=== PATIENT | male | born 1975 | race Caucasian/White ===

== ENCOUNTER 2023-03-18 19:49 | Emergency (ER) | payer OTHER, SELFPAY ==
[2023-03-18 19:52] VITALS: BP 133/79; PULSE 64; RESP 16; TEMP 36.9; O2SAT 97
--- NOTE | 2023-03-18 20:12 | CRLHL7_ITS ---
For Patients: As a result of the Century Cures Act, medical imaging exams and procedure reports are released immediately into your electronic medical record. You may view this report before your referring provider. If you have questions, please contact your health care provider. Indication: Injury of left ankle. Technique: Left ankle 3 views. Comparison: None. Findings: Bones: Alignment is normal. No fractures or bone lesions. Joint spaces: Unremarkable. Soft tissues: Unremarkable. Impression: No sign of acute injury. Dictated by Juan C Sandhu MD @ 03/18/2023 9:37:02 PM (Electronically Signed)
--- NOTE | 2023-03-18 20:14 | ED_ITS ---
HPI - Extremity Injury (Lower) General Chief Complaint: Extremity Pain/Injury, Lower Stated Complaint: Ankle rolled stepping out of truck Time Seen by Provider: 03/18/23 20:09 History of Present Illness HPI Narrative: This 47-year-old male comes in with an injury to his left ankle. He states that he was stepping out of his truck and he twisted his left ankle. He has some pain and swelling on the lateral aspect of his left ankle. He does not report any other injury. Related Data Home Medications Medication Instructions Recorded Confirmed atorvastatin 40 mg tablet 40 mg PO DAILY 03/18/23 03/18/23 citalopram 20 mg tablet 60 mg PO DAILY 03/18/23 03/18/23 fenofibrate nanocrystallized 48 mg 48 mg PO DAILY 03/18/23 03/18/23 tablet lisinopril 20 mg tablet 20 mg PO DAILY 03/18/23 03/18/23 metformin 500 mg tablet 500 mg PO BID 03/18/23 03/18/23 pioglitazone 30 mg tablet 30 mg PO DAILY 03/18/23 03/18/23 tamsulosin 0.4 mg capsule 0.4 mg PO DAILY 03/18/23 03/18/23 Allergies Allergy/AdvReac Type Severity Reaction Status Date / Time coconut Allergy Mild Anaphylaxis Verified 03/18/23 19:59 Review of Systems Status of ROS: Reports: 10 or more systems reviewed and unremarkable except as noted in History and below Narrative: Constitutional: No fevers, no weight gain or loss. Eyes: No discharge. No vision changes. HENT: No congestion, no sore throat, no ear pain. Cardiovascular: No chest pain, no palpitations. Respiratory: No shortness of breath, no wheezes, no cough. Gastrointestinal: No abdominal pain, no vomiting, no diarrhea. Genitourinary: No dysuria, no hematuria. Musculoskeletal: Left ankle injury with pain and swelling on the lateral aspect. Skin: No rashes, no pruritis. Neurological: No dizziness, weakness, sensory change, speech change. Endo/Heme/Allergies: No bruising or bleeding. No polydipsia. Pysch: no suicidality, no anxiety, no insomnia. All other systems reviewed and are negative. PFSH PFSH Social History Smoking Status: Never smoker Do you use any of these nicotine containing products: None Second hand tobacco smoke exposure: No How often do you have a drink containing alcohol: 2-4 times a month AUDIT-C Alcohol total score: 2 Non-prescribed substance use: denies use Exam Narrative: Exam Narrative: Constitutional: Well-developed, well-nourished, no acute distress. HEENT: Normocephalic, atraumatic. Neck: Normal range of motion. Nontender. Supple. Heart: Regular. No murmurs. Normal rate. Intact distal pulses. Lungs: Clear to auscultation. No chest discomfort. No wheezes, rhonchi, or rales. Abdomen: Normal bowel sounds. Nontender. No rebound tenderness. Genitalia: Deferred. Back: No midline tenderness. Normal range of motion. Extremities: Left ankle injury with no sign of effusion or ligament instability. There is some mild swelling over the lateral malleolus with tenderness overlying the anterior talofibular ligament. Skin: Intact. No rash. Warm. No erythema or pallor. Neurologic: No altered sensation. No weakness. Alert and oriented. Psychiatric: No suicidality. No anxiety or depression. No insomnia. Nursing notes and vitals signs are reviewed. Const: Vital Signs, click to edit/add: Vital Signs - 24 hr 03/18/23 19:52 Temperature 98.4 F Pulse Rate [Pulse Oximeter] 64 Respiratory Rate 16 Blood Pressure [Ri ght Upper Arm] 133/79 Pulse Oximetry 97 Oxygen Delivery Me thod Room Air Course Vital Signs Vital signs: Initial Vital Signs Temperature 98.4 F 03/18/23 19:52 Temperature Source Temporal Artery Scan 03/18/23 19:52 Pulse Rate 64 03/18/23 19:52 Respiratory Rate 16 03/18/23 19:52 Blood Pressure 133/79 03/18/23 19:52 Blood Pressure Mean 97 03/18/23 19:52 Blood Pressure Position Sitting 03/18/23 19:52 Pulse Oximetry 97 03/18/23 19:52 Oxygen Delivery Method Room Air 03/18/23 19:52 Vital Signs Temperature 98.4 F 03/18/23 19:52 Pulse Rate 64 03/18/23 19:52 Respiratory Rate 16 03/18/23 19:52 Blood Pressure 133/79 03/18/23 19:52 Pulse Oximetry 97 03/18/23 19:52 Oxygen Delivery Method Room Air 03/18/23 19:52 Temperature 98.4 F 03/18/23 19:52 Pulse Rate 64 03/18/23 19:52 Respiratory Rate 16 03/18/23 19:52 Blood Pressure 133/79 03/18/23 19:52 Pulse Oximetry 97 03/18/23 19:52 Oxygen Delivery Method Room Air 03/18/23 19:52 MDM - Extremity Injury (Lower) MDM Narrative Medical decision making narrative: This patient comes in with an injury to his left ankle. X-ray images by my review with radiology report pending show no evidence of fracture or dislocation. The patient received an [place] wrap and was offered crutches to increase ambulating as tolerated. He states that he has crutches at home that he can use as needed. He received a prescription for Toradol. Discharge Plan Discharge Clinical Impression: Ankle sprain and strain Patient Disposition: Home, Self-Care Additional Instructions: Use medication as needed and directed. Use crutches as needed for ambulating. Increase activity as tolerated. Follow up with MD return if worsening. Prescriptions: No Action atorvastatin 40 mg tablet 40 mg PO DAILY citalopram 20 mg tablet 60 mg PO DAILY fenofibrate nanocrystallized 48 mg tablet 48 mg PO DAILY metformin 500 mg tablet 500 mg PO BID lisinopril 20 mg tablet 20 mg PO DAILY tamsulosin 0.4 mg capsule 0.4 mg PO DAILY pioglitazone 30 mg tablet 30 mg PO DAILY Stand Alone Forms: [employer] Info Instructions
[2023-03-18] MEDS: KETOROLAC 10 MG TABLET PO (21:36)
--- NOTE | 2023-03-18 21:40 | ED.NURSE ---
[facility] machine not working. [facility] phoned. Pt received night dose of Tordal here in ER and MD writing rx script for pt to slat pickler at pharmacy tomorrow morning.
== END 2023-03-18 21:25 | disposition home or self-care (01) ==
LOC: ED 21:07
PROVIDERS: Emergency Provider Emergency Medicine Emergency Medical Services
DX: S93.402A Sprain of unspecified ligament of left ankle, initial encounter (principal); X50.1XXA Overexertion from prolonged static or awkward postures, initial encounter
CPT/HCPCS: 73610; 99283; 99284; A9270

== ENCOUNTER 2024-05-03 22:10 | Emergency (ER) | payer BC, SELFPAY ==
[2024-05-03 22:20] VITALS: BP 123/79; PULSE 82; RESP 16; TEMP 36.1; O2SAT 95; BMI 30.6
--- NOTE | 2024-05-03 22:40 | ED_ITS ---
HPI - General Adult General Chief complaint: Nausea/Vomiting Stated complaint: vomiting/diarrhea Time Seen by Provider: 05/03/24 22:35 History of Present Illness HPI narrative: 48-year-old gentleman accompanied to the ER this evening by his son. He has a past medical history of bipolar disorder, dyslipidemia, hypertension, BPH. He has been healthy and well lately. The patient and his family were out for dinner tonight at [employer]. He became sick shortly after dinner. He de veloped abdominal cramps, profound nausea with repetitive episodes of nonbilious, nonbloody emesis. He also developed multiple episodes of watery diarrhea. He is feeling weak and has leg cramps because he is feeling dehydrated. He is not having a fever. No known sick contacts. No other suspicious food intake. No recent antibiotics. No recent travel. His family are not sick. The patient did eat some food at [employer] that his family did not eat, namely, meat loaf and chicken and dumplings. Related Data Home Medications ?Medication ?Instructions ?Recorded ?Confirmed atorvastatin 40 mg tablet 40 mg PO DAILY 03/18/23 03/18/23 citalopram 20 mg tablet 60 mg PO DAILY 03/18/23 03/18/23 fenofibrate nanocrystallized 48 mg 48 mg PO DAILY 03/18/23 03/18/23 tablet lisinopril 20 mg tablet 20 mg PO DAILY 03/18/23 03/18/23 metformin 500 mg tablet 500 mg PO BID 03/18/23 03/18/23 pioglitazone 30 mg tablet 30 mg PO DAILY 03/18/23 03/18/23 tamsulosin 0.4 mg capsule 0.4 mg PO DAILY 03/18/23 03/18/23 Previous Rx's ?Medication ?Instructions ?Recorded ketorolac 10 mg tablet 10 mg PO Q8H 5 days #15 tabs 03/18/23 Allergies Allergy/AdvReac Type Severity Reaction Status Date / Time coconut Allergy Mild Anaphylaxis Verified 03/18/23 19:59 PFSH PFSH Social History Smoking Status: Never smoker Do you use any of these nicotine containing products: None Second hand tobacco smoke exposure: No How often do you have a drink containing alcohol: 2-4 times a month AUDIT-C Alcohol total score: 2 Non-prescribed substance use: denies use Exam Narrative: Exam Narrative: Constitutional: Appears well-developed and well-nourished. Alert. Conversant but uncomfortable. Non toxic. HENT: Head: Atraumatic. Nose: Nose normal. Mouth/Throat: Oral mucosa is clear and moist. Not desiccated or cracked. no trismus. Pharynx normal. Eyes: Conjunctivae normal. EOM normal. Pupils equal, round, and reactive to light. No scleral icterus. Neck: Normal range of motion. Neck supple. No tracheal deviation present. Cardiovascular: Normal rate, regular rhythm. No gallop. No friction rub. No murmur heard. Symmetric radial artery pulses Pulmonary/Chest: Effort normal. No stridor. No respiratory distress. No wheezes. No rales. No rhonchi . No tenderness. Abdominal: Soft. Bowel sounds normal. No distension. No mass. Epigastric tenderness. No rebound. No guarding. Musculoskeletal: RUE: Normal range of motion. No tenderness. No deformity LUE: Normal range of motion. No tenderness. No deformity RLE: Normal range of motion. No edema. No tenderness. No deformity LLE: Normal range of motion. No edema. No tenderness. No deformity Neurological: Alert and oriented to person, place, and time. Normal strength. CN II-VII intact. No sensory deficit. GCS eye subscore is 4. GCS verbal subscore is 5. GCS motor subscore is 6. Normal coordination Skin: Skin is warm and dry. No rash noted. No pallor. Normal capillary refill. Psychiatric: Normal mood. Normal affect. Const: Vital Signs, click to edit/add: Vital Signs - 24 hr 05/03/24 22:20 Temperature 97 F L Pulse Rate [Pulse Oximeter] 82 Respiratory Rate 16 Blood Pressure [Ri ght Upper Arm] 123/79 Pulse Oximetry 95 Oxygen Delivery Me thod Room Air Course Course ED Course: Recheck-has nausea is resolved after Zofran. Having a lot of abdominal cramps and leg cramps. Dilaudid ordered. Reevaluation(s) Reevaluation #1: Recheck-nausea still resolved. Still having some leg cramps but abdomen feeling better. Labs reassuring. Vital Signs Vital signs: Initial Vital Signs Temperature 97 F L 05/03/24 22:20 Temperature Source Temporal Artery Scan 05/03/24 22:20 Pulse Rate 82 05/03/24 22:20 Respiratory Rate 16 05/03/24 22:20 Blood Pressure 123/79 05/03/24 22:20 Blood Pressure Mean 93 05/03/24 22:20 Blood Pressure Position Supine 05/03/24 22:20 Pulse Oximetry 95 05/03/24 22:20 Oxygen Delivery Method Room Air 05/03/24 22:20 Vital Signs Temperature 97 F L 05/03/24 22:20 Pulse Rate 82 05/03/24 22:20 Respiratory Rate 16 05/03/24 22:20 Blood Pressure 123/79 05/03/24 22:20 Pulse Oximetry 95 05/03/24 22:20 Oxygen Delivery Method Room Air 05/03/24 22:20 Temperature 97 F L 05/03/24 22:20 Pulse Rate 82 05/03/24 22:20 Respiratory Rate 16 05/03/24 22:20 Blood Pressure 123/79 05/03/24 22:20 Pulse Oximetry 95 05/03/24 22:20 Oxygen Delivery Method Room Air 05/03/24 22:20 Medications Administered Medications: Generic Name Dose Route Start Last Admin Trade Name Freq PRN Reason Stop Dose Admin Hydromorphone HCl 0.5 mg 05/03/24 23:19 05/03/24 23:21 Hydromorphone 0.5 Mg/0.5 Ml Inj IVP 0.5 mg Q1H PRN Administration Pain Hydromorphone HCl 0.5 mg 05/04/24 00:29 05/04/24 00:33 Hydromorphone 0.5 Mg/0.5 Ml Inj IVP 0.5 mg Q1H PRN Administration Pain Loperamide HCl 4 mg 05/03/24 22:41 05/03/24 22:50 Loperamide Hcl 2 Mg Capsule PO 4 mg ONCE PRN Administration Oral Electrolytes 500 ml 05/03/24 23:44 05/03/24 23:46 Electrolytes/Dextrose Oral Lexis 1,000 Ml PO 500 ml Q8H PRN Administration Discontinued Medications Generic Name Dose Route Start Last Admin Trade Name Freq PRN Reason Stop Dose Admin Ondansetron HCl 4 mg 05/03/24 22:41 05/03/24 22:50 Ondansetron 2 Mg/Ml Inj IVP 05/03/24 22:42 4 mg ONCE ONE Administration Medical Decision Making [facility] Narrative Medical decision making narrative: This patient presents with vomiting and diarrhea that began about 3 hours prior to presentation. The patient's symptoms and exam could be consistent with a viral GI infection. There is no high fever, severe pain, bilious or bloody emesis, blood or mucous in the stool, severe abdominal pain, or other concerning signs for a bacterial infection. No recent travel or high risk exposure for baceraial pathogen. No recent antibiotics or risk factors for C. diff. I don't see any evidence for appendicitis, bowel obstruction, abscess, bowel perforation, or other surgical emergency. Labs show no concerning electrolyte disturbance or renal failure. After meds given the patient is feeling better. At this point, the patient is non-septic appearing and well hydrated. I think the patient can be managed as an outpatient. We have discussed oral rehydration strategies. They understand and can perform the needed interventions at home. I have provided a prescription for antiemetics to facilitate oral hydration (Zofran ODT). Instmeds for norco for leg and abdominal cramps. We have discussed the signs and symptoms of worsening dehydration. They understand the need for immediate reevaluation if any of these symptoms occur. They are also directed to obtain close outpatient follow up within 2-3 days. Lab Data Labs: Lab Results 05/03/24 Range/Units 22:56 WBC 12.15 H (4.50-11.00) K/uL RBC 5.57 (4.30-5.90) m/uL Hgb 15.0 (13.5-17.5) gm/dL Hct 46.5 (37.0-53.0) % MCV 84 (80-100) fL MCH 27 (26-34) pg MCHC 32 (32-36) gm/dL RDW Coeff of Joel 13.1 (11.5-15.5) % Plt Count 234 (140-440) K/uL Neut % (Auto) 78.0 H (42.0-72.0) % Lymph % (Auto) 11.0 L (20-44) % [place] % (Auto) 9.1 (0.0-11.0) % Eos % (Auto) 1.0 (0.0-7.0) % Baso % (Auto) 0.2 (0.0-3.0) % Neut # (Auto) 9.50 H (1.7-7.0) K/uL Lymph # (Auto) 1.30 (0.90-2.90) K/uL [place] # (Auto) 1.10 H (0.00-0.90) K/UL Eos # (Auto) 0.10 (0.00-0.50) K/uL Baso # (Auto) 0.00 (0.00-0.30) K/uL Abs Immat Gran (auto) 0.10 (0.00-0.30) K/uL Imm/Tot Granulo (auto) 0.7 % Sodium 138 (135-149) mmol/L Potassium 4.3 (3.6-5.1) mmol/L Chloride 103 (96-114) mmol/L Carbon Dioxide 21 (20-32) mmol/L Anion Gap 14 (7-15) mEq/L BUN 39 H (5-24) mg/dL Creatinine 1.4 (0.5-1.5) mg/dL Estimated Creat Clear 76.28 Estimated GFR 62 ml/min Glucose 186 H (60-115) mg/dL Lactate 1.3 (0.5-1.9) mmol/L Calcium 10.1 (8.4-10.6) mg/dL Total Bilirubin 0.6 (0.1-1.5) mg/dL AST 24 (12-35) U/L ALT 44 (4-50) U/L Alkaline Phosphatase 44 (40-150) U/L Total Protein 7.6 (6.0-8.3) g/dL Albumin 5.3 H (3.3-5.0) g/dL Lipase 137 (23-300) U/L Discharge Plan Discharge Clinical Impression: Abdominal pain, vomiting, and diarrhea, Acute dehydration Patient Disposition: Home, Self-Care Condition: Stable Instructions: Acute Nausea and Vomiting (ED), Acute Diarrhea (ED), Acute Abdominal Pain (DC) Additional Instructions: As we discussed, so far your workup looks reassuring. We suspect that your symptoms are probably due to a food-borne illness. Typically these illnesses will get better on their own after over a period of time (typically 12-48 hours). Try to drink plenty of fluids and stay hydrated. Use Zofran if needed for nausea. You can use Tylenol or ibuprofen or the prescription the [place] if needed for abdominal cramps and pain. Use caution with [place] because it is an opiate. He can cause dizziness, drowsiness, constipation, and can be addictive. However, please monitor your symptoms carefully and come back to the ER right away if you get worse, especially if you have high fever, bloody or mucousy stool, or severe abdominal pain. If you are not completely improved within 48 hours, please recheck with your doctor or come back to the ER. Prescriptions: No Action atorvastatin 40 mg tablet 40 mg PO DAILY citalopram 20 mg tablet 60 mg PO DAILY fenofibrate nanocrystallized 48 mg tablet 48 mg PO DAILY metformin 500 mg tablet 500 mg PO BID lisinopril 20 mg tablet 20 mg PO DAILY tamsulosin 0.4 mg capsule 0.4 mg PO DAILY pioglitazone 30 mg tablet 30 mg PO DAILY ketorolac 10 mg tablet 10 mg PO Q8H 5 Days Qty: 15 0RF Follow Up/Referrals: Provider,Not a Local [Primary Care Provider] - Stand Alone Forms: [employer] Info Instructions
[2024-05-03] MEDS: ONDANSETRON 2 MG/ML inj 4 MG IVP (22:50)
[2024-05-03] MEDS: LOPERAMIDE HCL 2 MG CAPSULE 4 MG PO (22:50)
[2024-05-03 23:01] LABS: Lactate* 1.3 mmol/L (0.5-1.9)
[2024-05-03 23:04] LABS: Basophils Percent Auto 0.2 % (0.0-3.0); Hematocrit 46.5 % (37.0-53.0); Immature Granulocytes Pct Auto 0.7 %; Mean Corpuscular HGB Conc 32 gm/dL (32-36); Mean Corpuscular Hemoglobin 27 pg (26-34); Mean Corpuscular Volume 84 fL (80-100); Monocytes Percent Auto 9.1 % (0.0-11.0); Platelet Count* 234 K/uL (140-440); RDW Coefficient of Variation % 13.1 % (11.5-15.5); Red Blood Count 5.57 m/uL (4.30-5.90); White Blood Count* 12.15 K/uL (4.50-11.00)
[2024-05-03 23:06] LABS: Slide Review Reflex No
--- OUTSIDE RECORDS SUMMARY | 2024-05-03 23:17 | XMS_ITS | Encounter Summary ---
Author Organization [facility] Address [address] [place] [id number] Care Team Providers Care Manager Group Home Name Role Phone No Ref-Primary, Physician Primary Care Provider Aniya Gregorio MD Unavailable Reason for Visit * Reason Onset Date Comments Refill Request 05/03/2024 Encounter Details Date Type Department Care Team (Late st Contact Info) Description 05/03/2024 MyC Refill [address] [place] [address] Aniya Gregorio MD [address] [place] [address] Refill Request Social History Tobacco Use Types Packs/Day Years Used Date Smoking Tobacco: Former Cigarettes Q uit: 08/11/2003 Smokeless Tobacco: Never Comments:1 pack every 3-4 da ys Alcohol Use Standard Drinks/Week Comments Yes 0 (1 standard drink = 0.6 oz pur e alcohol) weekends PHQ-2 Answer Date Recorded PHQ-2 Score 1 04/03/2023 Adolescent Education Answer Date Record ed Getting School Help Needed Not on file 04/02 Food Insecurity Answer Date Recorded Within the past 12 months, d id you worry that your food would run out before you got money to buy more? No 04/03/2023 Within the past 12 months, d id the food you bought just not last and you didn? t have money to get more? No 04/03/2023 Housing Stability Answer Date Recorded Do you have housing? (Housin g is defined as stable permanent housing and does not include staying ouside in a car, in a tent, in an abandoned building, in an overnight half-way, or couch-surfing.) Yes 04/03/2023 Are you worried about losing your housing? No 04/03/2023 Financial Resource Strain Answer Date R ecorded Within the past 12 months, h ave you or your family members you live with been unable to get utilities (heat, electricity) when it was really needed? No 04/03/2023 Transportation Needs Answer Date Record ed Within the past 12 months, h as lack of transportation kept you from medical appointments, getting your medicines, non-medical meetings or appointments, work, or from getting things that you need? No 04/03/2023 Interpersonal Safety Answer Date Record ed Do you feel physically and e motionally safe where you currently live? Yes 04/03/2023 Within the past 12 months, h ave you been hit, slapped, kicked or otherwise physically hurt by someone? No 04/03/2023 Within the past 12 months, h ave you been humiliated or emotionally abused in other ways by your partner or ex-partner? 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 Gender Identity Not on file Sexual Orientation Not on file Occupation Industry Job Start Date Job End Date 2 Not on file Not on file Not on file documented as of this encounter Plan of Treatment Upcoming Encounters Date Type Department Care Team (Late st Contact Info) Description 05/20/2024 4:00 PM LEAD RETAIL SALES ASSOCIATE Office Visit [facility] [address] [place] [id number] Jarad Dickinson MD [address] [place] [address] documented as of this encounter Visit Diagnoses Diagnosis Moderate episode of recurrent major depressive disorder (H) Generalized anxiety disorder documented in this encounter Additional Health Concerns Assessment Noted Time PHQ-9 Depression Total Score: 3 04/03/20 23 4:00 PM CDT documented as of this encounter Care Teams Manager Group Home Relationship Specialty Start Date End Date No Ref-Primary, Physician PCP - General 04/01/23 Aniya Gergorio MD [address] [place] [address] Assigned PCP 04/06/23 documented as of this encounter
--- OUTSIDE RECORDS SUMMARY | 2024-05-03 23:17 | XMS_ITS | Encounter Summary ---
Author Organization [facility] Address [address] [place] [id number] Care Team Providers Care Calender Wind Up Helper Name Role Phone Thalia Helton APRN, CNP Primary Care Provi lizett Unavailable Thalia Helton APRN, CNP Unavailable Un available Luis Ordoñez DPM Unavailable [phone] Jack Jordan MD Unavailable [phone] No Ref-Primary, Physician Primary Care Provider Aniya Gregorio MD Unavailable Reason for Visit * Reason Comments Medication Refill Encounter Details Date Type Department Care Team (Late st Contact Info) Description 09/29/[address] [place] [id number] Thalia Helton APRN CNP Medication Refill Social History Tobacco Use Types Packs/Day Years Used Date Smoking Tobacco: Former Cigarettes Q uit: 08/11/2003 Smokeless Tobacco: Never Comments:1 pack every 3-4 da ys Alcohol Use Standard Drinks/Week Comments Yes 0 (1 standard drink = 0.6 oz pur e alcohol) weekends PHQ-2 Answer Date Recorded PHQ-2 Score 0 09/18/2021 Sex and Gender Information Value Date Recorded Sex Assigned at Not on file 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 No / Unsure 10/02/2021 9:10 PM CDT documented as of this encounter Miscellaneous Notes * Telephone Encounter - Nano Mora RN - 10/02/2021 1:32 PM CDT Routing refill request to provider for review/approval because: Pt was just seen 2 weeks ago for DM please review dosing Nano Mora RN documented in this encounter Plan of Treatment Upcoming Encounters Date Type Department Care Team (Late st Contact Info) Description 05/20/2024 4:00 PM JEWELRY MOLD MAKER Office Visit [facility] [address] [facility] [address] [place] [address] Jarad Dickinson MD [address] [place] [address] documented as of this encounter Visit Diagnoses Diagnosis Diabetes mellitus without complication (H) Type II or unspecified type diabetes mellitus without mention of complication, not stated as uncontrolled documented in this encounter Additional Health Concerns Assessment Noted Time PHQ-9 Depression Total Score: 0 03/28/20 9:31 AM CDT documented as of this encounter Care Teams Calender Wind Up Helper Relationship Specialty Start Date End Date Thalia Helton APRN EQUIPMENT SCHEDULER PCP - General Internal Medicine 08/12/12 03/01/23 No Ref-Primary, Physician PCP - General 04/01/23 Thalia Helton APRN EQUIPMENT SCHEDULER Assigned PCP 04/10/12 09/07/22 Luis Ordoñez DPM [id number] [facility] [address] [place] [address] Assigned Musculoskeletal Provider 04/29/20 10/26/22 Jack Jordan MD [address] [place], [place] [id number] Assigned Neuroscience Provider 05/21/21 11/09/22 Aniya Gregorio MD [address] [place] [address] Assigned PCP 04/06/23 documented as of this encounter
--- OUTSIDE RECORDS SUMMARY | 2024-05-03 23:17 | XMS_ITS | Encounter Summary ---
Author Organization [facility] Address [address] [place] [address] Care Team Providers Care Can Closing Machine Tender Name Role Phone Thalia Helton APRN, CNP Primary Care Provi lizett Unavailable Thalia Helton APRN, CNP Unavailable Un available Luis Ordoñez DPM Unavailable [phone] Arthur Veliz MD Unavailable Jack Jordan MD Unavailable [phone] No Ref-Primary, Physician Primary Care Provider Aniya Gregorio MD Unavailable Reason for Visit * Reason Comments Medication Refill Encounter Details Date Type Department Care Team (Late st Contact Info) Description 10/29/[address] [place] [phone] Thalia Helton APRN CNP Medication Refill Social History Tobacco Use Types Packs/Day Years Used Date Smoking Tobacco: Former Cigarettes Q uit: 08/11/2003 Smokeless Tobacco: Never Comments:1 pack every 3-4 da ys Alcohol Use Standard Drinks/Week Comments Yes 0 (1 standard drink = 0.6 oz pur e alcohol) weekends PHQ-2 Answer Date Recorded PHQ-2 Score 0 07/15/2018 Sex and Gender Information Value Date Recorded Sex Assigned at Not on file Legal Sex Male 3:45 AM AUTOMATION AND CONTROLS INSTRUCTOR Gender Identity Not on file Sexual Orientation Not on file Occupation Industry Job Start Date Job End Date 2 Not on file Not on file Not on file documented as of this encounter Miscellaneous Notes * Telephone Encounter - Denice Forman [facility] - 10/29/2019 2:42 PM CDT Prescription approved [place] [facility] [place] Protocol. Denice Forman , Pharm D [phone] (phone) [phone] (pager) Medication Therapy Management Pharmacist documented in this encounter Plan of Treatment Upcoming Encounters Date Type Department Care Team (Late st Contact Info) Description 05/20/2024 4:00 PM AUTOMATION AND CONTROLS INSTRUCTOR Office Visit [facility] [address] [place] [address] Jarad Dickinson MD [address] [place], [place] [id number] documented as of this encounter Visit Diagnoses Diagnosis Diabetes mellitus without complication (H) Type II or unspecified type diabetes mellitus without mention of complication, not stated as uncontrolled documented in this encounter Additional Health Concerns Assessment Noted Time PHQ-9 Depression Total Score: 10 019 4:30 PM AUTOMATION AND CONTROLS INSTRUCTOR documented as of this encounter Care Teams Can Closing Machine Tender Relationship Specialty Start Date End Date Thalia Helton APRN PRECISION STRUCTURAL METAL FITTER PCP - General Internal Medicine 08/12/12 03/01/23 No Ref-Primary, Physician PCP - General 04/01/23 Thalia Helton APRN PRECISION STRUCTURAL METAL FITTER Assigned PCP 04/10/12 09/07/22 Luis Ordoñez DPM [id number] [facility] [address] [place], [place] [phone] Assigned Musculoskeletal Provider 04/29/20 10/26/22 Arthur Veliz MD [address] [place] [address] Assigned Neuroscience Provider 04/16/21 05/20/21 Jack Jordan MD [address] [place] [address] Assigned Neuroscience Provider 05/21/21 11/09/22 Aniya Gregorio MD [address] [place] [address] Assigned PCP 04/06/23 documented as of this encounter
--- OUTSIDE RECORDS SUMMARY | 2024-05-03 23:17 | XMS_ITS | Encounter Summary ---
Author Organization [facility] Address [address] [place] [address] Care Team Providers Care Chemical Process Operator Name Role Phone Thalia Helton APRN SENIOR CYTOGENETICS LABORATORY DIRECTOR Primary Care Provi lizett Unavailable Thalia Helton APRN SENIOR CYTOGENETICS LABORATORY DIRECTOR Unavailable Un available Luis Ordoñez DPM Unavailable [phone] Arthur Veliz MD Unavailable Jack Jordan MD Unavailable [phone] No Ref-Primary, Physician Primary Care Provider Aniya Gregorio MD Unavailable Encounter Details Date Type Department Care Team (Late st Contact Info) Description 05/05/2021 [facility] Medical Advice [facility] [address] [id number] Arthur Veliz MD [address] [facility] [place] [place] [address] Social History Tobacco Use Types Packs/Day Years Used Date Smoking Tobacco: Former Cigarettes Q uit: 08/11/2003 Smokeless Tobacco: Never Comments:1 pack every 3-4 da ys Alcohol Use Standard Drinks/Week Comments Yes 0 (1 standard drink = 0.6 oz pur e alcohol) weekends PHQ-2 Answer Date Recorded PHQ-2 Score 0 02/16/2021 Sex and Gender Information Value Date Recorded Sex Assigned at Not on file Legal Sex Male 3:45 AM BULB BRANDER Gender Identity Not on file Sexual Orientation Not on file Occupation Industry Job Start Date Job End Date 2 Not on file Not on file Not on file COVID-19 Exposure Response Date Recorded In the last month, have you been in contact with someone who was confirmed or suspected to have Coronavirus / COVID-19? No / Unsure 04/24/2021 8:09 AM CDT documented as of this encounter Plan of Treatment Upcoming Encounters Date Type Department Care Team (Late st Contact Info) Description 05/20/2024 4:00 PM BULB BRANDER Office Visit [facility] [address] [facility] [address] [place] [phone] Jarad Dickinson MD [address] [place], [place] [phone] documented as of this encounter Visit Diagnoses Not on filedocumented in this encounter Additional Health Concerns Assessment Noted Time PHQ-9 Depression Total Score: 0 03/28/20 9:31 AM CDT documented as of this encounter Care Teams Chemical Process Operator Relationship Specialty Start Date End Date Thalia Helton APRN SENIOR CYTOGENETICS LABORATORY DIRECTOR PCP - General Internal Medicine 08/12/12 03/01/23 No Ref-Primary, Physician PCP - General 04/01/23 Thalia Helton APRN SENIOR CYTOGENETICS LABORATORY DIRECTOR Assigned PCP 04/10/12 09/07/22 Luis Ordoñez DPM [phone] [facility] [address] [place], [place] [address] Assigned Musculoskeletal Provider 04/29/20 10/26/22 Arthur Veliz MD [address] [address] Assigned Neuroscience Provider 04/16/21 05/20/21 Jack Jordan MD [address] [place] [address] Assigned Neuroscience Provider 05/21/21 11/09/22 Aniya Gregorio MD [address] [place] [address] Assigned PCP 04/06/23 documented as of this encounter
--- OUTSIDE RECORDS SUMMARY | 2024-05-03 23:17 | XMS_ITS | Encounter Summary ---
Author Organization [facility] Address [address] [place] [address] Care Team Providers Care Attorney General Name Role Phone Thalia Helton APRN FORENSIC SPECIALIST Primary Care Provi lizett Unavailable Thalia Helton APRN FORENSIC SPECIALIST Unavailable Un available Luis Ordoñez DPM Unavailable [phone] Arthur Veliz MD Unavailable Jack Jordan MD Unavailable [phone] No Ref-Primary, Physician Primary Care Provider Aniya Gregorio MD Unavailable Reason for Visit * Reason Onset Date Comments Patient Request for Note/Letter 05/15/2019 Encounter Details Date Type Department Care Team (Late st Contact Info) Description 05/15/2019 Telephone [facility] [id number] [place] [phone] Luis Ordoñez DPM [address] [facility] [address] [place] [address] Patient Request for Note/Letter Social History Tobacco Use Types Packs/Day Years [...] on file Legal Sex Male 3:45 AM MATERNITY NURSE Gender Identity Not on file Sexual Orientation Not on file Occupation Industry Job Start Date Job End Date 2 Not on file Not on file Not on file documented as of this encounter Miscellaneous Notes * Telephone Encounter - Luis Ordoñez DPM - 05/18/2019 10:41 AM MATERNITY NURSE I called and spoke with Sony about letter details. The letter was printed off and we'll leave at [facility] front end alignment specialist. Luis Ordoñez DPM FACFAS FACFAOM Podiatric Foot & Ankle Surgeon [facility] [phone] RNITY NURSE * Telephone Encounter - Tevin Alberto - 05/18/2019 8:14 AM CST Routing to Dr Ordoñez to advise. Tevin Alberto on 05/18/2019 at 8:14 AM RNITY NURSE * Telephone Encounter - Mesfin Griggs - 05/15/2019 4:19 PM CST Patient is requesting a leave of absence 05/27 - 09/20 For achellies surgery he is having. Would like to pick this letter up in [place] onTday when Tiago is there. Call when letter available for pickup. RNITY NURSE documented in this encounter Plan of Treatment Upcoming Encounters Date Type Department Care Team (Late st Contact Info) Description 05/20/2024 4:00 PM MATERNITY NURSE Office Visit [facility] [address] [place] [address] Jarad Dickinson MD [address] [place] [address] documented as of this encounter Visit Diagnoses Not on filedocumented in this encounter Additional Health Concerns Assessment Noted Time PHQ-9 Depression Total Score: 10 019 4:30 PM MATERNITY NURSE documented as of this encounter Care Teams Attorney General Relationship Specialty Start Date End Date Thalia Helton APRN FORENSIC SPECIALIST PCP - General Internal Medicine 08/12/12 03/01/23 No Ref-Primary, Physician PCP - General 04/01/23 Thalia Helton APRN FORENSIC SPECIALIST Assigned PCP 04/10/12 09/07/22 Luis Ordoñez DPM [address] [facility] [address] [place] [address] Assigned Musculoskeletal Provider 04/29/20 10/26/22 Arthur Veliz MD [address] [place] [address] Assigned Neuroscience Provider 04/16/21 05/20/21 Jack Jordan MD [address] [place], [place] [address] Assigned Neuroscience Provider 05/21/21 11/09/22 Aniya Gregorio MD [address] [place] [address] Assigned PCP 04/06/23 documented as of this encounter
--- OUTSIDE RECORDS SUMMARY | 2024-05-03 23:17 | XMS_ITS | Encounter Summary ---
Author Organization [facility] Address [address] [place] [address] Care Team Providers Care Sugar Mill Worker Name Role Phone Thalia Helton APRN, CNP Primary Care Provi lizett Unavailable Thalia Helton APRN FIRE EQUIPMENT INSPECTOR HELPER Unavailable Un available Thalia Helton APRN, CNP Unavailable Un available Luis Ordoñez DPM Unavailable [phone] Arthur Veliz MD Unavailable Jack Jordan MD Unavailable [phone] No Ref-Primary, Physician Primary Care Provider Aniya Gergorio MD Unavailable Reason for Visit * Reason Comments Medication Refill citalopram (CELEXA), atorvastatin (LIPITOR) Encounter Details Date Type Department Care Team (Late st Contact Info) Description 09/06/[address] [place] [phone] Thalia Helton APRN CNP Medication Refill (citalopram (CELEXA), atorvastatin (LIPITOR) ) Social History Tobacco Use Types Packs/Day Years [...] on file Legal Sex Male 3:45 AM GRAPHICS INTERN Gender Identity Not on file Sexual Orientation Not on file Occupation Industry Job Start Date Job End Date 2 Not on file Not on file Not on file documented as of this encounter Miscellaneous Notes * Telephone Encounter - Elmira Perez RN - 09/09/2018 9:32 PM CST Medication is being filled for 1 time refill only due to: Patient needs labs FASTING. Please call to schedule lab appt. HICS INTERN * Telephone Encounter - Yari Syed - 09/08/2018 11:19 AM CST Requested Prescriptions Pending Prescriptions Disp Refills ??? citalopram (CELEXA) 20 MG tablet [Pharmacy Med Name: CITALOPRAM HBR 20 MG TABLET] 270 tablet 0 Last Written Prescription Date: 06/05/2018 Last Fill Quantity: 270, # refills: 0 Last office visit: 08/19/2018 with prescribing provider: Future Office Visit: Sig: TAKE 3 TABLETS BY MOUTH EVERY DAY SSRIs Protocol Failed - 09/06/2018 10:03 AM Failed - PHQ-9 score less than 5 in past 6 months Please review last PHQ-9 score. Passed - Medication is active on med list Passed - Patient is age 18 or older Passed - Recent (6 mo) or future (30 days) visit within the authorizing provider's specialty Patient had office visit in the last 6 months or has a visit in the next 30 days with authorizing provider or within the authorizing provider's specialty. See Patient Info tab in inbasket, or Choose Columns in Meds & Orders section of the refill encounter. ??? atorvastatin (LIPITOR) 20 MG tablet [Pharmacy Med Name: ATORVASTATIN 20 MG TABLET] 180 tablet 0 Last Written Prescription Date: 06/12/2018 Last Fill Quantity: 180, # refills: 0 Last office visit: 08/19/2018 with prescribing provider: Future Office Visit: Sig: TAKE 2 TABLETS BY MOUTH ONCE DAILY Statins Protocol Failed - 09/06/2018 10:03 AM Failed - LDL on file in past 12 months Recent Labs Lab Test 08/07/17 1312 LDL 88 Passed - No abnormal creatine kinase in past 12 months No lab results found. Passed - Recent (12 mo) or future (30 days) visit within the authorizing provider's specialty Patient had office visit in the last 12 months or has a visit in the next 30 days with authorizing provider or within the authorizing provider's specialty. See Patient Info tab in inbasket, or Choose Columns in Meds & Orders section of the refill encounter. Passed - Medication is active on med list Passed - Patient is age 18 or older HICS INTERN documented in this encounter Plan of Treatment Upcoming Encounters Date Type Department Care Team (Late st Contact Info) Description 05/20/2024 4:00 PM GRAPHICS INTERN Office Visit [facility] [address] [facility] [address] [place] [phone] Jarad Dickinson MD [address] [place] [address] documented as of this encounter Visit Diagnoses Diagnosis Adjustment disorder with depressed mood Hyperlipidemia with target LDL less than 100 Other and unspecified hyperlipidemia documented in this encounter Additional Health Concerns Assessment Noted Time PHQ-9 Depression Total Score: 10 019 4:30 PM GRAPHICS INTERN documented as of this encounter Care Teams Sugar Mill Worker Relationship Specialty Start Date End Date Thalia Helton APRN CNP PCP - General Internal Medicine 08/12/12 03/01/23 Thalia Helton APRN FIRE EQUIPMENT INSPECTOR HELPER PCP - Assigned PCP 01/06/12 09/09/18 No Ref-Primary, Physician PCP - General 04/01/23 Thalia Helton APRN CNP Assigned PCP 04/10/12 09/07/22 Luis Ordoñez DPM [address] [facility] [address] [place] [address] Assigned Musculoskeletal Provider 04/29/20 10/26/22 Arthur Veliz MD [address] [place] [address] Assigned Neuroscience Provider 04/16/21 05/20/21 Jack Jordan MD [address] [place], [place] [address] Assigned Neuroscience Provider 05/21/21 11/09/22 Aniya Gregorio MD [address] [place], [place] [address] Assigned PCP 04/06/23 documented as of this encounter
--- OUTSIDE RECORDS SUMMARY | 2024-05-03 23:17 | XMS_ITS | Clinical Summary ---
Author Organization [facility] Address [address] [place] [address] Care Team Providers Care Center Maker Hand Name Role Phone No Ref-Primary, Physician Primary Care Provider Aniya Gregorio MD Unavailable Allergies Active Allergy Reactions Criticality Noted Date Comments Coconut (Cocos Nucifera) 10/23/2005 Anything with coconut, throat swells and can't breath Oxycodone Itching 10/30/2012 Medications Omeprazole Magnesium (PRILOSEC OTC PO) Take 20 mg by mouth daily Active Blood Glucose Monitoring Suppl (ONE TOUCH ULTRA 2) W/DEVICE KITIndications:T ype 2 diabetes, HbA1C goal < 8% (H) Use to test blood sugars 1 times daily or as directed. 1 kit 0 4 Active blood glucose monitoring (LuxoftTOUCH ULTRA) test stripIndications :Diabetes mellitus without complication (H) Use to test blood sugars 3 times daily or as directed. 300 strip 1 8 Active blood glucose monitoring (LuxoftTOUCH VERIO IQ) test stripIndications :Diabetes mellitus without complication (H) Use to test blood sugar 3 times daily or as directed. Ok to substitute alternative if insurance prefers. 100 strip 3 8 Active cyclobenzaprine (FLEXERIL) 10 MG tablet Take 0.5-1 tablets (5-10 mg) by mouth 3 times daily as needed for muscle spasms 20 tablet 2 Active metFORMIN (GLUCOPHAGE) 500 MG tabletIndication s:Diabetes mellitus without complication (H) TAKE 1 TABLET BY MOUTH TWICE A DAY WITH MEALS 180 tablet 3 2 Active pioglitazone (ACTOS) 30 MG tabletIndication s:Type 2 diabetes mellitus with peripheral neuropathy (H) TAKE 1 TABLET BY MOUTH EVERY DAY 90 tablet 4 Active lisinopril (ZESTRIL) 20 MG tabletIndication s:Essential hypertension with goal blood pressure less than 140/90 TAKE 1 TABLET BY MOUTH EVERY DAY 90 tablet 1 4 Active fenofibrate (TRICOR) 48 MG tabletIndication s:Hyperlipidemia with target LDL less than 100 TAKE 1 TABLET BY MOUTH EVERY DAY 90 tablet 1 4 Active tamsulosin (FLOMAX) 0.4 MG capsuleIndicatio ns:Urinary hesitancy TAKE 1 CAPSULE BY MOUTH EVERY DAY 90 capsule 4 Active atorvastatin (LIPITOR) 40 MG tabletIndication s:Hyperlipidemia with target LDL less than 100 TAKE 1 TABLET BY MOUTH EVERY DAY 90 tablet 4 Active citalopram (CELEXA) 20 MG tabletIndication s:Moderate episode of recurrent major depressive disorder (H),Generalized anxiety disorder TAKE 3 TABLETS BY MOUTH EVERY DAY 270 tablet 4 Active Hospital, Clinic, or Other Facility Administered Medication Ordered Dose Route Frequency Start Date End Date Status triamcinolone (KENALOG-40) injection 40 mgIndications:Plantar fasciitis 40 mg IM ONCE 05/31/2020 Active triamcinolone (KENALOG-40) injection 40 mgIndications:Plantar fasciitis 40 mg IM ONCE 10/20/2020 Active triamcinolone (KENALOG-40) injection 40 mgIndications:Neuritis of left heel,Plantar fasciitis 40 mg 04/24/2021 Active lidocaine 1 % injection 0.5 mLIndications:Neuritis of left heel,Plantar fasciitis .5 mL 04/24/2021 Active Active Problems Problem Noted Date Diagnosed Date Type 2 diabetes mellitus with peripheral neuropa thy 04/03/2023 Tendonitis, Achilles, left 04/21/2019 Overview (04/21/2019): Added automatically from request for surgery [id number] Right knee pain, unspecified chronicity 08/13/19 17 Moderate episode of recurrent major depressive d isorder 08/08/2015 Diabetes mellitus without complication 5 Morbid obesity 03/23/2015 Hyperlipidemia with target LDL less than 100 Gastroenteritis 10/07/2012 Generalized anxiety disorder 01/14/2012 Overview (05/09/2015): Diagnosis updated by automated process. Provider to review and confirm. GERD (gastroesophageal reflux disease) 8 Essential hypertension 07/20/2003 Overview (04/07/2015): Problem list name updated by automated process. Provider to review Bipolar I disorder Back pain of lumbar region with sciatica Resolved Problems Problem Noted Date Diagnosed Date Resolved Date Rupture of left Achilles tendon 06/16/2019 08/13/2019 Aftercare following surgery of the musculoskeletal system 06/16/2019 08/13/2019 Achilles tendinitis of left lower extremity 03/05/2019 06/05/2019 Acute bilateral low back jeffy n without sciatica 07/23/2018 07/25/2018 Bilateral knee pain 08/20/2016 01/25/20 17 Chronic pain of right knee 08/13/2016 0 08/13/2016 Left foot pain 01/13/2014 02/22/2014 Tibialis tendinitis 10/03/2011 12/05/19 12 CARDIOVASCULAR SCREENING; LD L GOAL LESS THAN 100 05/07/2010 03/23/2015 Encounters Date Type Department Care Team Description 05/03/2024 MyC Refill [facility] [address] [facility] [address] [place] [phone] Aniya Gregorio MD Refill Request 03/04/2024 Telephone [facility] [address] [facility] [address] [place] [phone] Aniya Gregorio MD Medication Refill from Last 3 Months Immunizations Name Administration Dates Next Due COVID-19 MONOVALENT 12+ (Pfizer) 07/07/2021,11/06,11/04/2020 Mantoux Tuberculin Skin Test 08/12/2009 TDAP Vaccine (Adacel) 02/27/2019,04/13/2008 Family History Medical History Relation Comments Colon Cancer Maternal Grandfather C.A.D. Mother Diabetes Mother Heart Disease Mother Relation Status Comments Father Maternal Grandfather Mother Alive Social History Tobacco Use Types Packs/Day Years Used Date Smoking Tobacco: Former Cigarettes Q uit: 08/11/2003 Smokeless Tobacco: Never Tobacco Cessation:Counseling Given: Not Answered Comments:1 pack every 3-4 days Alcohol Use Standard Drinks/Week Comments Yes 0 [...] Answer Date Recorded Do you have housing? (Fabian de dios is defined as stable permanent housing and does not include staying ouside in a car, in a tent, in an abandoned building, in an overnight usp, or couch-surfing.) Yes 04/03/2023 Are you worried [...] on file Legal Sex Male 3:45 AM EDGE BURNISHER Gender Identity Not on file Sexual Orientation Not on file Occupation Industry Job Start Date Job End Date 2 Not on file Not on file Not on file Last Filed Vital Signs Vital Sign Reading Time Taken Comments Blood Pressure 120/65 04/03/2023 4:19 PM CDT Pulse 87 04/03/2023 4:19 PM CDT Temperature 36.8 ??C (98.3 ??F) 04/03/2023 4:19 PM CD T Respiratory Rate 14 04/03/2023 4:19 PM CDT Oxygen Saturation 95% 04/03/2023 4:19 PM CDT Inhaled Oxygen Concentration - - Weight 109.4 kg (241 lb 3.2 oz) 04/03/2023 4:19 PM CDT Height 190.5 cm (6' 3) 04/03/2023 4:19 PM CDT Body Mass Index 30.15 04/03/2023 4:19 PM CDT Plan of Treatment Upcoming Encounters Date Type Department Care Team (Late st Contact Info) Description 05/20/2024 4:00 PM EDGE BURNISHER Office Visit [facility] [address] [facility] [facility] [address] [place] [address] Jarad Dickinson MD [address] [place], [place] [phone] Health Maintenance Due Date Last Done Comments ADVANCE CARE PLANNING 1975 [address] COLONOGRAPHY 1975 FIT 1975 FLEX SIG 1975 sDNA (Cologuard) 1975 Pneumococcal Vaccine: Pediatrics (0 to 5 Years) and At-Risk Patients (6 to 64 Years) (1 of 2 - PCV) 1980 HEPATITIS B IMMUNIZATION (1 of 3 - 19+ 3-dose series) 1993 YEARLY PREVENTIVE VISIT 09/09/2011 09/08/2010, 04/13 MICROALBUMIN 05/17/2023 05/17/2022, 02/06, 09/13/2017, Additional history exists ANNUAL REVIEW OF HM ORDERS 08/22/2023 08/22/2022, BMP 08/22/2023 08/22/2022, 05/08, 03/01/2022, Additional history exists DIABETIC FOOT EXAM 08/22/2023 08/22/2022, 1 07/17/2021, 03/01/2022, Additional history exists LIPID 08/22/2023 08/22/2022, 05/08, 03/01/2022, Additional history exists EYE EXAM 09/01/2023 09/01/2022, 04/08, 09/18/2018, Additional history exists A1C 10/02/2023 04/03/2023, 08/08, 05/17/2022, Additional history exists COVID-19 Vaccine ( season) 2024 07/07/2021, 11/25/2020, 11/04/2020 INFLUENZA VACCINE (#1) 2024 07/15/2019 (Declin ed) ZOSTER IMMUNIZATION (2 of 2) 2024 07/15/2018 (Declined) DTAP/TDAP/TD IMMUNIZATION (3 - Td or Tdap) 02/27/2029 02/27/2019, 04/13/2008 COLONOSCOPY 11/09/2030 11/09/2020, 0511/2020, 03/05/2012 COLORECTAL CANCER SCREENING 11/09/2030 RSV VACCINE (1 - 1-dose 75+ series) 2049 HEPATITIS C SCREENING Completed 05/09/2015 HIV SCREENING Completed 05/09/2015 HPV IMMUNIZATION Aged Out No longer e ligible based on patient's age to complete this topic MENINGITIS IMMUNIZATION Aged Out No l onger eligible based on patient's age to complete this topic RSV MONOCLONAL ANTIBODY Aged Out No l onger eligible based on patient's age to complete this topic Medical Devices Implanted Type Area Supervisor Logging Device Identifier Shelf Expiration Date Model / Serial / Lot [id number] Biocomposite Speed Bridge Implanted:Qty: 1 on 05/27/2019 by Luis Ordoñez DPM at [facility] Left: Achilles Tendon ARTHREX 06/06/2020 [id number] / [id number] Procedures Procedure Name Priority Date/Time Associated Diagnosis Comments HEMOGLOBIN A1C Routine 04/03/2023 4:56 PM CDT Type 2 diabetes mellitus with peripheral neuropathy (H) EYE EXAM - HIM SCAN 09/01/2022 1 2:00 AM EDGE BURNISHER LIPID REFLEX TO DIRECT LDL PANEL Routine 08/22/2022 10:13 AM EDGE BURNISHER Hyperlipidemia with target LDL less than 100 BASIC METABOLIC PANEL Routine 08/22/2022 10:13 AM EDGE BURNISHER Diabetes mellitus without complication (H) ALBUMIN RANDOM URINE QUANTITATIVE Routine 05/17/2022 2:37 PM EDGE BURNISHER Diabetes mellitus without complication (H) COLONOSCOPY Routine 11/09/2020 9:12 AM CDT HIV ANTIGEN ANTIBODY COMBO Routine 05/09/2015 11:06 AM EDGE BURNISHER Screen for STD (sexually transmitted disease) HEPATITIS C ANTIBODY Routine 05/09/2015 11:06 AM EDGE BURNISHER Screen for STD (sexually transmitted disease) from Last 3 Months or Most Recently Relevant to Health Maintenance Results * Hemoglobin A1c (04/03/2023 4:56 PM CDT) Hemoglobin A1C 5.5 0.0 - 5.6 % 04/03/2023 5:05 PM CDT [facility] Comment: Normal <5.7% Prediabetes 5.7-6.4% ?? Diabetes 6.5% or higher Note: Adopted from ADA consensus guidelines. Blood STRUCTURE OF RIGHT UPPER LIMB / Unknown Venipuncture / Unknown 04/03/2023 4:56 PM CDT 04/03/2023 4:56 PM CDT us Aniya Gregorio MD LAB - BLOOD ORDERABLES Final Res ult [facility] [address], [address] [place] [address], [facility] [phone] * EYE EXAM - HIM SCAN (09/01/2022 12:00 AM EDGE BURNISHER) RETINOPATHY NEGATIVE 09/01/2022 Narrative Flor Aguayo - 09/01/2022 12:00 AM EDGE BURNISHER DIABETIC EYE EXAM [facility] Provider Outside OTHER Edited Result - Final * (ABNORMAL) Lipid panel reflex to direct LDL Fasting (08/22/2022 10:13 AM EDGE BURNISHER) Cholesterol 224(H) <200 mg/dL 08/22/2022 8:22 PM EDGE BURNISHER [facility] Triglycerides 139 <150 mg/dL 08/22/2022 8:22 PM EDGE BURNISHER [facility] Direct Measure HDL 38(L) >=40 mg/dL 08/22/2022 8:22 PM EDGE BURNISHER [facility] LDL Cholesterol Calculated 158(H) <=100 mg/dL 08/22/2022 8:22 PM EDGE BURNISHER [facility] Non HDL Cholesterol 186(H) <130 mg/dL 08/22/2022 8:22 PM EDGE BURNISHER [facility] Blood STRUCTURE OF RIGHT UPPER LIMB / Unknown Venipuncture / Unknown 08/22/2022 10:13 AM EDGE BURNISHER 08/22/2022 10:14 AM EDGE BURNISHER Narrative [facility] - 08/22/2022 8:22 PM EDGE BURNISHER Cholesterol Desirable: ??<200 mg/dL Triglycerides Normal: ??Less than 150 mg/dL Borderline High: ??150-199 mg/dL High: ??200-499 mg/dL Very High: ??Greater than or equal to 500 mg/dL Direct Measure HDL Female: ??Greater than or equal to 50 mg/dL Male: ??Greater than or equal to 40 mg/dL LDL Cholesterol Desirable: ??<100mg/dL Above Desirable: ??100-129 mg/dL Borderline High: ??130-159 mg/dL High: ??160-189 mg/dL Very High: ??>= 190 mg/dL Non HDL Cholesterol Desirable: ??130 mg/dL Above Desirable: ??130-159 mg/dL Borderline High: ??160-189 mg/dL High: ??190-219 mg/dL Very High: ??Greater than or equal to 220 mg/dL Thalia Helton APRN BREAD DUMPER LAB - BLOOD ORDERAB LES Final Result [facility] [place] [facility] [address] [place] [address], [place] [phone] * (ABNORMAL) Basic metabolic panel (Ca, Cl, CO2, Creat, Gluc, K, Na, BUN) (08/22/2022 10:13 AM EDGE BURNISHER) [facility] Sodium 140 136 - 145 mmol/L 08/22/2022 8:22 PM EDGE BURNISHER [facility] Potassium 4.3 3.4 - 5.3 mmol/L 08/22/2022 8:22 PM EDGE BURNISHER [facility] Chloride 103 98 - 107 mmol/L 08/22/2022 8:22 PM EDGE BURNISHER [facility] Carbon Dioxide (CO2) 25 22 - 29 mmol/L 08/22/2022 8:22 PM EDGE BURNISHER [facility] Anion Gap 12 7 - 15 mmol/L 08/22/2022 8:22 PM EDGE BURNISHER [facility] Urea Nitrogen 29.3(H) 6.0 - 20.0 mg/dL 08/22/2022 8:22 PM EDGE BURNISHER [facility] Creatinine 1.15 0.67 - 1.17 mg/dL 08/22/2022 8:22 PM EDGE BURNISHER [facility] Calcium 10.0 8.6 - 10.0 mg/dL 08/22/2022 8:22 PM EDGE BURNISHER [facility] Glucose 101(H) 70 - 99 mg/dL 08/22/2022 8:22 PM EDGE BURNISHER [facility] GFR Estimate 79 >60 mL/min/1.7 3m2 08/22/2022 8:22 PM EDGE BURNISHER [facility] Comment:eGFR calculated us2020 CKD-EPI equation. Blood STRUCTURE OF RIGHT UPPER LIMB / Unknown Venipuncture / Unknown 08/22/2022 10:13 AM EDGE BURNISHER 08/22/2022 10:14 AM EDGE BURNISHER us Thalia Helton APRN BREAD DUMPER LAB - BLOOD ORDERAB LES Final Result [facility] [place] [facility] [address] [facility], [address] [place] [phone], [facility] [phone] * Albumin Random Urine Quantitative with Creat Ratio (05/17/2022 2:37 PM EDGE BURNISHER) Pathologist [facility] Creatinine Urine mg/dL 168 mg/dL 05/18/2022 7:36 AM EDGE BURNISHER [facility] Albumin Urine mg/L 14 mg/L 05/18/2022 7:36 AM EDGE BURNISHER [facility] Albumin Urine mg/g Cr 8.33 0.00 - 17.00 mg/g Cr 05/18/2022 7:36 AM EDGE BURNISHER [facility] Urine URINE SPECIMEN / Unknown Non-blood Collection / Unknown 05/17/2022 2:37 PM EDGE BURNISHER 05/17/2022 2:37 PM EDGE BURNISHER us Thalia Helton DIRECT ENTRY MIDWIFE BREAD DUMPER LAB - URINE ORDERAB LES Final Result [facility] [address] Lab (no room number, 1st floor of clinic) [place] [address], [facility] [phone] * COLONOSCOPY (11/09/2020 9:12 AM CDT) [facility] COLONOSCOPY [facility] Patient Name: Adiel Holt ?Procedure Date: 11/09/2020 9:12 AM ? Date of : 1975 ? Admit Type: Outpatient Age: 45 ? Gender: Male Attending MD: Raul Gonzales MD ?? Total Sedation Time: 21_minutes continuous bedside 1:1 Instrument Name: 221 - Adult Colonoscope Procedure: ?Colonoscopy Indications: ?Hematochezia Providers: ?Raul Gonzales MD (Doctor) Referring MD: ? Thalia Helton NP (Referring MD) Medicines: ?Midazolam 4 mg IV, Fentanyl 200 micrograms IV Complications: ?No immediate complications. Procedure: ?Pre-Anesthesia Assessment: ?- Prior to the procedure, a History and Physical ?was performed, and patient medications and ?allergies were reviewed. The patient is competent. ?The risks and benefits of the procedure and the ?sedation options and risks were discussed with the ?patient. All questions were answered and informed ?consent was obtained. Patient identification and ?proposed procedure were verified by the physician ?in the procedure room. Mental Status Examination: ?alert and oriented. Airway Examination: normal ?oropharyngeal airway and neck mobility. Respiratory ?Examination: clear to auscultation. CV Examination: ?normal. Prophylactic Antibiotics: The patient does ?not require prophylactic antibiotics. Prior ?Anticoagulants: The patient has taken no previous ?anticoagulant or antiplatelet agents. ASA Grade ?Assessment: II - A patient with mild systemic ?disease. After reviewing the risks and benefits, ?the patient was deemed in satisfactory condition to ?undergo the procedure. The anesthesia plan was to ?use moderate sedation / analgesia (conscious ?sedation). Immediately prior to administration of ?medications, the patient was re-assessed for ?adequacy to receive sedatives. The heart rate, ?respiratory rate, oxygen saturations, blood ?pressure, adequacy of pulmonary ventilation, and ?response to care were monitored throughout the ?procedure. The physical status of the patient was ?re-assessed after the procedure. ?After obtaining informed consent, the colonoscope ?was passed under direct vision. Throughout the ?procedure, the patient's blood pressure, pulse, and ?oxygen saturations were monitored continuously. The ?Olympus Adult Colonoscope, Model # CF-H190L, [place] ?# 221, SN # [id number] was introduced through the anus ?and advanced to the cecum, identified by ?appendiceal orifice and ileocecal valve. The ?colonoscopy was performed without difficulty. The ?patient tolerated the procedure well. The quality ?of the bowel preparation was good. ? Findings: ? Hemorrhoids were found on perianal exam. ? The exam was otherwise without abnormality on direct and retroflexion ? views. ? Impression: ? - Hemorrhoids found on perianal exam. ?- The examination was otherwise normal on direct ?and retroflexion views. ?- No specimens collected. Recommendation: ? - Use sugar-free Metamucil one teaspoon PO BID PRN. ?- Repeat colonoscopy in 10 years for screening ?purposes. ? Procedure Code(s): ? --- Professional --- ? 53357, Colonoscopy, flexible; diagnostic, including collection of ? specimen(s) by brushing or washing, when performed (separate procedure) Diagnosis Code(s): ? --- Professional --- ? K92.1, Melena (includes Hematochezia) ? K64.9, Unspecified hemorrhoids CPT copyright 2019 [employer]. All rights reserved. The codes documented in this report are preliminary and upon manager database review may be revised to meet current compliance requirements. Electronically signed by Raul Gonzales MD __ Raul Gonzales MD 11/09/2020 10:00:58 AM I was physically present for the entire viewing portion of the exam. Raul Gonzales MD Number of Addenda: 0 Note Initiated On: 11/09/2020 9:12 AM MRN: ?[id number] Procedure Date: ? 11/09/2020 9:12:33 AM Scope Withdrawal Time: 0 hours 6 minutes 9 seconds Total Procedure Duration: 0 hours 20 minutes 15 seconds Estimated Blood Loss: ? Scope In: 9:29:08 AM Scope Out: 9:49:23 AM RADIOLOGY RESULTS 11/09/2020 9:12 AM CDT Thalia Helton DIRECT ENTRY MIDWIFE BREAD DUMPER PROCEDURES Fin al Result RADIOLOGY RESULTS * HIV Antigen Antibody Combo (05/09/2015 11:06 AM EDGE BURNISHER) HIV Antigen Antibody Combo Nonreactive HIV-1 p24 Ag & HIV-1/HIV-2 Ab Not Detected NR [facility] Blood specimen (specimen) 05/09/2015 11:06 AM EDGE BURNISHER 05/09/2015 11:11 AM EDGE BURNISHER Thalia Helton APRN BREAD DUMPER LAB - BLOOD ORDERAB LES Final Result Performing Organization Address [facility] Co de Phone Number [address] [phone] * Hepatitis C antibody (05/09/2015 11:06 AM EDGE BURNISHER) Hepatitis C Antibody Nonreactive Assay performance characteristics have not been established for newborns, infants, and children NR [facility] Blood specimen (specimen) 05/09/2015 11:06 AM EDGE BURNISHER 05/09/2015 11:11 AM EDGE BURNISHER Thalia Helton APRN BREAD DUMPER LAB - BLOOD ORDERAB LES Final Result Performing Organization Address City/[facility] Co de Phone Number [facility] [address] [place] [address] from Last 3 Months or Most Recently Relevant to Health Maintenance Insurance [facility] [employer] [facility] [employer] [address] [employer] [place] [address] [employer] on file Advance Directives For more information, please contact: [phone] * Full Code (Latest Code Status on File) Date Activated Date Inactivated Comments 10/07/2012 5:32 PM 10/10/2012 2:42 PM Care Teams Center Maker Hand Relationship Specialty Start Date End Date No Ref-Primary, Physician PCP - General 04/01/23 Aniya Gregorio MD [address] [place] [address] Assigned PCP 04/06/23
--- OUTSIDE RECORDS SUMMARY | 2024-05-03 23:17 | XMS_ITS | Encounter Summary ---
Author Organization [place] Address [address] [place] [address] Care Team Providers Care Assembly Machine Tool Setter Name Role Phone Thalia Helton APRN, CNP Primary Care Provi lizett Unavailable Thalia Helton APRN, CNP Unavailable Un available Luis Ordoñez DPM Unavailable [phone] Arthur Veliz MD Unavailable Jack Jordan MD Unavailable [phone] No Ref-Primary, Physician Primary Care Provider Aniya Gregorio MD Unavailable Reason for Visit * Reason Comments Medication Refill Encounter Details Date Type Department Care Team (Late st Contact Info) Description 05/08/[address] [place] [phone] Thalia Helton APRN DIABETES TERRITORY MANAGER Medication Refill Social History Tobacco Use Types [...] on file Legal Sex Male 3:45 AM 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 No / Unsure 05/10/2021 2:56 PM CDT documented as of this encounter Miscellaneous Notes * Telephone Encounter - Amber Skelton RN - 05/09/2021 3:09 PM CDT Medication refilled per [facility] [place] Amber Skelton RN documented in this encounter Plan of Treatment Upcoming Encounters Date Type Department Care Team (Late st Contact Info) Description 05/20/2024 4:00 PM PULLEY MORTISER OPERATOR Office Visit [address] [place] [phone] Jarad Dickinson MD [address] [place], [place] [phone] documented as of this encounter Visit Diagnoses Diagnosis Diabetes mellitus without complication (H) Type II or unspecified type diabetes mellitus without mention of complication, not stated as uncontrolled documented in this encounter Additional Health Concerns Assessment Noted Time PHQ-9 Depression Total Score: 0 03/28/20 9:31 AM CDT documented as of this encounter Care Teams Assembly Machine Tool Setter Relationship Specialty Start Date End Date Thalia Helton APRN DIABETES TERRITORY MANAGER PCP - General Internal Medicine 08/12/12 03/01/23 No Ref-Primary, Physician PCP - General 04/01/23 Thalia Helton APRN CNP Assigned PCP 04/10/12 09/07/22 Luis Ordoñez DPM [id number] [facility] [address] [place] [address] Assigned Musculoskeletal Provider 04/29/20 10/26/22 Arthur Veliz MD [address] [place] [address] Assigned Neuroscience Provider 04/16/21 05/20/21 Jack Jordan MD [address] [place] [address] Assigned Neuroscience Provider 05/21/21 11/09/22 Aniya Gregorio MD [address] [place] [address] Assigned PCP 04/06/23 documented as of this encounter
--- OUTSIDE RECORDS SUMMARY | 2024-05-03 23:17 | XMS_ITS | Encounter Summary ---
Author Organization [facility] Address [address] [place] [address] Care Team Providers Care Press Operator Heavy Duty Name Role Phone Thalia Helton APRN ACCOUNTS RECEIVABLE ANALYST Primary Care Provi lizett Unavailable Thalia Helton APRN ACCOUNTS RECEIVABLE ANALYST Unavailable Un available Luis Ordoñez DPDuyen Unavailable [phone] Jack Jordan MD Unavailable [phone] No Ref-Primary, Physician Primary Care Provider Aniya Gregorio MD Unavailable Encounter Details Date Type Department Care Team (Late st Contact Info) Description 10/03/2021 Documentation Only INTERFACED REPORT Unknown, Provider Social History Tobacco Use Types Packs/Day Years [...] on file Legal Sex Male 3:45 AM CONTROL CABINET ASSEMBLER Gender Identity Not on file Sexual Orientation [...] PM CDT documented as of this encounter Plan of Treatment Upcoming Encounters Date Type Department Care Team (Late st Contact Info) Description 05/20/2024 4:00 PM CONTROL CABINET ASSEMBLER Office Visit [facility] [address] [facility] [address] [place] [phone] Jarad Dickinson MD [address] [place] [address] documented as of this encounter Visit Diagnoses Not on filedocumented in this encounter Additional Health Concerns Assessment Noted Time PHQ-9 Depression Total Score: 0 03/28/20 9:31 AM CDT documented as of this encounter Care Teams Press Operator Heavy Duty Relationship Specialty Start Date End Date Thalia Helton APRN ACCOUNTS RECEIVABLE ANALYST PCP - General Internal Medicine 08/12/12 03/01/23 No Ref-Primary, Physician PCP - General 04/01/23 Thalia Helton APRN ACCOUNTS RECEIVABLE ANALYST Assigned PCP 04/10/12 09/07/22 Luis Ordoñez DPM [id number] [facility] [address] [place] [address] Assigned Musculoskeletal Provider 04/29/20 10/26/22 Jack Jordan MD [address] [place] [address] Assigned Neuroscience Provider 05/21/21 11/09/22 Aniya Gregorio MD [address] [place], [place] [address] Assigned PCP 04/06/23 documented as of this encounter
--- OUTSIDE RECORDS SUMMARY | 2024-05-03 23:17 | XMS_ITS | Encounter Summary ---
Author Organization [facility] Address [address] [place] [address] Care Team Providers Care Bone Grinder Name Role Phone Thalia Helton APRN PROGRAMMING DIRECTOR Primary Care Provi lizett Unavailable Jack Jordan MD Unavailable [phone] No Ref-Primary, Physician Primary Care Provider Aniya Gregorio MD Unavailable Reason for Visit * Reason Comments Medication Refill Encounter Details Date Type Department Care Team (Late st Contact Info) Description 11/01/[address] [place] [address] Thalia Helton APRN CNP Medication Refill Social History Tobacco Use Types Packs/Day Years Used Date Smoking Tobacco: Former Cigarettes Q uit: 08/11/2003 Smokeless Tobacco: Never Comments:1 pack every 3-4 da ys Alcohol Use Standard Drinks/Week Comments Yes 0 (1 standard drink = 0.6 oz pur e alcohol) weekends PHQ-2 Answer Date Recorded PHQ-2 Score 0 03/01/2022 Sex and Gender Information Value Date Recorded Sex Assigned at Not on file Legal Sex Male 3:45 AM BRUSH CUTTER Gender Identity Not on file Sexual Orientation Not on file Occupation Industry Job Start Date Job End Date 2 Not on file Not on file Not on file documented as of this encounter Miscellaneous Notes * Telephone Encounter - Kelly Zapata RN - 11/02/2022 12:22 PM CDT Routing to covering provider per new chart. Pt was seen in August by Thalia Helton and instructedto return in February. Please advise on refill Kelly Chester RN, BSN documented in this encounter Plan of Treatment Upcoming Encounters Date Type Department Care Team (Late st Contact Info) Description 05/20/2024 4:00 PM BRUSH CUTTER Office Visit [facility] [address] [place] [address] Jarad Dickinson MD [address] [place], [place] [id number] documented as of this encounter Visit Diagnoses Diagnosis Hyperlipidemia with target LDL less than 100 Other and unspecified hyperlipidemia Essential hypertension with goal blood pressure less than 140/90 documented in this encounter Additional Health Concerns Assessment Noted Time PHQ-9 Depression Total Score: 0 03/01/20 22 2:32 PM CDT documented as of this encounter Care Teams Bone Grinder Relationship Specialty Start Date End Date Thalia Helton APRN PROGRAMMING DIRECTOR PCP - General Internal Medicine 08/12/12 03/01/23 No Ref-Primary, Physician PCP - General 04/01/23 Jack Jordan MD [address] [place] [address] Assigned Neuroscience Provider 05/21/21 11/09/22 Aniya Gregorio MD [address], [place] [address] Assigned PCP 04/06/23 documented as of this encounter
--- OUTSIDE RECORDS SUMMARY | 2024-05-03 23:17 | XMS_ITS | Encounter Summary ---
Author Organization [facility] Address [address] [place] [address] Care Team Providers Care Item Repair Manager Name Role Phone Thalia Helton APRN RADIOLOGY ADMINISTRATOR Primary Care Provi lizett Unavailable Thalia Helton APRN RADIOLOGY ADMINISTRATOR Unavailable Un available Luis Ordoñez DPM Unavailable [phone] Arthur Veliz MD Unavailable Jack Jordan MD Unavailable [phone] No Ref-Primary, Physician Primary Care Provider Aniya Gregorio MD Unavailable Encounter Details Date Type Department Care Team (Late st Contact Info) Description 05/15/2021 [facility] Medical Advice [facility] [address] [place], [place] [address] Leeann Dobson Social History Tobacco Use Types Packs/Day Years [...] on file Legal Sex Male 3:45 AM COAL CARRIER Gender Identity Not on file Sexual Orientation [...] st Contact Info) Description 05/20/2024 4:00 PM COAL CARRIER Office Visit [facility] [address] [place] [address] Jarad Dickinson MD [address] [place], [place] [address] documented as of this encounter Visit Diagnoses Not on filedocumented in this encounter Additional Health Concerns Assessment Noted Time PHQ-9 Depression Total Score: 0 03/28/20 9:31 AM CDT documented as of this encounter Care Teams Item Repair Manager Relationship Specialty Start Date End Date Thalia Helton APRN RADIOLOGY ADMINISTRATOR PCP - General Internal Medicine 08/12/12 03/01/23 No Ref-Primary, Physician PCP - General 04/01/23 Thalia Helton APRN RADIOLOGY ADMINISTRATOR Assigned PCP 04/10/12 09/07/22 Luis Ordoñez DPM [id number] [facility] [address] [place] [address] Assigned Musculoskeletal Provider 04/29/20 10/26/22 Arthur Veliz MD [address] [place] [address] Assigned Neuroscience Provider 04/16/21 05/20/21 Jack Jordan MD [address] [place], [place] [address] Assigned Neuroscience Provider 05/21/21 11/09/22 Aniya Gregorio MD [address] [place] [address] Assigned PCP 04/06/23 documented as of this encounter
--- OUTSIDE RECORDS SUMMARY | 2024-05-03 23:17 | XMS_ITS | Encounter Summary ---
Author Organization [facility] Address [address] [place] [address] Care Team Providers Care Barn Worker Name Role Phone Thalia Helton APRN, CNP Primary Care Provi lizett Unavailable Thalia Helton APRN, CNP Unavailable Un available Luis Ordoñez DPM Unavailable [phone] Arthur Veliz MD Unavailable Jack Jordan MD Unavailable [phone] No Ref-Primary, Physician Primary Care Provider Aniya Gregorio MD Unavailable Reason for Visit * Reason Comments Medication Refill atorvastatin (LIPITO R), citalopram (CELEXA) Encounter Details Date Type Department Care Team (Late st Contact Info) Description 12/13/[address] [place] [address] Thalia Helton APRN CNP Medication Refill (atorvastatin (LIPITOR), citalopram (CELEXA)) Social History Tobacco Use Types Packs/Day Years [...] on file Legal Sex Male 3:45 AM SUPERVISOR PLEATING Gender Identity Not on file Sexual Orientation Not on file Occupation Industry Job Start Date Job End Date 2 Not on file Not on file Not on file documented as of this encounter Miscellaneous Notes * Telephone Encounter - Amber Armando RN - 12/15/2018 1:14 PM CDT PHQ-9 score: PHQ-9 SCORE 07/15/2018 PHQ-9 Total Score - PHQ-9 Total Score 10 Routing refill request to provider for review/approval because: Leidy refill was given X1 and patient did not follow up. LDL and PHQ-9 overdue. Amber Armando RN * Telephone Encounter - Yari Syed - 12/15/2018 8:50 AM CDT Requested Prescriptions Pending Prescriptions Disp Refills ??? atorvastatin (LIPITOR) 20 MG tablet [Pharmacy Med Name: ATORVASTATIN 20 MG TABLET] 180 tablet 0 Sig: TAKE 2 TABLETS BY MOUTH EVERY DAY Last Written Prescription Date: 09/09/2018 Last Fill Quantity: 180, # refills: 0 Last office visit: 08/19/2018 with prescribing provider: Future Office Visit: [facility] Protocol Failed - 12/13/2018 12:33 PM Failed - LDL on file in past [...] - Patient is age 18 or older ??? citalopram (CELEXA) 20 MG tablet [Pharmacy Med Name: CITALOPRAM HBR 20 MG TABLET] 270 tablet 0 Sig: TAKE 3 TABLETS BY MOUTH EVERY DAY Last Written Prescription Date: 09/09/2018 Last Fill Quantity: 270, # refills: 0 Last office visit: 08/19/2018 with prescribing provider: Future Office Visit: SSRIs Protocol Failed - 12/13/2018 12:33 PM Failed - PHQ-9 score less than 5 [...] & Orders section of the refill encounter. documented in this encounter Plan of Treatment Upcoming Encounters Date Type Department Care Team (Late st Contact Info) Description 05/20/2024 4:00 PM SUPERVISOR PLEATING Office Visit [facility] [address] [facility] [address] [place] [phone] Jarad Dickinson MD [address] [place], [place] [phone] documented as of this encounter Visit Diagnoses Diagnosis Hyperlipidemia with target LDL less than 100 Other and unspecified hyperlipidemia Adjustment disorder with depressed mood documented in this encounter Additional Health Concerns Assessment Noted Time PHQ-9 Depression Total Score: 10 019 4:30 PM SUPERVISOR PLEATING documented as of this encounter Care Teams Barn Worker Relationship Specialty Start Date End Date Thalia Helton APRN BUNG REMOVER PCP - General Internal Medicine 08/12/12 03/01/23 No Ref-Primary, Physician PCP - General 04/01/23 Thalia Helton APRN BUNG REMOVER Assigned PCP 04/10/12 09/07/22 Luis Ordoñez DPM [id number] [facility] [address] [place] [address] Assigned Musculoskeletal Provider 04/29/20 10/26/22 Arthur Veliz MD [address] [place] [address] Assigned Neuroscience Provider 04/16/21 05/20/21 Jack Jordan MD [address] [place] [address] Assigned Neuroscience Provider 05/21/21 11/09/22 Aniya Gregorio MD [address] [place], [place] [address] Assigned PCP 04/06/23 documented as of this encounter
--- OUTSIDE RECORDS SUMMARY | 2024-05-03 23:17 | XMS_ITS | Encounter Summary ---
Author Organization [facility] Address [address] [place] [address] Care Team Providers Care Rotor Pilot Name Role Phone Thalia Helton APRN REGISTERED MASSAGE THERAPIST Primary Care Provi lizett Unavailable Thalia Helton APRN REGISTERED MASSAGE THERAPIST Unavailable Un available Luis Ordoñez DPM Unavailable [phone] Arthur Veliz MD Unavailable Jack Jordan MD Unavailable [phone] No Ref-Primary, Physician Primary Care Provider Aniya Gregorio MD Unavailable Encounter Details Date Type Department Care Team (Late st Contact Info) Description 04/10/2021 [facility] Medical Advice [facility] [address] [place], [place] [address] Leeann Dobson Social History Tobacco Use Types [...] on file Legal Sex Male 3:45 AM TEMPER MILL ROLLER Gender Identity Not on file Sexual Orientation Not on file Occupation Industry Job Start Date Job End Date 2 Not on file Not on file Not on file COVID-19 Exposure Response Date Recorded In the last month, have you been in contact with someone who was confirmed or suspected to have Coronavirus / COVID-19? No / Unsure 04/13/2021 9:18 AM CDT documented as of this encounter Plan of Treatment Upcoming Encounters Date Type Department Care Team (Late st Contact Info) Description 05/20/2024 4:00 PM TEMPER MILL ROLLER Office Visit [facility] [address] [place] [address] [place] [phone] Jarad Dickinson MD [address] [place], [place] [address] documented as of this encounter Visit Diagnoses Not on filedocumented in this encounter Additional Health Concerns Assessment Noted Time PHQ-9 Depression Total Score: 0 03/28/20 9:31 AM CDT documented as of this encounter Care Teams Rotor Pilot Relationship Specialty Start Date End Date Thalia Helton APRN REGISTERED MASSAGE THERAPIST PCP - General Internal Medicine 08/12/12 03/01/23 No Ref-Primary, Physician PCP - General 04/01/23 Thalia Helton APRN REGISTERED MASSAGE THERAPIST Assigned PCP 04/10/12 09/07/22 Lius Ordoñez DPM [id number] [facility] [address] [place] [address] Assigned Musculoskeletal Provider 04/29/20 10/26/22 Arthur Veliz MD [address] [place] [address] Assigned Neuroscience Provider 04/16/21 05/20/21 Jack Jordan MD [address] [place], [place] [address] Assigned Neuroscience Provider 05/21/21 11/09/22 Aniya Gregorio MD [address] [place] [address] Assigned PCP 04/06/23 documented as of this encounter
--- OUTSIDE RECORDS SUMMARY | 2024-05-03 23:17 | XMS_ITS | Encounter Summary ---
Author Organization [facility] Address [address] [place] [address] Care Team Providers Care Fisher Scallop Name Role Phone No Ref-Primary, Physician Primary Care Provider Aniya Gregorio MD Unavailable Reason for Visit * Reason Comments Medication Refill Encounter Details Date Type Department Care Team (Late st Contact Info) Description 01/31/2024 Refill [facility] [address] [facility] [address] [place] [address] Aniya Gregorio MD [address] [facility] [place] [address] Medication Refill Social History Tobacco Use Types [...] in an abandoned building, in an overnight jail, or couch-surfing.) Yes 04/03/2023 Are you worried [...] on file Legal Sex Male 3:45 AM SPECIAL FORCES MEDICAL SERGEANT Gender Identity Not on file Sexual Orientation Not on file Occupation Industry Job Start Date Job End Date 2 Not on file Not on file Not on file documented as of this encounter Plan of Treatment Upcoming Encounters Date Type Department Care Team (Late st Contact Info) Description 05/20/2024 4:00 PM SPECIAL FORCES MEDICAL SERGEANT Office Visit [facility] [address] [place] [phone] Jarad Dickinson MD [address] [place] [address] documented as of this encounter Visit Diagnoses Diagnosis Urinary hesitancy documented in this encounter Additional Health Concerns Assessment Noted Time PHQ-9 Depression Total Score: 3 04/03/20 23 4:00 PM CDT documented as of this encounter Care Teams Fisher Scallop Relationship Specialty Start Date End Date No Ref-Primary, Physician PCP - General 04/01/23 Aniya Gregorio MD [address] [place] [address] Assigned PCP 04/06/23 documented as of this encounter
--- OUTSIDE RECORDS SUMMARY | 2024-05-03 23:17 | XMS_ITS | Referral Summary ---
Author Organization [place] Address [address] [place] [address] Care Team Providers Care Manager [place] Name Role Phone No Ref-Primary, Physician Primary Care Provider Aniya Gregorio MD Unavailable Encounters Date Type Department Care Team Description 05/03/2024 MyC Refill [facility] [address] [place] [address] Aniya Gregorio MD Refill Request 03/04/2024 Telephone [facility] [address] [place] [address] Aniya Gregorio MD Medication Refill from Last 3 Months Allergies Active Allergy Reactions Criticality Noted Date [...] kit 0 4 Active blood glucose monitoring (ONETOUCH ULTRA) test stripIndications :Diabetes mellitus without complication (H) Use to test blood sugars 3 times daily or as directed. 300 strip 1 8 Active blood glucose monitoring (ONETOUCH VERIO IQ) test stripIndications :Diabetes mellitus without [...] (04/21/2019): Added automatically from request for surgery [id number] Right knee pain, unspecified chronicity 08/13/19 17 [...] L GOAL LESS THAN 100 05/07/2010 03/23/2015 Immunizations Name Administration Dates Next Due COVID-19 MONOVALENT 12+ (Pfizer) 07/07/2021,11/06,11/04/2020 Mantoux Tuberculin Skin Test 08/12/2009 TDAP Vaccine (Adacel) 02/27/2019,04/13/2008 Social History Tobacco Use Types Packs/Day Years [...] in an abandoned building, in an overnight prison, or couch-surfing.) Yes 04/03/2023 Are you worried [...] on file Legal Sex Male 3:45 AM HISTORICAL INTERPRETER Gender Identity Not on file Sexual Orientation [...] st Contact Info) Description 05/20/2024 4:00 PM HISTORICAL INTERPRETER Office Visit [facility] [address] [facility] [address] [place] [address] Jarad Dickinson MD [address] [place], [place] [id number] Medical Devices Implanted Type Area Plastics Engineering Teacher Device Identifier Shelf Expiration Date Model / Serial / Lot [id number] Biocomposite Speed Bridge Implanted:Qty: 1 on 05/27/2019 by Luis Ordoñez DPM at [facility] Left: Achilles Tendon ARTHREX 06/06/2020 [id number] / / [id number] Procedures Procedure Name Priority Date/Time Associated Diagnosis Comments HEMOGLOBIN A1C Routine 04/03/2023 4:56 PM CDT Type 2 diabetes mellitus with peripheral neuropathy (H) EYE EXAM - HIM SCAN 09/01/2022 1 2:00 AM HISTORICAL INTERPRETER LIPID REFLEX TO DIRECT LDL PANEL Routine 08/22/2022 10:13 AM HISTORICAL INTERPRETER Hyperlipidemia with target LDL less than 100 BASIC METABOLIC PANEL Routine 08/22/2022 10:13 AM HISTORICAL INTERPRETER Diabetes mellitus without complication (H) ALBUMIN RANDOM URINE QUANTITATIVE Routine 05/17/2022 2:37 PM HISTORICAL INTERPRETER Diabetes mellitus without complication (H) COLONOSCOPY Routine 11/09/2020 9:12 AM CDT HIV ANTIGEN ANTIBODY COMBO Routine 05/09/2015 11:06 AM HISTORICAL INTERPRETER Screen for STD (sexually transmitted disease) HEPATITIS C ANTIBODY Routine 05/09/2015 11:06 AM HISTORICAL INTERPRETER Screen for STD (sexually transmitted disease) from [...] 4:56 PM CDT 04/03/2023 4:56 PM CDT Aniya Gregorio MD LAB - BLOOD ORDERABLES Final Res ult [facility] [address], [address] [place] [address], [facility] [phone] * EYE EXAM - HIM SCAN (09/01/2022 12:00 AM HISTORICAL INTERPRETER) RETINOPATHY NEGATIVE 09/01/2022 Narrative Flor Aguayo - 09/01/2022 12:00 AM HISTORICAL INTERPRETER DIABETIC EYE EXAM [facility] Provider Outside OTHER Edited Result - Final * (ABNORMAL) Lipid panel reflex to direct LDL Fasting (08/22/2022 10:13 AM HISTORICAL INTERPRETER) Cholesterol 224(H) <200 mg/dL 08/22/2022 8:22 PM HISTORICAL INTERPRETER [facility] Triglycerides 139 <150 mg/dL 08/22/2022 8:22 PM HISTORICAL INTERPRETER [facility] Direct Measure HDL 38(L) >=40 mg/dL 08/22/2022 8:22 PM HISTORICAL INTERPRETER [facility] LDL Cholesterol Calculated 158(H) <=100 mg/dL 08/22/2022 8:22 PM HISTORICAL INTERPRETER [facility] Non HDL Cholesterol 186(H) <130 mg/dL 08/22/2022 8:22 PM HISTORICAL INTERPRETER [facility] Blood STRUCTURE OF RIGHT UPPER LIMB / Unknown Venipuncture / Unknown 08/22/2022 10:13 AM HISTORICAL INTERPRETER 08/22/2022 10:14 AM HISTORICAL INTERPRETER Narrative [facility] - 08/22/2022 8:22 PM HISTORICAL INTERPRETER Cholesterol Desirable: ??<200 mg/dL Triglycerides Normal: ??Less [...] ??Greater than or equal to 220 mg/dL us Thalia Helton TRUCK DESPATCHER DENTAL MANAGER LAB - BLOOD ORDERAB LES Final Result [facility] [address] [facility], [address] [place] [address], [facility] [phone] * (ABNORMAL) Basic metabolic panel (Ca, Cl, CO2, Creat, Gluc, K, Na, BUN) (08/22/2022 10:13 AM HISTORICAL INTERPRETER) [facility] Sodium 140 136 - 145 mmol/L 08/22/2022 8:22 PM HISTORICAL INTERPRETER [facility] Potassium 4.3 3.4 - 5.3 mmol/L 08/22/2022 8:22 PM HISTORICAL INTERPRETER [facility] Chloride 103 98 - 107 mmol/L 08/22/2022 8:22 PM HISTORICAL INTERPRETER [facility] Carbon Dioxide (CO2) 25 22 - 29 mmol/L 08/22/2022 8:22 PM HISTORICAL INTERPRETER [facility] Anion Gap 12 7 - 15 mmol/L 08/22/2022 8:22 PM HISTORICAL INTERPRETER [facility] Urea Nitrogen 29.3(H) 6.0 - 20.0 mg/dL 08/22/2022 8:22 PM HISTORICAL INTERPRETER [facility] Creatinine 1.15 0.67 - 1.17 mg/dL 08/22/2022 8:22 PM HISTORICAL INTERPRETER [facility] Calcium 10.0 8.6 - 10.0 mg/dL 08/22/2022 8:22 PM HISTORICAL INTERPRETER [facility] Glucose 101(H) 70 - 99 mg/dL 08/22/2022 8:22 PM HISTORICAL INTERPRETER [facility] GFR Estimate 79 >60 mL/min/1.7 3m2 08/22/2022 8:22 PM HISTORICAL INTERPRETER [facility] Comment:eGFR calculated 2020 CKD-EPI equation. Blood STRUCTURE OF RIGHT UPPER LIMB / Unknown Venipuncture / Unknown 08/22/2022 10:13 AM HISTORICAL INTERPRETER 08/22/2022 10:14 AM HISTORICAL INTERPRETER us Thalia Helton TRUCK DESPATCHER DENTAL MANAGER LAB - BLOOD ORDERAB LES Final Result [facility] [address] [facility], [address] [place] [address], [facility] [phone] * Albumin Random Urine Quantitative with Creat Ratio (05/17/2022 2:37 PM HISTORICAL INTERPRETER) Creatinine Urine mg/dL 168 mg/dL 05/18/2022 7:36 AM HISTORICAL INTERPRETER [facility] Albumin Urine mg/L 14 mg/L 05/18/2022 7:36 AM HISTORICAL INTERPRETER [facility] Albumin Urine mg/g Cr 8.33 0.00 - 17.00 mg/g Cr 05/18/2022 7:36 AM HISTORICAL INTERPRETER [facility] Urine URINE SPECIMEN / Unknown Non-blood Collection / Unknown 05/17/2022 2:37 PM HISTORICAL INTERPRETER 05/17/2022 2:37 PM HISTORICAL INTERPRETER us Thalia Helton TRUCK DESPATCHER DENTAL MANAGER LAB - URINE ORDERAB LES Final Result [facility] [address] Lab (no room number, 1st floor of clinic) [place] [address], [facility] [phone] * COLONOSCOPY (11/09/2020 9:12 AM CDT) COLONOSCOPY [facility] Patient Name: Adiel Holt ?Procedure Date: 11/09/2020 [...] # [id number], [place] ?# 221, SN # [id number] was introduced through the anus ?and advanced [...] Procedure Code(s): ? --- Professional --- ? 04952, Colonoscopy, flexible; diagnostic, including collection of ? specimen(s) by brushing or washing, when performed (separate procedure) Diagnosis Code(s): ? --- Professional --- ? K92.1, Melena (includes Hematochezia) ? K64.9, Unspecified hemorrhoids CPT copyright 2019 [employer]. All rights reserved. The codes documented in this report are preliminary and upon cdl team truck driver review may be revised to meet current compliance requirements. Electronically signed by Raul Gonzales MD __ Raul Gonzales MD 11/09/2020 10:00:58 AM I was physically present for the entire viewing portion of the exam. Raul Gonzales MD Number of Addenda: 0 Note Initiated On: 11/09/2020 9:12 AM MRN: ?[id number] Procedure Date: ? 11/09/2020 9:12:33 AM Scope Withdrawal Time: 0 hours 6 minutes 9 seconds Total Procedure Duration: 0 hours 20 minutes 15 seconds Estimated Blood Loss: ? Scope In: 9:29:08 AM Scope Out: 9:49:23 AM RADIOLOGY RESULTS 11/09/2020 9:12 AM CDT Thalia Helton TRUCK DESPATCHER DENTAL MANAGER PROCEDURES Fin al Result RADIOLOGY RESULTS * HIV Antigen Antibody Combo (05/09/2015 11:06 AM HISTORICAL INTERPRETER) HIV Antigen Antibody Combo Nonreactive HIV-1 p24 Ag & HIV-1/HIV-2 Ab Not Detected NR [facility] Blood specimen (specimen) 05/09/2015 11:06 AM HISTORICAL INTERPRETER 05/09/2015 11:11 AM HISTORICAL INTERPRETER Thalia Helton TRUCK DESPATCHER DENTAL MANAGER LAB - BLOOD ORDERAB LES Final Result Performing Organization Address City/[facility]/ZIP Co de Phone Number [facility] [address] [place] [address] * Hepatitis C antibody (05/09/2015 11:06 AM HISTORICAL INTERPRETER) Hepatitis C Antibody Nonreactive Assay performance characteristics have not been established for newborns, infants, and children NR [facility] Blood specimen (specimen) 05/09/2015 11:06 AM HISTORICAL INTERPRETER 05/09/2015 11:11 AM HISTORICAL INTERPRETER Thalia Helton APRN DENTAL MANAGER LAB - BLOOD ORDERAB LES Final Result [facility] [address] [place] [address] from Last 3 Months or Most Recently Relevant to Health Maintenance [place] [address] [place] [address] [employer] [place] [address] [facility] [employer] [place] [address] [employer] on file Advance Directives For more information, please contact: [phone] * Full Code (Latest Code Status on File) Date Activated Date Inactivated Comments 10/07/2012 5:32 PM 10/10/2012 2:42 PM Care Teams Manager [place] Relationship Specialty Start Date End Date No Ref-Primary, Physician PCP - General 04/01/23 Aniya Greg[place] [address] Assigned PCP 04/06/23
--- OUTSIDE RECORDS SUMMARY | 2024-05-03 23:17 | XMS_ITS | Encounter Summary ---
Author Organization [place] Address [address] [place] [address] Care Team Providers Care Chute Worker Name Role Phone Thalia Helton APRN ANDROID ARCHITECT Primary Care Provi lizett Unavailable Thalia Helton APRN ANDROID ARCHITECT Unavailable Un available Luis Ordoñez DPDuyen Unavailable [phone] Jack Jordan MD Unavailable [phone] No Ref-Primary, Physician Primary Care Provider Aniya Gregorio MD Unavailable Encounter Details Date Type Department Care Team (Late st Contact Info) Description 07/31/2021 MyC Medical Advice [facility] [address], [address] [place] [address] Leeann Dobson Social History Tobacco Use Types [...] on file Legal Sex Male 3:45 AM DEPLOYMENT MANAGER Gender Identity Not on file Sexual Orientation Not on file Occupation Industry Job Start Date Job End Date 2 Not on file Not on file Not on file COVID-19 Exposure Response Date Recorded In the last month, have you been in contact with someone who was confirmed or suspected to have Coronavirus / COVID-19? No / Unsure 07/24/2021 10:21 AM DEPLOYMENT MANAGER documented as of this encounter Plan of Treatment Upcoming Encounters Date Type Department Care Team (Late st Contact Info) Description 05/20/2024 4:00 PM DEPLOYMENT MANAGER Office Visit [facility] [address] [place] [address] Jarad Dickinson MD [address] [place], [place] [phone] documented as of this encounter Visit Diagnoses Not on filedocumented in this encounter Additional Health Concerns Assessment Noted Time PHQ-9 Depression Total Score: 0 03/28/20 9:31 AM CDT documented as of this encounter Care Teams Chute Worker Relationship Specialty Start Date End Date Thalia Helton APRN ANDROID ARCHITECT PCP - General Internal Medicine 08/12/12 03/01/23 No Ref-Primary, Physician PCP - General 04/01/23 Thalia Helton APRN ANDROID ARCHITECT Assigned PCP 04/10/12 09/07/22 Luis Ordoñez DPM [id number] [facility] [address] [place], [place] [phone] Assigned Musculoskeletal Provider 04/29/20 10/26/22 Jack Jordan MD [address] [place] [id number] Assigned Neuroscience Provider 05/21/21 11/09/22 Aniya Gregorio MD [address] [place], [place] [id number] Assigned PCP 04/06/23 documented as of this encounter
--- OUTSIDE RECORDS SUMMARY | 2024-05-03 23:17 | XMS_ITS | Encounter Summary ---
Author Organization [place] Address [address] [place] [address] Care Team Providers Care Processing Lead Name Role Phone No Ref-Primary, Physician Primary Care Provider Aniya Gregorio MD Unavailable Reason for Visit * Reason Comments Medication Refill Encounter Details Date Type Department Care Team (Late st Contact Info) Description 03/04/2024 Telephone [facility] [address] [place] [address] Aniya Gregorio MD [address] [facility] [place] [address] Medication Refill Social History Tobacco [...] in an abandoned building, in an overnight custodial, or couch-surfing.) Yes 04/03/2023 Are you worried [...] on file Legal Sex Male 3:45 AM HOME LIGHTING ADVISER Gender Identity Not on file Sexual Orientation Not on file Occupation Industry Job Start Date Job End Date 2 Not on file Not on file Not on file documented as of this encounter Miscellaneous Notes * Telephone Encounter - Dyan Nicolas - 03/05/2024 11:24 AM CDT Called and spoke with patient who made an appointment for physical and fasting labs with new PCP Chasidy on 04-17-2024 * Telephone Encounter - Aniya Gregorio MD - 03/05/2024 10:58 AM CDT Rx completed for 90 days. Patient needs to have a follow-up visit for future refills. Last office visit on 04/03/2023. Needs updated lab work as well, do recommend patient schedule a fasting annual physical and lab orders can be placed during that visit as appropriate. documented in this encounter Plan of Treatment Upcoming Encounters Date Type Department Care Team (Late st Contact Info) Description 05/20/2024 4:00 PM HOME LIGHTING ADVISER Office Visit [facility] [address] [place] [address] Jarad Dickinson MD [address] [place], [place] [phone] documented as of this encounter Visit Diagnoses Diagnosis Hyperlipidemia with target LDL less than 100 Other and unspecified hyperlipidemia Moderate episode of recurrent major depressive disorder (H) Generalized anxiety disorder documented in this encounter Additional Health Concerns Assessment Noted Time PHQ-9 Depression Total Score: 3 04/03/20 4:00 PM CDT documented as of this encounter Care Teams Processing Lead Relationship Specialty Start Date End Date No Ref-Primary, Physician PCP - General 04/01/23 Aniya Gregorio MD [address] [place], [place] [address] Assigned PCP 04/06/23 documented as of this encounter
[2024-05-03 23:18] LABS: Albumin* 5.3 g/dL (3.3-5.0); Chloride* 103 mmol/L (96-114); Potassium* 4.3 mmol/L (3.6-5.1); Sodium* 138 mmol/L (135-149)
--- OUTSIDE RECORDS SUMMARY | 2024-05-03 23:18 | XMS_ITS | Encounter Summary ---
Author Organization [place] Address [address] [place] [address] Care Team Providers Care Marketing Performance Analyst Name Role Phone Moy Payton MD Primary Care Provider [phone] [facility] Primary Care Provider Thalia Helton APRN HELICOPTER REPAIRER Primary Care Provi lizett Unavailable Thalia Helton APRN HELICOPTER REPAIRER Unavailable Un available Thalia Helton APRN HELICOPTER REPAIRER Unavailable Un available Luis Ordoñez DPM Unavailable [phone] Arthur Veliz MD Unavailable Jack Jordan MD Unavailable [phone] No Ref-Primary, Physician Primary Care Provider Aniya Gregorio MD Unavailable Encounter Details Date Type Department Care Team (Late st Contact Info) Description 05/26/2008 [facility] [address] [place] [address] Moy Payton MD XXX RESIGNED XXX [address] [place] [address] [facility] EMERGENCY DEPT. (Primary Dx) Social History Tobacco Use Types Packs/Day Years Used Date Smoking Tobacco: Former Cigarettes Q uit: 08/11/2003 Smokeless Tobacco: Never Comments:1 pack every 3-4 da ys Alcohol Use Standard Drinks/Week Comments Yes 0 (1 standard drink = 0.6 oz pur e alcohol) weekends Sex and Gender Information Value Date Recorded Sex Assigned at Not on file Legal Sex Male 3:45 AM WINDER TENDER Gender Identity Not on file Sexual Orientation Not on file Occupation Industry Job Start Date Job End Date 2 Not on file Not on file Not on file documented as of this encounter Plan of Treatment Upcoming Encounters Date Type Department Care Team (Late st Contact Info) Description 05/20/2024 4:00 PM WINDER TENDER Office Visit [address] [place] [phone] Jarad Dickinson MD [address] [place] [phone] documented as of this encounter Visit Diagnoses Diagnosis [facility] EMERGENCY DEPT.- Primary documented in this encounter Care Teams Marketing Performance Analyst Relationship Specialty Start Date End Date Moy Payton MD XXX RESIGNED XXX [address] [place] [phone] PCP - General 08/09/04 06/05/[address] [id number] PCP - General 06/06/12 08/11/12 Thalia Helton APRN HELICOPTER REPAIRER [address] [place] [address] PCP - General Internal Medicine 08/12/12 03/01/23 Thalia Helton APRN HELICOPTER REPAIRER PCP - Assigned PCP 01/06/12 09/09/18 No Ref-Primary, Physician PCP - General 04/01/23 Thalia Helton APRN HELICOPTER REPAIRER Assigned PCP 04/10/12 09/07/22 Luis Ordoñez DPM [id number] [facility] [address] [place] [address] Assigned Musculoskeletal Provider 04/29/20 10/26/22 Arthur Veliz MD [address] [place] [address] Assigned Neuroscience Provider 04/16/21 05/20/21 Jack Jordan MD [address] [place] [address] Assigned Neuroscience Provider 05/21/21 11/09/22 Aniya Gregorio MD [address] [place] [address] Assigned PCP 04/06/23 documented as of this encounter
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
--- OUTSIDE RECORDS SUMMARY | 2024-05-03 23:18 | XMS_ITS | Encounter Summary ---
Author Organization [facility] Address [address], [place] [address] Care Team Providers Care Bed Laster Name Role Phone No Primary/Referring, Phy Primary Care Provider Unavailable Encounter Details Date Type Department Care Team (Late st Contact Info) Description 02/16/2013 Correspondence [facility] Radiology [address] [place] [address] Radiology, Provider MRI SAFETY SHEET AND COMPATIBILITY FORM Social History Tobacco Use Types Packs/Day Years Used Date Smoking Tobacco: Never Smokeless Tobacco: Never Alcohol Use Standard Drinks/Week Comments Yes 0 (1 standard drink = 0.6 oz pur e alcohol) occasional Sex and Gender Information Value Date Recorded Sex Assigned at Not on file Gender Identity Not on file Sexual Orientation Not on file documented as of this encounter Progress Notes * [facility], PROVIDER - 02/16/2013 12:00 AM CDT documented in this encounter Plan of Treatment Not on file documented as of this encounter Visit Diagnoses Not on filedocumented in this encounter Care Teams Bed Laster Relationship Specialty Start Date End Date No Primary/Referring, Nathan PCP - General 02/13/13 documented as of this encounter
--- OUTSIDE RECORDS SUMMARY | 2024-05-03 23:18 | XMS_ITS | Encounter Summary ---
Author Organization [facility] Address [address] [place] [address] Care Team Providers Care Advertising Statistical Clerk Name Role Phone Moy Payton MD Primary Care Provider [phone] [facility] Primary Care Provider Thalia Helton APRN BREASTFEEDING EDUCATOR Primary Care Provi lizett Unavailable Thalia Helton APRN BREASTFEEDING EDUCATOR Unavailable Un available Thalia Helton APRN BREASTFEEDING EDUCATOR Unavailable Un available Luis Ordoñez DPM Unavailable [phone] Arthur Veliz MD Unavailable Jack Jordan MD Unavailable [phone] No Ref-Primary, Physician Primary Care Provider Aniya Gregorio MD Unavailable Encounter Details Date Type Department Care Team (Late st Contact Info) Description 06/25/2008 [facility] [address] [place] [address] Moy Payton MD XXX RESIGNED XXX [address] [place] [address] UNITED D/C SUMMARY (Primary Dx) Social History Tobacco Use Types Packs/Day Years Used Date Smoking Tobacco: Former Cigarettes Q uit: 08/11/2003 Smokeless Tobacco: Never Comments:1 pack every 3-4 da ys Alcohol Use Standard Drinks/Week Comments Yes 0 (1 standard drink = 0.6 oz pur e alcohol) weekends Sex and Gender Information Value Date Recorded Sex Assigned at Not on file Legal Sex Male 3:45 AM IP PARALEGAL Gender Identity Not on file Sexual Orientation Not on file Occupation Industry Job Start Date Job End Date 2 Not on file Not on file Not on file documented as of this encounter Plan of Treatment Upcoming Encounters Date Type Department Care Team (Late st Contact Info) Description 05/20/2024 4:00 PM IP PARALEGAL Office Visit [address] [place] [phone] Jarad Dickinson MD [address] [place] [phone] documented as of this encounter Visit Diagnoses Diagnosis UNITED D/C SUMMARY- Primary documented in this encounter Care Teams Advertising Statistical Clerk Relationship Specialty Start Date End Date Moy Payton MD XXX RESIGNED XXX [address] [place] [phone] PCP - General 08/09/04 06/05/[address] [id number] PCP - General 06/06/12 08/11/12 Thalia Helton APRN BREASTFEEDING EDUCATOR [address] [place] [address] PCP - General Internal Medicine 08/12/12 03/01/23 Thalia Helton APRN BREASTFEEDING EDUCATOR PCP - Assigned PCP 01/06/12 09/09/18 No Ref-Primary, Physician PCP - General 04/01/23 Thalia Helton APRN BREASTFEEDING EDUCATOR Assigned PCP 04/10/12 09/07/22 Luis Ordoñez DPM [id number] [facility] [address] [place] [address] Assigned Musculoskeletal Provider 04/29/20 10/26/22 Arthur Veliz MD [address] [place] [address] Assigned Neuroscience Provider 04/16/21 05/20/21 Jack Jordan MD [address] [place] [address] Assigned Neuroscience Provider 05/21/21 11/09/22 Aniya Gregorio MD [address] [place] [address] Assigned PCP 04/06/23 documented as of this encounter
--- OUTSIDE RECORDS SUMMARY | 2024-05-03 23:18 | XMS_ITS | Encounter Summary ---
Author Organization [facility] Address [address], [place] [address] Care Team Providers Care Candle Pourer Name Role Phone No Primary/Referring, Phy Primary Care Provider Unavailable Encounter Details Date Type Department Care Team (Late st Contact Info) Description 02/25/2013 [facility] [address] [facility] [address] [facility] [place] [address] Moose Mancini MD FMLA Social History Tobacco Use Types Packs/Day Years Used Date Smoking Tobacco: Never Smokeless Tobacco: Never Alcohol Use Standard Drinks/Week Comments Yes 0 (1 standard drink = 0.6 oz pur e alcohol) occasional Sex and Gender Information Value Date Recorded Sex Assigned at Not on file Gender Identity Not on file Sexual Orientation Not on file documented as of this encounter Progress Notes * Moose Mancini MD - 02/25/2013 12:00 AM CDT documented in this encounter Plan of Treatment Not on file documented as of this encounter Visit Diagnoses Not on filedocumented in this encounter Care Teams Candle Pourer Relationship Specialty Start Date End Date No Primary/Referring, Phy PCP - General 02/13/13 documented as of this encounter
--- OUTSIDE RECORDS SUMMARY | 2024-05-03 23:18 | XMS_ITS | Encounter Summary ---
Author Organization [facility] Address [address] [place] [address] Care Team Providers Care Care Transition Manager Name Role Phone Moy Payton MD Primary Care Provider [phone] [facility] Primary Care Provider Thalia Helton APRN HEALTHCARE MANAGEMENT CONSULTANT Primary Care Provi lizett Unavailable Thalia Helton APRN HEALTHCARE MANAGEMENT CONSULTANT Unavailable Un available Thalia Helton APRN HEALTHCARE MANAGEMENT CONSULTANT Unavailable Un available Luis Ordoñez DPM Unavailable [phone] Arthur Vleiz MD Unavailable Jack Jordan MD Unavailable [phone] No Ref-Primary, Physician Primary Care Provider Aniya Gregorio MD Unavailable Encounter Details Date Type Department Care Team (Late st Contact Info) Description 02/22/[address] [place] [address] [place] [address] Moy Payton MD XXX RESIGNED XXX [address] [place] [address] ER ENCOUNTER (Primary Dx) Social History Tobacco Use Types Packs/Day Years Used Date Smoking Tobacco: Former Cigarettes Q uit: 08/11/2003 Smokeless Tobacco: Never Comments:1 pack every 3-4 da ys Alcohol Use Standard Drinks/Week Comments Yes 0 (1 standard drink = 0.6 oz pur e alcohol) weekends Sex and Gender Information Value Date Recorded Sex Assigned at Not on file 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 HISTORY OF PRESENT ILLNESS: The patient i s a 27-year-old male who awoke at 2:00 this morning with pain in his left central chest. He describe s it as a tight sharp discomfort at 10/10 on the pain scale which has gradually improved since then a nd is now less than 1/10. He noted some aching in his right arm and shoulder area that goes to his m id forearm around midnight when he retired. The patient had returned home from work at 23:30. He becerra s not been nauseated. He thinks he might be sweaty. He has been feeling short of breath since about 3:45. He has not had palpitations or lightheadedness. He denies any fever or chills or bowel or jose alejandro dder symptoms. The patient says he has a stressful life because of his work schedule which has been bouncing from days to evenings. 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 The patient also smokes and his maternal gran dmother of a heart attack in her 60s. The patient denies any trauma. MEDICATIONS: None. RANDAL RGIES: NONE. 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 No surgery. FAMILY HISTORY: He does not know his father who is 46. His mo ther is 48 and has hypertension and as above. SOCIAL HISTORY: The patient does not use alcohol. He smokes a pack of cigarettes a day. 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 They are expecting one child. REVIEW OF SYSTEMS: As above. All other systems are neg ative. The PHYSICAL EXAM shows an alert male. His temperature is 97.4, pulse 69 and regular, respir ations 20, blood pressure 151/81. Saturation 98% on room air. The HEAD, EYES, EARS, NOSE, THROAT EX AM shows his conjunctivae are clear. Mouth and pharynx are normal. NECK is supple and symmetric. LY MPHATICS are negative. CHEST shows clear equal breath sounds and is not especially tender. CARDIOVAS CULAR EXAM regular S1-S2 without murmur. Normal pulses. ABDOMEN: Bowel sounds are active. It is s oft, obese, and nontender. No mass or guarding. BACK is negative. EXTREMITIES are normal. SKIN is clear. NEURO: He is alert and oriented. Cranial nerves are symmetric, motor exam is intact, and r eflexes symmetric. LABORATORY: EKG showed a sinus rhythm at 64. The QRS is 0.10 milliseconds with a normal axis. ST and T waves are within normal limits. Chest x-ray shows heart and lungs are withi n normal limits. Cardiac enzymes are negative. White count 7100, hemoglobin 13.0, platelets and diff erential normal. Coags are normal. D-dimer negative. Basic metabolic panel shows glucose of 127 and is normal otherwise. EMERGENCY DEPARTMENT COURSE: The patient had an IV of normal saline establish ed at [facility]. Cardiac monitoring was done showing a normal sinus rhythm at 65 to 70. Oxygen was applie d 2 liters by nasal cannula and 324 mg of aspirin was given by mouth. The patient's symptoms had lar chen resolved, so no nitrites were given. The patient later developed aching in his joints from lyin g on the litter, so 30 mg or Toradol was given IV with some relief. The patient stated at the time t hat the aches were positional and involved his neck, chest, and spine, and this did not seem to be re lated to the pain that he had had earlier. The patient is young, but he does have risk factors for h eart disease including his family history and smoking habits. It is concerning that he develops ches t pain when he exerts himself and it is relieved with rest. He is unconditioned and that might have s omething to do with this as well as his body habitus which is quite large. Because of that, I recomm ended the patient be admitted to a monitored bed. There is on such bed available at this facility, s o I contacted [facility] where we secured a bed for the patient in their [facility]. I spo ke with Dr. Culp who will be seeing the patient in the Emergency Department to do her assessment. T he patient is agreement with the transfer. We will be transferring him via [facility]. Transfer form has been filled out. He will be sent with copies of his records, labs, and x-ray. DIAGNOSES: 1. Chest pain. 2. Cardiac factors. [id number]_ AMALIA GARCÍA MD T: 003 18:12 MT: Document: [id number] [place], [place] Name: ADIEL HOLT EMERGENCY ROOM ENCOUNTER Page 3 of 2 LCN: ERA DSC: 02/22/2003 [place], [place] Name: MR#: : Admit Date: ADIEL HOLT [id number] 1975 02[birth year]05 Doctor: AMALIA GARCÍA MD EMERGENCY ROOM ENCOUNTER Page 1 of 2 00:00 Emergen cy Department Encounter-[facility] () [Entered: 00:00 Hand Etcher Helper ([facility]) ] : 73 ADDENDUM: Patient is going to be referred to stress echo today. He is supposedly a [facility] patient which he is not and Dr. García had seen him earlier in the evening with s ome chest pain and he was to be transferred to [facility] and Dr. Culp had come down to see him and it turns out he is not a [facility] patient and therefore, Dr. Culp decided not to see him and then we ended up referring to Dr. Curran at [facility]. By that time, we becerra d gotten out second set of enzymes which are now also normal. Therefore, we decided to do a stress e chocardiogram on this gentleman this afternoon at 1:00 p.m. He is feeling fine at this time and he i s going to be going home with his and get some rest and come back for the stress echo at 1:[address] García, I believe, will be dictating the rest of the record. DISCHARGE PLAN at this time is for return for stress echo at 1:00 p.m. today. Ibuprofen prn pain q4h. The chest pain is probably chest wall musculoskeletal pain. Condition stable. [id number]_ REX [place] MD 09:1 8 MT: Document: [id number] [place], [place] Name: ADIEL HOLT EMERGENCY ROOM ENCOUNTER Page 2 of 1 LCN: AILEEN DSC: 02/22/2003 [place], [place] Name: MR#: : Admit Date: ADIEL HOLT [id number] 02/22/2003 Doctor: REX [place] MD EMERGENCY ROOM ENCOUNTER Page 1 of 1 Electronicall y filed by Chiquis Subramanian 03/04/2003 12:15 PM documented in this encounter Plan of Treatment Upcoming Encounters Date Type Department Care Team (Late st Contact Info) Description 05/20/2024 4:00 PM GLOBAL CREATIVE CHAIRMAN Office Visit [address] [place] [phone] Jarad Dickinson MD [address] [place] [address] documented as of this encounter Visit Diagnoses Diagnosis ER ENCOUNTER- Primary documented in this encounter Care Teams Care Transition Manager Relationship Specialty Start Date End Date Moy Payton MD XXX RESIGNED XXX [address] [facility] [address] [place] [phone] PCP - General 08/09/04 06/05/[address] [address] PCP - General 06/06/12 08/11/12 Thalia Helton, [employer] HEALTHCARE MANAGEMENT CONSULTANT [address] [place] [id number] PCP - General Internal Medicine 08/12/12 03/01/23 Thalia Helton, [employer] HEALTHCARE MANAGEMENT CONSULTANT PCP - Assigned PCP 01/06/12 09/09/18 No Ref-Primary, Physician PCP - General 04/01/23 Thalia Helton, [employer] HEALTHCARE MANAGEMENT CONSULTANT Assigned PCP 04/10/12 09/07/22 Luis Ordoñez DPM [address] [facility] [address] [place] [address] Assigned Musculoskeletal Provider 04/29/20 10/26/22 Arthur Veliz MD [address] [place] [address] Assigned Neuroscience Provider 04/16/21 05/20/21 Jack Jordan MD [address] [place] [address] Assigned Neuroscience Provider 05/21/21 11/09/22 Aniya Gregorio MD [address] [place] [address] Assigned PCP 04/06/23 documented as of this encounter
--- OUTSIDE RECORDS SUMMARY | 2024-05-03 23:18 | XMS_ITS | Clinical Summary ---
Author Organization [facility] [facility] Address [address] [address] Care Team Providers Care Culinary Artist Name Role Phone No Primary/Referring, Phy Primary Care Provider Unavailable Source Comments You are receiving this document as you are listed as the primary care provider,follow-up provider, or the patient has been referred to you for consultation.This is in compliance with the Medicare and[facility] EHR Incentive Program,which states Providers who transition their patient to another setting of careor provider of care or refers their patient to another provider of care shouldprovide summary care record for each transition of care or referral. [facility] Allergies Active Allergy Reactions Criticality Noted Date Comments Coconut Fatty Acid 12/23/2010 Medications Medication Sig Dispensed Refills Start Date End Date Status insulin glargine (AKA LANTUS) 100 UNIT/ML injection Inject 20 Units subcutaneously two times a day. Active insulin lispro protamine & lispro (INSULIN LISPRO PROTAMINE/ LISPRO) suspension Inject 0.1 Units/kg subcutaneously three times a day with meals as needed. Active citalopram (AKA CELEXA) 10 MG tablet Take 10 mg by mouth daily. Active pantoprazole (AKA PROTONIX) 20 MG tablet Take 20 mg by mouth daily. Active omeprazole (AKA PRILOSEC) 10 MG capsule Take 10 mg by mouth daily. Take 1 hour before a meal. Active Melatonin (MELATONIN) 5 MG 5 mg at bedtime as needed. Active HYDROcodone-acetam inophen (NORCO) 5-325 MG tablet Take 1-2 Tabs by mouth every 4 hours as needed for Pain. 20 Tab 0 02/13/2013 Active Additional Information Patient not taking.Reported on 01/25/2021 gabapentin (NEURONTIN) 300 MG capsule Take 1 Cap by mouth three times a day. 90 Cap 2 02/16/2013 Active Additional Information Patient not taking.Reported on 01/25/2021 atorvastatin (LIPITOR) 40 MG tablet 01/10/2021 Active fenofibrate (TRICOR) 48 MG tablet Take 48 mg by mouth. 09/29/2020 Acti ve LEVEMIR FLEXTOUCH 100 UNIT/ML pen 12/08/2020 Active lisinopril (ZESTRIL) 20 MG tablet Take 1 Tablet by mouth daily. 10/05/2020 Active pioglitazone (ACTOS) 30 MG tablet Take 1 Tablet by mouth daily. 11/17/2020 Active Active Problems No known active problems Social History Tobacco Use Types Packs/Day Years Used Date Smoking Tobacco: Never Smokeless Tobacco: Never Alcohol Use Standard Drinks/Week Comments Yes 0 (1 standard drink = 0.6 oz pur e alcohol) occasional Sex and Gender Information Value Date Recorded Sex Assigned at Not on file Gender Identity Not on file Sexual Orientation Not on file Last Filed Vital Signs Vital Sign Reading Time Taken Comments Blood Pressure 136/77 01/25/2021 6:52 PM CDT Pulse 91 01/25/2021 6:52 PM CDT Temperature 37.2 ??C (98.9 ??F) 01/25/2021 6:52 PM CD T Respiratory Rate 16 01/25/2021 6:52 PM CDT Oxygen Saturation 98% 01/25/2021 6:52 PM CDT Inhaled Oxygen Concentration - - Weight 126.6 kg (279 lb) 07/17/2011 12:57 PM REORDERING CLERK Height 190.5 cm (6' 3) 07/17/2011 12:57 PM REORDERING CLERK Body Mass Index 34.87 07/17/2011 12:57 PM REORDERING CLERK Plan of Treatment Health Maintenance Due Date Last Done Comments Colon Cancer Screening Plan Due 1975 Hep C Screening (Preventive Services) 1974 HIV Screening (Preventive Services) 1990 Adult Preventive Visit 1992 HepB (1) 1993 Cholesterol 2009 COVID-19 Vaccine (3 - 2023-2 5 season) 2024 11/25/2020, 11/04/2020 Influenza (#1) 2024 Zoster/Shingles (1 of 2) 2024 DTaP/Tdap/Td (3 - Tdap) 02/27/2029 02/28/20 19, 04/13/2008 HepA Aged Out No longer eligi ble based on patient's age to complete this topic Hib Aged Out No longer eligi ble based on patient's age to complete this topic IPV (Polio) Aged Out No longer eligi ble based on patient's age to complete this topic Infant RSV Aged Out No longer eligi ble based on patient's age to complete this topic MCV4 Aged Out No longer eligi ble based on patient's age to complete this topic Pneumococcal Aged Out No longer eligi ble based on patient's age to complete this topic Medical Devices Implanted Type Area Policyholder Information Clerk Device Identifier Shelf Expiration Date Model / Serial / Lot Plt Clav Rt 6h - [id number] Implanted:Qty: 1 on 01/05/2011 at [facility] DEVICE Right: [employer] [facility] [id number] / / Scr Adam Sftp T8 2.4x16 - [id number] Implanted:Qty: 1 on 01/05/2011 at [facility] DEVICE Right: [employer] 201.766 / / Scr Adam Sftp 3.5x16 F-Thrd - [id number] Implanted:Qty: 2 on 01/05/2011 at [facility] DEVICE Right: [employer] 204.816 / / Scr Adam Sftp 3.5x20 F-Thrd - [id number] Implanted:Qty: 1 on 01/05/2011 at [facility] DEVICE Right: [employer] 204.820 / / Scr Lk Sftp T8 2.7x16 - [id number] Implanted:Qty: 1 on 01/05/2011 at [facility] DEVICE Right: [employer] 202.216 / / Scr Lk Sftp T8 2.7x18 - [id number] Implanted:Qty: 2 on 01/05/2011 at [facility] DEVICE Right: [employer] 202.218 / / Scr Lk Sftp T8 2.7x22 - [id number] Implanted:Qty: 1 on 01/05/2011 at [facility] DEVICE Right: [employer] 202.222 / / Scr Star Lk Sftp 3.5x20 - [id number] Implanted:Qty: 1 on 01/05/2011 at [facility] DEVICE Right: [employer] [facility] 212.106 / / Advance Directives * Full Code (Latest Code Status on File) Date Activated Date Inactivated Comments 01/05/2011 6:54 PM 01/07/2011 3:04 PM * Full Code Date Activated Date Inactivated Comments 01/05/2011 4:27 PM 01/05/2011 6:54 PM * Full Code Date Activated Date Inactivated Comments 01/05/2011 9:46 AM 01/05/2011 4:27 PM * Full Code Date Activated Date Inactivated Comments 12/22/2010 12:37 AM 12/24/2010 5:51 PM Care Teams Culinary Artist Relationship Specialty Start Date End Date No Primary/Referring, Phy PCP - General 02/13/13
[2024-05-03 23:20] LABS: Anion Gap 14 mEq/L (7-15); Aspartate Amino Transferase* 24 U/L (12-35); Bilirubin Total* 0.6 mg/dL (0.1-1.5); Carbon Dioxide* 21 mmol/L (20-32); Creatinine* 1.4 mg/dL (0.5-1.5); Est. Creatinine Clearance* 76.28; Estimated Glomerular Filt Rate 62 ml/min
[2024-05-03 23:21] LABS: Alanine Aminotransferase* 44 U/L (4-50); Alkaline Phosphatase* 44 U/L (40-150); Blood Urea Nitrogen* 39 mg/dL (5-24); Calcium* 10.1 mg/dL (8.4-10.6); Glucose* 186 mg/dL (60-115); Lipase* 137 U/L (23-300); Total Protein* 7.6 g/dL (6.0-8.3)
[2024-05-03] MEDS: HYDROmorphone 0.5 mg/0.5 ml inj IVP (23:21)
[2024-05-03] MEDS: ELECTROLYTES/DEXTROSE ORAL SOL 1,000 ML 500 ML PO (23:46)
[2024-05-04] MEDS: HYDROmorphone 0.5 mg/0.5 ml inj IVP (00:33)
== END 2024-05-04 00:45 | disposition home or self-care (01) ==
PROVIDERS: Emergency Provider Emergency Medicine
DX: R10.9 Unspecified abdominal pain (principal); R11.2 Nausea with vomiting, unspecified; E86.0 Dehydration
CPT/HCPCS: 36415; 80053; 83605; 83690; 85025; 96374; 96375; 99283; 99284; A9270; J1171; J2405

== ENCOUNTER 2025-05-12 02:13 | Emergency (ER) | payer BC, SELFPAY ==
--- OUTSIDE RECORDS SUMMARY | 2025-02-15 12:20 | XMS_ITS | Encounter Summary ---
Author Organization [facility] Address [address] [place] [address] Care Team Providers Care Individual Pension Consultant Name Role Phone Jarad Dickinson MD Primary Care Provider Unavailab Lana Sequeira MD Unavailable [phone] Jarad Dickinson MD Unavailable Unavailable Corinna Florentino MD Unavailable [phone] Nola Morris PA-C Unavailable [phone] Pancho Feng MD Unavailable [phone] Joslyn Gregorio MD Unavailable [phone] Encounter Details Date Type Department Care Team (Latest Contact Info) Description 02/15/2025 1:20 PM CDT Therapy Visit [facility] [address] [address] [place] [address] [address] S/P lumbar fusion (Primary Dx) Social History Tobacco Use Types Packs/Day Years Used Date Smoking Tobacco: Former Cigarettes Q uit: 08/11/2003 Passive Smoke Exposure: Never Smokeless Tobacco: Never Comments:1 pack every 3-4 da ys Alcohol Use Standard Drinks/Week Comments Not Currently 0 (1 standard drink = 0.6 oz pur e alcohol) weekends Social Connection and Isolation Panel Answer Date Recorded Frequency of Communication with Friends and Fami ly Not on file 05/20/2024 How often do you get together with friends or re latives? Once a week 05/20/2024 Attends Taoism Services Not on file 05/20 Active Member of Clubs or Organizations Not on f ile 05/20/2024 Attends Club or Organization Meetings Not on devorah e 05/20/2024 Marital Status Not on file 05/20/2024 PHQ-2 Answer Date Recorded PHQ-2 Score 2 04/02/2025 [facility] - Occupational Stress Questionnaire Answer Date Recorded Do you feel stress - tense, restless, nervous, or anxious, or unable to sleep at night because your mind is troubled all the time - these days? Rather much 05/20/2024 Exercise Vital Sign Answer Date Recorde d On average, how many days pe r week do you engage in moderate to strenuous exercise (like a brisk walk)? 5 days Minutes of Exercise per Session Not on file 05/20/2024 Adolescent Education Answer Date Record ed Getting School Help Needed Not on file 04/02 Food Insecurity Answer Date Recorded Within the past 12 months, d id you worry that your food would run out before you got money to buy more? No 10/08/2024 Within the past 12 months, d id the food you bought just not last and you didn t have money to get more? No 10/08/2024 Housing Stability Answer Date Recorded Do you have housing? (Fabian de dios is defined as stable permanent housing and does not include staying outside in a car, in a tent, in an abandoned building, in an overnight senior living, or couch-surfing.) Yes 10/08/2024 Are you worried about losing your housing? No 10/08/2024 Financial Resource Strain Answer Date R ecorded Within the past 12 months, h ave you or your family members you live with been unable to get utilities (heat, electricity) when it was really needed? No 10/08/2024 Transportation Needs Answer Date Record ed Within the past 12 months, h as lack of transportation kept you from medical appointments, getting your medicines, non-medical meetings or appointments, work, or from getting things that you need? No 10/08/2024 Interpersonal Safety Answer Date Record ed Do you feel physically and e motionally safe where you currently live? Yes 12/10/2024 Within the past 12 months, h ave you been hit, slapped, kicked or otherwise physically hurt by someone? No 12/10/2024 Within the past 12 months, h ave you been humiliated or emotionally abused in other ways by your partner or ex-partner? 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 Gender Identity Not on file Sexual Orientation Not on file Occupation Industry Job Start Date Job End Date 2 Not on file Not on file Not on file documented as of this encounter Progress Notes * Guilherme Haines, PT - 04/13/2025 11:35 AM CDT 02/15/25 0500 Appointment Info Signing clinician's name / credentials guilherme haines pt Total/Authorized Visits 12 Visits Used 4 Medical Diagnosis post op L4-L5 , L5-S1 fusion PT Tx Diagnosis lumbar pain, decreased ROM/strength Precautions/Limitations 40 pound weight limit, limit bending and twisting Other pertinent information Recent urethroplasty Progress Note/Certification Therapy Frequency 1x/week Predicted Duration 6 weeks PT Goal 1 Goal Identifier standing Goal Description pt able to stand for 30 minutes pain level 2 Rationale to maximize safety and independence with performance of ADLs and functional tasks;to maximize safety and independence within the home;to maximize safety and independence within the community;to maximize safety and independence with transportation;to maximize safety and independence with self cares Target Date 02/22/25 Subjective Report Subjective Report right groin pain remains. Back is improving Objective Measures Objective Measures Objective Measure 1 Objective Measure 1 Objective Measure tightness noted hip adductors and hip flexors PT Modalities PT Modalities Cryotherapy Cryotherapy Treatment Detail HEP Treatment Interventions (PT) Interventions Therapeutic Procedure/Exercise;Neuromuscular Re-education Therapeutic Procedure/Exercise Therapeutic Procedures: strength, endurance, ROM, flexibility minutes (93067) 35 Therapeutic Procedures Ther Proc 2;Ther Proc 3;Ther Proc 4;Ther Proc 5;Ther Proc 6;Ther Proc 7;TherProc 8 Ther Proc 1 UBE Ther Proc 1 - Details x4 min fwd/bckwd Ther Proc 2 Leg press Ther Proc 2 - Details 1x15 70#, 1x15 85# - cues for good eccentric control Ther Proc 4 standing abduction bilateral - 45 degree angle Ther Proc 4 - Details 15 x ag, trialed with YTB but increase in groin pain - did not continue, pt to just perform AG - OK to gently lean forward onto counter to decrease discomfort into back and engage gluts Ther Proc 5 pulldown Ther Proc 5 - Details 20 x blue Ther Proc 6 shoulder adduction Ther Proc 6 - Details 15 x blue Ther Proc 7 side step with yellow band around ankle Ther Proc 7 - Details 4 x 40 feet Ther Proc 8 butterfly stretch 3 x 10 seconds Ther Proc 8 - Details hip flexor stretch bilateral 3x 10 seconds Skilled Intervention supine abdominal #8 15 x Neuromuscular Re-education Neuromuscular Re-education Neuro Re-ed 2;Neuro Re-ed 3 Neuro Re-ed 1 Leg extensions - core Neuro Re-ed 1 - Details 1x10/side Education Learner/Method No Barriers to Learning Plan Home program see PTRX Plan for next session progress as tolerated Total Session Time Timed Code Treatment Minutes 35 Total Treatment Time (sum of timed and untimed services) 35 DISCHARGE Reason for Discharge: pt is progressing towards goals Equipment Issued: Discharge Plan: Patient to continue home program. Referring Provider: Pancho Feng documented in this encounter Plan of Treatment Upcoming Encounters Date Type Department Care Team (Latest Contact Info) Description 06/10/2025 11:00 AM WRINGER OPERATOR Lab [facility] [address] [place] [address] 06/14/2025 1:30 PM WRINGER OPERATOR Office Visit [facility] [place] [address] [facility] [address] [place] [phone] Joslyn Gregorio MD [address] [place] [address] 08/16/2025 11:30 AM WRINGER OPERATOR Office Visit [facility] [address] [place] [address] Curtis Holland APRN [facility] [address] [place] [address] 09/28/2025 8:00 AM CDT Hospital Encounter [address] [place] [phone] Good Fortune MD [address] [place] [address] [address] [place] [address] 09/28/2025 8:00 AM CDT - 09/28/2025 11:15 AM CDT Surgery [facility] [address] [place] [address] [address] [place] [phone] Good Fortune MD [address] [place] [address] [address] [place] [address] RIGHT MICROSURGICAL SPERMATIC CORD DENERVATION, right orchidopexy 10/28/2025 1:20 PM CDT Office Visit [facility] [address] [place] [phone] Good Fortune MD [address] [place] [address] [address] [place] [address] Scheduled Procedures Name Priority Associated Diagnoses Date/Ti me DENERVATION, SPERMATIC CORD, MICROSURGICAL Pain in right testicle 09/28/2025 8:00 AM CDT documented as of this encounter Visit Diagnoses Diagnosis S/P lumbar fusion- Primary Arthrodesis status Pain in right testicle Unspecified disorder of male genital organs documented in this encounter Additional Health Concerns Assessment Noted Time PHQ-9 Depression Total Score: 2 05/20/20 3:48 PM WRINGER OPERATOR documented as of this encounter Care Teams Individual Pension Consultant Relationship Specialty Start Date End Date Jarad Dickinson MD PCP - General Internal Medicine 05/20/24 04/13/25 Lana Pond MD [address] [place] [address] Physician Neurology 05/21/24 Jarad Dickinson MD Assigned PCP 05/30/24 05/05/25 [place] [address] [address] [place] [address] Pain Medicine 10/06/24 Nola Morris PA-C [address] [facility] 4TH [place] [address] Physician Partnership Manager Anesthesiology 12/02/24 Pancho Feng MD [address] [facility] [address] [place] [address] Assigned Neuroscience Provider 01/27/25 Joslyn Gregorio MD [address] [address] Assigned Surgical Provider 01/27/25 documented as of this encounter
--- OUTSIDE RECORDS SUMMARY | 2025-03-03 02:21 | XMS_ITS | Continuity of Care Document ---
Author Organization [facility] Address [address] [address] [place] [address] Phone Care Team Providers Care Patient Portal Representative Name Role Phone Preston Whaley MD, Ricardo Unavailable Unavailabl e Medications Medication Instructions Dosage Effective Dates (start - stop) Status Comments CELEXA (unknown strength) take 1 tablet by oral route every day Not Available - Active Humalog 100 unit/mL Sub-Q inject by subcutaneous route with meals - Active Lantus 100 unit/mL Sub-Q inject by subcutaneous route once a day - Active Procedures Procedure Date Ugi Endo; W/bx 1/mx Level Iv-surg Path Gross/micro 13 Immunocytochemistry, Each Antibody Offic/outpt E&m Estab Low-mod 3 Colonoscopy Flex; W/remov Les- 12 Colonoscopy Flex; W/bx 1/mx Level Iv-surg Path Gross/micro 12 Advance Directives Directive Yes / No Effective Date File Name No Information Encounters Encounter Description Practice Location Reason(s) For Visit Diagnoses Date Provider Providers Copied on Encounter [facility], [address] [address], [place], [place], [id number], [place] tel:[phone] [facility] No Information 5 Preston Silva. [address] [facility], [facility] [address], [place], [place], [id number] , [place]. tel:[phone] [facility], [address] [address], [place], [place], [id number], [place] tel:[phone] [facility] Behav Servando Gi NecGastric Polyp-benignC hest Pain NosGastric Polyp-benign 3 Jaime Baker. [address] [facility], [facility] [address], [place], [id number] , [place]. [phone] Referring Provider: Thalia Helton NP R, [address], [place], [address]. tel:[phone] Offic/outpt E&m Estab Low-mod [facility], [address] [address], [place], [place], [id number], [place] [phone] [facility] Chest pain (chief complaint) Chest Pain Nos 3 Silvana Reynoso . [address] [facility], [facility] [address], [place], [place], [id number] , [place]. [phone] Referring Provider: Thalia Helton NP R, [address], [place], [address]. tel:[phone] [facility], [address] [address], [place], [id number], [place] [phone] [facility] Hemorrhoids NosRectal Polyp/BenignD iarrheaRectal Bleed/BRBPRRe ctal Polyp/BenignR ectal Bleed/BRBPRDi arrheaHemorrh oids Nos 2 Thomas Dasilva. [address] [facility], [facility] [address], [place], [id number] , [place]. [phone] Referring Provider: Thalia Helton NP R, [address], [place], [address]. tel:[phone] Family History Family Member Type Diagnosis Age At Onset First degree family history Problem (finding) No history of Crohn's First degree family history Problem (finding) Colon Polyps First degree family history Problem (finding) No history of Cancer, colon First degree family history Problem (finding) Thyroid Disorder First degree family history Problem (finding) No history of Ulcerative Colitis First degree family history Problem (finding) diverticulitis of colon First degree family history Problem (finding) Cancer - Payers Payer name Insurance type Covered libertarian ID Authortatiana sargentward(s) [facility] [id number] Social History Type Description Quantity Date Captured Comments Sex Male Smoking Status No Information Chief Complaint And Reason For Visit No Information Reason For Referral Reason For Referral No Information History Of Present Illness Encounter Date Complaint History Of Prese nt Illness No Information Functional Status Date Functional Assessmen t No Information Instructions Date Instruction Additional Infor mation No Information Assessments Type Assessment Date No Information Patient Care Teams Name Effective Dates (start - stop) Status Members No Information
--- OUTSIDE RECORDS SUMMARY | 2025-03-03 02:21 | XMS_ITS | Continuity of Care Document ---
Author Organization [facility] Address [address] [address] [place] [address] Phone Care Team Providers Care Assembler [place]ches And [place] Name Role Phone Preston Whaley MD, Ricardo [...] Diagnoses Date Provider Providers Copied on Encounter [facility], [address] [address], [place], [place], [id number], [place] tel:[phone] [facility] No Information 5 Pretson Silva. [address] [facility], [facility] [address], [place], [place], [id number] , [place]. tel:[phone] [facility], [address] [address], [place], [place], [address], [place] tel:[phone] [facility] Behav Servando Gi NecGastric Polyp-benignC hest Pain NosGastric Polyp-benign 3 Jaime Baker. [address] [facility], [facility] [address], [place], [id number] , [place]. [phone] Referring Provider: Thalia Helton NP R, [address], [place], [address]. tel:[phone] Offic/outpt E&m Estab Low-mod [facility], [address] [address], [place], [place], [address], [place] [phone] [facility] Chest pain (chief complaint) Chest Pain Nos 3 Silvana Reynoso . [address] [facility], [facility] [address], [place], [place], [id number] , [place]. [phone] Referring Provider: Thalia Helton NP R, [address], [place], [address]. tel:[phone] [facility], [address] [address], [place], [id number], [place] [phone] [facility] Hemorrhoids NosRectal Polyp/BenignD iarrheaRectal Bleed/BRBPRRe ctal Polyp/BenignR ectal Bleed/BRBPRDi arrheaHemorrh oids Nos 2 Thomas Dasilva. [address] [facility], [facility] [address], [place], [address] , [place]. [phone] Referring Provider: Thalia Helton NP R, [address], [place], [address]. tel:[phone] Family History Family Member Type Diagnosis Age [...] - Payers Payer name Insurance type Covered alliance party ID Authortatiana sargentward(s) [facility] [id number] Social History Type Description Quantity Date Captured [...]
--- OUTSIDE RECORDS SUMMARY | 2025-04-02 09:40 | XMS_ITS | Encounter Summary ---
Author Organization [facility] Address [address] [place] [address] Care Team Providers Care Steam Bone Press Tender Name Role Phone Jarad Dickinson MD Primary Care Provider Unavailab Lana Sequeira MD Unavailable [phone] Jarad Dickinson MD Unavailable Unavailable Corinna Florentino MD Unavailable [phone] Nola Morris PA-C Unavailable [phone] Pancho Feng MD Unavailable [phone] Joslyn Gregorio MD Unavailable [phone] Reason for Visit * Reason Comments Consult Encounter Details Date Type Department Care Team (Late st Contact Info) Description 04/02/2025 10:40 AM CDT Office Visit [facility] [address] 4th [place] [address] Good Fortune MD [address] [place] [address] [address] [place] [address] Erectile dysfunction, unspecified erectile dysfunction type (Primary Dx); Pain in right testicle; Congenital stricture of urethra; S/P vasectomy; Post-void dribbling Social History Tobacco Use Types Packs/Day Years [...] re latives? 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 Gender Identity Not on file Sexual Orientation Not on file Occupation Industry Job Start Date Job End Date 2 Not on file Not on file Not on file documented as of this encounter Last Filed Vital Signs Vital Sign Reading Time Taken Comments Blood Pressure 117/84 04/02/2025 10:40 AM CDT Pulse 82 04/02/2025 10:40 AM CDT Temperature - - Respiratory Rate - - Oxygen Saturation 96% 04/02/2025 10:40 AM CDT Inhaled Oxygen Concentration - - Weight - - Height - - Body Mass Index - - documented in this encounter Progress Notes * Good Fortune MD - 04/02/2025 10:40 AM CDT Images from the original note were not included. I am seeing Alessandro Holt in consultation from Dr. RA Gregorio for evaluation of right testis pain. HPI: Alessandro Holt is a 49 year old male with history of right chronic testis pain. Pain symtpoms: Onset of the pain: 12/10/24, after 15 cm double buccal urethroplasty. Location/Radiation of the pain: immediate near the right testis Duration: all day every day. Quality of the pain: dull heavy ache Does have history of vasectomy- years ago, about 10+ years ago. Severity of the pain: 6-7/10 at rest right now. Timing of the pain: all day. Exacerbating/relieving factors: Laying flat reduces discomfort some. History of back surgery recently, but this lumbar fusion did not cause his testicle pain. Had back fusion October 2024, anterior approach for the lumbar fusion. Physical activity makes it worse. What do you think the pain is from: Has tried 2 course of antibiotics- no benefit. Scrotal ultrasound 02/10/25 was normal FINDINGS: RIGHT: Right testicle measures 5.1 x 3.4 x 2.7 cm. Normal testicle with no masses. Normal arterial duplex and normal color flow. Normal epididymis. No hydrocele. No varicocele. LEFT: Left testicle measures 5.4 x 3.4 x 2.5 cm. Normal testicle with no masses. Normal arterial duplex and normal color flow. Normal epididymis. No hydrocele. No varicocele. IMPRESSION: 1. Normal ultrasound of the scrotum. Erections are about 1/2 as firm since urethral surgery. He has noted some penile shortening and erectile dysfunction. ED has not been responsive very well to daily tadalafil. Libido is down because of the symptoms. He continues taking tadalafil 5mg QD. PAST MEDICAL HX: Past Medical History: Diagnosis Date Bipolar I disorder (H) Complication of anesthesia Some difficulty waking up DM (diabetes mellitus) (H) GERD (gastroesophageal reflux disease) Hypertension 07/20/2003 LBP (low back pain) Palpitations PAST SURG HX: Past Surgical History: Procedure Laterality Date BACK SURGERY 06/2012 CLAVICLE SURGERY Right COLONOSCOPY Left 11/09/2020 Procedure: COLONOSCOPY; Surgeon: Raul Gonzales MD; Location: GI CYSTOSCOPY FLEXIBLE N/A 12/10/2024 Procedure: Flexible Cystoscopy; Surgeon: Joslyn Gregorio MD; Location: OR CYSTOSCOPY, DILATE URETHRA, COMBINED N/A 10/16/2024 Procedure: Cystoscopy, dilate urethra, combined; Surgeon: Joslyn Gregorio MD; Location: [facility] OR FUSION LUMBAR ANTERIOR TWO LEVELS N/A 10/16/2024 Procedure: lumbar 4 to sacral 1 anterior decompression and fusion; Surgeon: Pancho Feng MD; Location: OR REPAIR TENDON ACHILLES Left 05/27/2019 Procedure: Multilevel Achilles tendon debridement and repair including debridement of the mid substance tendon with repair with #2 FiberWire and insertional debridement and repair with Arthrex SpeedBridge.; Surgeon: Luis Ordoñez DPM; Location: OR TESTICLE SURGERY URETHROPLASTY WITH BUCCAL GRAFT N/A 12/10/2024 Procedure: URETHROPLASTY, USING BUCCAL MUCOSA GRAFT; Surgeon: Joslyn Gregorio MD; Location: OR VASECTOMY FAMILY HX: Family History Problem Relation Age of Onset C.A.D. Mother Heart Disease Mother Diabetes Mother Easy Bruising Mother easy bleeding Colon Cancer Maternal Grandfather Easy Bruising Maternal Uncle easy bleeding Anesthesia Reaction No family hx of Deep Vein Thrombosis (DVT) No family hx of SOCIAL HX: Social History Tobacco Use Smoking status: Former Current packs/day: 0.00 Types: Cigarettes Quit date: 08/11/2003 Years since quittin.6 Passive exposure: Never Smokeless tobacco: Never Tobacco comments: 1 pack every 3-4 days Vaping Use Vaping status: Never Used Substance Use Topics Alcohol use: Not Currently Comment: weekends Drug use: Yes Types: Marijuana Comment: THC gummies for pain 10 mg daily HS- las took was MEDICATIONS: Current Outpatient Medications Medication Sig Dispense Refill acetaminophen (TYLENOL) 500 MG tablet Take 1,000 mg by mouth every 6 hours as needed for mild pain ([id number]). atorvastatin (LIPITOR) 40 MG tablet TAKE 1 TABLET BY MOUTH EVERY DAY 90 tablet 0 bacitracin 500 UNIT/GM external ointment Apply topically 2 times daily. 28.4 g 0 blood glucose monitoring (ProfitekTOUCH ULTRA) test strip Use to test blood sugars 3 times daily or as directed. 300 strip 1 blood glucose monitoring (ShopAdvisorUCH VERIO IQ) test strip Use to test blood sugar 3 times daily or asdirected. Ok to substitute alternative if insurance prefers. 100 strip 3 Blood Glucose Monitoring Suppl (ONE TOUCH ULTRA 2) W/DEVICE KIT Use to test blood sugars 1 times daily or as directed. 1 kit 0 chlorhexidine (PERIDEX) 0.12 % solution Swish and spit 15 mLs in mouth 2 times daily. 473 mL 0 citalopram (CELEXA) 20 MG tablet TAKE 3 TABLETS BY MOUTH EVERY DAY 270 tablet 0 clotrimazole-betamethasone (LOTRISONE) 1-0.05 % external cream Apply topically 2 times daily. 15 g 2 cyclobenzaprine (FLEXERIL) 10 MG tablet Take 1 tablet (10 mg) by mouth 3 times daily as needed for muscle spasms. 90 tablet 2 fenofibrate (TRICOR) 48 MG tablet Take 1 tablet (48 mg) by mouth daily. (Patient taking differently: Take 48 mg by mouth every morning.) 90 tablet 2 gabapentin (NEURONTIN) 400 MG capsule Take 1 capsule (400 mg) by mouth 2 times daily for 7 days, THEN 1 capsule (400 mg) daily for 7 days. (Patient not taking: No sig reported) 21 capsule 0 gabapentin (NEURONTIN) 400 MG capsule Take 1 capsule (400 mg) by mouth 3 times daily for 7 days. (Patient not taking: Reported on 02/03/2025) 21 capsule 0 hydrOXYzine HCl (ATARAX) 50 MG tablet Take 1 tablet (50 mg) by mouth every 6 hours as needed for other (adjuvant pain). 30 tablet 0 lisinopril (ZESTRIL) 20 MG tablet TAKE 1 TABLET BY MOUTH EVERY DAY 90 tablet 1 magic mouthwash suspension (diphenhydrAMINE, lidocaine, aluminum-magnesium & simethicone) Swishand swallow 10 mLs in mouth every 6 hours as needed for mouth sores. 240 mL 0 methylPREDNISolone (MEDROL DOSEPAK) 4 MG tablet therapy pack Follow Package Directions 21 tablet 0 Omeprazole Magnesium (PRILOSEC OTC PO) Take 20 mg by mouth every morning. oxyCODONE (ROXICODONE) 5 MG tablet Take 1 tablet (5 mg) by mouth every 6 hours as needed for severepain. 6 tablet 0 senna-docusate (SENOKOT-S/PERICOLACE) 8.6-50 MG tablet Take 1 tablet by mouth daily. 15 tablet 0 tadalafil (CIALIS) 5 MG tablet Take 1 tablet (5 mg) by mouth every 24 hours. 90 tablet 3 tamsulosin (FLOMAX) 0.4 MG capsule TAKE 1 CAPSULE BY MOUTH EVERY DAY 90 capsule 1 tolterodine ER (DETROL LA) 4 MG 24 hr capsule Take 1 capsule (4 mg) by mouth daily. 30 capsule 0 No current facility-administered medications for this visit. ALLERGIES: Coconut (cocos nucifera) GENERAL PHYSICAL EXAM: BP 117/84 (BP Location: Right arm, Patient Position: Sitting, Cuff Size: Adult Regular) Pulse 82 SpO2 96% Constitutional: No acute distress. Well nourished. PSYCH: normal mood and affect. NEURO: normal gait, no focal deficits. EYES: anicteric, EOMI, PERR. CARDIOPULMONARY: breathing non-labored, pulse regular rate/rhythm, no peripheral edema. GI: Abdomen soft, non-tender, nondistended MUSCULOSKELETAL: normal limb proportions, no muscle wasting, no contractures. SKIN: Normal virilized hair distribution, no lesions, warts or rashes over genitalia, abdomen extremities or face. HEME/LYMPH: no ecchymosis, no lymphadenopathy in groin, no lymphedema. EXAM: Phallus appears circumcised, there appears to be some chronic hypopigmented balanitis. LEFT TESTIS descended , size is 18cc, consistency is normal. No intra-testicular masses. Left epididymis present, this is slightly indurated consistent with history of remote vasectomy minimally-tender, Left cord: Vas present. No varicocele noted. RIGHT TESTIS descended , size is 18cc, consistency is normal. No intra- testicular masses. The right testicle is higher riding, and is mild-moderately sensitive to touch. Right epididymis is full, similar to the left side, this induration is consistent with someone who had a vasectomy about 10 years ago. The right epididymis is sensitive to touch, more so than the right side. Discomfort does NOT exclusively localize to the right epididymis. The right cord structures are sensitive to touch, perhaps somewhat indurated. The vas is palpable. No obvious sperm granuloma that I can tell. No evidence of right inguinal hernia Right cord: Vas present. No varicocele noted. Prostate exam: Deferred Imaging/labs: Lab Results Component Value Date CR 1.00 12/03/2024 CR 1.15 10/18/2024 CR 1.19 10/08/2024 CR 1.62 12/12/2020 CR 0.99 09/28/2020 CR 1.03 03/28/2020 Reviewed postoperative VCUG 12/30/2024-this study 3 weeks post urethroplasty shows patent urethra with no stricture, no leak. ASSESSMENT: Chronic R testis pain post extensive 15 cm double buccal urethroplasty. Right testicle pain was notresponsive to a right spermatic cord block by Dr. Gregorio. ED since surgery also, causing decreased libido. Post-void dribbling. 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 PLAN: Mr. Holt has an appointment with [facility] next week. I believe this is for comprehensive evaluation and likely a regional block. I encouraged him to attend this appointment. This should be diagnostic and potentially therapeutic. I discussed with him that his chronic right testicle pain is somewhat unexpected and out of proportion to the urethroplasty surgery that he had, but perhaps could be related. If extensive dissection was done to free up the urethra, it is possible there is some regional inflammation that has caused the right testicle to heal into the upper scrotum (urethra adjacent). This possibility does not fully explain the pain that he is having, which is pain of the entire right scrotal contents- the spermatic cord, epididymis, and testicle. Each of these structures is fairly equally sensitive, but the spermatic cord seems to pretty much be the most sensitive by my exam. There is NOT evidence of epididymitis, and the right testicle pain has not improved with 2 courses oforal antibiotics. My general impression, having looked at his recent scrotal ultrasound and also the physical exam isthat there is some idiopathic inflammation and/or neuropathic discomfort causing the chronic right testicle pain. 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 I suspect there is some sort of local idiopathic inflammatory reaction as his pain is out of proportion in severity and location of a typical urethroplasty. I discussed that the testicle could be freed up from its attachments and we can get this to hang lower in the scrotum, but his pain is not just of a pinched testicle, the right whole cord structures are very tender. Neither his urethroplasty nor his recent anterior spinal fusion earlier this year would necessarilyexplain the right testicle pain. His fusion was done with a left paramedian incision on the anterior abdomen, but dissection was taken along the left side of his abdomen, not the right. (So right ilioinguinal or genitofemoral nerve should not have been encountered during his spinal fusion.) Discussed that is possible that he has some radiculopathy into the right testicle from spinal DJD, but the pattern and physical appearance of his discomfort does not seem to fit with radiculopathy. Also testicle would be more T10-11 level innervation, other than the genitofemoral nerve which would be more L1-2 (his fusion October 2024 was low lumbar L4-5 and L5-S1). Also, he had no testicle pain in the immediate months after his spinal fusion, his right testicle pain symptoms started after the urethroplasty. Discussed that the postvoid dribbling is likely related to some decreased elasticity and increased diameter of the bulbar/anterior urethra, though the diameter of this does not appear overly large onthe postoperative VCUG. Recommended he milk the bulbar urethra post void to remove any extra leakage. Discussed that he can likely stop the alpha-radha, as his slow urine flow was almost certainly due to the urethral stricture rather than BPH. At this point, the tamsulosin may be affecting erections or possibly worsening the postvoid dribbling. I recommended him to stop this and then see if the symptoms improve at all. For the ED and loss of penile length postop, there may be some degree of penile fibrosis with the extensive urethral dissection x 15 cm. It is not likely that he has arterial supply issues postop, the mechanism of his surgery would not likely support this, but if he does have some residual fibrosisperhaps this is causing some venoocclusive dysfunction type of ED. I discussed that a penile duplexultrasound would be possible to help evaluate for inflow disease versus venous leak, but this ultrasound would not change treatment options which include oral medications, ICI, or IPP as a last resort. Also, the testicle pain will tend to be a deterrent for sexual activity as well. Recommended we focus on the right testicle pain and perhaps with some observation the sexual function will come around, especially if we can improve his pain in the right scrotum. He does have a normal testosterone level from about 1.5 years ago, 446 ng/dL, so he does not have hypogonadism. Recommended he continuesdaily 5 mg tadalafil. He may take an extra 5 or 10 mg on demand to help with erections as needed. Bottom line, I encouraged him to see how the regional block goes with [facility]. If he responds to this,surgical options I can offer him would be microscopic denervation of the right testicle, (also trying to free the testicle scrotal attachments to help the right testicle hanging lower), versus simpleright orchiectomy. The latter would be more likely to give complete pain relief, but this is done at the expense of testosterone production. He will see how the pain clinic visit goes, and contact meif interested in scheduling a denervation. Copied to Consulting provider Dr. Gregorio Thank-you for the kind consultation. Good Fortune MD Urological Surgeon MDM: Problems: 4 -- one or more chronic illnesses with exacerbation or side effects Data Reviewed 3 or more studies reviewed, as listed above Tests ordered/pending: N/A Notes from other providers reviewed: Reviewed spinal fusion note 10/16/2024 Dr. Feng Level of risk: 4 -- prescription drug management Time spent: 75 minutes spent on the date of the encounter doing chart review, history and exam, documentation and further activities per the note documented in this encounter Nursing Notes * Jacinto BryannaMARY - 04/02/2025 10:40 AM CDT Chief Complaint Patient presents with Consult Blood pressure 117/84, pulse 82, SpO2 96%. There is no height or weight on file to calculate BMI. Patient Active Problem List Diagnosis Essential hypertension Bipolar I disorder (H) GERD (gastroesophageal reflux disease) Generalized anxiety disorder Gastroenteritis Hyperlipidemia with target LDL less than 100 Morbid obesity (HCC) Diabetes mellitus without complication (H) Moderate episode of recurrent major depressive disorder (H) Right knee pain, unspecified chronicity Back pain of lumbar region with sciatica Tendonitis, Achilles, left Type 2 diabetes mellitus with peripheral neuropathy (H) Right leg weakness Lumbar back pain with radiculopathy affecting right lower extremity Acute right-sided low back pain with right-sided sciatica S/P lumbar fusion Congenital stricture of urethra Allergies Allergen Reactions Coconut (Cocos Nucifera) Anything with coconut, throat swells and can't breath Current Outpatient Medications Medication Sig Dispense Refill acetaminophen (TYLENOL) 500 MG tablet Take 1,000 mg by mouth every 6 hours as needed for mild pain ([id number]). atorvastatin (LIPITOR) 40 MG tablet TAKE 1 TABLET BY MOUTH EVERY DAY 90 tablet 0 bacitracin 500 UNIT/GM external ointment Apply topically 2 times daily. 28.4 g 0 blood glucose monitoring (ONETOUCH ULTRA) test strip Use to test blood sugars 3 times daily or as directed. 300 strip 1 blood glucose monitoring (ONETOUCH VERIO IQ) test strip Use to test blood sugar 3 times daily or asdirected. Ok to substitute alternative if insurance prefers. 100 strip 3 Blood Glucose Monitoring Suppl (ONE TOUCH ULTRA 2) W/DEVICE KIT Use to test blood sugars 1 times daily or as directed. 1 kit 0 chlorhexidine (PERIDEX) 0.12 % solution Swish and spit 15 mLs in mouth 2 times daily. 473 mL 0 citalopram (CELEXA) 20 MG tablet TAKE 3 TABLETS BY MOUTH EVERY DAY 270 tablet 0 clotrimazole-betamethasone (LOTRISONE) 1-0.05 % external cream Apply topically 2 times daily. 15 g 2 cyclobenzaprine (FLEXERIL) 10 MG tablet Take 1 tablet (10 mg) by mouth 3 times daily as needed for muscle spasms. 90 tablet 2 fenofibrate (TRICOR) 48 MG tablet Take 1 tablet (48 mg) by mouth daily. (Patient taking differently: Take 48 mg by mouth every morning.) 90 tablet 2 gabapentin (NEURONTIN) 400 MG capsule Take 1 capsule (400 mg) by mouth 2 times daily for 7 days, THEN 1 capsule (400 mg) daily for 7 days. (Patient not taking: No sig reported) 21 capsule 0 gabapentin (NEURONTIN) 400 MG capsule Take 1 capsule (400 mg) by mouth 3 times daily for 7 days. (Patient not taking: Reported on 02/03/2025) 21 capsule 0 hydrOXYzine HCl (ATARAX) 50 MG tablet Take 1 tablet (50 mg) by mouth every 6 hours as needed for other (adjuvant pain). 30 tablet 0 lisinopril (ZESTRIL) 20 MG tablet TAKE 1 TABLET BY MOUTH EVERY DAY 90 tablet 1 magic mouthwash suspension (diphenhydrAMINE, lidocaine, aluminum-magnesium & simethicone) Swishand swallow 10 mLs in mouth every 6 hours as needed for mouth sores. 240 mL 0 methylPREDNISolone (MEDROL DOSEPAK) 4 MG tablet therapy pack Follow Package Directions 21 tablet 0 Omeprazole Magnesium (PRILOSEC OTC PO) Take 20 mg by mouth every morning. oxyCODONE (ROXICODONE) 5 MG tablet Take 1 tablet (5 mg) by mouth every 6 hours as needed for severepain. 6 tablet 0 senna-docusate (SENOKOT-S/PERICOLACE) 8.6-50 MG tablet Take 1 tablet by mouth daily. 15 tablet 0 tadalafil (CIALIS) 5 MG tablet Take 1 tablet (5 mg) by mouth every 24 hours. 90 tablet 3 tamsulosin (FLOMAX) 0.4 MG capsule TAKE 1 CAPSULE BY MOUTH EVERY DAY 90 capsule 1 tolterodine ER (DETROL LA) 4 MG 24 hr capsule Take 1 capsule (4 mg) by mouth daily. 30 capsule 0 Social History Tobacco Use Smoking status: Former Current packs/day: 0.00 Types: Cigarettes Quit date: 08/11/2003 Years since quittin.6 Passive exposure: Never Smokeless tobacco: Never Tobacco comments: 1 pack every 3-4 days Vaping Use Vaping status: Never Used Substance Use Topics Alcohol use: Not Currently Comment: weekends Drug use: Yes Types: Marijuana Comment: THC gummies for pain 10 mg daily HS- las took was Bryanna Casey MA 04/02/2025 10:41 AM documented in this encounter Miscellaneous Notes * Addendum Note - Good Fortune MD - 04/02/2025 10:40 AM CDTAddended by: GOOD FORTUNE on: 04/02/2025 10:17 PM Modules accepted: Level of Service documented in this encounter Plan of Treatment Upcoming Encounters Date Type Department Care Team (Latest Contact Info) Description 06/10/2025 11:00 AM CHIEF ENVIRONMENTAL COMMITMENT OFFICER Lab [facility] [address] [place] [address] 06/14/2025 1:30 PM CHIEF ENVIRONMENTAL COMMITMENT OFFICER Office Visit [facility] [place] [address] [place] [phone] Joslyn Gregorio MD [address] [address] 08/16/2025 11:30 AM CHIEF ENVIRONMENTAL COMMITMENT OFFICER Office Visit [facility] [address] [place] [address] Curtis Holland APRN DIRECTOR TELEMETRY [address] [place] [address] 09/28/2025 8:00 AM CDT Hospital Encounter [facility] [address] [facility] 5th [place] [phone] Good Fortune MD [address] [facility] [place] [address] [place], [place] [address] 09/28/2025 8:00 AM CDT - 09/28/2025 11:15 AM CDT Surgery [facility] [address] [place] [address] 5th [place] [phone] Good Fortune MD [address] [place] [address] [address] [place], [place] [id number] RIGHT MICROSURGICAL SPERMATIC CORD DENERVATION, right orchidopexy 10/28/2025 1:20 PM CDT Office Visit [facility] [address] 4th [place] [phone] Good Fortune MD [address] [place] [address] Scheduled Procedures Name Priority Associated Diagnoses Date/Ti me DENERVATION, SPERMATIC CORD, MICROSURGICAL Pain in right testicle 09/28/2025 8:00 AM CDT documented as of this encounter Visit Diagnoses Diagnosis Erectile dysfunction, unspecified erectile dysfunction type- Primary Pain in right testicle Unspecified disorder of male genital organs 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 S/P vasectomy Vasectomy status Post-void dribbling Pain in right testicle Unspecified disorder of male genital organs documented in this encounter Additional Health Concerns Assessment Noted Time PHQ-9 Depression Total Score: 2 05/20/20 3:48 PM CHIEF ENVIRONMENTAL COMMITMENT OFFICER documented as of this encounter Care Teams Steam Bone Press Tender Relationship Specialty Start Date End Date Jarad Dickinson MD PCP - General Internal Medicine 05/20/24 04/13/25 Lana Pond MD [address] [place] [address] Physician Neurology 05/21/24 Jarad Dickinson MD Assigned PCP 05/30/24 05/05/25 [place] [address] [place] [address] Pain Medicine 10/06/24 Nola Mroris PA-C [address] [place] [address] [address] [place] [address] [employer] Publisher Anesthesiology 12/02/24 Pancho Feng MD [address] [place] [address] [address] [place] [address] Assigned Neuroscience Provider 01/27/25 Joslyn Gregorio MD [address] [place] [address] Assigned Surgical Provider 01/27/25 documented as of this encounter
--- OUTSIDE RECORDS SUMMARY | 2025-04-13 11:40 | XMS_ITS | Encounter Summary ---
Author Organization [facility] Address [address] [place] [address] Care Team Providers Care Cleaner And Trimmer Name Role Phone Jarad Dickinson MD Primary Care Provider Unavailab Lana Sequeira MD Unavailable [phone] Jarad Dickinson MD Unavailable Unavailable Corinna Florentino MD Unavailable [phone] Nola Morris PA-C Unavailable + [phone] Pancho Feng MD Unavailable [phone] Joslyn Gregorio MD Unavailable [phone] Reason for Visit * Diagnostic Imaging XR (Routine) - Pending Review Specialty Diagnoses / Procedures Referred By Yuki t Referred To Contact Radiology. Diagnoses S/P lumbar fusion Procedures XR Lumbar Spine 2/3 Views Pancho Feng MD [address] [address] Phone: tel: fax: Referral ID Status Reason Start Date Expiration Date V isits Requested Visits Authorized [id number] Pending Review 01/06/2025 01/06/2026 1 1 Encounter Details Date Type Department Care Team (Late st Contact Info) Description 04/13/2025 12:40 PM CDT Ancillary Procedure [facility] [address] [place] [address] Pancho Feng MD [address] [address] S/P lumbar fusion Social History Tobacco Use Types Packs/Day Years [...] re latives? Once a week 05/20/2024 Attends Restorationist Services Not on file 05/20 Active Member of Clubs or Organizations Not on f ile 05/20/2024 Attends Club or Organization Meetings Not on devorah e 05/20/2024 Marital Status Not on file 05/20/2024 PHQ-2 Answer Date Recorded PHQ-2 Score 2 04/02/2025 [facility] - [...] Date Recorded Do you have housing? (Fabian g is defined as stable permanent housing and does not include staying outside in a car, in a tent, in an abandoned building, in an overnight half-way, or couch-surfing.) Yes 10/08/2024 Are you worried [...] on file Legal Sex Male 3:45 AM [employer] Gender Identity Not on file Sexual Orientation Not on file Occupation Industry Job Start Date Job End Date 2 Not on file Not on file Not on file documented as of this encounter Plan of Treatment Upcoming Encounters Date Type Department Care Team (Latest Contact Info) Description 06/10/2025 11:00 AM [employer] Lab [facility] [address] [place] [phone] 06/14/2025 1:30 PM [employer] Office Visit [facility] [place] [address] [place] [phone] Joslyn Gregorio MD [address] [place] [address] 08/16/2025 11:30 AM [employer] Office Visit [facility] [address] [place] [phone] Curtis Holland APRN [facility] [address] [place] [address] 09/28/2025 8:00 AM CDT Hospital Encounter [address] [place] [address] Good Fortune MD [address] [place] [address] [address] [place] [address] 09/28/2025 8:00 AM CDT - 09/28/2025 11:15 AM CDT Surgery [facility] OR [place] [address] [facility] 5th [place] [address] Good Fortune MD [address] [place] [address] [address] [place] [address] RIGHT MICROSURGICAL SPERMATIC CORD DENERVATION, right orchidopexy 10/28/2025 1:20 PM CDT Office Visit [facility] [address] 4th [place] [phone] Good Fortune MD [address] [place] [address] Scheduled Procedures Name Priority Associated Diagnoses Date/Ti me DENERVATION, SPERMATIC CORD, MICROSURGICAL Pain in right testicle 09/28/2025 8:00 AM CDT documented as of this encounter Procedures Procedure Name Priority Date/Time Associated Diagnosis Comments XR LUMBAR SPINE 2/3 VIEWS Routine 04/13/2025 12:49 PM CDT S/P lumbar fusion documented in this encounter Results * XR Lumbar Spine 2/3 Views (04/13/2025 12:49 PM CDT) Anatomical Region Laterality Modality Spine, T-spine, L-spine, Abdomen/Pelvis Computed Radiography 04/13/2025 12:4 9 PM CDT Impressions 04/14/2025 7:50 AM CDT IMPRESSION: Postsurgical changes: L4-S1 anterior fusion. No findings to suggest hardware loosening or failure. Alignment: Within normal limits. Vertebral body heights: Maintained. Fracture: No discernible acute fracture. Degenerative changes: Mild degenerative changes with vertebral body osteophyte formation, endplate irregularity, and facet arthropathy. Other: Diffuse osseous demineralization. Bilateral hip degenerative changes. Narrative 04/14/2025 7:50 AM CDT EXAM: XR LUMBAR SPINE 2/3 VIEWS LOCATION: [facility] DATE: 04/13/2025 INDICATION: S/P lumbar fusion COMPARISON: 01/06/2025 Procedure Note Jorge L Bourne MD - 04/14/2025 EXAM: XR LUMBAR SPINE 2/3 VIEWS LOCATION: [facility] DATE: 04/13/2025 INDICATION: S/P lumbar fusion COMPARISON: 01/06/2025 IMPRESSION: Postsurgical changes: L4-S1 anterior fusion. No findings to suggesthardware loosening or failure. Alignment: Within normal limits. Vertebral body heights: Maintained. Fracture: No discernible acute fracture. Degenerative changes: Mild degenerative changes with vertebral bodyosteophyte formation, endplate irregularity, and facet arthropathy. Other: Diffuse osseous demineralization. Bilateral hip degenerativechanges. Pancho Feng MD [facility] ORDERA BLES Final Result documented in this encounter Visit Diagnoses Diagnosis S/P lumbar fusion Arthrodesis status Pain in right testicle Unspecified disorder of male genital organs documented in this encounter Additional Health Concerns Assessment Noted Time PHQ-9 Depression Total Score: 2 05/20/20 24 3:48 PM [employer] documented as of this encounter Care Teams Cleaner And Trimmer Relationship Specialty Start Date End Date Jarad Dickinson MD PCP - General Internal Medicine 05/20/24 04/13/25 Lana Pond MD [address] [place] [address] Physician Neurology 05/21/24 Jarad Dickinson MD Assigned PCP 05/30/24 05/05/25 [place] [address] [place] [address] Pain Medicine 10/06/24 Nola Morris PA-C [address] [facility] 4TH [place] [address] Physician Vice President Digital Strategist Anesthesiology 12/02/24 Pancho Feng MD 420 [facility] [address] [place], [place] [phone] Assigned Neuroscience Provider 01/27/25 Joslyn Gregorio MD [address] [place] [place] [address] Assigned Surgical Provider 01/27/25 documented as of this encounter
--- OUTSIDE RECORDS SUMMARY | 2025-04-13 12:00 | XMS_ITS | Encounter Summary ---
Author Organization [facility] Address [address] [place] [address] Care Team Providers Care Community Outreach Director Name Role Phone Jarad Dickinson MD Primary Care Provider Unavailab Lana Sequeira MD Unavailable [phone] Jarad Dickinson MD Unavailable Unavailable Corinna Florentino MD Unavailable [phone] Nola Morris PA-C Unavailable [phone] Pancho Feng MD Unavailable [phone] Joslyn Gregorio MD Unavailable [phone] Reason for Referral * Diagnostic Imaging XR (Routine) - Pending Review Specialty Diagnoses / Procedures Referred By Yuki t Referred To Contact Radiology. Diagnoses S/P lumbar fusion Right testicular pain Procedures XR Pelvis 1/2 Views Demi Link PA-C [facility] [address] [place] [address] Phone: tel: fax: Referral ID Status Reason Start Date Expiration Date V isits Requested Visits Authorized [id number] Pending Review 04/13/2025 04/13/2026 1 1 Reason for Visit * Reason Comments RECHECK 6 month post op foll ow up Encounter Details Date Type Department Care Team (Latest Contact Info) Description 04/13/2025 1:00 PM CDT Office Visit [facility] [address] [place] [address] None Demi Link PA-C [facility] [address] [place] [address] S/P lumbar fusion (Primary Dx); Right testicular pain Social History Tobacco Use Types Packs/Day Years [...] re latives? Once a week 05/20/2024 Attends Caodaism Services Not on file 05/20 Active Member of Clubs or Organizations Not on f ile 05/20/2024 Attends Club or Organization Meetings Not on devorah e 05/20/2024 Marital Status Not on file 05/20/2024 PHQ-2 Answer Date Recorded PHQ-2 Score 2 04/02/2025 [facility] Occupat ional Health - Occupational Stress [...] on file Legal Sex Male 3:45 AM [employer] Gender Identity Not on file Sexual Orientation Not on file Occupation Industry Job Start Date Job End Date 2 Not on file Not on file Not on file documented as of this encounter Last Filed Vital Signs Vital Sign Reading Time Taken Comments Blood Pressure 130/85 04/13/2025 12:51 PM CDT Pulse 79 04/13/2025 12:51 PM CDT Temperature - - Respiratory Rate - - Oxygen Saturation 95% 04/13/2025 12:51 PM CDT Inhaled Oxygen Concentration - - Weight 112.5 kg (248 lb) 04/13/2025 12:51 PM CDT Height 190.5 cm (6' 3) 04/13/2025 12:51 PM CDT Body Mass Index 31 04/13/2025 12:51 PM CDT documented in this encounter Patient Instructions * Patient Instructions* Deim Link PA-C - 04/13/2025 1:00 PM CDT -Bilateral hip XR today. Will call you tomorrow with definitive plans and next steps after discussion with Dr. Feng -continue pain control as you have been doing at home -letter written for work for another month until we are able to sort through these issues -activity as you have been doing Demi Link PA-C [facility] [address] [place] [address] documented in this encounter Progress Notes * Demi Link PA-C - 04/13/2025 1:00 PM CDT NEUROSURGERY CLINIC PROGRESS NOTE DATE OF VISIT: 04/13/2025 HPI: Alessandro Holt is a pleasant 49 year old male who presents to the clinic today for a 6 month follow up s/p lumbar 4 to sacral 1 anterior decompression and fusion DOS 10/16/[address] Feng. Patient notes from a back standpoint he has been doing well. Back pain, leg symptoms have essentially resolved. He had to get urethroplasty 12/10/2024 and since that time has been suffering from isolated right sided testicular pain. Pain is constant aching and sharp with movement, better when laying down/flat. He has had extensive work up with urology Dr. Gregorio and second opinion with Dr. Fortune. Hadultrasound that was negative for acute changes. Recently underwent a right genitofemoral block withNura on 04/06 that provided numbness for 4-5 days when the pain returned. Dr. Gregorio and Dr. Fortune have not been able to explain patient pain. Current Outpatient Medications Medication Sig Dispense Refill acetaminophen (TYLENOL) 500 MG tablet Take 1,000 mg by mouth every 6 hours as needed for mild pain ([id number]). atorvastatin (LIPITOR) 40 MG tablet TAKE 1 TABLET BY MOUTH EVERY DAY 90 tablet 0 bacitracin 500 UNIT/GM external ointment Apply topically 2 times daily. 28.4 g 0 blood glucose monitoring (GridApp SystemsTOUCH ULTRA) test strip Use to test blood sugars 3 times daily or as directed. 300 strip 1 blood glucose monitoring (GridApp SystemsTOUCH VERIO IQ) test strip Use to test [...] tablet 2 fenofibrate (TRICOR) 48 MG tablet TAKE 1 TABLET BY MOUTH EVERY DAY 90 tablet 0 hydrOXYzine HCl (ATARAX) 50 MG tablet [...] needed for mouth sores. 240 mL 0 Omeprazole Magnesium (PRILOSEC OTC PO) Take 20 mg by mouth every morning. senna-docusate (SENOKOT-S/PERICOLACE) 8.6-50 MG tablet Take 1 [...] mg) by mouth daily. 30 capsule 0 gabapentin (NEURONTIN) 400 MG capsule Take 1 capsule (400 mg) by mouth 2 times daily for 7 days, THEN 1 capsule (400 mg) daily for 7 days. (Patient not taking: No sig reported) 21 capsule 0 gabapentin (NEURONTIN) 400 MG capsule Take 1 capsule (400 mg) by mouth 3 times daily for 7 days. (Patient not taking: Reported on 04/13/2025) 21 capsule 0 methylPREDNISolone (MEDROL DOSEPAK) 4 MG tablet therapy pack Follow Package Directions (Patient nottaking: Reported on 04/13/2025) 21 tablet 0 oxyCODONE (ROXICODONE) 5 MG tablet Take 1 tablet (5 mg) by mouth every 6 hours as needed for severepain. (Patient not taking: Reported on 04/13/2025) 6 tablet 0 No current facility-administered medications for this visit. Allergies Allergen Reactions Coconut (Cocos Nucifera) Anything with coconut, throat swells and can't breath Past Medical History: Diagnosis Date Bipolar I disorder (H) Complication of anesthesia Some difficulty waking up DM (diabetes mellitus) (H) GERD (gastroesophageal reflux disease) Hypertension 07/20/2003 LBP (low back pain) Palpitations Review Of Systems ROS: 10 point ROS neg other than the symptoms noted above in the HPI. OBJECTIVE: BP 130/85 Pulse 79 Ht 1.905 m (6' 3) Wt 112.5 kg (248 lb) SpO2 95% BMI 31.00 kg/m?? Imaging: Narrative & Impression EXAM: XR PELVIS 1/2 VIEWS LOCATION: [facility] [place] DATE: 04/13/2025 INDICATION: bilateral hip pain, groin pain, right testicular pain. bilateral hip x rays COMPARISON: None. IMPRESSION: Single view of the pelvis is negative for fracture. Postoperative changes lumbar spine.Both hips negative for fracture with mild degenerative change both hip joints. Radiographic Findings: Full radiological report in chart. I personally reviewed the images with thepatient today. Exam: Patient appears comfortable and in no apparent distress. Moving all extremities. Gait is non-antalgic. CN II-XII grossly intact, alert and appropriate with conversation and following Commands No TTP lumbar or BL SI JOINTS +KEY on right +thigh thrust on right>left +distraction testing right>left +TTP along right greater trochanteric bursa Bilateral lower extremities 5/5 strength including plantar and dorsiflexion. Normal sensation throughout bilaterally. ASSESSMENT: 1. S/P lumbar fusion 2. Right testicular pain PLAN: -Bilateral hip XR today. Will call you tomorrow with definitive plans and next steps after discussion with Dr. Feng -continue pain control as you have been doing at home -letter written for work for another month until we are able to sort through these issues -activity as you have been doing Demi Link PA-C [facility] [address] [facility] [address] [place] [address] documented in this encounter Nursing Notes * Clover Jacques - 04/13/2025 1:00 PM CDT Alessandro Holt is a 49 year old male who presents for: Chief Complaint Patient presents with RECHECK 6 month post op follow up Initial Vitals: BP 130/85 Pulse 79 Ht 6' 3 (1.905 m) Wt 248 lb (112.5 kg) SpO2 95% BMI 31.00 kg/m?? Estimated body mass index is 31 kg/m?? as calculated from the following: Height as of this encounter: 6' 3 (1.905 m). Weight as of this encounter: 248 lb (112.5 kg).. Body surface area is 2.44 meters squared. BP completed using cuff size: large Mild Pain (1) Clover Jacques documented in this encounter Plan of Treatment Upcoming Encounters Date Type Department Care Team (Latest Contact Info) Description 06/10/2025 11:00 AM VP TRAIN[facility] Lab [facility] [address] [place] [phone] 06/14/2025 1:30 PM VP TRA[facility] Office Visit [facility] [place] [address] [facility] [address] [place] [phone] Joslyn Gregorio MD [address] [place] [address] 08/16/2025 11:30 AM VP TRAINING Office Visit [facility] [address] [place] [phone] Curtis Holland APRN [employer] [address] [place] [address] 09/28/2025 8:00 AM CDT Hospital Encounter [facility] [place] [address] [facility] 5th [place] [phone] Good Fortune MD [address] [place] [address] [address] [place] [address] 09/28/2025 8:00 AM CDT - 09/28/2025 11:15 AM CDT Surgery [facility] [place] [address] [facility] 5th [place] [phone] Good Fortune MD [address] [place] [address] RIGHT MICROSURGICAL SPERMATIC CORD DENERVATION, right orchidopexy 10/28/2025 1:20 PM CDT Office Visit [facility] [address] 4th [place] [phone] Good Fortune MD [address] [place] [address] Scheduled Procedures Name Priority Associated Diagnoses Date/Ti me DENERVATION, SPERMATIC CORD, MICROSURGICAL Pain in right testicle 09/28/2025 8:00 AM CDT documented as of this encounter Results * XR Pelvis 1/2 Views (04/13/2025 1:50 PM CDT) Anatomical Region Laterality Modality Abdomen/Pelvis Computed Radiogr aphy 04/13/2025 1:50 PM CDT Impressions 04/15/2025 1:12 PM CDT IMPRESSION: Single view of the pelvis is negative for fracture. Postoperative changes lumbar spine. Both hips negative for fracture with mild degenerative change both hip joints. Narrative 04/15/2025 1:12 PM CDT EXAM: XR PELVIS 1/2 VIEWS LOCATION: [facility] DATE: 04/13/2025 INDICATION: bilateral hip pain, groin pain, right testicular pain. bilateral hip x rays COMPARISON: None. Procedure Note Rubin Jorge MD - 04/15/2025 EXAM: XR PELVIS 1/2 VIEWS LOCATION: [facility] DATE: 04/13/2025 INDICATION: bilateral hip pain, groin pain, right testicular pain.bilateral hip x rays COMPARISON: None. IMPRESSION: Single view of the pelvis is negative for fracture.Postoperative changes lumbar spine. Both hips negative for fracture withmild degenerative change both hip joints. Demi Link PA-C [facility] ORDER RADHA Final Result documented in this encounter Visit Diagnoses Diagnosis S/P lumbar fusion- Primary Arthrodesis status Right testicular pain Unspecified disorder of male genital organs S/P lumbar fusion Arthrodesis status Right testicular pain Unspecified disorder of male genital organs Pain in right testicle Unspecified disorder of male genital organs documented in this encounter Additional Health Concerns Assessment Noted Time PHQ-9 Depression Total Score: 2 05/20/20 24 3:48 PM [employer] documented as of this encounter Care Teams Community Outreach Director Relationship Specialty Start Date End Date Jarad Dickinson MD PCP - General Internal Medicine 05/20/24 04/13/25 Lana Pond MD [address] [place] [address] Physician Neurology 05/21/24 Jarad Dickinson MD Assigned PCP 05/30/24 05/05/25 [place] [address] [place] [address] Pain Medicine 10/06/24 Nola Morris PA-C [address] [place] [address] [address] [place] [address] Physician Grinder Operator Anesthesiology 12/02/24 Pancho Feng MD 420 [facility] [address] [place] [address] Assigned Neuroscience Provider 01/27/25 Joslyn Gregorio MD [address] [place] [id number] Assigned Surgical Provider 01/27/25 documented as of this encounter
--- OUTSIDE RECORDS SUMMARY | 2025-04-13 12:45 | XMS_ITS | Encounter Summary ---
Author Organization [facility] Address [address] [place] [id number] Care Team Providers Care Health And Wellness Director Name Role Phone Jarad Dickinson MD Primary Care Provider Unavailab Lana Sequeira MD Unavailable [phone] Jarad Dickinson MD Unavailable Unavailable Corinna Florentino MD Unavailable [phone] Nola Morris PA-C Unavailable + [phone] Pancho Feng MD Unavailable [phone] Joslyn Gregorio MD Unavailable [phone] Reason for Visit * Diagnostic Imaging XR (Routine) - Pending Review Specialty Diagnoses / Procedures Referred By Yuki daigle Referred To Contact Radiology. Diagnoses S/P lumbar fusion Right testicular pain Procedures XR Pelvis 1/2 Views Demi Link PA-C [facility] [address] [address] Phone: tel: fax: Referral ID Status Reason Start Date Expiration Date V isits Requested Visits Authorized [id number] Pending Review 04/13/2025 04/13/2026 1 1 Encounter Details Date Type Department Care Team (Latest Contact Info) Description 04/13/2025 1:45 PM CDT Ancillary Procedure [facility] [address] [place] [address] Demi Link PA-C [facility] [address] [id number] S/P lumbar fusion; Right testicular pain Social History Tobacco Use [...] re latives? Once a week 05/20/2024 Attends [employer] Not on file 05/20 Active Member of Clubs or Organizations Not on f ile 05/20/2024 Attends Club or Organization Meetings Not on devorah e 05/20/2024 Marital Status Not on file 05/20/2024 PHQ-2 Answer Date Recorded PHQ-2 Score 2 04/02/2025 [facility] [place] [facility] Occup[facility] - Occupational Stress [...] in an abandoned building, in an overnight group home, or couch-surfing.) Yes 10/08/2024 Are you worried [...] on file Legal Sex Male 3:45 AM RECONSTRUCTIVE SURGEON Gender Identity Not on file Sexual Orientation Not on file Occupation Industry Job Start Date Job End Date 2 Not on file Not on file Not on file documented as of this encounter Plan of Treatment Upcoming Encounters Date Type Department Care Team (Latest Contact Info) Description 06/10/2025 11:00 AM RECONSTRUCTIVE SURGEON Lab [facility] [address] [place] [address] 06/14/2025 1:30 PM RECONSTRUCTIVE SURGEON Office Visit [facility] [place] [address] [place] [address] Joslyn Gregorio MD [address] [place] [address] 08/16/2025 11:30 AM RECONSTRUCTIVE SURGEON Office Visit [facility] [address] [place] [phone] Curtis Holland APRN [facility] [address] [place] [address] 09/28/2025 8:00 AM CDT Hospital Encounter M [facility] [address] [facility] 5th [place] [address] Good Fortune MD [address] [place] [address] [address] [place] [address] 09/28/2025 8:00 AM CDT - 09/28/2025 11:15 AM CDT Surgery [facility] [address] [place] [address] 5th [place] [address] Good Fortune MD [address] [place] [address] [address] [place] [address] RIGHT MICROSURGICAL SPERMATIC CORD DENERVATION, right orchidopexy 10/28/2025 1:20 PM CDT Office Visit [facility] [address] 4th [place] [phone] Good Fortune MD [address] [place] [address] [address] [place] [address] Scheduled Procedures Name Priority Associated Diagnoses Date/Ti me DENERVATION, SPERMATIC CORD, MICROSURGICAL Pain in right testicle 09/28/2025 8:00 AM CDT documented as of this encounter Procedures Procedure Name Priority Date/Time Associated Diagnosis Comments XR PELVIS 1/2 VIEWS Routine 04/13/2025 1 :50 PM CDT S/P lumbar fusion Right testicular pain documented in this encounter Results * XR Pelvis 1/2 [...] CDT EXAM: XR PELVIS 1/2 VIEWS LOCATION: [facility] DATE: 04/13/2025 INDICATION: bilateral hip pain, groin pain, right testicular pain. bilateral hip x rays COMPARISON: None. Procedure Note Rubin Jorge MD - 04/15/2025 EXAM: XR PELVIS 1/2 VIEWS LOCATION: [facility] DATE: 04/13/2025 INDICATION: bilateral hip pain, groin pain, right testicular pain.bilateral hip x rays COMPARISON: None. IMPRESSION: Single view of the pelvis is negative for fracture.Postoperative changes lumbar spine. Both hips negative for fracture withmild degenerative change both hip joints. Demi Link PA-C [facility] Final Result documented in this encounter Visit Diagnoses Diagnosis S/P lumbar fusion Arthrodesis status Right testicular pain Unspecified disorder of male genital organs Pain in right testicle Unspecified disorder of male genital organs documented in this encounter Additional Health Concerns Assessment Noted Time PHQ-9 Depression Total Score: 2 05/20/20 24 3:48 PM RECONSTRUCTIVE SURGEON documented as of this encounter Care Teams Health And Wellness Director Relationship Specialty Start Date End Date Jarad Dickinson MD PCP - General Internal Medicine 05/20/24 04/13/25 Lana Pond MD [address] [place] [address] Physician Neurology 05/21/24 Jarad Dickinson MD Assigned PCP 05/30/24 05/05/25 [place] [id number] [place] [address] [address] Pain Medicine 10/06/24 Nola Morris PA-C [address] [facility] [address] [place] [address] Physician Outside Sales Representative Anesthesiology 12/02/24 Pancho Feng MD [address] [facility] [address] [place], [place] [phone] Assigned Neuroscience Provider 01/27/25 Joslyn Gregorio MD [address] [place] [address] Assigned Surgical Provider 01/27/25 documented as of this encounter
--- OUTSIDE RECORDS SUMMARY | 2025-04-25 19:28 | XMS_ITS | Encounter Summary ---
Author Organization [facility] Address [address] [place] [id number] Care Team Providers Care Director Trade Name Role Phone Lana Pond MD Unavailable [phone] Jarad Dickinson MD Unavailable Unavailable Corinna Florentino MD Unavailable [phone] Nola Morris PA-C Unavailable [phone] Pancho Feng MD Unavailable [phone] Joslyn Gregorio MD Unavailable [phone] No Ref-Primary, Physician Primary Care Provider Reason for Referral * Consultation (Urgent: 3-5 Days) - Pending Review Specialty Diagnoses / Procedures Referred By Yuki t Referred To Contact Urology Diagnoses Epididymitis Microscopic hematuria Anne Salazar MD [facility] [address] [place] [address] Phone: tel: fax: Referral ID Status Reason Start Date Expiration Date V isits Requested Visits Authorized Pending Review 04/26/2025 04/26/2026 1 1 Question Answer Referral Type: Urology Reason for Referral: Hematuria Hematuria Type: Microscopic Patient Scheduling Instructions: [facility] will call you to coordinate care as prescribed your provider. If you don t hear from a senior outside sales representative within 2 business days, please call . Additional Information: looking for second opinion Comments Please be aware that coverage of these services is subject to the terms and limitations of your health insurance plan. Call member services at your health plan with any benefit or coverage questions. [facility] will call you to coordinate care as prescribed your provider. If you don t hear from a senior outside sales representative within 2 business days, please call . * Consultation (Urgent: 3-5 Days) - Pending Review Specialty Diagnoses / Procedures Referred By Contac t Referred To Contact Diagnoses Elevated serum creatinine Anne Salazar MD [facility] [address] [place] [address] Phone: tel: fax: Referral ID Status Reason Start Date Expiration Date V isits Requested Visits Authorized Pending Review 04/26/2025 04/26/2026 1 1 Question Answer Reason for Referral: Establish Primary Care Comments Please be aware that coverage of these services is subject to the terms and limitations of your health insurance plan. Call member services at your health plan with any benefit or coverage questions. Reason for Visit * Reason Comments Groin Pain Encounter Details Date Type Department Care Team (Late st Contact Info) Description 04/25/2025 8:28 PM CDT - 04/26/2025 12:22 AM CDT Emergency [facility] Emergency Dept [address] [place] [address] Anne Salazar MD [facility] [address] [place], [place] [phone] Epididymitis (Primary Dx); Microscopic hematuria; Elevated serum creatinine; Tinea cruris; Type 2 diabetes mellitus with peripheral neuropathy (H) Discharge Disposition: Home or Self Care Social History Tobacco Use Types Packs/Day Years [...] re latives? Once a week 05/20/2024 Attends Baptism Services Not on file 05/20 Active Member of Clubs or Organizations Not on f ile 05/20/2024 Attends Club or Organization Meetings Not on devorah e 05/20/2024 Marital Status Not on file 05/20/2024 PHQ-2 Answer Date Recorded PHQ-2 Score 3 04/27/2025 [facility] Questionnaire Answer Date [...] Answer Date Recorded Do you have housing? 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 Gender Identity Not on file Sexual Orientation Not on file Occupation Industry Job Start Date Job End Date 2 Not on file Not on file Not on file documented as of this encounter Last Filed Vital Signs Vital Sign Reading Time Taken Comments Blood Pressure 130/90 04/26/2025 12:22 AM CDT Pulse 68 04/26/2025 12:22 AM CDT Temperature 36.9 C (98.4 F) 04/25/2025 8:25 PM CDT Respiratory Rate 16 04/26/2025 12:22 AM CDT Oxygen Saturation 99% 04/26/2025 12:22 AM CDT Inhaled Oxygen Concentration - - Weight 118.7 kg (261 lb 11 oz) 04/25/2025 8:25 P M CDT Height - - Body Mass Index 32.71 04/13/2025 12:51 PM CDT documented in this encounter Discharge Instructions * Attachments The following attachments cannot be sent through Care Everywhere. * Epididymitis and Orchitis (Comoran) * Tinea Cruris (Comoran) documented in this encounter Medications at Time of Discharge acetaminophen (TYLENOL) 500 MG tablet Take 1,000 mg by mouth every 6 hours as needed for mild pain ([id number]) . citalopram (CELEXA) 20 MG tabletIndications: Moderate episode of recurrent major depressive disorder (H) TAKE 3 TABLETS BY MOUTH EVERY DAY 270 tablet 03/22/2025 clotrimazole (LOTRIMIN) 1 % external cream Apply topically 2 times daily. To flaky rash 30 g 04/26/2025 cyclobenzaprine (FLEXERIL) 10 MG tabletIndications: Myofascial pain syndrome Take 1 tablet (10 mg) by mouth 3 times daily as needed for muscle spasms. 90 tablet 2 01/06/2025 fenofibrate (TRICOR) 48 MG tabletIndications: Hyperlipidemia with target LDL less than 100 TAKE 1 TABLET BY MOUTH EVERY DAY 90 tablet 04/07/2025 Omeprazole Magnesium (PRILOSEC OTC PO) Take 20 mg by mouth every morning. atorvastatin (LIPITOR) 40 MG tabletIndications: Hyperlipidemia with target LDL less than 100 TAKE 1 TABLET BY MOUTH EVERY DAY 90 tablet 01/18/2025 5 bacitracin 500 UNIT/GM external ointmentIndication s:Congenital stricture of urethra Apply topically 2 times daily. 28.4 g 12/10/2024 5 blood glucose monitoring (We Cluster ULTRA) test stripIndications:D iabetes mellitus without complication (H) Use to test blood sugars 3 times daily or as directed. 300 strip 1 08/07/2017 5 blood glucose monitoring (We Cluster VERIO IQ) test stripIndications:D iabetes mellitus without complication (H) Use to test blood sugar 3 times daily or as directed. Ok to substitute alternative if insurance prefers. 100 strip 3 08/07/2017 5 Blood Glucose Monitoring Suppl (ONE TOUCH ULTRA 2) W/DEVICE KITIndications:Typ e 2 diabetes, HbA1C goal < 8% (H) Use to test blood sugars 1 times daily or as directed. 1 kit 0 10/22/2013 5 chlorhexidine (PERIDEX) 0.12 % solutionIndication s:Congenital stricture of urethra Swish and spit 15 mLs in mouth 2 times daily. 473 mL 12/10/2024 5 clotrimazole-betam ethasone (LOTRISONE) 1-0.05 % external creamIndications:B alanitis Apply topically 2 times daily. 15 g 2 12/30/2024 5 gabapentin (NEURONTIN) 400 MG capsuleIndications :S/P lumbar fusion Take 1 capsule (400 mg) by mouth 2 times daily for 7 days, THEN 1 capsule (400 mg) daily for 7 days. 21 capsule 01/06/2025 5 gabapentin (NEURONTIN) 400 MG capsuleIndications :Chronic midline low back pain without sciatica Take 1 capsule (400 mg) by mouth 3 times daily for 7 days. 21 capsule 12/30/2024 5 hydrOXYzine HCl (ATARAX) 50 MG tabletIndications: Lumbar back pain with radiculopathy affecting right lower extremity Take 1 tablet (50 mg) by mouth every 6 hours as needed for other (adjuvant pain). 30 tablet 10/10/2024 5 levofloxacin (LEVAQUIN) 500 MG tablet Take 1 tablet (500 mg) by mouth daily. 9 tablet 04/26/2025 5 lisinopril (ZESTRIL) 20 MG tabletIndications: Essential (primary) hypertension TAKE 1 TABLET BY MOUTH EVERY DAY 90 tablet 1 12/10/2024 5 magic mouthwash suspension (diphenhydrAMINE, lidocaine, aluminum-magnesium & simethicone)Indica tions:Congenital stricture of urethra Swish and swallow 10 mLs in mouth every 6 hours as needed for mouth sores. 240 mL 12/10/2024 5 methylPREDNISolone (MEDROL DOSEPAK) 4 MG tablet therapy packIndications:Te sticular pain, right Follow Package Directions 21 tablet 02/04/2025 5 oxyCODONE (ROXICODONE) 5 MG tabletIndications: Congenital stricture of urethra Take 1 tablet (5 mg) by mouth every 6 hours as needed for severe pain. 6 tablet 12/10/2024 5 senna-docusate (SENOKOT-S/PERICOL SHALINI) 8.6-50 MG tabletIndications: Congenital stricture of urethra Take 1 tablet by mouth daily. 15 tablet 12/10/2024 5 tadalafil (CIALIS) 5 MG tabletIndications: Erectile dysfunction due to arterial insufficiency Take 1 tablet (5 mg) by mouth every 24 hours. 90 tablet 3 10/17/2024 5 tamsulosin (FLOMAX) 0.4 MG capsuleIndications :Hesitancy of micturition TAKE 1 CAPSULE BY MOUTH EVERY DAY 90 capsule 1 12/04/2024 5 tolterodine ER (DETROL LA) 4 MG 24 hr capsuleIndications :Congenital stricture of urethra Take 1 capsule (4 mg) by mouth daily. 30 capsule 12/10/2024 documented as of this encounter ED Notes * Anne Salazar MD - 04/25/2025 8:34 PM CDT Emergency Department Note History of Present Illness Chief Complaint Groin Pain HPI Alessandro Holt is a 49 year old male with a history of urethroplasty for urethral stricture following a back surgery presenting for treatment and evaluation of right groin pain. The patient endorsesgroin pain and swelling following his urethroplasty with his pain having exacerbated over the past c ouple of days to a stabbing sensation which he ranks at a 12/10. This pain is exacerbated by any form of movement or carrying anything. He also endorses a rash over his pubic area and rust-colored urine towards the end of urination. He notes that his swelling has improved. He has attempted Tylenol and muscle relaxants to manage his symptoms with little improvement. He also has leftover oxycodone from his back surgery which he considered taking but did not want to mask anything when coming in sodid not take it. He denies any other fluid discharge from his penis, vomiting, or radiation of his pain into his abdomen. Since his urethroplasty has had low sexual desire, erectile dysfunction, and w eight gain. Is having an MRI in one week to assess for S1 radiculopathy. Possible treatment plans of persistent symptoms also involve removal of testicle. Independent Historian None Review of External Notes Last Urology note was 04/02/25 at that time pain was 6-7/10 at rest. At that time findings were not thought to be secondary to epididymitis as tenderness was not localized to the epididymis and he hadtried antibiotics. Past Medical History Medical History and Problem List Bipolar I disorder Complication of anesthesia DM (diabetes mellitus) GERD (gastroesophageal reflux disease) Hypertension LBP (low back pain) Palpitations Gross hematuria Hypertension Hyperlipidemia Acute lumbar back pain Neck pain Left arm pain Medications Atorvastatin Citalopram Cyclobenzaprine Fenofibrate Gabapentin Hydroxyzine Lisinopril Methylprednisone Omeprazole magnesium Oxycodone Senna-docusate Tadalafil Tamsulosin Tolterodine Pioglitazone Pantoprazole Surgical History Back surgery Clavicle surgery, right Colonoscopy Cystoscopy flexible Cystoscopy, dilate urethra, combined Lumbar 4 to sacral 1 anterior decompression and fusion Repair tendon Achilles Testicle surgery Urethroplasty with buccal graft Vasectomy Physical Exam Patient Vitals for the past 24 hrs: BP Temp Temp src Pulse Resp SpO2 Weight 04/26/25 0022 (!) 130/90 -- -- 68 16 99 % -- 04/25/252024 (!) 137/96 98.4 ??F (36.9 ??C) Temporal 72 18 98 % 118.7 kg (261 lb 11 oz) Physical Exam Eyes: Sclera white; Pupils are equal and round ENT: External ears and nares normal Resp: Non-labored, no retractions or accessory muscle use GI: Abdomen is soft, non-tender, non-distended No rebound tenderness or peritoneal features : Flaking rash on mons with irregular edge, tenderness R hemiscrotum most pronounced over epididymis, no hernia appreciated MS: Moves all extremities Skin: Warm and dry Neuro: Speech is normal and fluent. No apparent deficit. Diagnostics Lab Results Labs Ordered and Resulted from Time of ED Arrival to Time of ED Departure BASIC METABOLIC PANEL (LIMITED OCCURRENCES) - Abnormal Result Value Sodium 141 Potassium 4.7 Chloride 104 Carbon Dioxide (CO2) 23 Anion Gap 14 Urea Nitrogen 25.5 (*) Creatinine 1.79 (*) GFR Estimate 46 (*) Calcium 9.9 Glucose 154 (*) ROUTINE UA WITH MICROSCOPIC REFLEX TO CULTURE - Abnormal Color Urine Light Yellow Appearance Urine Clear Glucose Urine Negative Bilirubin Urine Negative Ketones Urine Negative Specific Matheny Urine 1.015 Blood Urine Negative pH Urine 5.5 Protein Albumin Urine Negative Urobilinogen Urine Normal Nitrite Urine Negative Leukocyte Esterase Urine Large (*) RBC Urine 16 (*) WBC Urine 23 (*) Squamous Epithelials Urine 7 (*) Hyaline Casts Urine 1 CBC WITH PLATELETS AND DIFFERENTIAL - Abnormal WBC Count 5.97 RBC Count 4.97 Hemoglobin 12.7 (*) Hematocrit 39.3 (*) MCV 79.1 MCH 25.6 (*) MCHC 32.3 RDW 14.6 Platelet Count 250 % Neutrophils 53.8 % Lymphocytes 34.0 % Monocytes 8.7 % Eosinophils 2.7 % Basophils 0.5 % Immature Granulocytes 0.3 NRBCs per 100 WBC 0.0 Absolute Neutrophils 3.21 Absolute Lymphocytes 2.03 Absolute Monocytes 0.52 Absolute Eosinophils 0.16 Absolute Basophils 0.03 Absolute Immature Granulocytes <0.03 Absolute NRBCs <0.[address] Abdomen Pelvis w Contrast Final Result IMPRESSION: 1. Mild diffuse urinary bladder wall thickening may represent cystitis. No other abnormality is identified to account for the reported history of hematuria. 2. Jejunal and sigmoid colon diverticulosis without evidence of diverticulitis. US Testicular & Scrotum w Doppler Ltd Final Result IMPRESSION: 1. Normal ultrasound of the scrotum. Independent Interpretation None ED Course Medications Administered Medications ketorolac (TORADOL) injection 15 mg (15 mg Intravenous $Given 04/25/252108) oxyCODONE (ROXICODONE) tablet 5 mg (5 mg Oral $Given 04/25/252107) iohexol (OMNIPAQUE) 350 MG/ML injectable solution 100 mL (100 mLs Intravenous $Given 04/25/252203) sodium chloride 0.9 % bag for CT scan flush (65 mLs Intravenous $Given 04/25/252206) HYDROmorphone (DILAUDID) injection 1 mg (1 mg Intravenous $Given 04/25/252247) levofloxacin (LEVAQUIN) tablet 500 mg (500 mg Oral $Given 04/26/25 0019) Procedures Procedures Discussion of Management None ED Course ED Course as of 04/26/25 0106 Vernon Apr 25, [id number] I initially assessed the patient and obtained the above history and physical exam. 2357 I rechecked and updated the patient. Mon Apr 26, 2025 0008 I rechecked and updated the patient. 0009 I discussed discharge instructions. Patient is comfortable with discharge. Additional Documentation None Medical Decision Making / Diagnosis [facility] Diagnoses: None MIPS None [facility] Alessandro Holt is a 49 year old male presenting with acutely worse of his right groin pain. There is no evidence for hernia or Ti's on exam. He has been describing changes in the color of his urine and I am worried represent hematuria. Microscopic hematuria was noted on his urinalysis along with white blood cells concerning for infection. CT scan showed no structural changes to account forthe hematuria but did show signs suggestive of cystitis. Antibiotic treatment is warranted. With his tenderness primarily over the epididymis, treatment duration should be appropriate for epididymitis even with a normal ultrasound. He is interested in a second opinion from urology since he does not want to lose the testicle and referral was placed. He has an elevated serum creatinine today that is not obstructive in etiology. He will need follow-up with primary care. He reports that his primarycare physician is no longer with the clinic and primary care referral was placed. Disposition The patient was discharged. Diagnosis ICD-10-CM 1. Epididymitis N45.1 Adult Urology Radio Adjuster Referral 2. Microscopic hematuria R31.29 Adult Urology Radio Adjuster Referral 3. Elevated serum creatinine R79.89 Primary Care Referral 4. Tinea cruris B35.6 Discharge Medications Discharge Medication List as of 04/26/2025 12:13 AM START taking these medications Details clotrimazole (LOTRIMIN) 1 % external cream Apply topically 2 times daily. To flaky rashDisp-30 g, [id number] levofloxacin (LEVAQUIN) 500 MG tablet Take 1 tablet (500 mg) by mouth daily., Disp-9 tablet, R-0, [id number] dose in ED Scribe Disclosure: Cesar Singh, am serving as a scribe at 8:45 PM on 04/25/2025 to document services personally performed by Anne Salazar MD based on my observations and the provider's statements to me. Anne Salazar MD 04/26/25 0108 * Balbina Ashley RN - 04/25/2025 8:23 PM CDT Patient c/o right sided groin pain, feels like a tear. States does not feel like testicular pain rochelle has had that before. Concerned that he could have a hernia. Does endorse some swelling to groin.ABCs intact. VSS documented in this encounter Plan of Treatment Upcoming Encounters Date Type Department Care Team (Latest Contact Info) Description 06/10/2025 11:00 AM STUDENT FINANCE ADVISOR Lab [facility] [address] [place] [address] 06/14/2025 1:30 PM STUDENT FINANCE ADVISOR Office Visit [facility] Urology [facility] [address] [place] [address] Joslyn Gregorio MD [address] [place] [address] 08/16/2025 11:30 AM STUDENT FINANCE ADVISOR Office Visit [facility] [address] [place] [phone] Curtis Holland APRN [facility] [address] [place] [address] 09/28/2025 8:00 AM CDT Hospital Encounter [facility] [address] [place] [address] 5th [place] [phone] Good Fortune MD [address] [place] [address] 09/28/2025 8:00 AM CDT - 09/28/2025 11:15 AM CDT Surgery [facility] [address] [facility] [address] [place] [phone] Good Fortune MD [address] [place] [address] RIGHT MICROSURGICAL SPERMATIC CORD DENERVATION, right orchidopexy 10/28/2025 1:20 PM CDT Office Visit [facility] [address] [place] [address] 4th [place] [phone] Good Fortune MD [address] [place] [phone] Scheduled Procedures Name Priority Associated Diagnoses Date/Ti me DENERVATION, SPERMATIC CORD, MICROSURGICAL Pain in right testicle 09/28/2025 8:00 AM CDT Scheduled Referrals Name Type Priority Associated Diagnoses Orde r Schedule Primary Care Referral Referral Urgent: 3-5 Days Elevated serum creatinine Expected: 04/26/2025 (Approximate), Expires: 04/26/2026 Adult Urology Radio Adjuster Referral Referral Urgent: 3-5 Days Epididymitis Microscopic hematuria Expected: 04/26/2025 (Approximate), Expires: 04/26/2026 documented as of this encounter Procedures Procedure Name Priority Date/Time Associated Diagnosis Comments ROUTINE UA WITH MICROSCOPIC REFLEX TO CULTURE STAT 04/25/2025 10:56 PM CDT URINE CULTURE STAT 04/25/2025 10:[address] ABDOMEN PELVIS W CONTRAST STAT 04/25/2025 10:17 PM CDT US TESTICULAR AND SCROTUM WITH DOPPLER LIMITED STAT 04/25/2025 10:10 PM CDT EXTRA TUBE STAT 04/25/2025 9:07 PM CDT EXTRA RED TOP TUBE STAT 04/25/2025 9: 07 PM CDT EXTRA BLUE TOP TUBE STAT 04/25/2025 9 :07 PM CDT CBC WITH PLATELETS AND DIFFERENTIAL STAT 04/25/2025 9:07 PM CDT CBC WITH PLATELETS AND DIFFERENTIAL (LIMITED OCCURRENCES) STAT 04/25/2025 9:07 PM CDT BASIC METABOLIC PANEL (LIMITED OCCURRENCES) STAT 04/25/2025 9:07 PM CDT LIPID REFLEX TO DIRECT LDL PANEL Add-On 04/25/2025 9:07 PM CDT Type 2 diabetes mellitus with peripheral neuropathy (H) HEMOGLOBIN A1C Add-On 04/25/2025 9:07 PM CDT Type 2 diabetes mellitus with peripheral neuropathy (H) documented in this encounter Results * Urine Culture (04/25/2025 10:56 PM CDT) Culture <10,000 CFU/mL Mixture of urogenital krysta 04/28/2025 8:25 AM CDT [facility] Urine MID-STREAM URINE SPECIMEN / Unknown Non-blood Collection / Unknown 04/25/2025 10:56 PM CDT 04/25/2025 11:28 PM CDT us Anne Salazar MD LAB - MICRO GENERAL ORD ERABLES Final Result [facility] Inf. Diseases Diag. Lab [address] [facility], [address] [place] [address], [facility] * (ABNORMAL) UA with Microscopic reflex to Culture (04/25/2025 10:56 PM CDT) Color Urine Light Yellow Colorless, Straw, Light Yellow, Yellow 04/25/2025 11:28 PM CDT [facility] Appearance Urine Clear Clear 04/25/20 11:28 PM CDT [facility] Glucose Urine Negative Negative mg/dL 04/25/2025 11:28 PM CDT [facility] Bilirubin Urine Negative Negative 11:28 PM CDT [facility] Ketones Urine Negative Negative mg/dL 04/25/2025 11:28 PM CDT [facility] Specific Matheny Urine 1.015 1.003 - 1.035 TODD 04/25/2025 11:28 PM CDT [facility] Blood Urine Negative Negative 04/25/2025 11:28 PM CDT [facility] pH Urine 5.5 5.0 - 7.0 04/25/2025 11:28 PM CDT [facility] Protein Albumin Urine Negative Negative mg/dL 04/25/2025 11:28 PM CDT [facility] Urobilinogen Urine Normal Normal mg/dL 04/25/2025 11:28 PM CDT [facility] Nitrite Urine Negative Negative 04/25/2025 11:28 PM CDT [facility] Leukocyte Esterase Urine Large(A) Negative 04/25/2025 11:28 PM CDT [facility] RBC Urine 16(H) <=2 /HPF 04/25/2025 11:28 PM CDT [facility] WBC Urine 23(H) <=5 /HPF 04/25/2025 11:28 PM CDT LABORATORY Squamous Epithelials Urine 7(H) <=1 /HPF 04/25/2025 11:28 PM CDT [facility] Hyaline Casts Urine 1 <=2 /LPF 04/25/2025 11:28 PM CDT [facility] Urine MID-STREAM URINE SPECIMEN / Unknown Non-blood Collection / Unknown 04/25/2025 10:56 PM CDT 04/25/2025 11:07 PM CDT Narrative LABORATORY - 04/25/2025 11:28 PM CDT Urine Culture ordered based on laboratory criteria us Anne Salazar MD LAB - URINE ORDERABLES Final Result [facility] [address] Lab (1st floor, no room number) [place] [address] * CT Abdomen Pelvis w Contrast (04/25/2025 10:17 PM CDT) Anatomical Region Laterality Modality Abdomen/Pelvis, SUBRAD CT LOUISE DY, UMP CT ABDOMEN PELVIS, RAD CT Computed Tomography 04/25/2025 10:1 7 PM CDT Impressions 04/25/2025 10:59 PM CDT IMPRESSION: 1. Mild diffuse urinary bladder wall thickening may represent cystitis. No other abnormality is identified to account for the reported history of hematuria. 2. Jejunal and sigmoid colon diverticulosis without evidence of diverticulitis. Narrative 04/25/2025 10:59 PM CDT EXAM: CT ABDOMEN PELVIS W CONTRAST LOCATION: [facility] DATE: 04/25/2025 INDICATION: hematuria R groin pain into Right lower abdomen COMPARISON: CT November 28, 2016. TECHNIQUE: CT scan of the abdomen and pelvis was performed following injection of IV contrast. Multiplanar reformats were obtained. Dose reduction techniques were used. CONTRAST: 100 mL Omni 350 FINDINGS: LOWER CHEST: Normal. HEPATOBILIARY: Normal liver, gallbladder, biliary tree. PANCREAS: Normal. SPLEEN: Normal. ADRENAL GLANDS: Normal. KIDNEYS/BLADDER: Normal appearance of the renal parenchyma. No calculus, hydronephrosis, or perinephric stranding. Ureters appear normal. Mild diffuse urinary bladder wall thickening without pneumatosis. BOWEL: Normal distal esophagus, stomach, small bowel, large bowel, and appendix. Diverticulosis along the jejunum and sigmoid colon. No inflammatory change. LYMPH NODES: Normal. VASCULATURE: Normal. PELVIC ORGANS: Normal. MUSCULOSKELETAL: L5-S1 laminectomy with L4-S1 anterior approach interbody fusion. Mild degenerative change at the hips. Procedure Note James Millan MD - 04/25/2025 EXAM: CT ABDOMEN PELVIS W CONTRAST LOCATION: [facility] DATE: 04/25/2025 INDICATION: hematuria R groin pain into Right lower abdomen COMPARISON: CT November 28, 2016. TECHNIQUE: CT scan of the abdomen and pelvis was performed followinginjection of IV contrast. Multiplanar reformats were obtained. Dosereduction techniques were used. CONTRAST: 100 mL Omni 350 FINDINGS: LOWER CHEST: Normal. HEPATOBILIARY: Normal liver, gallbladder, biliary tree. PANCREAS: Normal. SPLEEN: Normal. ADRENAL GLANDS: Normal. KIDNEYS/BLADDER: Normal appearance of the renal parenchyma. No calculus,hydronephrosis, or perinephric stranding. Ureters appear normal. Milddiffuse urinary bladder wall thickening without pneumatosis. BOWEL: Normal distal esophagus, stomach, small bowel, large bowel, andappendix. Diverticulosis along the jejunum and sigmoid colon. Noinflammatory change. LYMPH NODES: Normal. VASCULATURE: Normal. PELVIC ORGANS: Normal. MUSCULOSKELETAL: L5-S1 laminectomy with L4-S1 anterior approach interbodyfusion. Mild degenerative change at the hips. IMPRESSION: 1. Mild diffuse urinary bladder wall thickening may represent cystitis.No other abnormality is identified to account for the reported history ofhematuria. 2. Jejunal and sigmoid colon diverticulosis without evidence ofdiverticulitis. Anne Salazar MD IMG CT ORDERABLES Final Result * US Testicular & Scrotum w Doppler Ltd (04/25/2025 10:10 PM CDT) Anatomical Region Laterality Modality Abdomen/Pelvis Ultrasound 04/25/2025 10:1 0 PM CDT Impressions 04/25/2025 10:42 PM CDT IMPRESSION: 1. Normal ultrasound of the scrotum. Narrative 04/25/2025 10:42 PM CDT EXAM: US TESTICULAR AND SCROTUM WITH DOPPLER LIMITED LOCATION: [facility] DATE: 04/25/2025 INDICATION: right sided pain and tenderness COMPARISON: None. TECHNIQUE: Ultrasound of scrotum with color flow and spectral Doppler with waveform analysis performed. FINDINGS: RIGHT: Right testicle measures 4.4 x 3.6 x 2.7 cm. Normal testicle with no masses. Normal arterial duplex and normal color flow. Normal epididymis. No hydrocele. No varicocele. LEFT: Left testicle measures 4.8 x 3.3 x 2.6 cm. Normal testicle with no masses. Normal arterial duplex and normal color flow. Normal epididymis. No hydrocele. No varicocele. Procedure Note Paul Morris MD - 04/25/2025 EXAM: US TESTICULAR AND SCROTUM WITH DOPPLER LIMITED LOCATION: [facility] DATE: 04/25/2025 INDICATION: right sided pain and tenderness COMPARISON: None. TECHNIQUE: Ultrasound of scrotum with color flow and spectral Doppler withwaveform analysis performed. FINDINGS: RIGHT: Right testicle measures 4.4 x 3.6 x 2.7 cm. Normal testicle with nomasses. Normal arterial duplex and normal color flow. Normal epididymis.No hydrocele. No varicocele. LEFT: Left testicle measures 4.8 x 3.3 x 2.6 cm. Normal testicle with nomasses. Normal arterial duplex and normal color flow. Normal epididymis.No hydrocele. No varicocele. IMPRESSION: 1. Normal ultrasound of the scrotum. us Anne Salazar MD [facility] [place] ORDERABLES Final Result * (ABNORMAL) Lipid panel reflex to direct LDL Non-fasting (04/25/2025 9:07 PM CDT) Cholesterol 185 <200 mg/dL 04/28/2025 1:45 PM CDT [facility] Triglycerides 159(H) <150 mg/dL 04/28/2025 1:45 PM CDT [facility] Direct Measure HDL 31(L) >=40 mg/dL 04/28/2025 1:45 PM CDT [facility] LDL Cholesterol Calculated 122(H) <100 mg/dL 04/28/2025 1:45 PM CDT [facility] Comment:LDL calculated using the Friedewald equation. Non HDL Cholesterol 154(H) <130 mg/dL 04/28/2025 1:45 PM CDT [facility] Blood BLOOD SPECIMEN / Unknown Venipuncture / Unknown 04/25/2025 9:07 PM CDT 04/25/2025 9:16 PM CDT Narrative [facility] - 04/28/2025 1:45 PM CDT Cholesterol Desirable: < 200 mg/dL Borderline High: 200 - 239 mg/dL High: >= 240 mg/dL Triglycerides Normal: < 150 mg/dL Borderline High: 150 - 199 mg/dL High: 200-499 mg/dL Very High: >= 500 mg/dL Direct Measure HDL Female: >= 50 mg/dL Male: >= 40 mg/dL LDL Cholesterol Desirable: < 100 mg/dL Above Desirable: 100 - 129 mg/dL Borderline High: 130 - 159 mg/dL High: 160 - 189 mg/dL Very High: >= 190 mg/dL Non HDL Cholesterol Desirable: < 130 mg/dL Above Desirable: 130 - 159 mg/dL Borderline High: 160 - 189 mg/dL High: 190 - 219 mg/dL Very High: >= 220 mg/dL Curtis Bejaranoman GROUP MANAGER CRYPTOLOGIC SUPPORT SPECIALIST LAB - BLOOD ORDERABLES Fin al Result [facility] [place] [facility] [address], [address] [place] [address] * (ABNORMAL) HEMOGLOBIN A1C (04/25/2025 9:07 PM CDT) Estimated Average Glucose 183(H) <117 mg/dL 04/28/2025 11:23 AM CDT [facility] Hemoglobin A1C 8.0(H) <5.7 % 04/28/2025 11:23 AM CDT [facility] Comment: Normal <5.7% Prediabetes 5.7-6.4% Diabetes 6.5% or higher Note: Adopted from ADA consensus guidelines. Blood BLOOD SPECIMEN / Unknown Venipuncture / Unknown 04/25/2025 9:07 PM CDT 04/25/2025 9:16 PM CDT Curtis Holland APRN, CNP LAB - BLOOD ORDERABLES Fin al Result [facility] [address] Lab (1st floor, no room number) [place] [id number] [place] [address] * Extra Red Top Tube (04/25/2025 9:07 PM CDT) Hold Specimen [facility] 04/25/2025 10:31 PM CDT LABORATORY Blood BLOOD SPECIMEN / Unknown Venipuncture / Unknown 04/25/2025 9:07 PM CDT 04/25/2025 9:16 PM CDT us Anne Salazar MD LAB - BLOOD ORDERABLES Final Result [facility] [address] Lab (1st floor, no room number) [place] [id number] [place] [address] * Extra Blue Top Tube (04/25/2025 9:07 PM CDT) Hold Specimen [facility] 04/25/2025 10:31 PM CDT LABORATORY Blood BLOOD SPECIMEN / Unknown Venipuncture / Unknown 04/25/2025 9:07 PM CDT 04/25/2025 9:16 PM CDT us Anne Salazar MD LAB - BLOOD ORDERABLES Final Result [facility] [address] Lab (1st floor, no room number) [place] [id number] [place] [address] * (ABNORMAL) CBC with platelets and differential (04/25/2025 9:07 PM CDT) [facility] WBC Count 5.97 4.00 - 11.00 10e3/uL 04/25/2025 9:18 PM CDT [facility] RBC Count 4.97 4.40 - 5.90 10e6/uL 04/25/2025 9:18 PM CDT [facility] Hemoglobin 12.7(L) 13.3 - 17.7 g/dL 04/25/2025 9:18 PM CDT [facility] Hematocrit 39.3(L) 40.0 - 53.0 % 04/25/2025 9:18 PM CDT [facility] MCV 79.1 78.0 - 100.0 fL 04/25/2025 9:18 PM CDT [facility] MCH 25.6(L) 26.5 - 33.0 pg 04/25/2025 9:18 PM CDT [facility] MCHC 32.3 31.5 - 36.5 g/dL 04/25/2025 9:18 PM CDT [facility] RDW 14.6 10.0 - 15.0 % 04/25/2025 9:18 PM CDT [facility] Platelet Count 250 150 - 450 10e3/uL 04/25/2025 9:18 PM CDT [facility] % Neutrophils 53.8 % 04/25/2025 9:18 PM CDT [facility] % Lymphocytes 34.0 % 04/25/2025 9:18 PM CDT [facility] % Monocytes 8.7 % 04/25/2025 9:18 PM CDT [facility] % Eosinophils 2.7 % 04/25/2025 9:18 PM CDT [facility] % Basophils 0.5 % 04/25/2025 9:18 PM CDT [facility] % Immature Granulocytes 0.3 % 04/25/2025 9:18 PM CDT [facility] NRBCs per 100 WBC 0.0 <1.0 /100 025 9:18 PM CDT [facility] Absolute Neutrophils 3.21 1.60 - 8.30 10e3/uL 04/25/2025 9:18 PM CDT [facility] Absolute Lymphocytes 2.03 0.80 - 5.30 10e3/uL 04/25/2025 9:18 PM CDT [facility] Absolute Monocytes 0.52 0.00 - 1.30 10e3/uL 04/25/2025 9:18 PM CDT [facility] Absolute Eosinophils 0.16 0.00 - 0.70 10e3/uL 04/25/2025 9:18 PM CDT [facility] Absolute Basophils 0.03 0.00 - 0.20 10e3/uL 04/25/2025 9:18 PM CDT [facility] Absolute Immature Granulocytes <0.03 <=0.40 10e3/uL 04/25/2025 9:18 PM CDT [facility] Absolute NRBCs <0.03 10e3/uL 04/25/2025 9:18 PM CDT [facility] Blood BLOOD SPECIMEN / Unknown Venipuncture / Unknown 04/25/2025 9:07 PM CDT 04/25/2025 9:16 PM CDT us Anne Salazar MD LAB - BLOOD ORDERABLES Final Result LABORATORY [facility] [address] Lab (1st floor, no room number) [place] [address], [facility] * (ABNORMAL) Basic Metabolic Panel (Limited Occurrences) (04/25/2025 9:07 PM CDT) Sodium 141 135 - 145 mmol/L 04/25/2025 9:44 PM CDT [facility]ORATORY Potassium 4.7 3.4 - 5.3 mmol/L 04/25/2025 9:44 PM CDT LABORATORY Chloride 104 98 - 107 mmol/L 04/25/2025 9:44 PM CDT LABORATORY Carbon Dioxide (CO2) 23 22 - 29 mmol/L 04/25/2025 9:44 PM CDT LABORATORY Anion Gap 14 7 - 15 mmol/L 04/25/2025 9:44 PM CDT LABORATORY Urea Nitrogen 25.5(H) 6.0 - 20.0 mg/dL 04/25/2025 9:44 PM CDT LABORATORY Creatinine 1.79(H) 0.67 - 1.17 mg/dL 04/25/2025 9:44 PM CDT LABORATORY GFR Estimate 46(L) >60 mL/min/1.7 3m2 04/25/2025 9:44 PM CDT [facility] Comment:eGFR calculated usin 2020 CKD-EPI equation. Calcium 9.9 8.8 - 10.4 mg/dL 04/25/2025 9:44 PM CDT LABORATORY Glucose 154(H) 70 - 99 mg/dL 04/25/2025 9:44 PM CDT [facility] Blood BLOOD SPECIMEN / Unknown Venipuncture / Unknown 04/25/2025 9:07 PM CDT 04/25/2025 9:16 PM CDT Anne Salazar MD LAB - BLOOD ORDERABLES Final Result [facility]ORATORY [facility] [address] Lab (1st floor, no room number) [place] [address], [facility] documented in this encounter Visit Diagnoses Diagnosis Epididymitis- Primary Orchitis and epididymitis, unspecified Microscopic hematuria Elevated serum creatinine Other nonspecific findings on examination of blood Tinea cruris Dermatophytosis of groin and perianal area Type 2 diabetes mellitus with peripheral neuropathy (H) Pain in right testicle Unspecified disorder of male genital organs documented in this encounter Administered Medications Inactive Administered Medications - up to 3 most recent administrations Medication Order MAR Action Action Date Dose Rate Site HYDROmorphone (DILAUDID) injection 1 mg 1 mg, Intravenous, ONCE, On 04/25/25 at 2245, For 1 dose $Given 04/25/2025 10:48 PM CDT 1 mg iohexol (OMNIPAQUE) 350 MG/ML injectable solution 100 mL 100 mL, Intravenous, ONCE, On 04/25/25 at 2205, For 1 dose $Given 04/25/2025 10:04 PM CDT 100 mLs ketorolac (TORADOL) injection 15 mg 15 mg, Intravenous, ONCE, On 04/25/25 at 2050, For 1 dose, Can cause pain on injection. If ordered intravenously (IV) : administer through a running maintenance fluid over 1 minute followed by a flush. If patient complains of pain on injection, may dilute 15-30 mg in 5 mL and push over 1 to 2 minutes. $Given 04/25/2025 9:09 PM CDT 15 mg levofloxacin (LEVAQUIN) tablet 500 mg STAT, 500 mg, Oral, ONCE, On 04/26/25 at 0010, For 1 dose, Administer at least 2 hours before or 4 hours after aluminum, calcium, iron, zinc or magnesium containing medications. May be taken with food or on an empty stomach. Do not administer alone with a dairy product like milk or yogurt or calcium-fortified juice, but may be administered with a meal containing dairy. Hold tube feeding 1 hour before and 1 hour after administration, Indications: epididymitisIndications:epididym itis $Given 04/26/2025 12:19 AM CDT 500 mg oxyCODONE (ROXICODONE) tablet 5 mg 5 mg, Oral, ONCE, On 04/25/25 at 2050, For 1 dose $Given 04/25/2025 9:08 PM CDT 5 mg sodium chloride 0.9 % bag for CT scan flush Intravenous, 65 mL, ONCE, On 04/25/25 at 2205, For 1 dose, This entry is for use by Radiology to intermittently used as a flush in patients receiving a CT scan. $Given 04/25/2025 10:07 PM CDT 65 mLs documented in this encounter Active and Recently Administered Medications Times are shown in CDT. Scheduled Medication Order 04/24/2025 04/25/2025 04/26/2025 HYDROmorphone (DILAUDID) injection 1 mg (COMPLETED) 1 mg, Intravenous, ONCE, On 04/25/25 at 2245, For 1 dose 224 ($Given - Provider: Ramona Garcia RN) iohexol (OMNIPAQUE) 350 MG/ML injectable solution 100 mL (COMPLETED) 100 mL, Intravenous, ONCE, On 04/25/25 at 2205, For 1 dose 2203 ($Given - Provider: Nancy Saavedra [facility] ketorolac (TORADOL) injection 15 mg (COMPLETED) 15 mg, Intravenous, ONCE, On 04/25/25 at 2050, For 1 dose, Can cause pain on injection. If ordered intravenously (IV) : administer through a running maintenance fluid over 1 minute followed by a flush. If patient complains of pain on injection, may dilute 15-30 mg in 5 mL and push over 1 to 2 minutes. 2108 ($Given - Provider: Ramona Garcia RN) levofloxacin (LEVAQUIN) tablet 500 mg (COMPLETED) STAT, 500 mg, Oral, ONCE, On 04/26/25 at 0010, For 1 dose, Administer at least 2 hours before or 4 hours after aluminum, calcium, iron, zinc or magnesium containing medications. May be taken with food or on an empty stomach. Do not administer alone with a dairy product like milk or yogurt or calcium-fortified juice, but may be administered with a meal containing dairy. Hold tube feeding 1 hour before and 1 hour after administration, Indications: epididymitis 0019 ($Given - Provider: Lizbeth Carey RN) oxyCODONE (ROXICODONE) tablet 5 mg (COMPLETED) 5 mg, Oral, ONCE, On 04/25/25 at 2050, For 1 dose 2107 ($Given - Provider: Ramona Garcia RN) sodium chloride 0.9 % bag for CT scan flush (COMPLETED) Intravenous, 65 mL, ONCE, On 04/25/25 at 2205, For 1 dose, This entry is for use by Radiology to intermittently used as a flush in patients receiving a CT scan. 2206 ($Given - Provider: AURY Madrigal) documented in this encounter Additional Health Concerns Assessment Noted Time PHQ-9 Depression Total Score: 2 05/20/20 24 3:48 PM STUDENT FINANCE ADVISOR documented as of this encounter Care Teams Director Trade Relationship Specialty Start Date End Date No Ref-Primary, Physician PCP - General 04/25/25 04/26/25 Lana Pond MD [address] [place] [id number] Physician Neurology 05/21/24 Jarad Dickinson MD Assigned PCP 05/30/24 05/05/25 [place] [address] [place] [id number] Pain Medicine 10/06/24 Nola Morris PA-C [address] [place] [address] [address] [place], [place] [address] Physician [employer] P[employer] Developer Anesthesiology 12/02/24 Pancho Feng MD [address] [facility] [address] [place] [address] Assigned Neuroscience Provider 01/27/25 Joslyn Gregorio MD [address] [place] [address] Assigned Surgical Provider 01/27/25 documented as of this encounter
--- OUTSIDE RECORDS SUMMARY | 2025-04-27 10:00 | XMS_ITS | Encounter Summary ---
Author Organization [facility] Address [address] [place] [address] Care Team Providers Care Corsage Maker Name Role Phone Lana Pond MD Unavailable [phone] Jarad Dickinson MD Unavailable Unavailable Corinna Florentino MD Unavailable [phone] Nola Morris PA-C Unavailable + [phone] Pancho Feng MD Unavailable [phone] Joslyn Gregorio MD Unavailable [phone] Curtis Paredes APRN REGISTERED DENTAL ASSISTANT RDA Primary Care Provider [phone] Reason for Visit * Reason Comments Emergency Department * Consultation (Urgent: 3-5 Days) - Pending Review Specialty Diagnoses / Procedures Referred By Conthayley t Referred To Contact Diagnoses Elevated serum creatinine Anne Salazar MD [facility] [address] [place] [address] Phone: tel: fax: Referral ID Status Reason Start Date Expiration Date V isits Requested Visits Authorized [id number] Pending Review 04/26/2025 04/26/2026 1 1 Encounter Details Date Type Department Care Team (Latest Contact Info) Description 04/27/2025 11:00 AM CDT Office Visit [facility] [address] [place] [address] Curtis Paredes APRN REGISTERED DENTAL ASSISTANT RDA [address] [place] [address] Type 2 diabetes mellitus with peripheral neuropathy (H) (Primary Dx); Elevated serum creatinine; Screening for cardiovascular condition; Essential hypertension Social History Tobacco Use Types Packs/Day Years [...] re latives? 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 Gender Identity Not on file Sexual Orientation Not on file Occupation Industry Job Start Date Job End Date 2 Not on file Not on file Not on file documented as of this encounter Last Filed Vital Signs Vital Sign Reading Time Taken Comments Blood Pressure 121/81 04/27/2025 10:59 AM CDT Pulse 68 04/27/2025 10:59 AM CDT Temperature 36.7 C (98.1 F) 04/27/2025 10:59 AM CDT Respiratory Rate 18 04/27/2025 10:5 9 AM CDT Oxygen Saturation 96% 04/27/2025 10: 59 AM CDT Inhaled Oxygen Concentration - - Weight 118.3 kg (260 lb 14.4 oz) 2024 10:59 AM CDT Height 190.5 cm (6' 3) 04/27/2025 10:5 9 AM CDT Body Mass Index 32.61 04/27/2025 10:59 AM CDT documented in this encounter Patient Instructions * Patient Instructions* Curtis Paredes APRN REGISTERED DENTAL ASSISTANT RDA - 04/27/2025 11:00 AM CDT Stop Lisinopril and start Amlodipine. A1c, Urine protein, and lipids are processing. In two weeks, lab only appointment and BP check. documented in this encounter Progress Notes * Curtis Paredes APRN CNP - 04/27/2025 11:00 AM CDT Follow up: Assessment & Plan (E11.42) Type 2 diabetes mellitus with peripheral neuropathy (H) (primary encounter diagnosis) Comment: Significant weight loss and A1c dropped to prediabetic range per pt. In the setting of elevated creatinine, will obtain new A1c, Urine microalbumin. Consider GLP-1 vs SGLT2 if elevated. Evaluate lipids today. Plan: HEMOGLOBIN A1C, Lipid panel reflex to direct LDL Non-fasting, Albumin and Creatinine with Ratio Random Urine Quantitative (R79.89) Elevated serum creatinine Comment: Possibly SUKHJINDER vs CKD. No obstructive cause on CT. Stop Lisinopril and start Amlodipine 2.5 mg for BP control. Re-evaluate BMP in 2 weeks with BP check. Plan: Basic metabolic panel (Ca, Cl, CO2, Creat, Gluc, K, Na, BUN) (Z13.6) Screening for cardiovascular condition Comment: lipids (I10) Essential hypertension Comment: Stop Lisinopril and start Amolodipine 2.5 mg for BP control. Re-evaluate BMP in 2 weeks with BP check. Plan: amLODIPine (NORVASC) 2.5 MG tablet The longitudinal plan of care for the diagnosis(es)/condition(s) as documented were addressed during this visit. Due to the added complexity in care, I will continue to support Sony in the subsequent management and with ongoing continuity of care. MED REC REQUIRED Post Medication Reconciliation Status: discharge medications reconciled, continue medications without change BMI Estimated body mass index is 32.61 kg/m?? as calculated from the following: Height as of this encounter: 1.905 m (6' 3). Weight as of this encounter: 118.3 kg (260 lb 14.4 oz). Weight management plan: Discussed healthy diet and exercise guidelines Patient should follow up 2 weeks with BP check and BMP or PRN for new or worsening symptoms. All questions answered to patient's satisfaction. Warning signs of when to seek emergency care were discussed. Subjective Sony is a 49 year old, presenting for the following health issues: Emergency Department 04/27/2025 10:52 AM Additional Questions Roomed by Nellie Via the Health Maintenance questionnaire, the patient has reported the following services have beencompleted -Eye Exam: [facility] 2024-06-08, this information has been sent to the abstraction team. HPI History of Present Illness- Sony Holt, 49-year-old male - Groin pain improved after starting antibiotics following emergency department visit on April 25, 2025 - Persistent testicular pain ongoing for 5 months - Referral to urology and procedure being scheduled for testicular pain - History of type 2 diabetes, previously discontinued diabetes medications after significant weightloss (from 315 lbs to 240 lbs) - Two surgeries since beginning of 2024, followed by complications and weight gain of 25 lbs - Difficulty maintaining previous weight loss and adherence to keto diet after surgeries - Loss of libido and drive since surgeries, associated with frustration and emotional distress - Urethroplasty performed earlier in 2024, followed by prolonged catheterization and painful erections during recovery - Currently taking lisinopril, with concern for possible kidney-related side effects - Creatinine level noted as normal 4 months ago, recently found to be elevated ED/UC Followup: Facility: [facility] Date of visit: 04/25/2025 Reason for visit: epididymitis Current Status: better Review of Systems Constitutional, HEENT, cardiovascular, pulmonary, gi and gu systems are negative, except as otherwise noted. Objective BP 121/81 Pulse 68 Temp 98.1 ??F (36.7 ??C) (Tympanic) Resp 18 Ht 1.905 m (6' 3) Wt 105.6 kg (232 lb 11.2 oz) SpO2 96% BMI 29.09 kg/m?? Body mass index is 29.09 kg/m??. Physical Exam GENERAL: alert and no distress NECK: no adenopathy, no asymmetry, masses, or scars RESP: lungs clear to auscultation - no rales, rhonchi or wheezes CV: regular rate and rhythm, normal S1 S2, no S3 or S4, no murmur, click or rub, no peripheral edema ABDOMEN: soft, nontender, no hepatosplenomegaly, no masses and bowel sounds normal MS: no gross musculoskeletal defects noted, no edema Patient Instructions Stop Lisinopril and start Amlodipine. A1c, Urine protein, and lipids are processing. In two weeks, lab only appointment and BP check. Signed Electronically by: Curtis Paredes APRN CNP Answers submitted by the patient for this visit: Patient Health Questionnaire (Submitted on 04/27/2025) If you checked off any problems, how difficult have these problems made it for you to do your work,take care of things at home, or get along with other people?: Somewhat difficult PHQ9 TOTAL SCORE: 11 documented in this encounter Miscellaneous Notes * Addendum Note - Curtis Paredes APRN CNP - 04/27/2025 11:00 AM CDTAddended by: CURTIS PAREDES on: 04/28/2025 10:22 AM Modules accepted: Orders documented in this encounter Plan of Treatment Upcoming Encounters Date Type Department Care Team (Latest Contact Info) Description 06/10/2025 11:00 AM LOOM FIXER SUPERVISOR Lab [facility] [address] [place] [address] 06/14/2025 1:30 PM LOOM FIXER SUPERVISOR Office Visit [facility] [place] [address] [facility] [address] [place] [address] Joslyn Gregorio MD [address] [place] [address] 08/16/2025 11:30 AM LOOM FIXER SUPERVISOR Office Visit [address] [address] Curtis Paredes APRN REGISTERED DENTAL ASSISTANT RDA [address] [place] [address] 09/28/2025 8:00 AM CDT Hospital Encounter [address] 5th [place] [phone] Good Fortune MD [address] [place] [address] [address] [place] [address] 09/28/2025 8:00 AM CDT - 09/28/2025 11:15 AM CDT Surgery [facility] [place] [address] [place] [address] 5th [place] [phone] Good Fortune MD [address] [place] [address] [address] [place], [place] [id number] RIGHT MICROSURGICAL SPERMATIC CORD DENERVATION, right orchidopexy 10/28/2025 1:20 PM CDT Office Visit [facility] [address] 4th [place] [phone] Good Fortune MD [address] [place] [address] [id number] Scheduled Procedures Name Priority Associated Diagnoses Date/Ti me DENERVATION, SPERMATIC CORD, MICROSURGICAL Pain in right testicle 09/28/2025 8:00 AM CDT documented as of this encounter Results * (ABNORMAL) Lipid panel reflex to direct [...] 219 mg/dL Very High: >= 220 mg/dL [facility] Amalia RUIZN REGISTERED DENTAL ASSISTANT RDA LAB - BLOOD ORDERABLES Fin al Result U LABORATORY [facility] [address] [facility], Room [address] [place] [address], [facility] * (ABNORMAL) HEMOGLOBIN A1C (04/25/2025 9:07 PM CDT) [facility] Estimated Average Glucose 183(H) <117 mg/dL 04/28/2025 11:23 AM CDT LABORATORY Hemoglobin A1C 8.0(H) <5.7 % 04/28/2025 11:23 AM CDT LABORATORY Comment: Normal <5.7% Prediabetes 5.7-6.4% Diabetes 6.5% or higher Note: Adopted from ADA consensus guidelines. Blood BLOOD SPECIMEN / Unknown Venipuncture / Unknown 04/25/2025 9:07 PM CDT 04/25/2025 9:16 PM CDT [facility] [place] POINT ATTACHER REGISTERED DENTAL ASSISTANT RDA LAB - BLOOD ORDERABLES Fin al Result LABORATORY [facility] [address] Lab (1st floor, no room number) [place] [address], [facility] documented in this encounter Visit Diagnoses Diagnosis Type 2 diabetes mellitus with peripheral neuropathy (H)- Primary Elevated serum creatinine Other nonspecific findings on examination of blood Screening for cardiovascular condition Screening for other and unspecified cardiovascular conditions Essential hypertension Unspecified essential hypertension Pain in right testicle Unspecified disorder of male genital organs documented in this encounter Additional Health Concerns Assessment Noted Time PHQ-9 Depression Total Score: 11 025 10:41 AM CDT documented as of this encounter Care Teams Corsage Maker Relationship Specialty Start Date End Date Curtis Paredes APRN REGISTERED DENTAL ASSISTANT RDA [address] [place] [address] PCP - General Family Medicine 04/27/25 Lana Pond MD [address] [place] [address] Physician Neurology 05/21/24 Jarad Dickinson MD Assigned PCP 05/30/24 05/05/25 [place] [address] [place] [id number] Pain Medicine 10/06/24 Nola Morris PA-C [address] [facility] 4TH Floor [place], [place] [address] Physician Knee Bolter Anesthesiology 12/02/24 Pancho Feng MD [address] [facility] [address] [place], [place] [phone] Assigned Neuroscience Provider 01/27/25 Joslyn Gregorio MD [address] [address] Assigned Surgical Provider 01/27/25 documented as of this encounter
--- OUTSIDE RECORDS SUMMARY | 2025-05-02 10:40 | XMS_ITS | Encounter Summary ---
Author Organization [facility] Address [address] [place] [address] Care Team Providers Care Geotechnicial Properties Technician Name Role Phone Lana Pond MD Unavailable [phone] Jarad Dickinson MD Unavailable Unavailable Corinna Florentino MD Unavailable [phone] Nola Morris PA-C Unavailable [phone] Pancho Feng MD Unavailable [phone] Joslyn Gregorio MD Unavailable [phone] Curtis Holland APRN [facility] Primary Care Provider [phone] Reason for Referral * Diagnostic Imaging MRI (Routine) - Closed Specialty Diagnoses / Procedures Referred By Yuki t Referred To Contact Radiology. Diagnoses S/P lumbar fusion Right testicular pain Procedures MR Lumbar Spine w/o & w Contrast Demi Link PA-C [facility] [address] [place] [address] Phone: tel: fax: [facility] [address] [place] [address] Phone: tel: fax: Referral ID Status Reason Start Date Expiration Date Visits Re quested Visits Authorized [id number] Closed 04/15/2025 04/15/2026 1 1 Reason for Visit * Diagnostic Imaging MRI (Routine) - Closed Specialty Diagnoses / Procedures Referred By Yuki t Referred To Contact Radiology. Diagnoses S/P lumbar fusion Right testicular pain Procedures MR Lumbar Spine w/o & w Contrast Demi Link PA-C [facility] [address] [address] Phone: tel: fax: [facility] [address] [place] [address] Phone: tel: fax: Referral ID Status Reason Start Date Expiration Date Visits Re quested Visits Authorized [id number] Closed 04/15/2025 04/15/2026 1 1 Encounter Details Date Type Department Care Team (Latest Contact Info) Description 05/02/2025 11:40 AM CDT - 05/02/2025 11:59 PM CDT Hospital Encounter [facility] [address] [place] [phone] Demi Link PA-C [facility] [address] [id number] S/P lumbar fusion; Right testicular pain Discharge Disposition: Home or Self Care Social [...] re latives? Once a week 05/20/2024 Attends Religion Services Not on file 05/20 Active Member of Clubs or Organizations Not on f ile 05/20/2024 Attends Club or Organization Meetings Not on devorah e 05/20/2024 Marital Status Not on file 05/20/2024 PHQ-2 Answer Date Recorded PHQ-2 Score 3 04/27/2025 [facility] - Occupational Stress Questionnaire Answer Date Recorded [...] on file Legal Sex Male 3:45 AM RN PARALEGAL Gender Identity Not on file Sexual Orientation Not on file Occupation Industry Job Start Date Job End Date 2 Not on file Not on file Not on file documented as of this encounter Medications at Time of Discharge acetaminophen (TYLENOL) 500 MG tablet Take 1,000 mg by mouth every 6 hours as needed for mild pain ([id number]) . citalopram (CELEXA) 20 MG tabletIndications: Moderate [...] Take 20 mg by mouth every morning. amLODIPine (NORVASC) 2.5 MG tabletIndications: Essential hypertension Take 1 tablet (2.5 mg) by mouth daily. 30 tablet 1 04/27/2025 atorvastatin (LIPITOR) 40 MG tabletIndications: Hyperlipidemia with target LDL less than 100 TAKE 1 TABLET BY MOUTH EVERY DAY 90 tablet 01/18/2025 levofloxacin (LEVAQUIN) 500 MG tablet Take 1 tablet (500 mg) by mouth daily. 9 tablet 04/26/2025 5 methylPREDNISolone (MEDROL DOSEPAK) 4 MG tablet therapy packIndications:Te sticular pain, right Follow Package Directions 21 tablet 02/04/2025 5 documented as of this encounter Plan of Treatment Upcoming Encounters Date Type Department Care Team (Latest Contact Info) Description 06/10/2025 11:00 AM [facility] [address] [place] [address] 06/14/2025 1:30 PM RN PARALEGAL Office Visit [facility] [address] [place] [phone] Joslyn Gregorio MD [address] [place] [address] 08/16/2025 11:30 AM RN PARALEGAL Office [facility] [address] [place] [phone] Curtis Holland APRN [facility] [address] [place] [address] 09/28/2025 8:00 AM CDT Hospital Encounter [facility] [address] [place] [address] 5[address] [place] [phone] Good Fortune MD [address] [place] [address] 09/28/2025 8:00 AM CDT - 09/28/2025 11:15 AM CDT Surgery [facility] [address] [facility] 5th [place] [phone] Good Fortune MD [address] [place] [address] RIGHT MICROSURGICAL SPERMATIC CORD DENERVATION, right orchidopexy 10/28/2025 1:20 PM CDT Office Visit [facility] [address] [place] [address] 4th [place] [phone] Good Fortune MD [address] [place] [address] Scheduled Procedures Name Priority Associated Diagnoses Date/Ti me DENERVATION, SPERMATIC CORD, MICROSURGICAL Pain in right testicle 09/28/2025 8:00 AM CDT documented as of this encounter Procedures Procedure Name Priority Date/Time Associated Diagnosis Comments MR LUMBAR SPINE W/O & W CONTRAST Routine 05/02/2025 12:55 PM CDT S/P lumbar fusion Right testicular pain documented in this encounter Results * MR Lumbar Spine w/o & w Contrast (05/02/2025 12:55 PM CDT) Anatomical Region Laterality Modality Spine, SUBRAD MR NEURO, UMP MR SPINE, RAD MR Magnetic Resonance 05/02/2025 12:5 5 PM CDT Impressions 05/03/2025 1:46 PM CDT IMPRESSION: 1. Postsurgical changes in the inferior lumbar spine. No high-grade canal stenosis. Narrative 05/03/2025 1:46 PM CDT EXAM: MR LUMBAR SPINE W/O and W CONTRAST LOCATION: [facility] DATE: 05/02/2025 INDICATION: ongoing right testicular pain asses nerve roots upper lumbar and sacral to rule out spine structural causes COMPARISON: 04/13/2025 09/29/2024. CONTRAST: mL Gadavist TECHNIQUE: Routine Lumbar Spine MRI without and with IV contrast. FINDINGS: Vertebral body heights are maintained. Anterior fusion hardware and spacer devices at L4-5 and L5-S1. Laminectomy changes at these levels. Conus terminates normally. No significant STIR edema within the vertebral column. No abnormal peridural or intrathecal enhancement. L1-2: No canal stenosis or foraminal narrowing. Facet disease. L2-3: No canal stenosis. Facet disease. No foraminal narrowing. L3-4: No canal stenosis. Facet disease. No significant foraminal narrowing. L4-5: No canal stenosis. Postsurgical changes. No canal stenosis. Mild bilateral foraminal narrowing. L5-S1: Postsurgical changes. No canal stenosis. Facet disease. Mild bilateral foraminal narrowing. Procedure Note Vadim Philippe MD - 05/03/2025 EXAM: MR LUMBAR SPINE W/O and W CONTRAST LOCATION: [facility] DATE: 05/02/2025 INDICATION: ongoing right testicular pain asses nerve roots upper lumbarand sacral to rule out spine structural causes COMPARISON: 04/13/2025 09/29/2024. CONTRAST: mL Gadavist TECHNIQUE: Routine Lumbar Spine MRI without and with IV contrast. FINDINGS: Vertebral body heights are maintained. Anterior fusion hardware and spacerdevices at L4-5 and L5-S1. Laminectomy changes at these levels. Conusterminates normally. No significant STIR edema within the vertebralcolumn. No abnormal peridural or intrathecal enhancement. L1-2: No canal stenosis or foraminal narrowing. Facet disease. L2-3: No canal stenosis. Facet disease. No foraminal narrowing. L3-4: No canal stenosis. Facet disease. No significant foraminalnarrowing. L4-5: No canal stenosis. Postsurgical changes. No canal stenosis. Mildbilateral foraminal narrowing. L5-S1: Postsurgical changes. No canal stenosis. Facet disease. Mildbilateral foraminal narrowing. IMPRESSION: 1. Postsurgical changes in the inferior lumbar spine. No high-grade canalstenosis. Demi Link PA-C IM MRI ORDERABLES Final Res ult documented in this encounter Visit Diagnoses Diagnosis Pain in right testicle- Primary Unspecified disorder of male genital organs S/P lumbar fusion Arthrodesis status Right testicular pain Unspecified disorder of male genital organs Pain in right testicle Unspecified disorder of male genital organs documented in this encounter Administered Medications Inactive Administered Medications - up to 3 most recent administrations Medication Order MAR Action Action Date Dose Rate Site gadobutrol (GADAVIST) injection 11.5 mL 11.5 mL, Intravenous, ONCE, On 05/02/25 at 1200, For 1 dose, Supplied by, and administered by MRI. $Given 05/02/2025 11:57 AM CDT 11.5 mLs documented in this encounter Additional Health Concerns Assessment Noted Time PHQ-9 Depression Total Score: 11 025 10:41 AM CDT documented as of this encounter Care Teams Geotechnicial Properties Technician Relationship Specialty Start Date End Date Curtis Holland APRN REFRIGERATOR ROOM CLERK [address] [place] [address] PCP - General Family Medicine 04/27/25 Lana Pond MD [address] [place] [address] Physician Neurology 05/21/24 Jarad Dickinson MD Assigned PCP 05/30/24 05/05/25 [place] [address] [place] [address] Pain Medicine 10/06/24 Nola Morris PA-C [address] [place] [address] 4TH [address] [place], [place] [phone] Physician Substation Designer Anesthesiology 12/02/24 Pancho Feng MD [address] [place] [address] [facility] [address] [place] [address] Assigned Neuroscience Provider 01/27/25 Joslyn Gregorio MD [address] [place] [address] Assigned Surgical Provider 01/27/25 documented as of this encounter
--- OUTSIDE RECORDS SUMMARY | 2025-05-07 08:09 | XMS_ITS | Continuity of Care Document ---
Author Organization [facility] Address [address] [place] [address] Phone Care Team Providers Care Stage Rigger Name Role Phone RN, RN Unavailable Unavailable Allergies, Adverse Reactions, Alerts Substance Reaction Status Criticality No Known Allergies Active No Inform ation Medications Medication Instructions Dosage Effective Dates (start - stop) Status Comments cyclobenzaprine 10 mg tablet take 1 tablet by oral route every day 10 MG - Active tamsulosin 0.4 mg capsule take 2 capsule by oral route every day 1/2 hour following the same meal each day 0.8 MG - Active atorvastatin 40 mg tablet take 1 tablet by oral route every day 40 MG - Active lisinopril 20 mg tablet take 1 tablet by oral route 2 times every day 20 MG - Active TADALAFIL (unknown strength) take 1 tablet by oral route 2 times every day Not Available - Active CITALOPRAM HBR (unknown strength) take 1 capsule by oral route every day Not Available - Active Procedures Procedure Date No Show Visit Fee Inj Anes Agent Other Peripher 5 Ultrason Guidan Needle Bx-rad 5 Change Control for Procedure(s): 2024 Change Control for Modifier(s) 25 Other Periph Nerve Block Ultrason Guidan Needle Bx-rad 5 Verified No Separate Anesthesia 025 New Pt Eval Moderate Advance Directives Directive Yes / No Effective Date File Name No Information Encounters Encounter Description Practice Location Reason(s) For Visit Diagnoses Date Provider Providers Copied on Encounter [facility], [address], [place], [place], [id number], [place] tel:[phone] [facility] No Information 5 BRENDAN RN. [address], [place], [place], [address], [place]. tel:[phone] Keo, [facility], [address], [place], [place], [address], [place] tel:[phone] [facility] No Information 5 Reno Schultz. [id number], [place], [place], [address], [place]. tel:[phone] Referring Provider: Joslyn Gregorio MD, [address] [facility], [place], [address]. tel:[phone] [facility], [address], [place], [address], [place] tel:[phone] [facility] groin pain (chief complaint) Pelvic and perineal painNeuralgia and neuritis, unspecifiedPelvic and perineal painNeuralgia and neuritis, unspecified Sep-3 0 5 [facility]. [address] [facility] [address], [place], [place], [id number], [place]. tel:[phone] Referring Provider: Lyssa Corey , [address], [place], [address]. tel:[phone] [facility], [address], [place], [place], [address], [place] tel:[phone] [facility] No Information 5 Leora Omalley. [address], [place], [address], [place]. tel:[phone] Referring Provider: Lyssa Corey , [address], [place], [address]. tel:[phone] Keo, [facility], [address] [facility], [place], [place], [address], [place] tel:[phone] [facility] No Information 5 Leora Omalley. [address], [place], [address], [place]. tel:[phone] Referring Provider: Joslyn Gregorio MD, [address] [place], [address]. tel:[phone] New Pt Eval Moderate Keo, [facility], [address], [place], [place], [id number], [place] tel:[phone] [facility] testicular pain (chief complaint) Right testicular painBody mass index (BMI) 31.0-31.9, adult 5 Lacey Taveras. [address] [facility] [address], [place], [address], [place]. tel:[phone] Referring Provider: Joslyn Gregorio MD, [address] [place], [address]. tel:[phone] Family History Family Member Type Diagnosis Age At Onset No Information Payers Payer name Insurance type Covered constitution party ID Authoriza tiward(s) No Information Social History Type Description Quantity Date Captured Comments Alcohol Use Details Unknown Caffeine Use Details Unknown Tobacco Use Status No Information Smoking Status No Information Sex Male Chief Complaint And Reason For Visit No Information Reason For Referral Reason For Referral No Information Plan Of Treatment Date Type Action Status Appointment Alessandro Holt BOOKED History Of Present Illness Encounter Date Complaint History Of Prese nt Illness groin pain The pain is loca leroy in the right groin. testicular pain The pain is loca leroy in the right. The patient states that the pain began several weeks ago. Pain intensity is currently 7/10.The pain is constant. The pain is described as aching, dull and sharp. The following activities make the pain worse: sexual activity, sitting, lifting and prolonged position.The patient denies any relieving factors. Functional Status Date Functional Assessmen t No Information Instructions Date Instruction Additional Infor crarie - Follow up in the [facility] in 2-3 weeks to discuss the results of today's procedure Related to Pelvic and perineal pain - Ordered urgent rig ht genitofemoral nerve block* If you would like sedation with your procedure, please bring a jinriksha driver and do NOT eat or drink 8 hours prior to the injection* KEO will schedule you as soon as possible- Follow up with nurse practitioner or PA 3 weeks after injection for reevaluation- Prescribed oxycodone 5mg up to 2x/day #60 for 30 day supply Related to Right testicular pain Giving encouragement to exercise Related to Body mass index [BMI] 31.0-31.9, adult Assessments Type Assessment Date No Information Patient Care Teams Name Effective Dates (start - stop) Status Members No Information
--- OUTSIDE RECORDS SUMMARY | 2025-05-07 08:09 | XMS_ITS | Continuity of Care Document ---
Author Organization [facility] Address [address] [facility] [address] [place] [address] Phone Care Team Providers Care Kindergarten Teacher Name Role Phone RN, RN Unavailable Unavailable Allergies, Adverse Reactions, Alerts Substance Reaction Status Criticality No Known Allergies Active No Inform ation Medications Medication Instructions Dosage Effective Dates (start - stop) Status Comments CITALOPRAM HBR (unknown strength) take 1 capsule by oral route every day Not Available - Active TADALAFIL (unknown strength) take 1 tablet by oral route 2 times every day Not Available - Active lisinopril 20 mg tablet take 1 tablet by oral route 2 times every day 20 MG - Active atorvastatin 40 mg tablet take 1 tablet by oral route every day 40 MG - Active tamsulosin 0.4 mg capsule take 2 capsule by oral route every day 1/2 hour following the same meal each day 0.8 MG - Active cyclobenzaprine 10 mg tablet take 1 tablet by oral route every day 10 MG - Active Procedures Procedure Date No Show [...] Providers Copied on Encounter [facility], [address], [place], [place], [id number], [place] tel:[phone] [facility] No Information 5 BRENDAN RN. [address], [place], [place], [address], [place]. tel:[phone] Keo, [facility], [address], [place], [place], [address], [place] tel:[phone] [facility] No Information 5 Reno Schultz. [address], [place], [place], [address], [place]. tel:[phone] Referring Provider: Joslyn Gregorio MD, [address], [place], [address]. tel:[phone] [facility], [address], [place], [address], [place] tel:[phone] [facility] groin pain (chief complaint) Pelvic and perineal painNeuralgia and neuritis, unspecifiedPelvic and perineal painNeuralgia and neuritis, unspecified Sep-3 0 5 [facility]. [address] [facility] [address], [place], [place], [address], [place]. tel:[phone] Referring Provider: Lyssa Corey , [address], [place], [address]. tel:[phone] [facility], [address], [place], [place], [address], [place] tel:[phone] [facility] No Information 5 Leora Omalley. [address], [place], [address], [place]. tel:[phone] Referring Provider: Lyssa Corey , [address] [facility] [address], [place], [address]. tel:[phone] Keo, [facility], [address] [facility] [address], [place], [place], [id number], [place] tel:[phone] [facility] No Information 5 Leora Omalley. [address] [facility] [address], [place], [address], [place]. tel:[phone] Referring Provider: Joslyn Gregorio MD, [address] [place], [address]. tel:[phone] New Pt Eval Moderate Keo, [facility], [address] [facility] [address], [place], [place], [address], [place] tel:[phone] [facility] testicular pain (chief complaint) Right testicular painBody mass index (BMI) 31.0-31.9, adult 5 Lacey Taveras. [address] [facility] [address], [place], [address], [place]. tel:[phone] Referring Provider: Joslyn Gregorio MD, [address] [place], [address]. tel:[phone] Family History Family Member Type Diagnosis Age At Onset No Information Payers Payer name Insurance type Covered alliance party ID Authoriza tiward(s) No Information Social [...] No Information Instructions Date Instruction Additional Infor carrie - Follow up in the [facility] in 2-3 weeks to discuss the results of today's procedure Related to Pelvic and perineal pain - Ordered urgent rig ht genitofemoral nerve block* If you would like sedation with your procedure, please bring a production truck driver and do NOT eat or drink [...]
--- OUTSIDE RECORDS SUMMARY | 2025-05-11 09:30 | XMS_ITS | Encounter Summary ---
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 (SHALINI) inhibitor (if the patient can tolerate it). Urine MID-STREAM URINE SPECIMEN / Unknown Non-blood Collection / Unknown 05/11/2025 10:05 AM ADMINISTRATIVE EXECUTIVE 05/11/2025 10:05 AM ADMINISTRATIVE EXECUTIVE Curtis Holland APRN IRRIGATION ENGINEER LAB - URINE ORDERABLES Fin al Result [facility] [place] [facility] Lab [address] [facility] [address] Building, Room 3-[address] [place] [address], [facility] * (ABNORMAL) Basic metabolic panel (Ca, Cl, CO2, Creat, Gluc, K, Na, BUN) (05/11/2025 9:07 AM ADMINISTRATIVE EXECUTIVE) Sodium (POCT) 135 135 - 145 mmol/L 05/11/2025 9:27 AM ADMINISTRATIVE EXECUTIVE LABORATORY Potassium (POCT) 4.7 3.4 - 5.3 mmol/L 05/11/2025 9:27 AM ADMINISTRATIVE EXECUTIVE LV LABORATORY Chloride (POCT) 104 94 - 109 mmol/L 05/11/2025 9:27 AM ADMINISTRATIVE EXECUTIVE LV LABORATORY Carbon Dioxide (CO2) (POCT) 28 22 - 29 mmol/L 05/11/2025 9:27 AM ADMINISTRATIVE EXECUTIVE LV LABORATORY Anion Gap (POCT) 3 3 - 14 mmol/L 05/11/2025 9:27 AM [facility] Urea Nitrogen (POCT) 26(H) 6 - 20 mg/dL 05/11/2025 9:27 AM ADMINISTRATIVE EXECUTIVE LABORATORY Creatinine (POCT) 1.20(H) 0.67 - 1.17 mg/dL 05/11/2025 9:27 AM ADMINISTRATIVE EXECUTIVE LABORATORY GFR Estimate (POCT) 74 >60 mL/min/1.7 3m2 05/11/2025 9:27 AM [facility] Comment:eGFR calculated 2020 CKD-EPI equation. Calcium (POCT) 9.6 8.8 - 10.4 mg/dL 05/11/2025 9:27 AM [facility] Glucose (POCT) 193(H) 70 - 99 mg/dL 05/11/2025 9:27 AM [facility] Blood BLOOD SPECIMEN / Unknown Venipuncture / Unknown 05/11/2025 9:07 AM ADMINISTRATIVE EXECUTIVE 05/11/2025 9:07 AM ADMINISTRATIVE EXECUTIVE Curtis Holland APRN IRRIGATION ENGINEER LAB - BLOOD ORDERABLES Fin al Result LABORATORY [facility] [place] [facility] [address] [facility] Lab (no room number, 1st floor of clinic) [place] [address], [facility] documented in this encounter Visit Diagnoses Diagnosis Pain in right testicle- Primary Unspecified disorder of male genital organs Type 2 diabetes mellitus with peripheral neuropathy (H)- Primary Elevated serum creatinine Other nonspecific findings on examination of blood Essential hypertension Unspecified essential hypertension Hyperlipidemia with target LDL less than 100 Other and unspecified hyperlipidemia Pain in right testicle Unspecified disorder of male genital organs documented in this encounter Additional Health Concerns Assessment Noted Time PHQ-9 Depression Total Score: 11 025 10:41 AM CDT documented as of this encounter Care Teams Dockmaster Relationship Specialty Start Date End Date Curtis Holland APRN IRRIGATION ENGINEER [address] [place] [address] PCP - General Family Medicine 04/27/25 Lana Pond MD [address] [place] [address] 356995 Physician Neurology 05/21/24 [place] [address] [place] [address] Pain Medicine 10/06/24 Nola Morris PA-C [address] [facility] 4TH Floor [place], [place] [address] Physician Reception Interviewer Anesthesiology 12/02/24 Pancho Feng MD [address] [place] [address] 96 [place], [place] 749215 Assigned Neuroscience Provider 01/27/25 Joslyn Gregorio MD [address] [place] [address] Assigned Surgical Provider 01/27/25 Curtis Holland APRN IRRIGATION ENGINEER [address] [place] [address] Assigned PCP 05/06/25 documented as of this encounter
--- NOTE | 2025-05-12 02:16 | ED.NAVMDI ---
HPI - Nausea/Vomiting/Diarrhea General Time Seen by Provider: 02:16 Date Seen: 05/12/25 Chief complaint: Nausea/Vomiting Stated complaint: vomiting, diarrhea Time Seen by Provider: 05/12/25 02:16 Source: patient Mode of arrival: ambulatory History of Present Illness HPI Narrative: Alessandro is a 49 yo male presents to the emergency department for evaluation of nausea, vomiting, diarrhea. Patient has a past medical history of hypertension, dyslipidemia, bipolar, BPH. Patient reports that this evening around 2230 he developed sudden onset of feeling unwell with nausea, vomiting, and multiple episodes of diarrhea which he describes as loose watery stools. Patient reports he believe he ate undercooked chicken. No sick contacts, no other complaints. Related Data Home Medications ?Medication ?Instructions ?Recorded ?Confirmed atorvastatin 40 mg tablet 40 mg PO DAILY 03/18/23 05/12/25 citalopram 20 mg tablet 60 mg PO DAILY 03/18/23 03/18/23 fenofibrate nanocrystallized 48 mg 48 mg PO DAILY 03/18/23 05/12/25 tablet lisinopril 20 mg tablet 20 mg PO DAILY 03/18/23 05/12/25 metformin 500 mg tablet 500 mg PO BID 03/18/23 03/18/23 pioglitazone 30 mg tablet 30 mg PO DAILY 03/18/23 03/18/23 tamsulosin 0.4 mg capsule 0.4 mg PO DAILY 03/18/23 03/18/23 amlodipine 2.5 mg tablet 2.5 mg PO DAILY 05/12/25 05/12/25 amlodipine 5 mg tablet 5 mg PO DAILY 05/12/25 05/12/25 semaglutide 0.25 mg or 0.5 mg (2 mg subcut 05/12/25 mg/3 mL) subcutaneous pen injector (Ozempic) Previous Rx's ?Medication ?Instructions ?Recorded ketorolac 10 mg tablet 10 mg PO Q8H 5 days #15 tabs 03/18/23 Allergies Allergy/AdvReac Type Severity Reaction Status Date / Time coconut Allergy Mild Anaphylaxis Verified 05/12/25 02:26 Review of Systems Narrative: Past medical history, past surgical history, medications, allergies, family history, and social history were reviewed with the patient. No additional pertinent items. A medically appropriate review of systems was performed with pertinent positives and negatives noted in HPI, all other systems negative. PFSH PFSH Social History Smoking Status: Never smoker Do you use any of these nicotine containing products: None Second hand tobacco smoke exposure: No How often do you have a drink containing alcohol: 2-4 times a month AUDIT-C Alcohol total score: 2 Non-prescribed substance use: denies use Exam Narrative: Exam Narrative: General: Afebrile, in distress HEENT: Normocephalic, atraumatic, conjunctiva normal. MMM Neck: non-tender, supple Cardio: regular rate. regular rhythm Resp: Normal work of breathing, no respiratory distress, lungs clear bilaterally, no wheezing, rhonchi, rales Chest/Back: no visual signs of trauma, no midline tenderness, no CVA tenderness Abdomen: soft, non distension, diffuse tenderness to palpation with no rebound, no guarding, no peritoneal signs Neuro: alert and fully oriented. CN II-XII grossly intact. Grossly normal strength and sensation in all extremities. MSK: no deformities. Normal range of motion Integumentary/Skin: no rash visualized, normal color Psych: normal affect, normal behavior Const: Vital Signs, click to edit/add: Vital Signs - 24 hr 05/12/25 02:21 05/12/25 03:18 05/12/25 04:13 Temperature 98.5 F 98.5 F Pulse Rate [Pulse Oximeter] 86 80 Respiratory Rate 16 16 Blood Pressure [Ri ght Upper Arm] 141/87 H 138/74 Pulse Oximetry 98 98 98 Oxygen Delivery Me thod Room Air Room Air Course Vital Signs Vital signs: Initial Vital Signs Temperature 98.5 F 05/12/25 02:21 Temperature Source Temporal Artery Scan 05/12/25 02:21 Pulse Rate 86 05/12/25 02:21 Respiratory Rate 16 05/12/25 02:21 Blood Pressure 141/87 H 05/12/25 02:21 Blood Pressure Mean 105 05/12/25 02:21 Blood Pressure Position Sitting 05/12/25 02:21 Pulse Oximetry 98 05/12/25 02:21 Oxygen Delivery Method Room Air 05/12/25 02:21 Vital Signs Temperature 98.5 F 05/12/25 02:21 Pulse Rate 86 05/12/25 02:21 Respiratory Rate 16 05/12/25 02:21 Blood Pressure 141/87 H 05/12/25 02:21 Pulse Oximetry 98 05/12/25 02:21 Oxygen Delivery Method Room Air 05/12/25 02:21 Temperature 98.5 F 05/12/25 04:13 Pulse Rate 80 05/12/25 04:13 Respiratory Rate 16 05/12/25 04:13 Blood Pressure 138/74 05/12/25 04:13 Pulse Oximetry 98 05/12/25 04:13 Oxygen Delivery Method Room Air 05/12/25 04:13 Medications Administered Medications: Discontinued Medications Generic Name Dose Route Start Last Admin Trade Name Jamal PRN Reason Stop Dose Admin Dicyclomine HCl 10 mg 05/12/25 03:55 05/12/25 04:09 Dicyclomine Hcl 10 Mg Capsule PO 05/12/25 03:56 10 mg ONCE ONE Administration Hydromorphone HCl 0.5 mg 05/12/25 03:14 05/12/25 03:17 Hydromorphone 0.5 Mg/0.5 Ml Inj IVP 05/12/25 03:15 0.5 mg ONCE ONE Administration Sodium Chloride 1,000 mls @ 1,000 mls/hr 05/12/25 02:30 05/12/25 03:18 0.9 % Sodium Chloride 1000 Ml IV 05/12/25 03:29 Infused .Q1H DIAZ Infusion Lidocaine/Aluminum/Magnesium/Simeth 30 ml 05/12/25 03:55 05/12/25 03:50 Gi Cocktail (Visc Lido/Antacid) 30 Ml PO 05/12/25 03:56 30 ml ONCE ONE Administration Ondansetron HCl 4 mg 05/12/25 02:25 05/12/25 02:40 Ondansetron 2 Mg/Ml Inj IVP 05/12/25 02:26 4 mg ONCE ONE Administration MDM - Nausea/Vomiting/Diarrhea MDM Narrative Medical decision making narrative: Alessandro is a 49 yo male presents to the emergency department for evaluation of nausea, vomiting, diarrhea. Upon arrival patient is nontoxic appearing, afebrile, in distress secondary to pain and nausea. Patient hemodynamically stable, blood pressure slightly elevated 141/87, otherwise vital signs within normal limits. Differential diagnosis includes but is not limited to gastritis versus gastroenteritis versus colitis versus obstruction versus viral illness versus pancreatitis versus cholecystitis versus biliary colic versus intra-abdominal infection among others. Upon arrival patient was treated with IV Zofran, 1 L IV fluid bolus. Comprehensive labs performed. Comprehensive labs remarkable with no leukocytosis white blood cell count 10.3, hemoglobin 13.9, no acute metabolic or electrolyte abnormality, glucose elevated at 242, normal creatinine, no transaminitis. Lipase slightly elevated at 634. I suspect patient's lipase is elevated due to multiple episodes of vomiting. (not 3 times upper limit of normal). I reviewed EKG which demonstrates normal sinus rhythm with a ventricular rate of 80 beats per minute, normal axis, no acute ischemic change, QTC 445. No prior EKG to compare to. On re-evaluation patient does report improvement of symptoms and is able to tolerate water in the emergency department. Also treated with GI cocktail and bentyl. No further episodes of vomiting or diarrhea in the emergency department. I discussed results with patient, most likely suspect likely viral illness/gastroenteritis. Less likely acute intra-abdominal infection (appendicitis/cholecystitis/pancreatitis). Patient is nontoxic appearing, nonsurgical abdomen, and has significant improvement of symptoms. Patient feels comfortable with discharge home, encouraged close outpatient follow-up, supportive care, strict return precautions discussed if worsening symptoms - high fever, severe pain, persistent vomiting. Patient is also understand agrees the plan. Medical Records Attestation: I reviewed the patient's medical records. Lab Data Attestation: I reviewed the patient's lab results. Labs: Lab Results 05/12/25 Range/Units 02:35 WBC 10.30 (4.50-11.00) K/uL RBC 5.39 (4.30-5.90) m/uL Hgb 13.9 (13.5-17.5) gm/dL Hct 43.2 (37.0-53.0) % MCV 80 (80-100) fL MCH 26 (26-34) pg MCHC 32 (32-36) gm/dL RDW Coeff of Joel 14.5 (11.5-15.5) % Plt Count 245 (140-440) K/uL Neut % (Auto) 74.7 H (42.0-72.0) % Lymph % (Auto) 13.5 L (20-44) % [place] % (Auto) 9.8 (0.0-11.0) % Eos % (Auto) 1.7 (0.0-7.0) % Baso % (Auto) 0.1 (0.0-3.0) % Neut # (Auto) 7.70 H (1.7-7.0) K/uL Lymph # (Auto) 1.40 (0.90-2.90) K/uL [place] # (Auto) 1.00 H (0.00-0.90) K/UL Eos # (Auto) 0.17 (0.00-0.50) K/uL Baso # (Auto) 0.01 (0.00-0.30) K/uL Abs Immat Gran (auto) 0.02 (0.00-0.30) K/uL Imm/Tot Granulo (auto) 0.2 % Sodium 142 (135-149) mmol/L Potassium 5.1 (3.6-5.1) mmol/L Chloride 107 (96-114) mmol/L Carbon Dioxide 26 (20-32) mmol/L Anion Gap 9 (7-15) mEq/L BUN 29 (7-30) mg/dL Creatinine 1.4 (0.5-1.5) mg/dL Estimated Creat Clear 75.45 Estimated GFR 61 ml/min Glucose 242 H (60-115) mg/dL Calcium 10.1 (8.4-10.6) mg/dL Total Bilirubin 0.6 (0.1-1.5) mg/dL AST 19 (12-35) U/L ALT 24 (4-50) U/L Alkaline Phosphatase 62 (40-150) U/L Total Protein 7.3 (6.0-8.3) g/dL Albumin 4.9 (3.3-5.0) g/dL Lipase 634 H (23-300) U/L Discharge Plan Discharge Clinical Impression: Nausea & vomiting, Diarrhea Patient Disposition: Home, Self-Care Condition: Improved Instructions: Acute Nausea and Vomiting (ED) Additional Instructions: Please follow-up with your primary care provider in the next 3-5 days for further evaluation and follow-up. Please call to schedule appointment. Please rest, drink plenty of fluids. Please start with a soft/bland diet in slowly advance as tolerated over the next 24-48 hours. Please take Zofran as needed for nausea. Please return to the emergency department if you develop persistent high fever, severe abdominal pain, persistent vomiting, worsening symptoms. It was a pleasure taking care of you today. We hope you feel better soon. Prescriptions: No Action atorvastatin 40 mg tablet 40 mg PO DAILY citalopram 20 mg tablet 60 mg PO DAILY fenofibrate nanocrystallized 48 mg tablet 48 mg PO DAILY metformin 500 mg tablet 500 mg PO BID lisinopril 20 mg tablet 20 mg PO DAILY tamsulosin 0.4 mg capsule 0.4 mg PO DAILY pioglitazone 30 mg tablet 30 mg PO DAILY ketorolac 10 mg tablet 10 mg PO Q8H 5 Days Qty: 15 0RF amlodipine 2.5 mg tablet 2.5 mg PO DAILY amlodipine 5 mg tablet 5 mg PO DAILY Ozempic 0.25 mg or 0.5 mg (2 mg/3 mL) pen injector SUBCUT Patient Comments: [NO ORIGINAL SIG] Follow Up/Referrals: Provider,Not a Local [Primary Care Provider, Family Practice] Stand Alone Forms: [employer] Info Instructions
--- OUTSIDE RECORDS SUMMARY | 2025-05-12 02:16 | XMS_ITS | Encounter Summary ---
Author Organization [place] Address [address] [place] [address] Care Team Providers Care Private Secretary Name Role Phone Thalia Helton APRN PAIL TESTER Primary Care Provi lizett Unavailable Thalia Helton APRN PAIL TESTER Unavailable Un available Luis Ordoñez DPM Unavailable [phone] Arthur Veliz MD Unavailable Jack Jordan MD Unavailable [phone] No Ref-Primary, Physician Primary Care Provider Aniya Gregorio MD Unavailable Jarad Dickinson MD Primary Care Provider Unavailab Lana Sequeira MD Unavailable [phone] Jarad Dickinson MD Unavailable Unavailable Lana Pond MD Unavailable [phone] Corinna Florentino MD Unavailable [phone] Pancho Feng MD Unavailable [phone] Joslyn Gregorio MD Unavailable [phone] Nola Morris PA-C Unavailable + [phone] George Ace PA-C Unavailable [phone] Nola Morris PA-C Unavailable + [phone] Pancho Feng MD Unavailable [phone] Joslyn Gregorio MD Unavailable [phone] No Ref-Primary, Physician Primary Care Provider Curtis Holland APRN, CNP Primary Care Provider [phone] Curtis Holland APRN, CNP Unavailable [phone] Reason for Visit * Reason Comments Medication Refill atorvastatin (LIPITO R), citalopram (CELEXA) Encounter Details Date Type Department Care Team (Late st Contact Info) Description 12/13/[address] [place] [phone] Thalia Helton APRN CNP Medication Refill (atorvastatin [...] on file Legal Sex Male 3:45 AM FOOD PRESERVATION SCIENTIST Gender Identity Not on file Sexual Orientation [...] Contact Info) Description 06/10/2025 11:00 AM [facility] [address] [place] [address] 06/14/2025 1:30 PM FOOD PRESERVATION SCIENTIST Office Visit [facility] [place] [address] [place] [phone] Joslyn Gregorio MD [address] [place] [address] 08/16/2025 11:30 AM FOOD PRESERVATION SCIENTIST Office [facility] [address] [place] [phone] Curtis Holland APRN PAIL TESTER [address] [place] [address] 09/28/2025 8:00 AM CDT Hospital Encounter [facility] [address] [place] [address] 5th [place] [phone] Good Fortune MD [address] [place] [address] 09/28/2025 8:00 AM CDT - 09/28/2025 11:15 AM CDT Surgery [facility] [address] [place] [address] 5th [place] [phone] Good Fortune MD [address] [place] [address] RIGHT MICROSURGICAL SPERMATIC CORD DENERVATION, right orchidopexy 10/28/2025 1:20 PM CDT Office Visit [facility] [address] 4th [place] [phone] Good Fortune MD [address] [place] [address] Scheduled Procedures Name Priority Associated Diagnoses Date/Ti me DENERVATION, SPERMATIC CORD, MICROSURGICAL Pain in right testicle 09/28/2025 8:00 AM CDT documented as of this encounter Visit Diagnoses Diagnosis Hyperlipidemia with target LDL less than 100 Other and unspecified hyperlipidemia Adjustment disorder with depressed mood Pain in right testicle Unspecified disorder of male genital organs documented in this encounter Additional Health Concerns Infection Onset Date Last Indicated Resolved Time Rule Out COVID-19 10/15/2024 10/15/2024 10/16/2024 9:56 AM CDT Assessment Noted Time PHQ-9 Depression Total Score: 10 019 4:30 PM FOOD PRESERVATION SCIENTIST documented as of this encounter Care Teams Private Secretary Relationship Specialty Start Date End Date Thalia Helton APRN PAIL TESTER PCP - General Internal Medicine 08/12/12 03/01/23 No Ref-Primary, Physician PCP - General 04/01/23 05/19/24 Jarad Dickinson MD [address] [place] [address] PCP - General Internal Medicine 05/20/24 04/13/25 No Ref-Primary, Physician PCP - General 04/25/25 04/26/25 Curtis Holland APRN PAIL TESTER [address] [place] [address] PCP - General Family Medicine 04/27/25 Thalia Helton APRN PAIL TESTER Assigned PCP 04/10/12 09/07/22 Luis Ordoñez DPM [address] [facility] [address] [place] [address] Assigned Musculoskeletal Provider 04/29/20 10/26/22 Arthur Veliz MD [address] [place] [address] Assigned Neuroscience Provider 04/16/21 05/20/21 Jack Jordan MD [address] [place] [address] Assigned Neuroscience Provider 05/21/21 11/09/22 Aniya Gregorio MD [address] [place] [address] Assigned PCP 04/06/23 05/29/24 Lana Pond MD [address] [place] [address] Physician Neurology 05/21/24 Jarad Dickinson MD Assigned PCP 05/30/24 05/05/25 Lana Pond MD 500 [place] [address] Assigned Neuroscience Provider 08/30/24 10/27/24 [place] [address] [place] [address] Pain Medicine 10/06/24 Pancho Feng MD [address] [place] [address] Assigned Neuroscience Provider 10/28/24 12/27/24 Joslyn Gregorio MD [address] [place] [address] Assigned Surgical Provider 11/27/24 Nola Morris PA-C [address] [place] [address] 4TH [place] [address] Physician Collection Support Specialist Anesthesiology 12/02/24 George Ace PA-C [address] [address] Assigned Neuroscience Provider 12/28/24 01/26/25 Nola Morris PA-C 909 [facility] 4TH Floor [place], [place] [address] Assigned Surgical Provider 12/28/24 Pancho Feng MD [address] [facility] 96 [place], [place] [address] Assigned Neuroscience Provider 01/27/25 Joslyn Gregorio MD [address] [address] Assigned Surgical Provider 01/27/25 Curtis Holland APRN PAIL TESTER [address] [place] [address] Assigned PCP 05/06/25 documented as of this encounter
--- OUTSIDE RECORDS SUMMARY | 2025-05-12 02:16 | XMS_ITS | Encounter Summary ---
Author Organization [place] Address [address] [place] [address] Care Team Providers Care Estimation Manager Name Role Phone Jarad Dickinson MD Primary Care Provider Unavailab Lana Sequeira MD Unavailable Jarad Dickinson MD Unavailable Unavailable Corinna Florentino MD Unavailable [phone] Pancho Feng MD Unavailable [phone] Joslyn Gregorio MD Unavailable Nola Morris PA-C Unavailable [phone] George Ace PA-C Unavailable [phone] Nola Morris PA-C Unavailable [phone] Pancho Feng MD Unavailable [phone] Joslyn Gregorio MD Unavailable No Ref-Primary, Physician Primary Care Provider Curtis Holland APRN LEAD ENGINEER Primary Care Provider [phone] Curtis Holland APRN LEAD ENGINEER Unavailable [phone] Encounter Details Date Type Department Care Team (Late st Contact Info) Description 12/01/2024 [facility] [place] [address] [place] [address] Joslyn Gregorio MD [address] [place] [address] Social History Tobacco Use Types Packs/Day Years [...] re latives? Once a week 05/20/2024 Attends Christianity Services Not on file 05/20 Active Member of Clubs or Organizations Not on f ile 05/20/2024 Attends Club or Organization Meetings Not on devorah e 05/20/2024 Marital Status Not on file 05/20/2024 PHQ-2 Answer Date Recorded PHQ-2 Score 0 12/03/2024 [facility] Occup[facility] ional Health - Occupational Stress [...] in an abandoned building, in an overnight residential, or couch-surfing.) Yes 10/08/2024 Are you worried [...] motionally safe where you currently live? Yes 10/16/2024 Within the past 12 months, h ave you been hit, slapped, kicked or otherwise physically hurt by someone? No 10/16/2024 Within the past 12 months, h ave you been humiliated or emotionally abused in other ways by your partner or ex-partner? No 10/16/2024 Sex and Gender Information Value Date Recorded Sex Assigned at Not on file Legal Sex Male 3:45 AM IMAGE PROCESSING ENGINEER Gender Identity Not on file Sexual Orientation Not on file Occupation Industry Job Start Date Job End Date 2 Not on file Not on file Not on file documented as of this encounter Miscellaneous Notes * Telephone Encounter - Joslyn Gregorio MD - 12/02/2024 2:38 PM CDT I can update the heart and lung exam but he does need updated labs including a CBC, BMP, UA/UC, [id number] documented in this encounter Plan of Treatment Upcoming Encounters Date Type Department Care Team (Latest Contact Info) Description 06/10/2025 11:00 AM IMAGE PROCESSING ENGINEER Lab [facility] [address] [place] [address] 06/14/2025 1:30 PM IMAGE PROCESSING ENGINEER Office Visit [facility] [place] [address] [place] [phone] Joslyn Gregorio MD [address] [address] 08/16/2025 11:30 AM IMAGE PROCESSING ENGINEER Office Visit [facility] [address] [place] [phone] Curtis Holland APRN [facility] [address] [place] [address] 09/28/2025 8:00 AM CDT Hospital Encounter [facility] [address] [place] [address] 5th [place] [phone] Good Fortune MD [address] [place] [address]45 09/28/2025 8:00 AM CDT - 09/28/2025 11:15 AM CDT Surgery [facility] [address] [place] [address] 5th [place] [phone] Good Fortune MD [address] [place] [address] RIGHT MICROSURGICAL SPERMATIC CORD DENERVATION, right orchidopexy 10/28/2025 1:20 PM CDT Office Visit [facility] [address] 4th [place] [phone] Good Fortune MD [address] [place] [address] Scheduled Procedures Name Priority Associated Diagnoses Date/Ti me DENERVATION, SPERMATIC CORD, MICROSURGICAL Pain in right testicle 09/28/2025 8:00 AM CDT documented as of this encounter Visit Diagnoses Not on filedocumented in this encounter Additional Health Concerns Assessment Noted Time PHQ-9 Depression Total Score: 2 05/20/20 3:48 PM IMAGE PROCESSING ENGINEER documented as of this encounter Care Teams Estimation Manager Relationship Specialty Start Date End Date Jarad Dickinson MD PCP - General Internal Medicine 05/20/24 04/13/25 No Ref-Primary, Physician PCP - General 04/25/25 04/26/25 Curtis Holland APRN LEAD ENGINEER [address] [place] [address] PCP - General Family Medicine 04/27/25 Lana Pond MD [address] [place] [address] 329775 Physician Neurology 05/21/24 Jarad Dickinson MD Assigned PCP 05/30/24 05/05/25 [place] [address] [place] [address] Pain Medicine 10/06/24 Pancho Feng MD [address] [place] [address]17955 Assigned Neuroscience Provider 10/28/24 12/27/24 Joslyn Gregorio MD [address] [place] [address] Assigned Surgical Provider 11/27/24 12/27/24 Nola Morris PA-C 909 [facility] 4TH [place] [address] Physician Charge Loader Anesthesiology 12/02/24 George Ace PA-C [address] [place] [address] [place] [address] Assigned Neuroscience Provider 12/28/24 01/26/25 Nola Morris PA-C [address] 4TH [place] [address] Assigned Surgical Provider 12/28/24 01/26/25 Pancho Feng MD [address] [facility] [address] [facility] [address] [place] [address] Assigned Neuroscience Provider 01/27/25 Joslyn Gregorio MD [address] [place] [address] Assigned Surgical Provider 01/27/25 Curtis Holland APRN LEAD ENGINEER [address] [place] [address] Assigned PCP 05/06/25 documented as of this encounter
--- OUTSIDE RECORDS SUMMARY | 2025-05-12 02:16 | XMS_ITS | Encounter Summary ---
Author Organization [place] Address [address] [place] [address] Care Team Providers Care Criminal Justice Instructor Name Role Phone Thalia Helton APRN RN LPN CNA Primary Care Provi lizett Unavailable Thalia Helton APRN RN LPN CNA Unavailable Un available Luis Ordoñez DPM Unavailable [phone] Arthur Veliz MD Unavailable Jack Jordan MD Unavailable [phone] No Ref-Primary, Physician Primary Care Provider Aniya Gregorio MD Unavailable Jarad Dickinson MD Primary Care Provider Unavailab Lana Sequeira MD Unavailable [phone] Jarad Dickinson MD Unavailable Unavailable Lana Pond MD Unavailable [phone] Corinna Florentino MD Unavailable [phone] Pancho Feng MD Unavailable [phone] Joslyn Gregorio MD Unavailable [phone] Nola Morris PA-C Unavailable + [phone] George Ace PA-C Unavailable [phone] Nola Morris PA-C Unavailable + [phone] Pancho Feng MD Unavailable [phone] Joslyn Gregorio MD Unavailable [phone] No Ref-Primary, Physician Primary Care Provider HollandCurtis scott FUEL SYSTEM MAINTENANCE WORKER RN LPN CNA Primary Care Provider Curtis Holland HAFSA RN LPN CNA Unavailable [phone] Encounter Details Date Type Department Care Team (Late st Contact Info) Description 04/10/[address] [facility] Neurology [facility] [address] [place] [id number] Leeann Dobson Social History Tobacco Use Types [...] on file Legal Sex Male 3:45 AM TANK MAKER WOOD Gender Identity Not on file Sexual Orientation [...] (Latest Contact Info) Description 06/10/2025 11:00 AM TANK MAKER WOOD Lab [facility] [address] [place] [phone] 06/14/2025 1:30 PM TANK MAKER WOOD Office Visit [facility] Urology [facility] [address] [place] [phone] Joslyn Gregorio MD [address] [place] [address] 08/16/2025 11:30 AM TANK MAKER WOOD Office Visit [facility] [address] [place] [phone] Curtis Holland APRN RN LPN CNA [address] [place] [address] 09/28/2025 8:00 AM CDT Hospital Encounter [facility] 909 [facility] 5th [place] [phone] Good Fortune MD 420 [facility] [address] [place] [address] 09/28/2025 8:00 AM CDT - 09/28/2025 11:15 AM CDT Surgery [facility] [place] [address] [place] [address] 5th [place] [phone] Good Fortune MD [address] [address] RIGHT MICROSURGICAL SPERMATIC CORD DENERVATION, right orchidopexy 10/28/2025 1:20 PM CDT Office Visit [facility] [place] [address] [place] [address] 4th [place] [phone] Good Fortune MD [address] [address] Scheduled Procedures Name Priority Associated Diagnoses Date/Ti me DENERVATION, SPERMATIC CORD, MICROSURGICAL Pain in right testicle 09/28/2025 8:00 AM CDT documented as of this encounter Visit Diagnoses Not on filedocumented in this encounter Additional Health Concerns Infection Onset Date Last Indicated Resolved Time Rule Out COVID-19 10/15/2024 10/15/2024 10/16/2024 9:56 AM CDT Assessment Noted Time PHQ-9 Depression Total Score: 0 03/28/20 20 9:31 AM CDT documented as of this encounter Care Teams Criminal Justice Instructor Relationship Specialty Start Date End Date Thalia Helton APRN RN LPN CNA PCP - General Internal Medicine 08/12/12 03/01/23 No Ref-Primary, Physician PCP - General 04/01/23 05/19/24 Jarad Dickinson MD [address] [place] [address] PCP - General Internal Medicine 05/20/24 04/13/25 No Ref-Primary, Physician PCP - General 04/25/25 04/26/25 Curtis Holland APRN RN LPN CNA [address] [place] [address] PCP - General Family Medicine 04/27/25 Thalia Helton APRN RN LPN CNA Assigned PCP 04/10/12 09/07/22 Luis Ordoñez DPM [address] [facility] [address] [place] [address] Assigned Musculoskeletal Provider 04/29/20 10/26/22 Arthur Veliz MD [address]45 [place] [address] Assigned Neuroscience Provider 04/16/21 05/20/21 [place] [address] [place] [address] Assigned Neuroscience Provider 05/21/21 11/09/22 Aniya Gregorio MD [address] [place] [address] Assigned PCP 04/06/23 05/29/24 Lana Pond MD [address] [place] [address]86756 Physician Neurology 05/21/24 Jarad Dickinson MD Assigned PCP 05/30/24 05/05/25 Lana Pond MD [address] [place] [address] Assigned Neuroscience Provider 08/30/24 10/27/24 [place] [address] [place] [address] Pain Medicine 10/06/24 Pancho Feng MD [address] [place] [address] 96 [place] [address] Assigned Neuroscience Provider 10/28/24 12/27/24 Joslyn Gregorio MD [address] [place] [address] Assigned Surgical Provider 11/27/24 Nola Morris PA-C 9[address] [facility] 4TH [place] [address] Physician Senior Technical Trainer Anesthesiology 12/02/24 George Ace PA-C [address] [facility] [address] [place] [address] Assigned Neuroscience Provider 12/28/24 01/26/25 Nola Morris PA-C [address] [facility] 4TH [place] [address] Assigned Surgical Provider 12/28/24 Pancho Feng MD 420 [facility] 96 [place] [address] Assigned Neuroscience Provider 01/27/25 Joslyn Gregorio MD [address] [place] [address] Assigned Surgical Provider 01/27/25 Curtis Holland APRN RN LPN CNA [address] [place] [address] Assigned PCP 05/06/25 documented as of this encounter
--- OUTSIDE RECORDS SUMMARY | 2025-05-12 02:16 | XMS_ITS | Encounter Summary ---
Author Organization [place] Address [address] [place] [address] Care Team Providers Care Python Django Developer Name Role Phone Moy Payton MD Primary Care Provider [phone] [facility] Primary Care Provider Thalia Helton APRN SEPTIC TANK INSTALLER Primary Care Provi lizett Unavailable Thalia Helton APRN SEPTIC TANK INSTALLER Unavailable Un available Thalia Helton APRN SEPTIC TANK INSTALLER Unavailable Un available Luis Ordoñez DPM Unavailable [phone] Arthur Veliz MD Unavailable Jack Jordan MD Unavailable [phone] No Ref-Primary, Physician Primary Care Provider Aniya Gregorio MD Unavailable Jarad Dickinson MD Primary Care Provider Unavailab Lana Sequeira MD Unavailable [phone] Jarad Dickinson MD Unavailable Unavailable Lana Pond MD Unavailable [phone] Corinna Florentino MD Unavailable [phone] Pancho Feng MD Unavailable [phone] Joslyn Gregorio MD Unavailable +[phone] Nola Morris PA-C Unavailable + [phone] George Ace PA-C Unavailable +[phone] Nola Morris PA-C Unavailable [phone] Pancho Feng MD Unavailable [phone] Joslyn Gregorio MD Unavailable No Ref-Primary, Physician Primary Care Provider Tish Hollandh MOBILE SALES TECHNICIAN SEPTIC TANK INSTALLER Primary Care Provider [phone] Curtis Holland APRN SEPTIC TANK INSTALLER Unavailable Encounter Details Date Type Department Care Team (Late st Contact Info) Description 06/25/2008 [facility] [address] [place] [address] Moy Payton MD XXX RESIGNED XXX [address] [place] [address] UNITED D/C SUMMARY (Primary Dx) [...] on file Legal Sex Male 3:45 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 HEAT TECHNICIAN Gender Identity Not on file Sexual Orientation Not on file Occupation Industry Job Start Date Job End Date 2 Not on file Not on file Not on file documented as of this encounter Plan of Treatment Upcoming Encounters Date Type Department Care Team (Latest Contact Info) Description 06/10/2025 11:00 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 HEAT TECHNICIAN Lab [facility] [address] [place] [address] 06/14/2025 1:30 PM 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 HEAT TECHNICIAN Office Visit [facility] [place] [address] [place] [phone] Joslyn Gregorio MD [address] [place] [address] 08/16/2025 11:30 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 HEAT TECHNICIAN Office Visit [facility] [address] [place] [phone] Curtis Holland APRN [facility] [address] [place] [address] 09/28/2025 8:00 AM CDT Hospital Encounter [facility] [address] [place] [address] 5th [place] [phone] Good Fortune MD [address] [address] 09/28/2025 8:00 AM CDT - 09/28/2025 11:15 AM CDT Surgery [facility] [address] [place] [address] 5th [place] [phone] Good Fortune MD [address] [place] [address] 394 [place] [address] RIGHT MICROSURGICAL SPERMATIC CORD DENERVATION, right orchidopexy 10/28/2025 1:20 PM CDT Office Visit [facility] [address] 4th [place] [phone] Good Fortune MD [address] [place] [address] Scheduled Procedures Name Priority Associated Diagnoses Date/Ti me DENERVATION, SPERMATIC CORD, MICROSURGICAL Pain in right testicle 09/28/2025 8:00 AM CDT documented as of this encounter Visit Diagnoses Diagnosis UNITED D/C SUMMARY- Primary Pain in right testicle Unspecified disorder of male genital organs documented in this encounter Additional Health Concerns Infection Onset Date Last Indicated Resolved Time Rule Out COVID-19 10/15/2024 10/15/2024 10/16/2024 9:56 AM CDT documented as of this encounter Care Teams Python Django Developer Relationship Specialty Start Date End Date Moy Payton MD XXX RESIGNED XXX [address] [facility] 200 [place] [address] PCP - General 08/09/04 06/05/12 [facility] 303 [place] [address] PCP - General 06/06/12 08/11/12 Thalia Helton APRN SEPTIC TANK INSTALLER 303 [place] [address] PCP - General Internal Medicine 08/12/12 03/01/23 Thalia Helton APRN SEPTIC TANK INSTALLER PCP - Assigned PCP 01/06/12 09/09/18 No Ref-Primary, Physician PCP - General 04/01/23 05/19/24 Jarad Dickinson MD 303 [place] [address] PCP - General Internal Medicine 05/20/24 04/13/25 No Ref-Primary, Physician PCP - General 04/25/25 04/26/25 Curtis Holland APRN SEPTIC TANK INSTALLER [address] [place] [address] PCP - General Family Medicine 04/27/25 Thalia Helton APRN SEPTIC TANK INSTALLER Assigned PCP 04/10/12 09/07/22 Luis Ordoñez DPM [address] [facility] [address] [place] [address] Assigned Musculoskeletal Provider 04/29/20 10/26/22 Arthur Veliz MD [address] [place] [address] Assigned Neuroscience Provider 04/16/21 05/20/21 Jack Jordan MD [address] [place] [address] Assigned Neuroscience Provider 05/21/21 11/09/22 Aniya Gregorio MD [address] [place] [address] Assigned PCP 04/06/23 05/29/24 Lana Pond MD 500 [place] [address] Physician Neurology 05/21/24 Jarad Dickinson MD Assigned PCP 05/30/24 05/05/25 Lana Pond MD 500 [place], [place] [address] Assigned Neuroscience Provider 08/30/24 10/27/24 [place] [address] [place] [address] Pain Medicine 10/06/24 Pancho Feng MD [address] [place] [address] 502725 Assigned Neuroscience Provider 10/28/24 12/27/24 Joslyn Gregorio MD [address] [place] [address] Assigned Surgical Provider 11/27/24 Nola Morris PA-C [address] [address] Physician Stripper Machine Operator Anesthesiology 12/02/24 George Ace PA-C [address] [place] [address] [place] [address] Assigned Neuroscience Provider 12/28/24 01/26/25 Nola Morris PA-C [address] [place] [address] Assigned Surgical Provider 12/28/24 Pancho Feng MD [address] [place] [address] 96 [place] [address] Assigned Neuroscience Provider 01/27/25 Joslyn Gregorio MD [address] [place] [address] Assigned Surgical Provider 01/27/25 Curtis Holland APRN SEPTIC TANK INSTALLER [address] [place] [address] Assigned PCP 05/06/25 documented as of this encounter
--- OUTSIDE RECORDS SUMMARY | 2025-05-12 02:16 | XMS_ITS | Encounter Summary ---
Author Organization [place] Address [address] [place] [address] Care Team Providers Care Teletype Adjuster Name Role Phone Thalia Helton APRN COPPER ROLLER HANDLER PRINTING Primary Care Provi lizett Unavailable Thalia Helton APRN COPPER ROLLER HANDLER PRINTING Unavailable Un available Luis Ordoñez DPM Unavailable [phone] Arthur Veliz MD Unavailable Jack Jordan MD Unavailable [phone] No Ref-Primary, Physician Primary Care Provider Aniya Grgeorio MD Unavailable Jarad Dickinson MD Primary Care Provider Unavailab Lana Sequeira MD Unavailable [phone] Jarad Dickinson MD Unavailable Unavailable Lana Pond MD Unavailable [phone] Corinna Florentino MD Unavailable [phone] Pancho Feng MD Unavailable [phone] Joslyn Gregorio MD Unavailable [phone] Nola Morris PA-C Unavailable + [phone] George Ace PA-C Unavailable [phone] Nola Morris PA-C Unavailable + [phone] Pancho Feng MD Unavailable [phone] Joslyn Gregorio MD Unavailable [phone] No Ref-Primary, Physician Primary Care Provider Curtis Holland APRN, CNP Primary Care Provider [phone] Curtis Holland APRN, CNP Unavailable [phone] Reason for Visit * Reason Comments Medication Refill Encounter Details Date Type Department Care Team (Late st Contact Info) Description 05/08/2021 Refill [place] [address] [place] [address] Thalia Helton APRN CNP Medication Refill Social [...] on file Legal Sex Male 3:45 AM STATION TENDER Gender Identity Not on file Sexual [...] 05/09/2021 3:09 PM CDT Medication refilled per [facility] protocol Amber Skelton RN documented in this encounter Plan of Treatment Upcoming Encounters Date Type Department Care Team (Latest Contact Info) Description 06/10/2025 11:00 AM STATION TENDER Lab [facility] [address] [place] [address] 06/14/2025 1:30 PM STATION TENDER Office Visit [facility] [address] [place] [address] Joslyn Gregorio MD [address] [place] [address] 08/16/2025 11:30 AM STATION TENDER Office Visit [facility] [address] [place] [phone] Curtis Holland APRN [facility] [address] [place] [address] 09/28/2025 8:00 AM CDT Hospital Encounter [facility] [address] [place] [address] 5th [place] [phone] Good Fortune MD [address] [place] [address] 09/28/2025 8:00 AM CDT - 09/28/2025 11:15 AM CDT Surgery [facility] [address] [place] [address] 5th [place] [phone] Good Fortune MD [address] [place] [address] RIGHT MICROSURGICAL SPERMATIC CORD DENERVATION, right orchidopexy 10/28/2025 1:20 PM CDT Office Visit [facility] [place] [address] [place] [address] 4th [place] [phone] Good Fortune MD [address] [place] [address] Scheduled Procedures Name Priority Associated Diagnoses Date/Ti me DENERVATION, SPERMATIC CORD, MICROSURGICAL Pain in right testicle 09/28/2025 8:00 AM CDT documented as of this encounter Visit Diagnoses Diagnosis Diabetes mellitus without complication (H) Type II or unspecified type diabetes mellitus without mention of complication, not stated as uncontrolled Pain in right testicle Unspecified disorder of male genital organs documented in this encounter Additional Health Concerns Infection Onset Date Last Indicated Resolved Time Rule Out COVID-19 10/15/2024 10/15/2024 10/16/2024 9:56 AM CDT Assessment Noted Time PHQ-9 Depression Total Score: 0 03/28/20 9:31 AM CDT documented as of this encounter Care Teams Teletype Adjuster Relationship Specialty Start Date End Date Thalia Helton APRN COPPER ROLLER HANDLER PRINTING PCP - General Internal Medicine 08/12/12 03/01/23 No Ref-Primary, Physician PCP - General 04/01/23 05/19/24 Jarad Dickinson MD [address] [place] [address] PCP - General Internal Medicine 05/20/24 04/13/25 No Ref-Primary, Physician PCP - General 04/25/25 04/26/25 Curtis Holland APRN COPPER ROLLER HANDLER PRINTING [address] [place] [address] PCP - General Family Medicine 04/27/25 Thalia Helton APRN COPPER ROLLER HANDLER PRINTING Assigned PCP 04/10/12 09/07/22 Luis Ordoñez DPM [address] [facility] [address] [place] [address] Assigned Musculoskeletal Provider 04/29/20 10/26/22 Arthur Veliz MD [address] [place] [address] Assigned Neuroscience Provider 04/16/21 05/20/21 Jack Jordan MD [address] [place] [address] Assigned Neuroscience Provider 05/21/21 11/09/22 Aniya Gregorio MD [address] [place] [address] Assigned PCP 04/06/23 05/29/24 Lana Pond MD [address] [place] [address] Physician Neurology 05/21/24 Jarad Dickinson MD Assigned PCP 05/30/24 05/05/25 Lana Pond MD 500 [place] [address] Assigned Neuroscience Provider 08/30/24 10/27/24 [place] [address] [place] [address] Pain Medicine 10/06/24 Pancho Feng MD [address] [place] [address] Assigned Neuroscience Provider 10/28/24 12/27/24 Joslyn Gregorio MD [address] [place] [address] Assigned Surgical Provider 11/27/24 Nola Morris PA-C [address] [place] [address] 4TH [place] [address] Physician Mixer Operator Hot Metal Anesthesiology 12/02/24 George Ace PA-C [address] [place] [address] Assigned Neuroscience Provider 12/28/24 01/26/25 Nola Morris PA-C 909 [facility] 4TH [place] [address] Assigned Surgical Provider 12/28/24 Pancho Feng MD 420 [facility] 96 [place], [place] [address] Assigned Neuroscience Provider 01/27/25 Joslyn Gregorio MD [address] [place] [address] Assigned Surgical Provider 01/27/25 Curtis Holland APRN COPPER ROLLER HANDLER PRINTING [address] [place] [address] Assigned PCP 05/06/25 documented as of this encounter
--- OUTSIDE RECORDS SUMMARY | 2025-05-12 02:16 | XMS_ITS | Encounter Summary ---
Author Organization [place] Address [address] [place] [address] Care Team Providers Care Skiver Sock Linings Name Role Phone Thalia Helton APRN APPLIED TECHNOLOGIST Primary Care Provi lizett Unavailable Thalia Helton APRN APPLIED TECHNOLOGIST Unavailable Un available Thalia Helton APRN APPLIED TECHNOLOGIST Unavailable Un available Luis Ordoñez DPM Unavailable [phone] Arthur Veliz MD Unavailable Jack Jordan MD Unavailable [phone] No Ref-Primary, Physician Primary Care Provider Aniya Gregorio MD Unavailable Jarad Dickinson MD Primary Care Provider Unavail Lana Sequeira MD Unavailable [phone] Jarad Dickinson MD Unavailable Unavailable Lana Pond MD Unavailable [phone] Corinna Florentino MD Unavailable [phone] Pancho Feng MD Unavailable [phone] Joslyn Gregorio MD Unavailable +[phone] Nola Morris PA-C Unavailable + [phone] George Ace PA-C Unavailable +[phone] Nola Morris PA-C Unavailable + [phone] Pancho Feng MD Unavailable [phone] Joslyn Gregorio MD Unavailable [phone] No Ref-Primary, Physician Primary Care Provider Curtis Holland APRN, CNP Primary Care Provider Curtis Holland APRN, CNP Unavailable [phone] Reason for Visit * Reason Comments Medication Refill citalopram (CELEXA), atorvastatin (LIPITOR) Encounter Details Date Type Department Care Team (Late st Contact Info) Description 09/06/2018 Refill [facility] [address] [place] [phone] Thalia Helton APRN CNP Medication Refill (citalopram [...] on file Legal Sex Male 3:45 AM HEAD OF TRAINING AND DEVELOPMENT Gender Identity Not on file Sexual Orientation [...] FASTING. Please call to schedule lab appt. OF TRAINING AND DEVELOPMENT * Telephone Encounter - Yari Syed - [...] - Patient is age 18 or older OF TRAINING AND DEVELOPMENT documented in this encounter Plan of Treatment Upcoming Encounters Date Type Department Care Team (Latest Contact Info) Description 06/10/2025 11:00 AM HEAD OF TRAINING AND DEVELOPMENT Lab [facility] [address] [place] [address] 06/14/2025 1:30 PM HEAD OF TRAINING AND DEVELOPMENT Office Visit [facility] [place] [facility] [place] [address] [place] [address] Joslyn Gregorio MD [address] [place] [address] 08/16/2025 11:30 AM HEAD OF TRAINING AND DEVELOPMENT Office Visit [facility] [address] [place] [phone] Curtis Holland APRN [facility] [address] [place] [address] 09/28/2025 8:00 AM CDT Hospital Encounter [facility] [address] [place] [address] 5th [place] [phone] Good Fortune MD [address] [place] [address] 09/28/2025 8:00 AM CDT - 09/28/2025 11:15 AM CDT Surgery [facility] [address] [place] [address] 5th [place] [phone] Good Fortune MD [address] [place] [address] 394 [place] [address] RIGHT MICROSURGICAL SPERMATIC CORD DENERVATION, right orchidopexy 10/28/2025 1:20 PM CDT Office Visit [facility] [address] 4th [place] [phone] Good Fortune MD [address] [place] [address]85 Scheduled Procedures Name Priority Associated Diagnoses Date/Ti [...] Depression Total Score: 10 019 4:30 PM HEAD OF TRAINING AND DEVELOPMENT documented as of this encounter Care Teams Skiver Sock Linings Relationship Specialty Start Date End Date Thalia Helton APRN CNP PCP - General Internal Medicine 08/12/12 03/01/23 Thalia Helton APRN APPLIED TECHNOLOGIST PCP - Assigned PCP 01/06/12 09/09/18 No Ref-Primary, Physician PCP - General 04/01/23 05/19/24 Jarad Dickinson MD [address] [place] [address] PCP - General Internal Medicine 05/20/24 04/13/25 No Ref-Primary, Physician PCP - General 04/25/25 04/26/25 Curtis Holland APRN APPLIED TECHNOLOGIST [address] [place] [address] PCP - General Family Medicine 04/27/25 Thalia Helton APRN APPLIED TECHNOLOGIST Assigned PCP 04/10/12 09/07/22 Luis Ordoñez DPM [address] [facility] [address] [place] [address] Assigned Musculoskeletal Provider 04/29/20 10/26/22 Arthur Veliz MD [address] [place] [address] Assigned Neuroscience Provider 04/16/21 05/20/21 Jack Jordan MD [address] [place] [address] Assigned Neuroscience Provider 05/21/21 11/09/22 Aniya Gregorio MD [address] [place] [address] Assigned PCP 04/06/23 05/29/24 Lana Pond MD [address] [place] [address] Physician Neurology 05/21/24 Jarad Dickinson MD Assigned PCP 05/30/24 05/05/25 Lana Pond MD 500 [place] [address] Assigned Neuroscience Provider 08/30/24 10/27/24 [place] [address] [place] [address] Pain Medicine 10/06/24 Pancho Feng MD [address] [place] [address] Assigned Neuroscience Provider 10/28/24 12/27/24 Joslyn Gregorio MD [address] [place] 98[address]45 Assigned Surgical Provider 11/27/24 Nola Morris PA-C [address] [place] [address] 4TH [place], [place] [address] Physician Director Digital Catalogue Anesthesiology 12/02/24 George Ace PA-C [address] [place] [address] [address] [address] Assigned Neuroscience Provider 12/28/24 01/26/25 Nola Morris PA-C 909 [facility] 4TH [place], [place] [address] Assigned Surgical Provider 12/28/24 Pancho Feng MD 420 [facility] 96 [place], [place] [address] Assigned Neuroscience Provider 01/27/25 Joslyn Gregorio MD [address] [address] Assigned Surgical Provider 01/27/25 Curtis Holland APRN APPLIED TECHNOLOGIST [address] [place] [address] Assigned PCP 05/06/25 documented as of this encounter
--- OUTSIDE RECORDS SUMMARY | 2025-05-12 02:16 | XMS_ITS | Encounter Summary ---
Author Organization [facility] Address [address] [place] [address] Care Team Providers Care Agricultural And Forestry Supervisor Name Role Phone Moy Payton MD Primary Care Provider [phone] [facility] Primary Care Provider Thalia Helton APRN SLOT SHIFT MANAGER Primary Care Provi lizett Unavailable Thalia Helton APRN SLOT SHIFT MANAGER Unavailable Un available Thalia Helton APRN SLOT SHIFT MANAGER Unavailable Un available Luis Ordoñez DPM Unavailable [phone] Arthur Veliz MD Unavailable Jack Jordan MD Unavailable [phone] No Ref-Primary, Physician Primary Care Provider Aniya Gregorio MD Unavailable Jarad Dickinson MD Primary Care Provider Unavailab Lana Sequeira MD Unavailable [phone] Jarad Dickinson MD Unavailable Unavailable Lana Pond MD Unavailable [phone] Corinna Florentino MD Unavailable [phone] Pancho Feng MD Unavailable [phone] Joslyn Gregorio MD Unavailable +[phone] Nola Morris PA-C Unavailable + [phone] George Ace PA-C Unavailable +[phone] Nola Morris PA-C Unavailable [phone] Pancho Feng MD Unavailable Joslyn Gregorio MD Unavailable [phone] No Ref-Primary, Physician Primary Care Provider HollandTish scotth STUNTMAN SLOT SHIFT MANAGER Primary Care Provider [phone] Curtis Holland APRN SLOT SHIFT MANAGER Unavailable Encounter Details Date Type Department Care Team (Late st Contact Info) Description 02/[facility] [address] [place] [address] Moy Payton MD XXX RESIGNED XXX [address] [place] [address] ER ENCOUNTER (Primary Dx) Social [...] on file Legal Sex Male 3:45 AM HUMAN RESOURCES ADMINISTRATOR Gender Identity Not on file Sexual Orientation Not on file Occupation Industry Job Start Date Job End Date 2 Not on file Not on file Not on file documented as of this encounter Progress Notes * 02/22/2003 11:59 PM CDTAddended by: CHIQUIS SUBRAMANIAN on: 03/04/2003,12:15 PM Modules accepted: Progress Notes 00: 00 Emergency Department Encounter-AMALIA WRIGHT) [Entered: 00:00 Transcri ption ([facility])] : 73 CHIEF COMPLAINT: Chest pain. HISTORY [...] pack of cigarettes a day. 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. Cardiac monitoring was done showing a normal [...] at this facility, s o I contacted [facility] where we secured a bed for [...] GARCÍA MD T: 003 18:12 MT: Document: [id number] [place], [place] Name: ADIEL HOLT EMERGENCY ROOM ENCOUNTER Page 3 of 2 LCN: ERA DSC: 02/22/2003 [place], [place] Name: MR#: : Admit Date: ADIEL HOLT [id number] 1975 02[birth year]05 Doctor: AMALIA GARCÍA MD EMERGENCY ROOM ENCOUNTER Page 1 of 2 00:00 Emergen cy Department Encounter-REX BROOKS () [Entered: 00:00 Solution Analyst ([facility]) ] : 73 ADDENDUM: Patient is going to be referred to stress echo today. He is supposedly a [facility] patient which he is not and Dr. García had seen him earlier in the evening with s ome chest pain and he was to be transferred to [facility] and Dr. Culp had come down to see him and it turns out he is not a [facility] patient and therefore, Dr. Culp decided not to see him and then we ended up referring to Dr. Curran at [facility]. By that time, we becerra d gotten [...] REX NY MD 09:1 8 MT: Document: [id number] [place], [place] Name: ADIEL HOLT EMERGENCY ROOM ENCOUNTER Page 2 of 1 LCN: ERA DSC: 02/22/2003 [place], [place] Name: MR#: : Admit Date: ADIEL HOLT [id number] 02/22/2003 Doctor: REX NY MD EMERGENCY ROOM ENCOUNTER Page 1 of 1 Electronicall y filed by Chiquis Subramanian 03/04/2003 12:15 PM documented in this encounter Plan of Treatment Upcoming Encounters Date Type Department Care Team (Latest Contact Info) Description 06/10/2025 11:00 AM HUMAN RESOURCES ADMINISTRATOR Lab [facility] [address] [place] [address] 06/14/2025 1:30 PM HUMAN RESOURCES ADMINISTRATOR Office Visit [facility] [place] [address] [place] [address] Joslyn Gregorio MD [address] [place] [address] 08/16/2025 11:30 AM HUMAN RESOURCES ADMINISTRATOR Office Visit [address] [phone] Curtis Holland APRN SLOT SHIFT MANAGER [address] [place] [address] 09/28/2025 8:00 AM CDT Hospital Encounter [address]th [place] [phone] Good Fortune MD [address] [place] [address] 957625 09/28/2025 8:00 AM CDT - 09/28/2025 11:15 AM CDT Surgery [facility] [address] [place] [address] 5th [place] [address] Good Fortune MD [address] [place] [address] 925075 RIGHT MICROSURGICAL SPERMATIC CORD DENERVATION, right orchidopexy 10/28/2025 1:20 PM CDT Office Visit [facility] [place] [address] [facility] [address] 4th [place] [phone] Good Fortune MD 420 [facility] [address] [place] [address] Scheduled Procedures Name Priority Associated Diagnoses Date/Ti me DENERVATION, SPERMATIC CORD, MICROSURGICAL Pain in right testicle 09/28/2025 8:00 AM CDT documented as of this encounter Visit Diagnoses Diagnosis ER ENCOUNTER- Primary Pain in right testicle Unspecified disorder of male genital organs documented in this encounter Additional Health Concerns Infection Onset Date Last Indicated Resolved Time Rule Out COVID-19 10/15/2024 10/15/2024 10/16/2024 9:56 AM CDT documented as of this encounter Care Teams Agricultural And Forestry Supervisor Relationship Specialty Start Date End Date Moy Payton MD XXX RESIGNED XXX [address] [facility] 200 [place] [phone] PCP - General 08/09/04 06/05/12 [facility] 303 [place] [address] PCP - General 06/06/12 08/11/12 Thalia Helton APRN SLOT SHIFT MANAGER 303 [place] [address] PCP - General Internal Medicine 08/12/12 03/01/23 Thalia Helton APRN SLOT SHIFT MANAGER PCP - Assigned PCP 01/06/12 09/09/18 No Ref-Primary, Physician PCP - General 04/01/23 05/19/24 Jarad Dickinson MD 303 [place] [address] PCP - General Internal Medicine 05/20/24 04/13/25 No Ref-Primary, Physician PCP - General 04/25/25 04/26/25 Curtis Holland APRN SLOT SHIFT MANAGER [address] [place] [address] PCP - General Family Medicine 04/27/25 Thalia Helton APRN SLOT SHIFT MANAGER Assigned PCP 04/10/12 09/07/22 Luis Ordoñez DPM [address] [facility] [address] [place] [address] Assigned Musculoskeletal Provider 04/29/20 10/26/22 Arthur Veliz MD [address] [place] [address] Assigned Neuroscience Provider 04/16/21 05/20/21 Jack Jordan MD 909 [place], [place] 435145 Assigned Neuroscience Provider 05/21/21 11/09/22 Aniya Gregorio MD [address] [place] [address] Assigned PCP 04/06/23 05/29/24 Lana Pond MD 500 [place] [address] Physician Neurology 05/21/24 Jarad Dickinson MD Assigned PCP 05/30/24 05/05/25 Lana Pond MD 500 [place], [place] [address] Assigned Neuroscience Provider 08/30/24 10/27/24 [place] [address] [place] [address] Pain Medicine 10/06/24 Pancho Feng MD [address] [address] Assigned Neuroscience Provider 10/28/24 12/27/24 Joslyn Gregorio MD [address] [place] [place] 0[address] Assigned Surgical Provider 11/27/24 Nola Morris PA-C [address] [place] [address] Physician Stereo Equipment Salesperson Anesthesiology 12/02/24 George Ace PA-C [address] [place] [address] [place] [address] Assigned Neuroscience Provider 12/28/24 01/26/25 Nola Morris PA-C [address] [place] [address] 637195 Assigned Surgical Provider 12/28/24 Pancho Feng MD [address] [address] Assigned Neuroscience Provider 01/27/25 Joslyn Gregorio MD [address] 0528[address] Assigned Surgical Provider 01/27/25 Curtis Holland APRN [facility] [address] [place] [address] Assigned PCP 05/06/25 documented as of this encounter
--- OUTSIDE RECORDS SUMMARY | 2025-05-12 02:16 | XMS_ITS | Encounter Summary ---
Author Organization [facility] Address [address] [place] [address] Care Team Providers Care Public Accountant Name Role Phone Moy Payton MD Primary Care Provider [phone] [facility] Primary Care Provider Thalia Helton APRN ICT TEACHER Primary Care Provi lizett Unavailable Thalia Helton APRN ICT TEACHER Unavailable Un available Thalia Helton APRN ICT TEACHER Unavailable Un available Lusi Ordoñez DPM Unavailable [phone] Arthur Veliz MD Unavailable Jack Jordan MD Unavailable [phone] No Ref-Primary, Physician Primary Care Provider Aniya Gregorio MD Unavailable Jarad Dickinson MD Primary Care Provider Unavailab Lana Sequeira MD Unavailable [phone] Jarad Dickinson MD Unavailable Unavailable Lana Pond MD Unavailable [phone] Corinna Florentino MD Unavailable [phone] Pancho Feng MD Unavailable [phone] Joslyn Gregorio MD Unavailable [phone] Nola Morris PA-C Unavailable + [phone] George Ace PA-C Unavailable [phone] Nola Morris PA-C Unavailable [phone] Pancho Feng MD Unavailable [phone] Joslyn Gregorio MD Unavailable [phone] No Ref-Primary, Physician Primary Care Provider Tish Hollandh PARQUETRY LAYER ICT TEACHER Primary Care Provider [phone] Curtis Holland APRN ICT TEACHER Unavailable Encounter Details Date Type Department Care Team (Late st Contact Info) Description 05/26/2008 [facility] [address] [place] [address] Moy Payton MD XXX RESIGNED XXX [address] [place] [address] [facility] EMERGENCY DEPT. 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 [place] [address] [place] [phone] Joslyn Gregorio MD [address] [place] [address] 08/16/2025 11:30 AM LUMBER RACKER Office Visit [facility] [address] [place] [phone] Curtis Holland APRN [facility] [address] [place] [address] 09/28/2025 8:00 AM CDT Hospital Encounter [facility] [address] [place] [address] 5th [place] [address] Good Fortune MD 420 [facility] 394 [place] [address] 09/28/2025 8:00 AM CDT - 09/28/2025 11:15 AM CDT Surgery [facility] [address] [place] [address] 5th [place] [address] Good Fortune MD 420 [facility] 394 [place] [address] RIGHT MICROSURGICAL SPERMATIC CORD DENERVATION, right orchidopexy 10/28/2025 1:20 PM CDT Office Visit [facility] [address] 4th [place] [address] Good Fortune MD [address] [place] [address] 394 [place] [address] Scheduled Procedures Name Priority Associated Diagnoses Date/Ti me DENERVATION, SPERMATIC CORD, MICROSURGICAL Pain in right testicle 09/28/2025 8:00 AM CDT documented as of this encounter Visit Diagnoses Diagnosis [facility] EMERGENCY DEPT.- Primary Pain in right testicle Unspecified disorder of male genital organs documented in this encounter Additional Health Concerns Infection Onset Date Last Indicated Resolved Time Rule Out COVID-19 10/15/2024 10/15/2024 10/16/2024 9:56 AM CDT documented as of this encounter Care Teams Public Accountant Relationship Specialty Start Date End Date Moy Payton MD XXX RESIGNED XXX 303 [facility] 200 [place] [address] PCP - General 08/09/04 06/05/12 [facility] 303 [place] [address] PCP - General 06/06/12 08/11/12 Thalia Helton APRN ICT TEACHER 303 [place] [address] PCP - General Internal Medicine 08/12/12 03/01/23 Thalia Helton APRN ICT TEACHER PCP - Assigned PCP 01/06/12 09/09/18 No Ref-Primary, Physician PCP - General 04/01/23 05/19/24 Jarad Dickinson MD 303 [place] [address] PCP - General Internal Medicine 05/20/24 04/13/25 No Ref-Primary, Physician PCP - General 04/25/25 04/26/25 Curtis Holland APRN ICT TEACHER [address] [place] [address] PCP - General Family Medicine 04/27/25 Thalia Helton APRN ICT TEACHER Assigned PCP 04/10/12 09/07/22 Luis Ordoñez DPM [address] [facility] [address] [place] [address] Assigned Musculoskeletal Provider 04/29/20 10/26/22 Arthur Veliz MD [address] [place] [address] Assigned Neuroscience Provider 04/16/21 05/20/21 Jack Jordan MD [address]09 [place] [address] Assigned Neuroscience Provider 05/21/21 11/09/22 Aniya Gregorio MD [address] [place] [address] Assigned PCP 04/06/23 05/29/24 Lana Pond MD [address] [place] [address] Physician Neurology 05/21/24 Jarad Dickinson MD Assigned PCP 05/30/24 05/05/25 Lana Pond MD 500 [place], [place] 883485 Assigned Neuroscience Provider 08/30/24 10/27/24 [place] [address] [place] [address] Pain Medicine 10/06/24 Pancho Feng MD [address] [place] [address] 285815 Assigned Neuroscience Provider 10/28/24 12/27/24 Joslyn Gregorio MD [address] [place] [address] Assigned Surgical Provider 11/27/24 Nola Morris PA-C [address] [place] [address] Physician Yacht Builder Anesthesiology 12/02/24 George Ace PA-C [address] [place] [address] [place] [address] Assigned Neuroscience Provider 12/28/24 01/26/25 Nola Morris PA-C [address] [place] [address] Assigned Surgical Provider 12/28/24 Pancho Feng MD [address] [place] [address] 96 [place] [address] Assigned Neuroscience Provider 01/27/25 Joslyn Gregorio MD [address] [address] Assigned Surgical Provider 01/27/25 Curtis Holland APRN CNP [address] [place] [address] Assigned PCP 05/06/25 documented as of this encounter
--- OUTSIDE RECORDS SUMMARY | 2025-05-12 02:16 | XMS_ITS | Encounter Summary ---
Author Organization [facility] Address [address] [place] [address] Care Team Providers Care Case Liner Name Role Phone Jarad Dickinson MD Primary Care Provider Unavailab Lana Sequeira MD Unavailable [phone] Jarad Dickinson MD Unavailable Unavailable Corinna Florentino MD Unavailable [phone] Pancho Feng MD Unavailable [phone] Joslyn Gregorio MD Unavailable Nola Morris PA-C Unavailable George Ace PA-C Unavailable [phone] Nola Morris PA-C Unavailable + [phone] Pancho Feng MD Unavailable [phone] Joslyn Gregorio MD Unavailable [phone] No Ref-Primary, Physician Primary Care Provider Curtis Holland APRN SLATE HANDLER Primary Care Provider Curtis Holland APRN, CNP Unavailable [phone] Reason for Visit * Reason Onset Date Comments Opioid Refill 10/30/2024 Refill Request 10/30/2024 Encounter Details Date Type Department Care Team (Late st Contact Info) Description 10/30/[address] [place] [address] George Ace PA-C [address] [place] [address] [place] [address] Opioid Refill; Refill Request Social History Tobacco Use Types [...] re latives? Once a week 05/20/2024 Attends Hinduism Services Not on file 05/20 Active Member of Clubs or Organizations Not on f ile 05/20/2024 Attends Club or Organization Meetings Not on devorah e 05/20/2024 Marital Status Not on file 05/20/2024 PHQ-2 Answer Date Recorded PHQ-2 Score 0 10/28/2024 [facility] [place] of Occupat ional Health - Occupational Stress [...] in an abandoned building, in an overnight assisted, or couch-surfing.) Yes 10/08/2024 Are you worried [...] on file Legal Sex Male 3:45 AM DIE FINISHER FORGING Gender Identity Not on file Sexual Orientation Not on file Occupation Industry Job Start Date Job End Date 2 Not on file Not on file Not on file documented as of this encounter Miscellaneous Notes * Telephone Encounter - Connie Wright - 10/30/2024 3:01 PM CDT [facility] Call [facility] Phone Message May a detailed message be left on voicemail: yes Reason for Call: Medication Question or concern regarding medication Prescription Clarification Name of Medication: oxyCODONE (ROXICODONE) 5 MG tablet Prescribing Provider: [facility] Pharmacy: [id number] [place], [place] - [address] [facility] What on the order needs clarification? Pt called and stated that the pharmacy did not receive this prescription. Please resend. Action Taken: Message routed to: Other: Neurosurgery Travel Screening: Not Applicable Date of Service: documented in this encounter Plan of Treatment Upcoming Encounters Date Type Department Care Team (Latest Contact Info) Description 06/10/2025 11:00 AM DIE FINISHER FORGING Lab [facility] [address] [place] [address] 06/14/2025 1:30 PM DIE FINISHER FORGING Office Visit [facility] [address] [place] [address] Joslyn Gregorio MD [address] [place] [address] 08/16/2025 11:30 AM DIE FINISHER FORGING Office Visit [facility] [address] [place] [address] Curtis Holland APRN [facility] [address] [place] [address] 09/28/2025 8:00 AM CDT Hospital Encounter [address] [place] [address] Good Fortune MD [address] [place] [address] 09/28/2025 8:00 AM CDT - 09/28/2025 11:15 AM CDT Surgery [address]th [place] [address] Good Fortune MD [address] [place] [address] RIGHT MICROSURGICAL SPERMATIC CORD DENERVATION, right orchidopexy 10/28/2025 1:20 PM CDT Office Visit [facility] [address] [place] [address] Good Fortune MD [address] [place] [address] Scheduled Procedures Name Priority Associated Diagnoses Date/Ti me DENERVATION, SPERMATIC CORD, MICROSURGICAL Pain in right testicle 09/28/2025 8:00 AM CDT documented as of this encounter Visit Diagnoses Not on filedocumented in this encounter Additional Health Concerns Assessment Noted Time PHQ-9 Depression Total Score: 2 05/20/20 3:48 PM DIE FINISHER FORGING documented as of this encounter Care Teams Case Liner Relationship Specialty Start Date End Date Jarad Dickinson MD PCP - General Internal Medicine 05/20/24 04/13/25 No Ref-Primary, Physician PCP - General 04/25/25 04/26/25 Curtis Holland APRN SLATE HANDLER [address] [place] [address] PCP - General Family Medicine 04/27/25 Lana Pond MD [address] [place] [address] Physician Neurology 05/21/24 Jarad Dickinson MD Assigned PCP 05/30/24 05/05/25 [place] [address] [place] [address] Pain Medicine 10/06/24 Pancho Feng MD [address] [place] [address]85645 Assigned Neuroscience Provider 10/28/24 12/27/24 Joslyn Gregorio MD [address] [place] [address] Assigned Surgical Provider 11/27/24 12/27/24 Nola Morris PA-C [address] [address] Physician Well Head Pumper Anesthesiology 12/02/24 George Ace PA-C [address] [place] [address] Assigned Neuroscience Provider 12/28/24 01/26/25 Nola Morris PA-C [address] [place] [address] Assigned Surgical Provider 12/28/24 01/26/25 Pancho Feng MD [address] [place] [address] 96 [place] [address] Assigned Neuroscience Provider 01/27/25 Joslyn Gregorio MD [address] [place] [address] Assigned Surgical Provider 01/27/25 Curtis Holland APRN SLATE HANDLER [address] [place] [address] Assigned PCP 05/06/25 documented as of this encounter
--- OUTSIDE RECORDS SUMMARY | 2025-05-12 02:16 | XMS_ITS | Encounter Summary ---
Author Organization [facility] Address [address] [place] [address] Care Team Providers Care Copper Plate Lithographer Name Role Phone Thalia Helton APRN SPIKE MACHINE FEEDER Primary Care Provi lizett Unavailable Thalia Helton APRN SPIKE MACHINE FEEDER Unavailable Un available Luis Ordoñez DPM Unavailable [phone] Arthur Veliz MD Unavailable Jack Jordan MD Unavailable [phone] No Ref-Primary, Physician Primary Care Provider Aniya Gregorio MD Unavailable Jarad Dickinson MD Primary Care Provider Unavailab Lana Sequeira MD Unavailable [phone] Jarad Dickinson MD Unavailable Unavailable Lana Pond MD Unavailable [phone] Corinna Florentino MD Unavailable [phone] Pancho Feng MD Unavailable [phone] Joslyn Gregorio MD Unavailable [phone] Nola Morris PA-C Unavailable + [phone] George Ace PA-C Unavailable [phone] Nola Morris PA-C Unavailable + [phone] Pancho Feng MD Unavailable [phone] Joslyn Gregorio MD Unavailable [phone] No Ref-Primary, Physician Primary Care Provider Curtis Holland BICYCLE INSPECTOR SPIKE MACHINE FEEDER Primary Care Provider [phone] Curtis Holland HAFSA SPIKE MACHINE FEEDER Unavailable Encounter Details Date Type Department Care Team (Late st Contact Info) Description 05/05/2021 MyC Medical Advice [facility] [place] [address] [place] [id number] Arthur Veliz MD [address] [place] [address] Social History Tobacco Use Types Packs/Day Years [...] on file Legal Sex Male 3:45 AM PRINCIPAL STRATEGIST Gender Identity Not on file Sexual Orientation [...] (Latest Contact Info) Description 06/10/2025 11:00 AM PRINCIPAL STRATEGIST Lab [facility] [address] [place] [address] 06/14/2025 1:30 PM PRINCIPAL STRATEGIST Office Visit [facility] Urology [facility] [address] [place] [phone] Joslyn Gregorio MD [address] [place] [address] 08/16/2025 11:30 AM PRINCIPAL STRATEGIST Office Visit [facility] [address] [place] [phone] Curtis Holland APRN [facility] [address] [place] [address] 09/28/2025 8:00 AM CDT Hospital Encounter [address] 5th [place] [phone] Good Fortune MD [address] [id number] 09/28/2025 8:00 AM CDT - 09/28/2025 11:15 AM CDT Surgery [address] 5th [place] [phone] Good Fortune MD [address] [place] [address] 394 [place] [address] RIGHT MICROSURGICAL SPERMATIC CORD DENERVATION, right orchidopexy 10/28/2025 1:20 PM CDT Office Visit [facility] [address] 4th [place] [phone] Good Fortune MD [address] [place] [address] Scheduled Procedures Name Priority Associated Diagnoses Date/Ti [...] documented as of this encounter Care Teams Copper Plate Lithographer Relationship Specialty Start Date End Date Thalia Helton APRN SPIKE MACHINE FEEDER PCP - General Internal Medicine 08/12/12 03/01/23 No Ref-Primary, Physician PCP - General 04/01/23 05/19/24 Jarad Dickinson MD [address] [place] [address] PCP - General Internal Medicine 05/20/24 04/13/25 No Ref-Primary, Physician PCP - General 04/25/25 04/26/25 Curtis Holland APRN SPIKE MACHINE FEEDER [address] [place] [address] PCP - General Family Medicine 04/27/25 Thalia Helton APRN SPIKE MACHINE FEEDER Assigned PCP 04/10/12 09/07/22 Luis Ordoñez DPM [address] [facility] [address] [place] [address] Assigned Musculoskeletal Provider 04/29/20 10/26/22 Arthur Veliz MD [address] [place] [address]35 Assigned Neuroscience Provider 04/16/21 05/20/21 Jack Jordan MD [address] [place], [place] [address] Assigned Neuroscience Provider 05/21/21 11/09/22 Aniya Gregorio MD [address] [place] [address] Assigned PCP 04/06/23 05/29/24 Lana Pond MD 500 [place] [address] Physician Neurology 05/21/24 Jarad Dickinson MD Assigned PCP 05/30/24 05/05/25 Lana Pond MD 500 [place] [address] Assigned Neuroscience Provider 08/30/24 10/27/24 [place] [address] [place] [address] Pain Medicine 10/06/24 Pancho Feng MD [address] [place] [address] Assigned Neuroscience Provider 10/28/24 12/27/24 Joslyn Gregorio MD [address] [place] [address] Assigned Surgical Provider 11/27/24 Nola Morris PA-C [address] [place] [address] Physician Business Practices Officer Anesthesiology 12/02/24 George Ace PA-C [address] [place] [address] [place] [address] Assigned Neuroscience Provider 12/28/24 01/26/25 Nola Morris PA-C [address] [place] [address] [place] [address] Assigned Surgical Provider 12/28/24 Pancho Feng MD 420 [facility] 96 [place] [address] Assigned Neuroscience Provider 01/27/25 Joslyn Gregorio MD [address] [place] [address] Assigned Surgical Provider 01/27/25 Curtis Holland APRN SPIKE MACHINE FEEDER [address] [place] [address] Assigned PCP 05/06/25 documented as of this encounter
--- OUTSIDE RECORDS SUMMARY | 2025-05-12 02:16 | XMS_ITS | Encounter Summary ---
Author Organization [facility] Address [address] [place] [address] Care Team Providers Care Deskidding Machine Operator Name Role Phone Cassandra Helton APRN PROGRAMMER OPERATOR NUMERICAL CONTROL Primary Care Provi lizett Unavailable Cassandra Helton APRN PROGRAMMER OPERATOR NUMERICAL CONTROL Unavailable Un available Cassandra Helton APRN PROGRAMMER OPERATOR NUMERICAL CONTROL Unavailable Un available Luis Ordoñez DPM Unavailable [phone] Arthur Veliz MD Unavailable Jack Jordan MD Unavailable [phone] No Ref-Primary, Physician Primary Care Provider Aniya Gregorio MD Unavailable Jarad Dickinson MD Primary Care Provider Unavail Lana Sequeira MD Unavailable [phone] Jarad Dickinson MD Unavailable Unavailable Lana Pond MD Unavailable [phone] Corinna Florentino MD Unavailable [phone] Pancho Feng MD Unavailable [phone] Joslyn Gregorio MD Unavailable [phone] Nola Morris PA-C Unavailable + [phone] George Ace PA-C Unavailable [phone] Nola Morris PA-C Unavailable + [phone] Pancho Feng MD Unavailable [phone] Joslyn Gregorio MD Unavailable [phone] No Ref-Primary, Physician Primary Care Provider Curtis Holland APRN PROGRAMMER OPERATOR NUMERICAL CONTROL Primary Care Provider + [phone] Curtis Holland APRN PROGRAMMER OPERATOR NUMERICAL CONTROL Unavailable [phone] Encounter Details Date Type Department Care Team (Late st Contact Info) Description 11/17/2012 Office Visit-[facility] [address] [place] [phone] Adiel Chery MD Social History Tobacco Use Types Packs/Day Years Used Date Smoking Tobacco: Former Cigarettes Q uit: 08/11/2003 Smokeless Tobacco: Former Comments:1 pack every 3-4 da ys Alcohol Use Standard Drinks/Week Comments Yes 0 (1 standard drink = 0.6 oz pur e alcohol) ocassionally Sex and Gender Information Value Date Recorded Sex Assigned at Not on file Legal Sex Male 3:45 AM UI UX DEVELOPER Gender Identity Not on file Sexual Orientation Not on file Occupation Industry Job Start Date Job End Date 2 Not on file Not on file Not on file documented as of this encounter Progress Notes * Adiel Chery MD - 11/18/2012 2:50 PM CDT Progress Note Created by: Adiel Chery M.D. DATE: 11/17/2012 ADIEL HOLT DATE OF : 1975 AGE: [age] years old Referring Physician: CASSANDRA HELTON Referring Clinic: [facility] CURRENT DIAGNOSES 1. Diabetes Mellitus-Insulin Dependent, [...] of seeing your patient, Adiel Holt, at [facility] for evaluation of precordial chest discomfort. 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 He had some food intolerances including spicy [...] read by myself. He was seen at [facility] pain October 07 and ruled out for an MS. 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; Residence - lives with and children; Place of - [place]; REVIEW OF SYSTEMS GENERAL chest discomfort x [...] back surgery 3 months ago, [place] NEUROLOGICAL denies any history of recurrent headaches, [...] (Latest Contact Info) Description 06/10/2025 11:00 AM UI UX DEVELOPER Lab [facility] [address] [place] [address] 06/14/2025 1:30 PM UI UX DEVELOPER Office Visit [facility] [place] [address] [place] [address] Joslyn Gregorio MD [address] [place] [place] [address] 08/16/2025 11:30 AM UI UX DEVELOPER Office Visit [address] [phone] Curtis Holland APRN [facility] [address] [place] [address] 09/28/2025 8:00 AM CDT Hospital Encounter [facility] [address] [facility] 5th [place] [phone] Good Fortune MD [address] [place] [address] 09/28/2025 8:00 AM CDT - 09/28/2025 11:15 AM CDT Surgery [facility] [address] [facility] 5th [place] [phone] Good Fortune MD 420 [facility] 394 [place] [address] RIGHT MICROSURGICAL SPERMATIC CORD DENERVATION, right orchidopexy 10/28/2025 1:20 PM CDT Office Visit [facility] [place] [address] [place] [address] 4th [place] [phone] Good Fortune MD 420 [facility] 394 [place], [place] [address] Scheduled Procedures Name Priority Associated Diagnoses Date/Ti me DENERVATION, SPERMATIC CORD, MICROSURGICAL Pain in right testicle 09/28/2025 8:00 AM CDT documented as of this encounter Visit Diagnoses Not on filedocumented in this encounter Additional Health Concerns Infection Onset Date Last Indicated Resolved Time Rule Out COVID-19 10/15/2024 10/15/2024 10/16/2024 9:56 AM CDT documented as of this encounter Care Teams Deskidding Machine Operator Relationship Specialty Start Date End Date Cassandra Helton APRN PROGRAMMER OPERATOR NUMERICAL CONTROL PCP - General Internal Medicine 08/12/12 03/01/23 Cassandra Helton APRN PROGRAMMER OPERATOR NUMERICAL CONTROL PCP - Assigned PCP 01/06/12 09/09/18 No Ref-Primary, Physician PCP - General 04/01/23 05/19/24 Jarad Dickinson MD [address] [place] [address] PCP - General Internal Medicine 05/20/24 04/13/25 No Ref-Primary, Physician PCP - General 04/25/25 04/26/25 Curtis Holland APRN PROGRAMMER OPERATOR NUMERICAL CONTROL [address] [place] [address] PCP - General Family Medicine 04/27/25 Cassandra Helton APRN PROGRAMMER OPERATOR NUMERICAL CONTROL Assigned PCP 04/10/12 09/07/22 Luis Ordoñez DPM [address] [facility] [address] [place], [place] [address] Assigned Musculoskeletal Provider 04/29/20 10/26/22 Arthur Veliz MD [address] [place] [address] Assigned Neuroscience Provider 04/16/21 05/20/21 Jack Jordan MD 909 [place], [place] [address] Assigned Neuroscience Provider 05/21/21 11/09/22 Aniya Gregorio MD [address] [place] [address] Assigned PCP 04/06/23 05/29/24 Lana Pond MD 500 [place], [place] [address] Physician Neurology 05/21/24 Jarad Dickinson MD Assigned PCP 05/30/24 05/05/25 Lana Pond MD 500 [place], [place] [address] Assigned Neuroscience Provider 08/30/24 10/27/24 [place] [address] [place], [place] [address] Pain Medicine 10/06/24 Pancho Feng MD [address] [place] [address] 96 [place], [place] 8[address] Assigned Neuroscience Provider 10/28/24 12/27/24 Joslyn Gregorio MD [address] [place] [address] Assigned Surgical Provider 11/27/24 Nola Morris PA-C [address] [address] Physician Fur Polisher Anesthesiology 12/02/24 George Ace PA-C [address] [place] [address] [place] [address] Assigned Neuroscience Provider 12/28/24 01/26/25 Nola Morris PA-C 909 [facility] 4TH [place] [address] Assigned Surgical Provider 12/28/24 Pancho Feng MD 420 [facility] 96 [place] [address] Assigned Neuroscience Provider 01/27/25 Joslyn Gregorio MD [address] [place] [address] Assigned Surgical Provider 01/27/25 Curtis Holland APRN PROGRAMMER OPERATOR NUMERICAL CONTROL [address] [place] [address] Assigned PCP 05/06/25 documented as of this encounter
--- OUTSIDE RECORDS SUMMARY | 2025-05-12 02:17 | XMS_ITS | Encounter Summary ---
Author Organization [facility] Address [address] [place] [address] Care Team Providers Care Cake Knocker Name Role Phone Thalia Helton APRN SIZE WORKER Primary Care Provi lizett Unavailable Thalia Helton APRN SIZE WORKER Unavailable Un available Luis Ordoñez DPM Unavailable [phone] Arthur Veliz MD Unavailable Jack Jordan MD Unavailable [phone] No Ref-Primary, Physician Primary Care Provider Aniya Gregorio MD Unavailable Jarad Dickinson MD Primary Care Provider Unavailab Lana Sequeira MD Unavailable [phone] Jarad Dickinson MD Unavailable Unavailable Lana Pond MD Unavailable [phone] Corinna Florentino MD Unavailable [phone] Pancho Feng MD Unavailable [phone] Joslyn Gregorio MD Unavailable [phone] Nola Morris PA-C Unavailable + [phone] George Ace PA-C Unavailable [phone] Nola Morris PA-C Unavailable + [phone] Pancho Feng MD Unavailable [phone] Joslyn Gregorio MD Unavailable [phone] No Ref-Primary, Physician Primary Care Provider Curtis Holland MATERIAL ASSEMBLER SIZE WORKER Primary Care Provider Curtis Holland HAFSA SIZE WORKER Unavailable [phone] Encounter Details Date Type Department Care Team (Late st Contact Info) Description 05/15/2021 MyC Medical Advice [facility] Neurology [facility] [address] [place] [address] Leeann Dobson Social History Tobacco Use Types [...] on file Legal Sex Male 3:45 AM LOGISTICS/SHIPPER Gender Identity Not on file Sexual Orientation [...] (Latest Contact Info) Description 06/10/2025 11:00 AM LOGISTICS/SHIPPER Lab [facility] [address] [place] [phone] 06/14/2025 1:30 PM LOGISTICS/SHIPPER Office Visit [facility] Urology [facility] [address] [place] [phone] Joslyn Gregorio MD [address] [place] [address] 08/16/2025 11:30 AM LOGISTICS/SHIPPER Office Visit [facility] [address] [place] [phone] Curtis Holland APRN SIZE WORKER [address] [place] [address] 09/28/2025 8:00 AM CDT Hospital Encounter [facility] 909 [facility] 5th [place] [phone] Good Fortune MD 420 [facility] 394 [place] [address] 09/28/2025 8:00 AM CDT - 09/28/2025 11:15 AM CDT Surgery [facility] [place] [address] [place] [address] 5th [place] [phone] Good Fortune MD [address] [address] RIGHT MICROSURGICAL SPERMATIC CORD DENERVATION, right orchidopexy 10/28/2025 1:20 PM CDT Office Visit [facility] [place] [address] [place] [address] 4th [place] [phone] Good Fortune MD [address] [address] Scheduled Procedures Name Priority Associated Diagnoses Date/Ti [...] documented as of this encounter Care Teams Cake Knocker Relationship Specialty Start Date End Date Thalia Helton APRN SIZE WORKER PCP - General Internal Medicine 08/12/12 03/01/23 No Ref-Primary, Physician PCP - General 04/01/23 05/19/24 Jarad Dickinson MD [address] [place] [address] PCP - General Internal Medicine 05/20/24 04/13/25 No Ref-Primary, Physician PCP - General 04/25/25 04/26/25 Curtis Holland APRN SIZE WORKER [address] [place] [address] PCP - General Family Medicine 04/27/25 Thalia Helton APRN SIZE WORKER Assigned PCP 04/10/12 09/07/22 Luis Ordoñez DPM [address] [facility] [address] [place] [address] Assigned Musculoskeletal Provider 04/29/20 10/26/22 Arthur Veliz MD [address] [place] [address] Assigned Neuroscience Provider 04/16/21 05/20/21 Jack Jordan MD [address] [place] [address] Assigned Neuroscience Provider 05/21/21 11/09/22 Aniya Gregorio MD [address] [place] [address] Assigned PCP 04/06/23 05/29/24 Lana Pond MD [address] [place] [address] 531876 Physician Neurology 05/21/24 Jarad Dickinson MD Assigned PCP 05/30/24 05/05/25 Lana Pond MD [address] [place] [address] Assigned Neuroscience Provider 08/30/24 10/27/24 [place] [address] [place] [address] Pain Medicine 10/06/24 Pancho Feng MD [address] [place] [address] 96 [place] [address] Assigned Neuroscience Provider 10/28/24 12/27/24 Joslyn Gregorio MD [address] [place] [address] Assigned Surgical Provider 11/27/24 Nola Morris PA-C [address] [facility] 4TH [place] [address] Physician Manager Of Digital Anesthesiology 12/02/24 George Ace PA-C [address] [facility] [address] [place] [address] Assigned Neuroscience Provider 12/28/24 01/26/25 Nola Morris PA-C [address] [facility] 4TH [place] [address] Assigned Surgical Provider 12/28/24 Pancho Feng MD 420 [facility] 96 [place] [address] Assigned Neuroscience Provider 01/27/25 Joslyn Gregorio MD [address] [place] [address] Assigned Surgical Provider 01/27/25 Curtis Holland APRN SIZE WORKER [address] [place] [address] Assigned PCP 05/06/25 documented as of this encounter
--- OUTSIDE RECORDS SUMMARY | 2025-05-12 02:17 | XMS_ITS | Encounter Summary ---
Author Organization [facility] Address [address] [place] [address] Care Team Providers Care Analog Ic Design Engineer Name Role Phone Jarad Dickinson MD Primary Care Provider Unavailab Lana Sequeira MD Unavailable [phone] Jaard Dickinson MD Unavailable Unavailable Corinna Florentino MD Unavailable [phone] Nola Morris PA-C Unavailable [phone] Pancho Feng MD Unavailable [phone] Joslyn Gregorio MD Unavailable No Ref-Primary, Physician Primary Care Provider Curtis Holland APRN PAPER TUBE MACHINE OPERATOR Primary Care Provider [phone] Curtis Holland APRN PAPER TUBE MACHINE OPERATOR Unavailable [phone] Encounter Details Date Type Department Care Team (Late st Contact Info) Description 02/04/2025 MyC Medical Advice [facility] [place] [address] [place] [address] Joslyn Gregorio MD [address] [facility] [place] [id number] Social History Tobacco Use Types Packs/Day Years [...] re latives? Once a week 05/20/2024 Attends [employer] Services Not on file 05/20 Active Member of Clubs or Organizations Not on f ile 05/20/2024 Attends Club or Organization Meetings Not on devorah e 05/20/2024 Marital Status Not on file 05/20/2024 PHQ-2 Answer Date Recorded PHQ-2 Score 0 12/03/2024 [facility] Health - Occupational Stress Questionnaire Answer Date [...] in an abandoned building, in an overnight fci, or couch-surfing.) Yes 10/08/2024 Are you worried [...] on file Legal Sex Male 3:45 AM FITNESS CONSULTANT Gender Identity Not on file Sexual Orientation Not on file Occupation Industry Job Start Date Job End Date 2 Not on file Not on file Not on file documented as of this encounter Plan of Treatment Upcoming Encounters Date Type Department Care Team (Latest Contact Info) Description 06/10/2025 11:00 AM FITNESS CONSULTANT Lab [facility] [address] [place] [address] 06/14/2025 1:30 PM FITNESS CONSULTANT Office Visit [facility] [place] [address] [place] [address] Joslyn Gregorio MD 4537 [facility] [place] [address] 08/16/2025 11:30 AM FITNESS CONSULTANT Office Visit [facility] [address] [place] [phone] Curtis Holland APRN [facility] [address] [place] [address] 09/28/2025 8:00 AM CDT Hospital Encounter [facility] [address] [facility] [address] 5th [place] [phone] Good Fortune MD 420 [facility] 394 [place], [place] [address] 09/28/2025 8:00 AM CDT - 09/28/2025 11:15 AM CDT Surgery [facility] [address] [place] [address] 5th [place] [phone] Good Fortune MD [address] [place] [address] 394 [place], [place] [address] RIGHT MICROSURGICAL SPERMATIC CORD DENERVATION, right orchidopexy 10/28/2025 1:20 PM CDT Office Visit [facility] [place] [address] [place] [address] 4th [place] [phone] Good Fortune MD 420 [facility] 394 [place], [place] [address] Scheduled Procedures Name Priority Associated Diagnoses Date/Ti me DENERVATION, SPERMATIC CORD, MICROSURGICAL Pain in right testicle 09/28/2025 8:00 AM CDT documented as of this encounter Visit Diagnoses Not on filedocumented in this encounter Additional Health Concerns Assessment Noted Time PHQ-9 Depression Total Score: 2 05/20/20 3:48 PM FITNESS CONSULTANT documented as of this encounter Care Teams Analog Ic Design Engineer Relationship Specialty Start Date End Date Jarad Dickinson MD PCP - General Internal Medicine 05/20/24 04/13/25 No Ref-Primary, Physician PCP - General 04/25/25 04/26/25 Curtis Holland APRN CNP [address] [place] [address] PCP - General Family Medicine 04/27/25 Lana Pond MD [address] [place] [address] Physician Neurology 05/21/24 Jarad Dickinson MD Assigned PCP 05/30/24 05/05/25 [place] [address] [place] [address] Pain Medicine 10/06/24 Nola Morris PA-C 909 [facility] 4TH [place] [address] Physician Floater Operator Anesthesiology 12/02/24 Pancho Feng MD 420 [facility] 96 [place] [address] Assigned Neuroscience Provider 01/27/25 Joslyn Gregorio MD [address] [place] [address] Assigned Surgical Provider 01/27/25 Curtis Holland APRN PAPER TUBE MACHINE OPERATOR [address] [place] [address] Assigned PCP 05/06/25 documented as of this encounter
--- OUTSIDE RECORDS SUMMARY | 2025-05-12 02:17 | XMS_ITS | Encounter Summary ---
Author Organization [facility] Address [address] [place] [address] Care Team Providers Care Arc Cutter Name Role Phone Jarad Dickinson MD Primary Care Provider Unavailab Lana Sequeira MD Unavailable [phone] Jarad Dickinson MD Unavailable Unavailable Corinna Florentino MD Unavailable [phone] Nola Morris PA-C Unavailable [phone] Pancho Feng MD Unavailable [phone] Joslyn Gregorio MD Unavailable No Ref-Primary, Physician Primary Care Provider Curtis Holland APRN SAFE AND VAULT MECHANIC Primary Care Provider [phone] Crutis Holland APRN SAFE AND VAULT MECHANIC Unavailable [phone] Encounter Details Date Type Department Care Team (Late st Contact Info) Description 04/13/2025 [facility] [place] Medical Advice [facility] [place] [address] [place] [address] Joslyn Gregorio MD [address] [facility] [place] [address] Social History Tobacco Use Types Packs/Day Years [...] re latives? Once a week 05/20/2024 Attends Gnosticist Services Not on file 05/20 Active Member of Clubs or Organizations Not on f ile 05/20/2024 Attends Club or Organization Meetings Not on devorah e 05/20/2024 Marital Status Not on file 05/20/2024 PHQ-2 Answer Date Recorded PHQ-2 Score 2 04/02/2025 [facility] of Occupat ionca Health - Occupational Stress Questionnaire Answer Date [...] in an abandoned building, in an overnight mcfp, or couch-surfing.) Yes 10/08/2024 Are you worried [...] on file Legal Sex Male 3:45 AM INSOLE REINFORCER Gender Identity Not on file Sexual Orientation Not on file Occupation Industry Job Start Date Job End Date 2 Not on file Not on file Not on file documented as of this encounter Plan of Treatment Upcoming Encounters Date Type Department Care Team (Latest Contact Info) Description 06/10/2025 11:00 AM INSOLE REINFORCER Lab [facility] Laboratory [address] [place] [address] 06/14/2025 1:30 PM INSOLE REINFORCER Office Visit [facility] [place] [address] [place] [address] Joslyn Gregorio MD 0296 [facility] [place] [address] 08/16/2025 11:30 AM INSOLE REINFORCER Office Visit [facility] [address] [place] [address] Curtis Holland APRN [facility] [address] [place] [address] 09/28/2025 8:00 AM CDT Hospital Encounter [facility] [address] [facility] [address] 5th [place] [phone] Good Fortune MD 420 [facility] 394 [place], [place] [address] 09/28/2025 8:00 AM CDT - 09/28/2025 11:15 AM CDT Surgery [facility] [address] [place] [address] 5th [place] [phone] Good Fortune MD [address] [place] [address] 394 [place], [place] [address] RIGHT MICROSURGICAL SPERMATIC CORD DENERVATION, right orchidopexy 10/28/2025 1:20 PM CDT Office Visit [facility] [place] [address] [place] [address] 4th [place] [phone] Good Fortune MD 420 [facility] 394 [place], [place] [address] Scheduled Procedures Name Priority Associated Diagnoses Date/Ti me DENERVATION, SPERMATIC CORD, MICROSURGICAL Pain in right testicle 09/28/2025 8:00 AM CDT documented as of this encounter Visit Diagnoses Not on filedocumented in this encounter Additional Health Concerns Assessment Noted Time PHQ-9 Depression Total Score: 2 05/20/20 3:48 PM INSOLE REINFORCER documented as of this encounter Care Teams Arc Cutter Relationship Specialty Start Date End Date Jarad Dickinson MD PCP - General Internal Medicine 05/20/24 04/13/25 No Ref-Primary, Physician PCP - General 04/25/25 04/26/25 Curtis Holland APRN CNP [address] [place] [address] PCP - General Family Medicine 04/27/25 Lana Pond MD [address] [place] [address] Physician Neurology 05/21/24 Jarad Dickinson MD Assigned PCP 05/30/24 05/05/25 [place] [address] [place] [address] Pain Medicine 10/06/24 Nola Morris PA-C 909 [facility] 4TH [place] [address] Physician Paymaster Of Purses Anesthesiology 12/02/24 Pancho Feng MD 420 [facility] 96 [place] [address] Assigned Neuroscience Provider 01/27/25 Joslyn Gregorio MD [address] [place] [address] Assigned Surgical Provider 01/27/25 Curtis Holland APRN SAFE AND VAULT MECHANIC [address] [place] [address] Assigned PCP 05/06/25 documented as of this encounter
--- OUTSIDE RECORDS SUMMARY | 2025-05-12 02:17 | XMS_ITS | Encounter Summary ---
Author Organization [facility] Address [address] [place] [address] Care Team Providers Care Manager Diabetes Name Role Phone Thalia Helton APRN LIMOUSINE DRIVER Primary Care Provi lizett Unavailable Jack Jordan MD Unavailable [phone] No Ref-Primary, Physician Primary Care Provider Aniya Gregorio MD Unavailable Jarad Dickinson MD Primary Care Provider Unavailab Lana Sequeira MD Unavailable [phone] Jarad Dickinson MD Unavailable Unavailable Lana Pond MD Unavailable [phone] Corinna Florentino MD Unavailable [phone] Pancho Feng MD Unavailable [phone] Joslyn Gregorio MD Unavailable [phone] Nola Morris PA-C Unavailable + [phone] George Ace PA-C Unavailable [phone] Nola Morris PA-C Unavailable + [phone] Pancho Feng MD Unavailable [phone] Joslyn Gregroio MD Unavailable [phone] No Ref-Primary, Physician Primary Care Provider Curtis Holland APRN LIMOUSINE DRIVER Primary Care Provider Curtis Holland APRN LIMOUSINE DRIVER Unavailable [phone] Reason for Visit * Reason Comments Medication Refill Encounter Details Date Type Department Care Team (Late Contact Info) Description 11/01/2022 Refill [facility] [address] [place] [address] Thalia Helton APRN LIMOUSINE DRIVER Medication Refill Social History Tobacco Use Types [...] file Legal Sex Male 3:45 AM SUPERVISOR CONTACT AND SERVICE CLERKS Gender Identity Not on file Sexual Orientation [...] (Latest Contact Info) Description 06/10/2025 11:00 AM SUPERVISOR CONTACT AND SERVICE CLERKS Lab [facility] [address] [place] [address] 06/14/2025 1:30 PM SUPERVISOR CONTACT AND SERVICE CLERKS Office Visit [facility] Urology [facility] [address] [place] [phone] Joslyn Gregorio MD [address] [place] [address] 08/16/2025 11:30 AM SUPERVISOR CONTACT AND SERVICE CLERKS Office Visit [facility] [address] [place] [phone] Curtis Holland APRN [facility] [address] [place] [address] 09/28/2025 8:00 AM CDT Hospital Encounter [facility] [address] [place] [address] 5th [place] [phone] Good Fortune MD [address] [place] [address] [address] [place] [address] 09/28/2025 8:00 AM CDT - 09/28/2025 11:[address] [facility] [address] [place] [address] 5th [place] [phone] Good Fortune MD [address] [place] [address] [address] [place] [address] RIGHT MICROSURGICAL SPERMATIC CORD DENERVATION, right orchidopexy 10/28/2025 1:20 PM CDT Office Visit [facility] [address] 4th [place] [phone] Good Fortune MD [address] [place] [address] 394 [place] [address] Scheduled Procedures Name Priority Associated Diagnoses Date/Ti me DENERVATION, SPERMATIC CORD, MICROSURGICAL Pain in right testicle 09/28/2025 8:00 AM CDT documented as of this encounter Visit Diagnoses Diagnosis Hyperlipidemia with target LDL less than 100 Other and unspecified hyperlipidemia Essential hypertension with goal blood pressure less than 140/90 Pain in right testicle Unspecified disorder of male genital organs documented in this encounter Additional Health Concerns Infection Onset Date Last Indicated Resolved Time Rule Out COVID-19 10/15/2024 10/15/2024 10/16/2024 9:56 AM CDT Assessment Noted Time PHQ-9 Depression Total Score: 0 03/01/20 2:32 PM CDT documented as of this encounter Care Teams Manager Diabetes Relationship Specialty Start Date End Date Thalia Helton APRN LIMOUSINE DRIVER PCP - General Internal Medicine 08/12/12 03/01/23 No Ref-Primary, Physician PCP - General 04/01/23 05/19/24 Jarad Dickinson MD [address] [place] [address] PCP - General Internal Medicine 05/20/24 04/13/25 No Ref-Primary, Physician PCP - General 04/25/25 04/26/25 Curtis Holland APRN LIMOUSINE DRIVER [address] [place] [address] PCP - General Family Medicine 04/27/25 Jack Jordan MD [address] [place] [address] 601825 Assigned Neuroscience Provider 05/21/21 11/09/22 Aniya Gregorio MD [address] [place] [address] Assigned PCP 04/06/23 05/29/24 Lana Pond MD 500 [place] [address] Physician Neurology 05/21/24 Jarad Dickinson MD Assigned PCP 05/30/24 05/05/25 Lana Pond MD [address] [place] [address] Assigned Neuroscience Provider 08/30/24 10/27/24 [place] [address] [place] [address] Pain Medicine 10/06/24 Pancho Feng MD 420 [facility] 96 [place] [address] Assigned Neuroscience Provider 10/28/24 12/27/24 Joslyn Gregorio MD [address] [place] [address] Assigned Surgical Provider 11/27/24 12/27/24 Nola Morris PA-C [address] [place] [address] Physician Pitch Flaker Anesthesiology 12/02/24 George Ace PA-C [address] [place] [place] [address] Assigned Neuroscience Provider 12/28/24 01/26/25 Nola Morris PA-C [address] [place] [address] Assigned Surgical Provider 12/28/24 01/26/25 Pancho Feng MD [address] [address] Assigned Neuroscience Provider 01/27/25 Joslyn Gregorio MD [address] [place], [place] [address] Assigned Surgical Provider 01/27/25 Curtis Holland APRN [facility] [address] [place] [address] Assigned PCP 05/06/25 documented as of this encounter
--- OUTSIDE RECORDS SUMMARY | 2025-05-12 02:17 | XMS_ITS | Encounter Summary ---
Author Organization [facility] Address [address], [place] [address] Care Team Providers Care Thermometer Maker Name Role Phone No Primary/Referring, Phy Primary Care Provider Unavailable Encounter Details Date Type Department Care Team (Late st Contact Info) Description 02/16/2013 Correspondence [facility] Radiology [address] [place] [address] Radiology, Provider MRI SAFETY SHEET AND COMPATIBILITY FORM Social History Tobacco Use Types Packs/Day Years Used Date Smoking Tobacco: Never Smokeless Tobacco: Never Alcohol Use Standard Drinks/Week Comments Yes 0 (1 standard drink = 0.6 oz pur e alcohol) occasional Sex and Gender Information Value Date Recorded Sex Assigned at Not on file Legal Sex Male 8:22 PM CDT Gender Identity Not on file Sexual Orientation Not on file documented as of this encounter Progress Notes * [facility], PROVIDER - 02/16/2013 12:00 AM CDT documented in this encounter Plan of Treatment Not on file documented as of this encounter Visit Diagnoses Not on filedocumented in this encounter Care Teams Thermometer Maker Relationship Specialty Start Date End Date No Primary/Referring, Phy PCP - General 02/13/13 documented as of this encounter
--- OUTSIDE RECORDS SUMMARY | 2025-05-12 02:17 | XMS_ITS | Encounter Summary ---
Author Organization [place] Address [address] [place] [address] Care Team Providers Care Traffic Clerk Name Role Phone Jarad Dickinson MD Primary Care Provider Unavailab Lana Sequeira MD Unavailable [phone] Jarad Dickinson MD Unavailable Unavailable Cornina Florentino MD Unavailable [phone] Nola Morris PA-C Unavailable + [phone] Pancho Feng MD Unavailable [phone] Joslyn Gregorio MD Unavailable [phone] Encounter Details Date Type Department Care Team (Latest Contact Info) Description 04/02/2025 Travel Social History Tobacco Use Types Packs/Day Years [...] Answer Date Recorded PHQ-2 Score 2 04/02/2025 [facility] of Occupat ional Health - Occupational Stress [...] in an abandoned building, in an overnight intermediate, or couch-surfing.) Yes 10/08/2024 Are you worried [...] on file Legal Sex Male 3:45 AM PERCH MENDER Gender Identity Not on file Sexual Orientation Not on file Occupation Industry Job Start Date Job End Date 2 Not on file Not on file Not on file documented as of this encounter Plan of Treatment Upcoming Encounters Date Type Department Care Team (Latest Contact Info) Description 06/10/2025 11:00 AM PERCH MENDER Lab [facility] [address] [place] [address] 06/14/2025 1:30 PM PERCH MENDER Office Visit [facility] [place] [address] [place] [phone] Joslyn Gregorio MD [address] [place] [address] 08/16/2025 11:30 AM PERCH MENDER Office Visit [address] [phone] Curtis Holland APRN [facility] [address] [place] [address] 09/28/2025 8:00 AM CDT Hospital Encounter [address] [place] [phone] Good Fortune MD [address] [place] [address] 09/28/2025 8:00 AM CDT - 09/28/2025 11:15 AM CDT Surgery [facility] [address] [place] [address] 5th [place] [phone] Good Fortune MD [address] [place] [address] RIGHT MICROSURGICAL SPERMATIC CORD DENERVATION, right orchidopexy 10/28/2025 1:20 PM CDT Office Visit [facility] [address] [place] [phone] Good Fortune MD 420 [facility] 394 [place] [address] Scheduled Procedures Name Priority Associated Diagnoses Date/Ti me DENERVATION, SPERMATIC CORD, MICROSURGICAL Pain in right testicle 09/28/2025 8:00 AM CDT documented as of this encounter Visit Diagnoses Not on filedocumented in this encounter Additional Health Concerns Assessment Noted Time PHQ-9 Depression Total Score: 2 05/20/20 3:48 PM PERCH MENDER documented as of this encounter Care Teams Traffic Clerk Relationship Specialty Start Date End Date Jarad Dickinson MD PCP - General Internal Medicine 05/20/24 04/13/25 Lana Pond MD [address] [place] [address] Physician Neurology 05/21/24 Jarad Dickinson MD Assigned PCP 05/30/24 05/05/25 [place] [address] [place] [address] Pain Medicine 10/06/24 Nola Morris PA-C [address] [facility] [address] [place] [address] Physician Prepleater Anesthesiology 12/02/24 Pancho Feng MD 420 [facility] 96 [place] [address] Assigned Neuroscience Provider 01/27/25 Joslyn Gregorio MD [address] [place] [address] Assigned Surgical Provider 01/27/25 documented as of this encounter
--- OUTSIDE RECORDS SUMMARY | 2025-05-12 02:17 | XMS_ITS | Encounter Summary ---
Author Organization [place] Address [address] [place] [address] Care Team Providers Care Artisan Plasterer Name Role Phone Jarad Dickinson MD Primary Care Provider Unavailab Lana Sequeira MD Unavailable [phone] Jarad Dickinson MD Unavailable Unavailable Corinna Florentino MD Unavailable [phone] Nola Morris PA-C Unavailable + [phone] Pancho Feng MD Unavailable [phone] Joslyn Gregorio MD Unavailable [phone] Reason for Visit * Reason Comments Medication Refill Encounter Details Date Type Department Care Team (Late st Contact Info) Description 04/07/[address] [place] [phone] Aniya Gregorio MD [address] [place] [address] Medication Refill Social History Tobacco [...] re latives? Once a week 05/20/2024 Attends Mandaeism Services Not on file 05/20 Active Member of Clubs or Organizations Not on f ile 05/20/2024 Attends Club or Organization Meetings Not on devorah e 05/20/2024 Marital Status Not on file 05/20/2024 PHQ-2 Answer Date Recorded PHQ-2 Score 2 04/02/2025 [facility] of Occupat ional Health - [...] in an abandoned building, in an overnight penitentiary, or couch-surfing.) Yes 10/08/2024 Are you worried [...] on file Legal Sex Male 3:45 AM RECLAMATION ENGINEER Gender Identity Not on file Sexual Orientation Not on file Occupation Industry Job Start Date Job End Date 2 Not on file Not on file Not on file documented as of this encounter Plan of Treatment Upcoming Encounters Date Type Department Care Team (Latest Contact Info) Description 06/10/2025 11:00 AM RECLAMATION ENGINEER Lab [facility] [address] [place] [address] 06/14/2025 1:30 PM RECLAMATION ENGINEER Office Visit [facility] [place] [address] [place] [address] Joslyn Gregorio MD [address] [place] [address] 08/16/2025 11:30 AM RECLAMATION ENGINEER Office Visit [address] [phone] Curtis Holland APRN [facility] [address] [place] [address] 09/28/2025 8:00 AM CDT Hospital Encounter [address]th [place] [phone] Good Fortune MD [address] [place] [address] 09/28/2025 8:00 AM CDT - 09/28/2025 11:15 AM CDT Surgery [facility] [address] [place] [address] 5th [place] [phone] Good Fortune MD [address] [place] [address] RIGHT MICROSURGICAL SPERMATIC CORD DENERVATION, right orchidopexy 10/28/2025 1:20 PM CDT Office Visit [facility] [address] [phone] Good Fortune MD [address] [place] [address] Scheduled Procedures Name Priority Associated Diagnoses Date/Ti [...] Depression Total Score: 2 05/20/20 3:48 PM RECLAMATION ENGINEER documented as of this encounter Care Teams Artisan Plasterer Relationship Specialty Start Date End Date Jarad Dickinson MD PCP - General Internal Medicine 05/20/24 04/13/25 Lana Pond MD [address] [place] [address] Physician Neurology 05/21/24 Jarad Dickinson MD Assigned PCP 05/30/24 05/05/25 [place] [address] [place] [address] Pain Medicine 10/06/24 Nola Morris PA-C [address] [place] [address] Physician Apprentice Cosmetologist Anesthesiology 12/02/24 Pancho Feng MD [facility] 96 [place] [address] Assigned Neuroscience Provider 01/27/25 Joslyn Gregorio MD [address] [place] [address] Assigned Surgical Provider 01/27/25 documented as of this encounter
--- OUTSIDE RECORDS SUMMARY | 2025-05-12 02:17 | XMS_ITS | Encounter Summary ---
[facility] Address [address], [place] [address] Care Team Providers Care Branch Officer Name Role Phone No Primary/Referring, Phy Primary Care Provider Unavailable Encounter Details Date Type Department Care Team (Late st Contact Info) Description 02/25/2013 [facility] [address] [facility] [place] [address] Moose Mancini MD FMLA Social History Tobacco [...] on filedocumented in this encounter Care Teams Branch Officer Relationship Specialty Start Date End Date No Primary/Referring, Nathan PCP - General 02/13/13 documented as of this encounter
--- OUTSIDE RECORDS SUMMARY | 2025-05-12 02:17 | XMS_ITS | Encounter Summary ---
Author Organization [place] Address [address] [place] [address] Care Team Providers Care Hot Roller Name Role Phone Jarad Dickinson MD Primary Care Provider Unavailab Lana Sequeira MD Unavailable Jarad Dickinson MD Unavailable Unavailable Corinna Florentino MD Unavailable [phone] Nola Morris PA-C Unavailable George Ace PA-C Unavailable [phone] Nola Morris PA-C Unavailable Pancho Feng MD Unavailable Joslyn Gregorio MD Unavailable [phone] No Ref-Primary, Physician Primary Care Provider Curtis Holland APRN DECK AND HULL ASSEMBLER Primary Care Provider Curtis Holland APRN DECK AND HULL ASSEMBLER Unavailable [phone] Encounter Details Date Type Department Care Team (Late st Contact Info) Description 12/30/2024 MyC Medical Advice [facility] [place] [address] [place] [address] Joslyn Gregorio MD [address] [address] Social History Tobacco Use Types Packs/Day [...] Answer Date Recorded PHQ-2 Score 0 12/03/2024 [facility] [place] of Occupat ional Health - Occupational Stress [...] in an abandoned building, in an overnight fpc, or couch-surfing.) Yes 10/08/2024 Are you worried [...] on file Legal Sex Male 3:45 AM POT RUNNER Gender Identity Not on file Sexual Orientation Not on file Occupation Industry Job Start Date Job End Date 2 Not on file Not on file Not on file documented as of this encounter Plan of Treatment Upcoming Encounters Date Type Department Care Team (Latest Contact Info) Description 06/10/2025 11:00 AM POT RUNNER Lab [facility] [address] [place] [address] 06/14/2025 1:30 PM POT RUNNER Office Visit [facility] [place] [address] [place] [address] Joslyn Gregorio MD [address] [place] [address] 08/16/2025 11:30 AM POT RUNNER Office Visit [facility] [address] [place] [address] Curtis Holland APRN [facility] [address] [place] [address] 09/28/2025 8:00 AM CDT Hospital Encounter [address] 5th [place] [phone] Good Fortune MD [address] [place] [address] 394 [place] [address] 09/28/2025 8:00 AM CDT - 09/28/2025 11:15 AM CDT Surgery [facility] [place] [address] 5th [place] [phone] Good Fortune MD [address] [place] [address] 394 [place], [place] 3[address] RIGHT MICROSURGICAL SPERMATIC CORD DENERVATION, right orchidopexy 10/28/2025 1:20 PM CDT Office Visit [facility] [address] 4th [place] [phone] Good Fortune MD [address] [place] [address] 394 [place], [place] [address] Scheduled Procedures Name Priority Associated Diagnoses Date/Ti me DENERVATION, SPERMATIC CORD, MICROSURGICAL Pain in right testicle 09/28/2025 8:00 AM CDT documented as of this encounter Visit Diagnoses Not on filedocumented in this encounter Additional Health Concerns Assessment Noted Time PHQ-9 Depression Total Score: 2 05/20/20 3:48 PM POT RUNNER documented as of this encounter Care Teams Hot Roller Relationship Specialty Start Date End Date Jarad Dickinson MD PCP - General Internal Medicine 05/20/24 04/13/25 No Ref-Primary, Physician PCP - General 04/25/25 04/26/25 Curtis Holland APRN DECK AND HULL ASSEMBLER [address] [place] [address] PCP - General Family Medicine 04/27/25 Lana Pond MD [address] [place] [address] Physician Neurology 05/21/24 Jarad Dickinson MD Assigned PCP 05/30/24 05/05/25 [place] [address] [place] [address] Pain Medicine 10/06/24 Nola Morris PA-C [address] [place] [address] Physician Proof Carrier Anesthesiology 12/02/24 George Ace PA-C [address] [place] [address] [place] [address] Assigned Neuroscience Provider 12/28/24 01/26/25 Nola Morris PA-C [address] [place] [address] Assigned Surgical Provider 12/28/24 01/26/25 Pancho Feng MD [address] [place] [address] Assigned Neuroscience Provider 01/27/25 Joslyn Gregorio MD [address] [address] Assigned Surgical Provider 01/27/25 Curtis Holland APRN DECK AND HULL ASSEMBLER [address] [place] [address] Assigned PCP 05/06/25 documented as of this encounter
--- OUTSIDE RECORDS SUMMARY | 2025-05-12 02:17 | XMS_ITS | Encounter Summary ---
Author Organization [facility] Address [address] [place] [address] Care Team Providers Care Plate Glass Polisher Name Role Phone Jarad Dickinson MD Primary Care Provider Unavailab Lana Sequeira MD Unavailable [phone] Jarad Dickinson MD Unavailable Unavailable Corinna Florentino MD Unavailable [phone] Nola Morris PA-C Unavailable [phone] Pancho Feng MD Unavailable [phone] Joslyn Gregorio MD Unavailable [phone] No Ref-Primary, Physician Primary Care Provider Curtis Holland APRN FOREST FIRE MANAGEMENT OFFICER Primary Care Provider [phone] Curtis Holland APRN FOREST FIRE MANAGEMENT OFFICER Unavailable [phone] Encounter Details Date Type Department Care Team (Late st Contact Info) Description 02/10/2025 MyC Medical Advice [facility] [place] [address] [place] [address] Joslyn Gregorio MD [address] [facility] [place] [id number] Social History Tobacco Use Types Packs/Day Years [...] re latives? Once a week 05/20/2024 Attends Uatsdin Services Not on file 05/20 Active Member of Clubs or Organizations Not on f ile 05/20/2024 Attends Club or Organization Meetings Not on devorah e 05/20/2024 Marital Status Not on file 05/20/2024 PHQ-2 Answer Date Recorded PHQ-2 Score 0 12/03/2024 [facility] of Occupat ionut Health - Occupational Stress Questionnaire Answer Date [...] on file Legal Sex Male 3:45 AM GED TEACHER Gender Identity Not on file Sexual Orientation Not on file Occupation Industry Job Start Date Job End Date 2 Not on file Not on file Not on file documented as of this encounter Miscellaneous Notes * Telephone Encounter - Lani Augustin - 02/15/2025 2:48 PM CDT Patient confirmed scheduled appointment: Date: 04/02 Time: 1040 Visit type: Return Provider: Location: [facility] Testing/imaging: Additional notes: * Telephone Encounter - Joslyn Gregorio MD - 02/11/2025 11:47 AM CDT Ronni Bennett- Could we please schedule this patient with Dr. Fortune- next available for testicular pain after his urethroplasty? -RM documented in this encounter Plan of Treatment Upcoming Encounters Date Type Department Care Team (Latest Contact Info) Description 06/10/2025 11:00 AM GED TEACHER Lab [facility] [address] [place] [address] 06/14/2025 1:30 PM GED TEACHER Office Visit [facility] [place] [address] [place] [phone] Joslyn Gregorio MD [address] [place] [address] 08/16/2025 11:30 AM GED TEACHER Office Visit [facility] [address] [place] [phone] Curtis Holland APRN [facility] [address] [place] [address] 09/28/2025 8:00 AM CDT Hospital Encounter [facility] [address] [place] [address] 5th [place] [phone] Good Fortune MD [address] [place] [address] 09/28/2025 8:00 AM CDT - 09/28/2025 11:15 AM CDT Surgery [facility] [address] [facility] 5th [place] [address] Good Fortune MD [address] [place] [address] 394 [place] [address] RIGHT MICROSURGICAL SPERMATIC CORD DENERVATION, right orchidopexy 10/28/2025 1:20 PM CDT Office Visit [facility] [place] [address] [place] [address] 4th [place] [phone] Good Fortune MD [address] [place] [address] Scheduled Procedures Name Priority Associated Diagnoses Date/Ti me DENERVATION, SPERMATIC CORD, MICROSURGICAL Pain in right testicle 09/28/2025 8:00 AM CDT documented as of this encounter Visit Diagnoses Not on filedocumented in this encounter Additional Health Concerns Assessment Noted Time PHQ-9 Depression Total Score: 2 05/20/20 3:48 PM GED TEACHER documented as of this encounter Care Teams Plate Glass Polisher Relationship Specialty Start Date End Date Jarad Dickinson MD PCP - General Internal Medicine 05/20/24 04/13/25 No Ref-Primary, Physician PCP - General 04/25/25 04/26/25 Curtis Holland APRN FOREST FIRE MANAGEMENT OFFICER [address] [place] [address] PCP - General Family Medicine 04/27/25 Lana Pond MD [address] [place] [address] Physician Neurology 05/21/24 Jarad Dickinson MD Assigned PCP 05/30/24 05/05/25 [place] [address] [place] [address] Pain Medicine 10/06/24 Nola Morris PA-C 909 [facility] 4TH [place], [place] [address] Physician Police Artist Anesthesiology 12/02/24 Pancho Feng MD 420 [facility] [address] [place], [place] [address] Assigned Neuroscience Provider 01/27/25 Joslyn Gregorio MD [address] [address] Assigned Surgical Provider 01/27/25 Curtis Holland APRN FOREST FIRE MANAGEMENT OFFICER [address] [place] [address] Assigned PCP 05/06/25 documented as of this encounter
--- OUTSIDE RECORDS SUMMARY | 2025-05-12 02:17 | XMS_ITS | Clinical Summary ---
Author Organization [facility] Address [address] [address] Care Team Providers Care Laminating Press Operator Name Role Phone No Primary/Referring, Phy Primary Care Provider Unavailable Source Comments You are receiving this document as you are listed as the primary care provider,follow-up provider, or the patient has been referred to you for consultation.This is in compliance with the Medicare and[facility] EHR Incentive Program,which states Providers who transition their patient to another setting of careor provider of care or refers their patient to another provider of care shouldprovide summary care record for each transition of care or referral. CodeEval Allergies Active Allergy Reactions Criticality Noted Date Comments Coconut Fatty Acid 12/23/2010 Medications insulin glargine (AKA LANTUS) 100 UNIT/ML injection [...] 5 mg at bedtime as needed. Active HYDROcodone-ac etaminophen (NORCO) 5-325 MG tablet Take 1-2 Tabs by mouth every 4 hours as needed for Pain. 20 Tab 0 3 Active Additional Information Patient not taking.Reported on 01/25/2021 gabapentin (NEURONTIN) 300 MG capsule Take 1 Cap by mouth three times a day. 90 Cap 2 3 Active Additional Information Patient not taking.Reported on 01/25/2021 atorvastatin (LIPITOR) 40 MG tablet 1 Active fenofibrate (TRICOR) 48 MG tablet Take 48 mg by mouth. 1 Active LEVEMIR FLEXTOUCH 100 UNIT/ML pen 1 Active lisinopril (ZESTRIL) 20 MG tablet Take 1 Tablet by mouth daily. 1 Active pioglitazone (ACTOS) 30 MG tablet Take 1 Tablet by mouth daily. 1 Active Active Problems No known active problems [...] 91 01/25/2021 6:52 PM CDT Temperature 37.2 C (98.9 F) 01/25/2021 6:52 PM CDT Respiratory Rate 16 01/25/2021 6:52 PM CDT Oxygen Saturation 98% 01/25/2021 6:52 PM CDT Inhaled Oxygen Concentration - - Weight 126.6 kg (279 lb) 07/17/2011 12:57 PM NURSE RECRUITER Height 190.5 cm (6' 3) 07/17/2011 12:57 PM NURSE RECRUITER Body Mass Index 34.87 07/17/2011 12:57 PM NURSE RECRUITER Plan of Treatment Health Maintenance Due Date Last Done Comments Colon Cancer Screening Plan Due 1974 Hep C Screening (Preventive Services) 1974 PSA Screening Discussion 1974 HIV Screening (Preventive Services) 1990 Adult Preventive Visit 1992 HepB Vaccine (1) 1993 Cholesterol 2009 Pneumococcal Vaccine 50+ Yrs (1 of 1 - PCV) 2024 Zoster/Shingles Vaccine (1 o f 2) 2024 COVID-19 Vaccine (3 - 2024-2 6 season) 2025 11/25/2020, 11/04/2020 Influenza Vaccine (#1) 2025 DTaP/Tdap/Td Vaccine (3 - Tdap) 02/27/2029 02/27/2019, 04/13/2008 RSV Vaccine (1 - 1-dose 75+ series) 2049 HepA Vaccine Aged Out No longer eligi ble based on patient's age to complete this topic Hib Vaccine Aged Out No longer eligi ble based on patient's age to complete this topic IPV (Polio) Vaccine Aged Out No longe r eligible based on patient's age to complete this topic MCV4 Vaccine Aged Out No longer eligi ble based on patient's age to complete this topic Meningococcal B Vaccine Aged Out No l onger eligible based on patient's age to complete this topic Medical Devices Implanted Type Area Oncology Nurse Navigator Device Identifier Shelf Expiration Date Model / Serial / Lot Plt Clav Rt 6h - [id number] Implanted:Qty: 1 on 01/05/2011 at [facility] DEVICE Right: [employer] [facility] 02.112.008 / / Scr Adam Sftp T8 2.4x16 - [id number] Implanted:Qty: 1 on 01/05/2011 at [facility] DEVICE Right: [employer] [place] 201.766 / / Scr Adam Sftp 3.5x16 F-Thrd - [id number] Implanted:Qty: 2 on 01/05/2011 at [facility] DEVICE Right: [employer] [facility] 204.816 / / Scr Adam Sftp 3.5x20 F-Thrd - [id number] Implanted:Qty: 1 on 01/05/2011 at [facility] DEVICE Right: [employer] [facility] 204.820 / / Scr Lk Sftp T8 2.7x16 - [id number] Implanted:Qty: 1 on 01/05/2011 at [facility] DEVICE Right: [employer] [facility] 202.216 / / Scr Lk Sftp T8 2.7x18 - [id number] Implanted:Qty: 2 on 01/05/2011 at [facility] DEVICE Right: [employer] [facility] 202.218 / / Scr Lk Sftp T8 2.7x22 - [id number] Implanted:Qty: 1 on 01/05/2011 at [facility] DEVICE Right: [employer] [place] 202.222 / / Scr [facility] 3.5x20 - [id number] Implanted:Qty: 1 on 01/05/2011 at [facility] DEVICE Right: [employer] 212.106 / / Insurance [facility] [place] [place]Y [place] Advance Directives * Full Code (Latest Code [...] 12:37 AM 12/24/2010 5:51 PM Care Teams Laminating Press Operator Relationship Specialty Start Date End Date No Primary/Referring, Phy PCP - General 02/13/13
--- OUTSIDE RECORDS SUMMARY | 2025-05-12 02:17 | XMS_ITS | Encounter Summary ---
Author Organization [facility] Address [address] [place] [address] Care Team Providers Care Multiple Games Dealer Name Role Phone Lana Pond MD Unavailable [phone] Corinna Florentino MD Unavailable [phone] Nola Morris PA-C Unavailable [phone] Pancho Feng MD Unavailable [phone] Joslyn Gregorio MD Unavailable Curtis Holland APRN JIG MAKER Primary Care Provider [phone] Curtis Holland APRN JIG MAKER Unavailable Encounter Details Date Type Department Care Team (Late st Contact Info) Description 05/07/2025 Telephone [facility] Urology Clinic [address] [place] [address] Denice Huston, RN Social History Tobacco Use Types Packs/Day Years [...] re latives? 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 -RM L PRESS OPERATOR FOR METAL * Telephone Encounter - Denice Huston RN - 05/07/2025 3:44 PM CDT I spoke with patient in response to message received this morning: Hi I needed to get a drs note for my disability paperwork. My current note expires on May 14and I need another one to get me through until my surgery in September. Can you help me with this? Please and thank you if you need to see me or have any questions please let me know my cell number is . Patient is planning on having a surgery with Dr. Fortune, but was not able to schedule procedure until September 2025. Patient is wondering if lifting restrictions need to be continued from now through surgery. (Current return to work letter is through 05/14). Will ask Dr. Gregorio and send new letter on Saturday. documented in this encounter Plan of Treatment Upcoming Encounters Date Type Department Care Team (Latest Contact Info) Description 06/10/2025 11:00 AM DRILL PRESS OPERATOR FOR METAL Lab [facility] [address] [place] [phone] 06/14/2025 1:30 PM DRILL PRESS OPERATOR FOR METAL Office Visit [facility] Urology Clinic [place] [address] [place] [phone] Joslyn Gregorio MD [address] [place] [address] 08/16/2025 11:30 AM DRILL PRESS OPERATOR FOR METAL Office Visit [facility] [address] [place] [phone] [facility] [address] [place] [address] 09/28/2025 8:00 AM CDT Hospital Encounter [facility] [address] [place] [address] [place] [phone] Good Fortune MD [address] [place] [address] 09/28/2025 8:00 AM CDT - 09/28/2025 11:15 AM CDT Surgery [facility] [address] [place] [address] [place] [phone] Good Fortune MD [address] [place] [address] [phone] RIGHT MICROSURGICAL SPERMATIC CORD DENERVATION, right orchidopexy 10/28/2025 1:20 PM CDT Office Visit [facility] Urology Clinic [address] 4th [place] [phone] Good Fortune MD [address] [place] [address] [id number] Scheduled Procedures Name Priority Associated Diagnoses Date/Ti me DENERVATION, SPERMATIC CORD, MICROSURGICAL Pain in right testicle 09/28/2025 8:00 AM CDT documented as of this encounter Visit Diagnoses Not on filedocumented in this encounter Additional Health Concerns Assessment Noted Time PHQ-9 Depression Total Score: 11 04/27/ 025 10:41 AM CDT documented as of this encounter Care Teams Multiple Games Dealer Relationship Specialty Start Date End Date Curtis Holland APRN JIG MAKER [address] [place] [address] PCP - General Family Medicine 04/27/25 Lana Pond MD 500 [place] [address] Physician Neurology 05/21/24 [place] [address] [place] [address] Pain Medicine 10/06/24 Nola Morris PA-C 909 [facility] 4TH Floor [place], [place] [address] Physician Inclined Railway Operator Anesthesiology 12/02/24 Pancho Feng MD 420 [facility] 96 [place], [place] [address] Assigned Neuroscience Provider 01/27/25 Joslyn Gregorio MD [address] [place] [address] Assigned Surgical Provider 01/27/25 Curtis Holland APRN JIG MAKER [address] [place] [address] Assigned PCP 05/06/25 documented as of this encounter
--- OUTSIDE RECORDS SUMMARY | 2025-05-12 02:17 | XMS_ITS | Encounter Summary ---
Author Organization [facility] Address [address] [place] [address] Care Team Providers Care Locket Maker Name Role Phone Jarad Dickinson MD Primary Care Provider Unavailab Lana Sequeira MD Unavailable [phone] Jarad Dickinson MD Unavailable Unavailable Corinna Florentino MD Unavailable [phone] Nola Morris PA-C Unavailable + [phone] Pancho Feng MD Unavailable [phone] Joslyn Gregorio MD Unavailable [phone] No Ref-Primary, Physician Primary Care Provider Curtis Holland APRN RING SPINNER Primary Care Provider [phone] Curtis Holland APRN RING SPINNER Unavailable [phone] Encounter Details Date Type Department Care Team (Late st Contact Info) Description 04/13/2025 [facility] Medical Advice [facility] [address] 4th [place] [address] Good Fortune MD 420 [facility] 394 [place], [place] [address] Social History Tobacco Use Types Packs/Day Years [...] re latives? 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 SECURITY PROFESSIONAL Gender Identity Not on file Sexual Orientation Not on file Occupation Industry Job Start Date Job End Date 2 Not on file Not on file Not on file documented as of this encounter Plan of Treatment Upcoming Encounters Date Type Department Care Team (Latest Contact Info) Description 06/10/2025 11:00 AM ARMED SECURITY PROFESSIONAL Lab [facility] [address] [place] [address] 06/14/2025 1:30 PM ARMED SECURITY PROFESSIONAL Office Visit [facility] [place] [address] [place] [address] Joslyn Gregorio MD 8624 [facility] [place] [address] 08/16/2025 11:30 AM ARMED SECURITY PROFESSIONAL Office Visit [address] [address] Curtis Holland APRN [facility] [address] [place] [address] 09/28/2025 8:00 AM CDT Hospital Encounter [facility] 909 [facility] [address] 5th [place] [phone] Good Fortune MD 420 [facility] 394 [place], [place] [address] 09/28/2025 8:00 AM CDT - 09/28/2025 11:15 AM CDT Surgery [facility] [address] [place] [address] 5th [place] [phone] Good Fortune MD [address] [place] [address] 394 [place], [place] [address] RIGHT MICROSURGICAL SPERMATIC CORD DENERVATION, right orchidopexy 10/28/2025 1:20 PM CDT Office Visit [facility] [place] [address] [place] [address] 4th [place] [phone] Good Fortune MD 420 [facility] 394 [place], [place] [address] Scheduled Procedures Name Priority Associated Diagnoses Date/Ti me DENERVATION, SPERMATIC CORD, MICROSURGICAL Pain in right testicle 09/28/2025 8:00 AM CDT documented as of this encounter Visit Diagnoses Not on filedocumented in this encounter Additional Health Concerns Assessment Noted Time PHQ-9 Depression Total Score: 2 05/20/20 3:48 PM ARMED SECURITY PROFESSIONAL documented as of this encounter Care Teams Locket Maker Relationship Specialty Start Date End Date Jarad Dickinson MD PCP - General Internal Medicine 05/20/24 04/13/25 No Ref-Primary, Physician PCP - General 04/25/25 04/26/25 Curtis Holland APRN CNP [address] [place] [address] PCP - General Family Medicine 04/27/25 Lana Pond MD [address] [place] [address] Physician Neurology 05/21/24 Jarad Dickinson MD Assigned PCP 05/30/24 05/05/25 [place] [address] [place] [address] Pain Medicine 10/06/24 Nola Morris PA-C 909 [facility] 4TH [place] [address] Physician Typing Checker Anesthesiology 12/02/24 Pancho Feng MD 420 [facility] 96 [place] [address] Assigned Neuroscience Provider 01/27/25 Joslyn Gregorio MD [address] [place] [address] Assigned Surgical Provider 01/27/25 Curtis Holland APRN RING SPINNER [address] [place] [address] Assigned PCP 05/06/25 documented as of this encounter
--- OUTSIDE RECORDS SUMMARY | 2025-05-12 02:17 | XMS_ITS | Encounter Summary ---
Author Organization [facility] Address [address] [place] [address] Care Team Providers Care Data Collection Interviewer Name Role Phone Thalia Helton APRN SUPERVISOR DOG LICENSE OFFICER Primary Care Provi lizett Unavailable Thalia Helton APRN SUPERVISOR DOG LICENSE OFFICER Unavailable Un available Luis Ordoñez DPM Unavailable [phone] Jack Jordan MD Unavailable [phone] No Ref-Primary, Physician Primary Care Provider Aniya Gregorio MD Unavailable Jarad Dickinson MD Primary Care Provider Unavailab Lana Sequeira MD Unavailable [phone] Jarad Dickinson MD Unavailable Unavailable Lana Pond MD Unavailable [phone] Corinna Florentino MD Unavailable [phone] Pancho Feng MD Unavailable [phone] Joslyn Gregorio MD Unavailable [phone] Nola Morris PA-C Unavailable + [phone] George Ace PA-C Unavailable [phone] Nola Morris PA-C Unavailable + [phone] Pancho Feng MD Unavailable [phone] Joslyn Gregorio MD Unavailable [phone] No Ref-Primary, Physician Primary Care Provider Curtis Holland APRN SUPERVISOR DOG LICENSE OFFICER Primary Care Provider [phone] Curtis Holland PASSENGER ATTENDANT SUPERVISOR DOG LICENSE OFFICER Unavailable Reason for Visit * Reason Comments Medication Refill Encounter Details Date Type Department Care Team (Late st Contact Info) Description 09/29/2021 Refill [facility] [address] [place] [address] Thalia Helton APRN CNP Medication [...] on file Legal 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 Gender Identity Not on file Sexual Orientation [...] (Latest Contact Info) Description 06/10/2025 11:00 AM 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 BIOLOGIST Lab [facility] [address] [place] [address] 06/14/2025 1:30 PM 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 BIOLOGIST Office Visit [facility] [place] [address] [place] [phone] Joslyn Gregorio MD [address] [place] [address] 08/16/2025 11:30 AM 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 BIOLOGIST Office Visit [facility] [address] [place] [address] Curtis Holland APRN [facility] [address] [place] [address] 09/28/2025 8:00 AM CDT Hospital Encounter [address] 5th [place] [phone] Good Fortune MD [address] [place] [address] 09/28/2025 8:00 AM CDT - 09/28/2025 11:15 AM CDT Surgery [facility] [address] [place] [address] 5th [place] [address] Good Fortune MD [address] [place] [address] 394 [place] [address] RIGHT MICROSURGICAL SPERMATIC CORD DENERVATION, right orchidopexy 10/28/2025 1:20 PM CDT Office Visit [facility] Urology Clinic [address] 4th [place] [address] Good Fortune MD [address] [place] [address] 394 [place], [place] [address] Scheduled Procedures Name Priority Associated Diagnoses Date/Ti [...] documented as of this encounter Care Teams Data Collection Interviewer Relationship Specialty Start Date End Date Thalia Helton APRN SUPERVISOR DOG LICENSE OFFICER PCP - General Internal Medicine 08/12/12 03/01/23 No Ref-Primary, Physician PCP - General 04/01/23 05/19/24 Jarad Dickinson MD [address] [place] [address] PCP - General Internal Medicine 05/20/24 04/13/25 No Ref-Primary, Physician PCP - General 04/25/25 04/26/25 Curtis Holland APRN SUPERVISOR DOG LICENSE OFFICER [address] [place] [address] PCP - General Family Medicine 04/27/25 Thalia Helton APRN SUPERVISOR DOG LICENSE OFFICER Assigned PCP 04/10/12 09/07/22 Luis Ordoñez DPM [address] [facility] [address] [place], [place] [address] Assigned Musculoskeletal Provider 04/29/20 10/26/22 Jack Jordan MD 909 [place], [place] [address] Assigned Neuroscience Provider 05/21/21 11/09/22 Aniya Gregorio MD [address] [place], [place] 77[address] Assigned PCP 04/06/23 05/29/24 Lana Pond MD [address] [place] [address] Physician Neurology 05/21/24 Jarad Dickinson MD Assigned PCP 05/30/24 05/05/25 Lana Pond MD [address] [place] [address] Assigned Neuroscience Provider 08/30/24 10/27/24 [place] [address] [place] [address] Pain Medicine 10/06/24 Pancho Feng MD [address] [place] [address] Assigned Neuroscience Provider 10/28/24 12/27/24 Joslyn Gregorio MD [address] [place] [address] Assigned Surgical Provider 11/27/24 Nola Morris PA-C [address] [place] [address] Physician Oil And Gas Lease Pumper Anesthesiology 12/02/24 George Ace PA-C [address] [place] [address] [place] [address] Assigned Neuroscience Provider 12/28/24 01/26/25 Nola Morris PA-C 909 [facility] 4TH [place] [address] Assigned Surgical Provider 12/28/24 Pancho Feng MD 420 [facility] 96 [place] [address] Assigned Neuroscience Provider 01/27/25 Joslyn Gregorio MD [address] [place] [address] Assigned Surgical Provider 01/27/25 Curtis Holland APRN SUPERVISOR DOG LICENSE OFFICER [address] [place] [address] Assigned PCP 05/06/25 documented as of this encounter
--- OUTSIDE RECORDS SUMMARY | 2025-05-12 02:17 | XMS_ITS | Encounter Summary ---
Author Organization [facility] Address [address] [place] [address] Care Team Providers Care Foreign Agent Name Role Phone Thalia Helton APRN MARBLE WORKER Primary Care Provi lizett Unavailable Thalia Helton APRN MARBLE WORKER Unavailable Un available Luis Ordoñez DPM Unavailable [phone] Jack Jordan MD Unavailable [phone] No Ref-Primary, Physician Primary Care Provider Aniya Gregorio MD Unavailable Jarad Dickinson MD Primary Care Provider Unavailab Lana Sequeira MD Unavailable [phone] Jarad Dickinson MD Unavailable Unavailable Lana Pond MD Unavailable [phone] Corinna Florentino MD Unavailable [phone] Pancho Feng MD Unavailable [phone] Joslyn Gregorio MD Unavailable [phone] Nola Morris PA-C Unavailable + [phone] George Ace PA-C Unavailable [phone] Nola Morris PA-C Unavailable + [phone] Pancho Feng MD Unavailable [phone] Joslyn Gregorio MD Unavailable [phone] No Ref-Primary, Physician Primary Care Provider Curtis Holland APRN MARBLE WORKER Primary Care Provider [phone] Curtis Holland DOT ETCHER MARBLE WORKER Unavailable [phone] Encounter Details Date Type Department Care Team (Late st Contact Info) Description 07/31/2021 [facility] Medical Advice [facility] Neurology [facility] [address] [place] [address], [address] [place] [phone] Leeann Dobson Social History Tobacco Use Types [...] on file Legal Sex Male 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 No / Unsure 07/24/2021 10:21 AM WEB PAGE DESIGNER documented as of this encounter Plan of Treatment Upcoming Encounters Date Type Department Care Team (Latest Contact Info) Description 06/10/2025 11:00 AM WEB PAGE DESIGNER Lab [facility] [address] [place] [address] 06/14/2025 1:30 PM WEB PAGE DESIGNER Office Visit [facility] Urology [facility] [address] [place] [phone] Joslyn Gregorio MD [address] [place] [address] 08/16/2025 11:30 AM WEB PAGE DESIGNER Office Visit [facility] [address] [place] [address] Curtis Holland APRN MARBLE WORKER [address] [place] [address] 09/28/2025 8:00 AM CDT Hospital Encounter [facility] 909 [facility] 5th [place] [phone] Good Fortune MD 420 [facility] 394 [place], [place] [address] 09/28/2025 8:00 AM CDT - 09/28/2025 11:15 AM CDT Surgery [facility] 909 [facility] 5th [place] [address] Good Fortune MD 420 [facility] 394 [place], [place] [address] RIGHT MICROSURGICAL SPERMATIC CORD DENERVATION, right orchidopexy 10/28/2025 1:20 PM CDT Office Visit [facility] [place] [address] [place] [address] 4th [place] [address] Good Fortune MD [address] [place] [address] Scheduled Procedures Name Priority Associated Diagnoses Date/Ti [...] documented as of this encounter Care Teams Foreign Agent Relationship Specialty Start Date End Date Thalia Helton APRN MARBLE WORKER PCP - General Internal Medicine 08/12/12 03/01/23 No Ref-Primary, Physician PCP - General 04/01/23 05/19/24 Jarad Dickinson MD [address] [place] [address] PCP - General Internal Medicine 05/20/24 04/13/25 No Ref-Primary, Physician PCP - General 04/25/25 04/26/25 Curtis Holland APRN MARBLE WORKER [address] [place] [address] PCP - General Family Medicine 04/27/25 Thalia Helton APRN MARBLE WORKER Assigned PCP 04/10/12 09/07/22 Luis Ordoñez DPM [address] [facility] [address] [place], [place] [address] Assigned Musculoskeletal Provider 04/29/20 10/26/22 [place] MD 909 [place], [place] [address] Assigned Neuroscience Provider 05/21/21 11/09/22 Aniya Gregorio MD [address] [place] [address] Assigned PCP 04/06/23 05/29/24 Lana Pond MD 500 [place], [place] [address] Physician Neurology 05/21/24 Jarad Dickinson MD Assigned PCP 05/30/24 05/05/25 Lana Pond MD 500 [place], [place] [address] Assigned Neuroscience Provider 08/30/24 10/27/24 [place] [address] [place] [address] Pain Medicine 10/06/24 Pancho Feng MD [address] [place] [address] Assigned Neuroscience Provider 10/28/24 12/27/24 Joslyn Gregorio MD [address] [place] [address] Assigned Surgical Provider 11/27/24 Nola Morris PA-C [address] [place] [address] Physician Software Design Engineer Anesthesiology 12/02/24 George Ace PA-C [address] [place] [address] [place] [address] Assigned Neuroscience Provider 12/28/24 01/26/25 Nola Morris PA-C [address] [place] [address] Assigned Surgical Provider 12/28/24 Pancho Feng MD [address] [place] [address] Assigned Neuroscience Provider 01/27/25 Joslyn Gregorio MD [address] [place] [address] Assigned Surgical Provider 01/27/25 Curtis Holland APRN [facility] [address] [place] [address] Assigned PCP 05/06/25 documented as of this encounter
--- OUTSIDE RECORDS SUMMARY | 2025-05-12 02:17 | XMS_ITS | Encounter Summary ---
Author Organization [place] Address [address] [place] [address] Care Team Providers Care Logistics And Planning Manager Name Role Phone Jarad Dickinson MD Primary Care Provider Unavailab Lana Sequeira MD Unavailable [phone] Jarad Dickinson MD Unavailable Unavailable Corinna Florentino MD Unavailable [phone] Nola Morris PA-C Unavailable +- [phone] Pancho Feng MD Unavailable [phone] Joslyn Gregorio MD Unavailable No Ref-Primary, Physician Primary Care Provider Curtis Holland APRN OPTICAL EFFECTS LINE UP PERSON Primary Care Provider [phone] Curtis Holland APRN OPTICAL EFFECTS LINE UP PERSON Unavailable [phone] Encounter Details Date Type Department Care Team (Late st Contact Info) Description 03/29/[address] [facility] [place] [address] [place] [address] Joslyn Gregorio MD [address] [facility] [facility] [place] [id number] Social History Tobacco Use Types Packs/Day Years [...] re latives? Once a week 05/20/2024 Attends Mosque Services Not on file 05/20 Active Member of Clubs or Organizations Not on f ile 05/20/2024 Attends Club or Organization Meetings Not on devorah e 05/20/2024 Marital Status Not on file 05/20/2024 PHQ-2 Answer Date Recorded PHQ-2 Score 2 04/02/2025 [facility] of Occupat iontx Health - Occupational Stress [...] on file Legal Sex Male 3:45 AM ENTRY LEVEL STAFF ACCOUNTANT Gender Identity Not on file Sexual Orientation Not on file Occupation Industry Job Start Date Job End Date 2 Not on file Not on file Not on file documented as of this encounter Plan of Treatment Upcoming Encounters Date Type Department Care Team (Latest Contact Info) Description 06/10/2025 11:00 AM ENTRY LEVEL STAFF ACCOUNTANT Lab [facility] [address] [place] [address] 06/14/2025 1:30 PM ENTRY LEVEL STAFF ACCOUNTANT Office [facility] [place] [address] [place] [address] Joslyn Gregorio MD [address] [facility] [place] [address] 08/16/2025 11:30 AM ENTRY LEVEL STAFF ACCOUNTANT Office Visit [facility] [address] [place] [address] Curtis Holland APRN [facility] [address] [place] [address] 09/28/2025 8:00 AM CDT Hospital Encounter [facility] [address] [facility] [address] 5th [place] [phone] Good Fortune MD 420 [facility] 394 [place], [place] [address] 09/28/2025 8:00 AM CDT - 09/28/2025 11:15 AM CDT Surgery [facility] [address] [place] [address] 5th [place] [phone] Good Fortune MD [address] [place] [address] 394 [place], [place] [address] RIGHT MICROSURGICAL SPERMATIC CORD DENERVATION, right orchidopexy 10/28/2025 1:20 PM CDT Office Visit [facility] [place] [address] [place] [address] 4th [place] [phone] Good Fortune MD 420 [facility] 394 [place], [place] [address] Scheduled Procedures Name Priority Associated Diagnoses Date/Ti me DENERVATION, SPERMATIC CORD, MICROSURGICAL Pain in right testicle 09/28/2025 8:00 AM CDT documented as of this encounter Visit Diagnoses Not on filedocumented in this encounter Additional Health Concerns Assessment Noted Time PHQ-9 Depression Total Score: 2 05/20/20 3:48 PM ENTRY LEVEL STAFF ACCOUNTANT documented as of this encounter Care Teams Logistics And Planning Manager Relationship Specialty Start Date End Date Jarad Dickinson MD PCP - General Internal Medicine 05/20/24 04/13/25 No Ref-Primary, Physician PCP - General 04/25/25 04/26/25 Curtis Holland APRN CNP [address] [place] [address] PCP - General Family Medicine 04/27/25 Lana Pond MD [address] [place] [address] Physician Neurology 05/21/24 aJrad Dickinson MD Assigned PCP 05/30/24 05/05/25 [place] [address] [place] [address] Pain Medicine 10/06/24 Nola Morris PA-C 909 [facility] 4TH [place] [address] Physician Associate Director Career Services Anesthesiology 12/02/24 Pancho Feng MD 420 [facility] [address] [place] [address] Assigned Neuroscience Provider 01/27/25 Joslyn Gregorio MD [address] [address] Assigned Surgical Provider 01/27/25 Curtis Holland APRN OPTICAL EFFECTS LINE UP PERSON [address] [place] [address] Assigned PCP 05/06/25 documented as of this encounter
--- OUTSIDE RECORDS SUMMARY | 2025-05-12 02:17 | XMS_ITS | Encounter Summary ---
Author Organization [place] Address [address] [place] [address] Care Team Providers Care Safety Admin Assistant Name Role Phone Jarad Dickinson MD Primary Care Provider Unavailab Lana Sequeira MD Unavailable [phone] Jarad Dickinson MD Unavailable Unavailable Corinna Florentino MD Unavailable [phone] Nola Morris PA-C Unavailable + [phone] Pancho Feng MD Unavailable [phone] Joslyn Gregorio MD Unavailable [phone] Encounter Details Date Type Department Care Team (Latest Contact Info) Description 02/10/2025 Results Follow-Up [facility] - Surgical Specialties Service Line [address] [place] [address] Joslyn Gregorio MD [address] [place] [address] Subj: Message about your results Social History Tobacco Use Types Packs/Day Years [...] re latives? Once a week 05/20/2024 Attends Moravian Services Not on file 05/20 Active Member of Clubs or Organizations Not on f ile 05/20/2024 Attends Club or Organization Meetings Not on devorah e 05/20/2024 Marital Status Not on file 05/20/2024 PHQ-2 Answer Date Recorded PHQ-2 Score 2 04/02/2025 [facility] of Occupat ional [...] in an abandoned building, in an overnight fdc, or couch-surfing.) Yes 10/08/2024 Are you worried [...] on file Legal Sex Male 3:45 AM COGENERATION TECHNICIAN Gender Identity Not on file Sexual Orientation Not on file Occupation Industry Job Start Date Job End Date 2 Not on file Not on file Not on file documented as of this encounter Plan of Treatment Upcoming Encounters Date Type Department Care Team (Latest Contact Info) Description 06/10/2025 11:00 AM COGENERATION TECHNICIAN Lab [facility] [address] [place] [address] 06/14/2025 1:30 PM COGENERATION TECHNICIAN Office Visit [facility] [place] [address] [facility] 500 [place] [address] Joslyn Gregorio MD [address] [place] [address] 08/16/2025 11:30 AM COGENERATION TECHNICIAN Office Visit [facility] [address] [place] [phone] Curtis Holland APRN [facility] [address] [place] [address] 09/28/2025 8:00 AM CDT Hospital Encounter [address] 5th [place] [phone] Good Fortune MD [address] [place] [address] 09/28/2025 8:00 AM CDT - 09/28/2025 11:15 AM CDT Surgery [address] 5th [place] [address] Good Fortune MD [address] [place] [address] 394 [place] [address] RIGHT MICROSURGICAL SPERMATIC CORD DENERVATION, right orchidopexy 10/28/2025 1:20 PM CDT Office Visit [facility] [place] [id number] [phone] Good Fortune MD [address] [place] [address] 9[address] Scheduled Procedures Name Priority Associated Diagnoses Date/Ti me DENERVATION, SPERMATIC CORD, MICROSURGICAL Pain in right testicle 09/28/2025 8:00 AM CDT documented as of this encounter Visit Diagnoses Not on filedocumented in this encounter Additional Health Concerns Assessment Noted Time PHQ-9 Depression Total Score: 2 05/20/20 3:48 PM COGENERATION TECHNICIAN documented as of this encounter Care Teams Safety Admin Assistant Relationship Specialty Start Date End Date Jarad Dickinson MD PCP - General Internal Medicine 05/20/24 04/13/25 Lana Pond MD [address] [place] [address]245 Physician Neurology 05/21/24 Jarad Dickinson MD Assigned PCP 05/30/24 05/05/25 [place] [address] [place] [address] Pain Medicine 10/06/24 Nola Morris PA-C [address] [place] [address] Physician Telecom Billing Analyst Anesthesiology 12/02/24 Pancho Feng MD [address] [place] [address] Assigned Neuroscience Provider 01/27/25 Joslyn Gregorio MD [address] [address] Assigned Surgical Provider 01/27/25 documented as of this encounter
--- OUTSIDE RECORDS SUMMARY | 2025-05-12 02:17 | XMS_ITS | Encounter Summary ---
Author Organization [place] Address [address] [place] [address] Care Team Providers Care Deputy Sheriff Bailiff Name Role Phone Jarad Dickinson MD Primary Care Provider Unavailab Lana Sequeira MD Unavailable [phone] Jarad Dickinson MD Unavailable Unavailable Corinna Florentino MD Unavailable [phone] Nola Morris PA-C Unavailable [phone] Pancho Feng MD Unavailable [phone] Joslyn Gregorio MD Unavailable No Ref-Primary, Physician Primary Care Provider Curtis Holland APRN CHOREOGRAPHY DIRECTOR Primary Care Provider [phone] Curtis Holland APRN CHOREOGRAPHY DIRECTOR Unavailable [phone] Encounter Details Date Type Department Care Team (Late st Contact Info) Description 02/11/2025 MyC Medical Advice [facility] [place] [address] [place] [address] Joslyn Gregorio MD [address] [facility] [place] [address] Social History Tobacco Use Types Packs/Day Years [...] re latives? Once a week 05/20/2024 Attends Cheondoism Services Not on file 05/20 Active Member of Clubs or Organizations Not on f ile 05/20/2024 Attends Club or Organization Meetings Not on devorah e 05/20/2024 Marital Status Not on file 05/20/2024 PHQ-2 Answer Date Recorded PHQ-2 Score 0 12/03/2024 [facility] of Occupat ionwy Health - Occupational Stress Questionnaire Answer Date [...] in an abandoned building, in an overnight nursing home, or couch-surfing.) Yes 10/08/2024 Are you [...] on file Legal Sex Male 3:45 AM EMERGENCY DOCTOR Gender Identity Not on file Sexual Orientation Not on file Occupation Industry Job Start Date Job End Date 2 Not on file Not on file Not on file documented as of this encounter Plan of Treatment Upcoming Encounters Date Type Department Care Team (Latest Contact Info) Description 06/10/2025 11:00 AM EMERGENCY DOCTOR Lab [facility] [address] [place] [address] 06/14/2025 1:30 PM EMERGENCY DOCTOR Office Visit [facility] [place] [address] [place] [address] Joslyn Gregorio MD [address] [facility] [place] [address] 08/16/2025 11:30 AM EMERGENCY DOCTOR Office Visit [facility] [address] [place] [address] Curtis Holland APRN [facility] [address] [place] [address] 09/28/2025 8:00 AM CDT Hospital Encounter [facility] [address] [facility] [address] 5th [place] [phone] Good Fortune MD 420 [facility] 394 [place], [place] [address] 09/28/2025 8:00 AM CDT - 09/28/2025 11:15 AM CDT Surgery [facility] [address] [place] [address] 5th [place] [phone] Good Fortune MD [address] [place] [address] 394 [place], [place] [address] RIGHT MICROSURGICAL SPERMATIC CORD DENERVATION, right orchidopexy 10/28/2025 1:20 PM CDT Office Visit [facility] [place] [address] [place] [address] 4th [place] [phone] Good Fortune MD 420 [facility] 394 [place], [place] [address] Scheduled Procedures Name Priority Associated Diagnoses Date/Ti me DENERVATION, SPERMATIC CORD, MICROSURGICAL Pain in right testicle 09/28/2025 8:00 AM CDT documented as of this encounter Visit Diagnoses Not on filedocumented in this encounter Additional Health Concerns Assessment Noted Time PHQ-9 Depression Total Score: 2 05/20/20 3:48 PM EMERGENCY DOCTOR documented as of this encounter Care Teams Deputy Sheriff Bailiff Relationship Specialty Start Date End Date Jarad Dickinson MD PCP - General Internal Medicine 05/20/24 04/13/25 No Ref-Primary, Physician PCP - General 04/25/25 04/26/25 Curtis Holland APRN CNP [address] [place] [address] PCP - General Family Medicine 04/27/25 Lana Pond MD [address] [place] [address] Physician Neurology 05/21/24 Jarad Dickinson MD Assigned PCP 05/30/24 05/05/25 [place] [address] [place] [address] Pain Medicine 10/06/24 Nola Morris PA-C 909 [facility] 4TH [place] [address] Physician Hydroelectric Component Machinist Anesthesiology 12/02/24 Pancho Feng MD 420 [facility] 96 [place] [address] Assigned Neuroscience Provider 01/27/25 Joslyn Gregorio MD [address] [address] Assigned Surgical Provider 01/27/25 Curtis Holland APRN CHOREOGRAPHY DIRECTOR [address] [place] [address] Assigned PCP 05/06/25 documented as of this encounter
--- OUTSIDE RECORDS SUMMARY | 2025-05-12 02:18 | XMS_ITS | Encounter Summary ---
Author Organization [place] Address [address] [place] [address] Care Team Providers Care Slat Pickler Name Role Phone Lana Pond MD Unavailable [phone] Jarad Dickinson MD Unavailable Unavailable Corinna Florentino MD Unavailable [phone] Nola Morris PA-C Unavailable + [phone] Pancho Feng MD Unavailable [phone] Joslyn Gregorio MD Unavailable [phone] Curtis Holland APRN [facility] Primary Care Provider [phone] Encounter Details Date Type Department Care Team (Late st Contact Info) Description 05/03/2025 [facility] [address] 4th [place] [address] Sabrina Ford, RN Social History Tobacco Use Types Packs/Day [...] re latives? Once a week 05/20/2024 Attends Jewish Services Not on file 05/20 Active Member of Clubs or Organizations Not on f ile 05/20/2024 Attends Club or Organization Meetings Not on devorah e 05/20/2024 Marital Status Not on file 05/20/2024 PHQ-2 Answer Date Recorded PHQ-2 Score 3 04/27/2025 [facility] of Occupat ional Health - Occupational Stress [...] on file Legal Sex Male 3:45 AM ARCHIVIST MILITARY HISTORY Gender Identity Not on file Sexual Orientation Not on file Occupation Industry Job Start Date Job End Date 2 Not on file Not on file Not on file documented as of this encounter Miscellaneous Notes * Telephone Encounter - Sabrina Ford RN - 05/03/2025 11:16 AM CDT Patient notified this patient he has a block to the testicular area and his pain disappeared for 5 days after the block. Will have records sent to us HARINI from [facility] to confirm what was done Sabrina Ford RN, BSN, PHN Plaster Model And Mold Maker Urology [facility] Urology [facility] [phone] * Telephone Encounter - Sabrina Ford RN - 05/03/2025 11:16 AM CDT ----- Message from Opal Patrick sent at 04/27/2025 10:40 AM CDT ----- Forwarding to Dr. Isauro CARDONA. ----- Message ----- From: Salma Solo Sent: 04/27/2025 10:37 AM CDT To: Good Fortune MD; Opal Joseph and Dr. Fortune, I spoke to Sony today and he would like to schedule the surgery that he and Dr. Fortune talked about (microscopic denervation). I have told him that he may have to undergo further testing or have another appointment before thiscan be scheduled. Could you please call him and let him know what is next? Holly Heller documented in this encounter Plan of Treatment Upcoming Encounters Date Type Department Care Team (Latest Contact Info) Description 06/10/2025 11:00 AM ARCHIVIST MILITARY HISTORY [facility] [address] [place] [phone] 06/14/2025 1:30 PM ARCHIVIST MILITARY HISTORY Office Visit [facility] Urology [facility] [address] [place] [phone] Joslyn Gregorio MD [address] [address] 08/16/2025 11:30 AM ARCHIVIST MILITARY HISTORY Office Visit [address] [phone] Curtis Holland APRN [facility] [address] [place] [address] 09/28/2025 8:00 AM CDT Hospital Encounter [address] 5th [place] [address] Good Fortune MD [address] [place] [address]32[address] 09/28/2025 8:00 AM CDT - 09/28/2025 11:15 AM CDT Surgery [address] 5th [place] [address] Good Fortune MD [address] [place] [address] RIGHT MICROSURGICAL SPERMATIC CORD DENERVATION, right orchidopexy 10/28/2025 1:20 PM CDT Office Visit [facility] Urology [address]th [place] [address] Good Fortune MD [address] [place] [address] 394 [place], [place] [address] Scheduled Procedures Name Priority Associated Diagnoses Date/Ti me DENERVATION, SPERMATIC CORD, MICROSURGICAL Pain in right testicle 09/28/2025 8:00 AM CDT documented as of this encounter Visit Diagnoses Not on filedocumented in this encounter Additional Health Concerns Assessment Noted Time PHQ-9 Depression Total Score: 11 025 10:41 AM CDT documented as of this encounter Care Teams Slat Pickler Relationship Specialty Start Date End Date Holland CurtisHAFSA PIG CASTER [address] [place] [address] PCP - General Family Medicine 04/27/25 Lana Pond MD [address] [place] [address] 368615 Physician Neurology 05/21/24 Jarad Dickinson MD Assigned PCP 05/30/24 05/05/25 [place] [address] [place] [address] Pain Medicine 10/06/24 Nola Morris PA-C [address] [place] [address] 4TH [address] [place], [place] [address] Physician Wrapper Stitcher Anesthesiology 12/02/24 Pancho Feng MD [address] [place] [address] 96 [place], [place] 8[address] Assigned Neuroscience Provider 01/27/25 Joslyn Gregorio MD [address] [address] Assigned Surgical Provider 01/27/25 documented as of this encounter
--- OUTSIDE RECORDS SUMMARY | 2025-05-12 02:18 | XMS_ITS | Encounter Summary ---
Author Organization [place] Address [address] [place] [address] Care Team Providers Care Leather Tanner Name Role Phone Lana Pond MD Unavailable Corinna Florentino MD Unavailable [phone] Nola Morris PA-C Unavailable [phone] Pancho Feng MD Unavailable [phone] Joslyn Gregorio MD Unavailable Curtis Holland APRN SUPERVISOR BLOOD Primary Care Provider [phone] Curtis Holland APRN SUPERVISOR BLOOD Unavailable Encounter Details Date Type Department Care Team (Late st Contact Info) Description 05/07/2025 MyC Medical Advice [facility] [address] [place] [address] Denice Huston, RN Social History [...] Answer Date Recorded PHQ-2 Score 3 04/27/2025 [facility] - [facility]ational Stress Questionnaire [...] 12/10/2024 Within the past 12 months, h deane you been humiliated or emotionally abused in other ways by your partner or ex-partner? No 12/10/2024 Sex and Gender Information Value Date Recorded Sex Assigned at Not on file Legal Sex Male 3:45 AM VERIFICATION ENGINEER Gender Identity Not on file Sexual Orientation Not on file Occupation Industry Job Start Date Job End Date 2 Not on file Not on file Not on file documented as of this encounter Plan of Treatment Upcoming Encounters Date Type Department Care Team (Latest Contact Info) Description 06/10/2025 11:00 AM VERIFICATION ENGINEER Lab [facility] [address] [place] [phone] 06/14/2025 1:30 PM VERIFICATION ENGINEER Office Visit [facility] [place] [address] [place] [phone] Joslyn Gregorio MD [address] [place] [address] 08/16/2025 11:30 AM VERIFICATION ENGINEER Office Visit [address] [phone] Curtis Holland APRN SUPERVISOR BLOOD [address] [place] [address] 09/28/2025 8:00 AM CDT Hospital Encounter [address]th [place] [phone] Good Fortune MD [address] 9934[address] 09/28/2025 8:00 AM CDT - 09/28/2025 11:15 AM CDT Surgery [address]th [place] [address] Good Fortune MD 420 [facility] 394 [place] [address] RIGHT MICROSURGICAL SPERMATIC CORD DENERVATION, right orchidopexy 10/28/2025 1:20 PM CDT Office Visit [facility] [place] [address] [phone] Good Fortune MD [address] [place] [address] 394 [place] [address] Scheduled Procedures Name Priority Associated Diagnoses Date/Ti me DENERVATION, SPERMATIC CORD, MICROSURGICAL Pain in right testicle 09/28/2025 8:00 AM CDT documented as of this encounter Visit Diagnoses Not on filedocumented in this encounter Additional Health Concerns Assessment Noted Time PHQ-9 Depression Total Score: 11 025 10:41 AM CDT documented as of this encounter Care Teams Leather Tanner Relationship Specialty Start Date End Date Curtis Holland APRN SUPERVISOR BLOOD [address] [place] [address] PCP - General Family Medicine 04/27/25 Lana Pond MD [address] [place] [address] Physician Neurology 05/21/24 [place] [address] [place] [address] Pain Medicine 10/06/24 Nola Morris PA-C [address] [place] [address] Physician Insole Bottom Filler Anesthesiology 12/02/24 Pancho Feng MD [address] [place] [address] 96 [place] [address] Assigned Neuroscience Provider 01/27/25 Joslyn Gregorio MD [address] [address] Assigned Surgical Provider 01/27/25 Curtis Hollnad APRN [facility] [address] [place] [address] Assigned PCP 05/06/25 documented as of this encounter
--- OUTSIDE RECORDS SUMMARY | 2025-05-12 02:18 | XMS_ITS | Encounter Summary ---
Author Organization [facility] Address [address] [place] [address] Care Team Providers Care Hair Spinner Name Role Phone Thalia Helton APRN STRUCTURAL STEEL ERECTION SUPERVISOR Primary Care Provi lizett Unavailable Thalia Helton APRN STRUCTURAL STEEL ERECTION SUPERVISOR Unavailable Un available Luis Ordoñez DPM Unavailable [phone] Arthur Veliz MD Unavailable Jack Jordan MD Unavailable [phone] No Ref-Primary, Physician Primary Care Provider Aniya Gregorio MD Unavailable Jarad Dickinson MD Primary Care Provider Unavailab Lana Sequeira MD Unavailable [phone] Jarad Dickinson MD Unavailable Unavailable Lana Pond MD Unavailable [phone] Corinna Florentino MD Unavailable [phone] Pancho Feng MD Unavailable [phone] Joslyn Gregorio MD Unavailable [phone] Nola Morris PA-C Unavailable + [phone] George Ace PA-C Unavailable [phone] Nola Morris PA-C Unavailable + [phone] Pancho Feng MD Unavailable [phone] Joslyn Gregorio MD Unavailable [phone] No Ref-Primary, Physician Primary Care Provider Curtis Holland APRN, CNP Primary Care Provider [phone] Curtis Holland APRN, CNP Unavailable [phone] Reason for Visit * Reason Comments Medication Refill Encounter Details Date Type Department Care Team (Late st Contact Info) Description 10/29/[address] [place] [address] Thalia Helton APRN CNP Medication [...] on file Legal Sex Male 3:45 AM BI DATA MODELER Gender Identity Not on file Sexual Orientation Not on file Occupation Industry Job Start Date Job End Date 2 Not on file Not on file Not on file documented as of this encounter Miscellaneous Notes * Telephone Encounter - Denice Forman RPH - 10/29/2019 2:42 PM CDT Prescription approved per [facility] Refill Protocol. Denice Forman , Pharm D [phone] (phone) [phone] (pager) Medication Therapy Management Pharmacist documented in this encounter Plan of Treatment Upcoming Encounters Date Type Department Care Team (Latest Contact Info) Description 06/10/2025 11:00 AM BI DATA MODELER Lab [facility] [address] [place] [address] 06/14/2025 1:30 PM BI DATA MODELER Office Visit [facility] [place] [address] [place] [address] Joslyn Gregorio MD [address] [place] [address] 08/16/2025 11:30 AM BI DATA MODELER Office Visit [address] [address] HollandCurtis APRN [facility] [address] [place] [address] 09/28/2025 8:00 AM CDT Hospital Encounter [facility] [address] [facility] 5th [place] [address] Good Fortune MD [address] [place] [address] 09/28/2025 8:00 AM CDT - 09/28/2025 11:15 AM CDT Surgery [facility] 9[address] [facility] 5th [place] [address] Good Fortune MD [address] [place] [address] 949155 RIGHT MICROSURGICAL SPERMATIC CORD DENERVATION, right orchidopexy 10/28/2025 1:20 PM CDT Office Visit [facility] [place] 9[address] [facility] 4th [place] [address] Good Fortune MD [address] [place] [address]15 Scheduled Procedures Name Priority Associated Diagnoses Date/Ti [...] Depression Total Score: 10 019 4:30 PM BI DATA MODELER documented as of this encounter Care Teams Hair Spinner Relationship Specialty Start Date End Date Thalia Helton APRN STRUCTURAL STEEL ERECTION SUPERVISOR PCP - General Internal Medicine 08/12/12 03/01/23 No Ref-Primary, Physician PCP - General 04/01/23 05/19/24 Jarad Dickinson MD [address] [place] [address] PCP - General Internal Medicine 05/20/24 04/13/25 No Ref-Primary, Physician PCP - General 04/25/25 04/26/25 Curtis Holland APRN STRUCTURAL STEEL ERECTION SUPERVISOR [address] [place] [address] PCP - General Family Medicine 04/27/25 Thalia Helton APRN STRUCTURAL STEEL ERECTION SUPERVISOR Assigned PCP 04/10/12 09/07/22 Luis Ordoñez DPM [address] [facility] [address] [place] [address] Assigned Musculoskeletal Provider 04/29/20 10/26/22 Arthur Veliz MD [address] [place] 96[address] Assigned Neuroscience Provider 04/16/21 05/20/21 Jack Jordan MD 909 [place], [place] [address]105 Assigned Neuroscience Provider 05/21/21 11/09/22 Aniya Gregorio MD [address] [place] [address] Assigned PCP 04/06/23 05/29/24 Lana Pond MD 500 [place] [address] Physician Neurology 05/21/24 Jarad Dickinson MD Assigned PCP 05/30/24 05/05/25 Lana Pond MD 500 [place] [address] Assigned Neuroscience Provider 08/30/24 10/27/24 [place] [address] [place] [address] Pain Medicine 10/06/24 Pancho Feng MD [address] [place] [address] Assigned Neuroscience Provider 10/28/24 12/27/24 Joslyn Gregorio MD [address] [address] Assigned Surgical Provider 11/27/24 Nola Morris PA-C [address] [address] Physician Quality Engineer Anesthesiology 12/02/24 George Ace PA-C [address] [place] [address] [address] [address] Assigned Neuroscience Provider 12/28/24 01/26/25 Nola Morris PA-C 909 [facility] 4TH [place] [address] Assigned Surgical Provider 12/28/24 Pancho Feng MD 420 [facility] 96 [place] [address] Assigned Neuroscience Provider 01/27/25 Joslyn Gregorio MD [address] [place] [address] Assigned Surgical Provider 01/27/25 Curtis Holland APRN STRUCTURAL STEEL ERECTION SUPERVISOR [address] [place] [address] Assigned PCP 05/06/25 documented as of this encounter
--- OUTSIDE RECORDS SUMMARY | 2025-05-12 02:18 | XMS_ITS | Encounter Summary ---
Author Organization [facility] Address [address] [place] [address] Care Team Providers Care Marketing Officer Name Role Phone Lana Pond MD Unavailable [phone] Jarad Dickinson MD Unavailable Unavailable Corinna Florentino MD Unavailable [phone] Nola Morris PA-C Unavailable [phone] Pancho Feng MD Unavailable [phone] Joslyn Gregorio MD Unavailable [phone] Curtis Holland APRN METALIZING MACHINE OPERATOR Primary Care Provider [phone] Encounter Details Date Type Department Care Team (Latest Contact Info) Description 04/27/2025 Travel Social History Tobacco Use Types Packs/Day [...] Answer Date Recorded PHQ-2 Score 3 04/27/2025 [facility] - Occupational Stress [...] on file Legal Sex Male 3:45 AM BINDERY MACHINE SETTER/SET UP OPERATOR Gender Identity Not on file Sexual Orientation Not on file Occupation Industry Job Start Date Job End Date 2 Not on file Not on file Not on file documented as of this encounter Plan of Treatment Upcoming Encounters Date Type Department Care Team (Latest Contact Info) Description 06/10/2025 11:00 AM BINDERY MACHINE SETTER/SET UP OPERATOR Lab [facility] [address] [place] [address] 06/14/2025 1:30 PM BINDERY MACHINE SETTER/SET UP OPERATOR Office Visit [facility] [place] [address] [place] [phone] Joslyn Gregorio MD [address] [place] [address] 08/16/2025 11:30 AM BINDERY MACHINE SETTER/SET UP OPERATOR Office Visit [facility] [address] [place] [phone] Curtis Holland APRN METALIZING MACHINE OPERATOR [address] [place] [address] 09/28/2025 8:00 AM CDT Hospital Encounter [address] [phone] Good Fortune MD [address] [place] [address] 09/28/2025 8:00 AM CDT - 09/28/2025 11:15 AM CDT Surgery [address] 5th [place] [address] Good Fortune MD [address] [place] [address] RIGHT MICROSURGICAL SPERMATIC CORD DENERVATION, right orchidopexy 10/28/2025 1:20 PM CDT Office Visit [facility] [address] [place] [phone] Good Fortune MD [address] [place] [address] 394 [place], [place] 8[address] Scheduled Procedures Name Priority Associated Diagnoses Date/Ti me DENERVATION, SPERMATIC CORD, MICROSURGICAL Pain in right testicle 09/28/2025 8:00 AM CDT documented as of this encounter Visit Diagnoses Not on filedocumented in this encounter Additional Health Concerns Assessment Noted Time PHQ-9 Depression Total Score: 11 025 10:41 AM CDT documented as of this encounter Care Teams Marketing Officer Relationship Specialty Start Date End Date Curtis Hollnad APRN CNP [address] [place] [address] PCP - General Family Medicine 04/27/25 Lana Pond MD [address] [place] [address] 070605 Physician Neurology 05/21/24 Jarad Dickinson MD Assigned PCP 05/30/24 05/05/25 [place] [address] [place] [address] Pain Medicine 10/06/24 Nola Morris PA-C [address] [place] [address] Physician Electric Installer Anesthesiology 12/02/24 Pancho Feng MD [address] [place] [address] 96 [place] [address] Assigned Neuroscience Provider 01/27/25 Joslyn Gregorio MD [address] [address] Assigned Surgical Provider 01/27/25 documented as of this encounter
--- OUTSIDE RECORDS SUMMARY | 2025-05-12 02:18 | XMS_ITS | Encounter Summary ---
Author Organization [facility] Address [address] [place] [address] Care Team Providers Care Contact Finger Assembler Name Role Phone Lana Pond MD Unavailable [phone] Corinna Florentino MD Unavailable [phone] Nola Morris PA-C Unavailable [phone] Pancho Feng MD Unavailable Joslyn Gregorio MD Unavailable Curtis Holland APRN NET MOBILE DEVELOPER Primary Care Provider [phone] Curtis Holland APRN NET MOBILE DEVELOPER Unavailable [phone] Encounter Details Date Type Department Care Team (Late st Contact Info) Description 05/07/2025 MyC Medical Advice [facility] [place] [address] [place] [address] Joslyn Gregorio MD [address] [place] [address] Social History Tobacco Use Types Packs/Day Years [...] Answer Date Recorded PHQ-2 Score 3 04/27/2025 [facility] - Occupational Stress Questionnaire Answer Date [...] on file Legal Sex Male 3:45 AM RESET MERCHANDISER Gender Identity Not on file Sexual Orientation Not on file Occupation Industry Job Start Date Job End Date 2 Not on file Not on file Not on file documented as of this encounter Plan of Treatment Upcoming Encounters Date Type Department Care Team (Latest Contact Info) Description 06/10/2025 11:00 AM RESET MERCHANDISER Lab [facility] [address] [place] [address] 06/14/2025 1:30 PM RESET MERCHANDISER Office Visit [facility] [place] [address] [place] [address] Joslyn Gregorio MD [address] [place] [address] 08/16/2025 11:30 AM RESET MERCHANDISER Office Visit [address] [address] Curtis Holland APRN [facility] [address] [place] [address] 09/28/2025 8:00 AM CDT Hospital Encounter [address] 5th [place] [address] Good Fortune MD [address] [place] [address]67[address] 09/28/2025 8:00 AM CDT - 09/28/2025 11:15 AM CDT Surgery [facility] [address] [place] [address] 5th [place] [address] Good Fortune MD [address] [place] [address] 126975 RIGHT MICROSURGICAL SPERMATIC CORD DENERVATION, right orchidopexy 10/28/2025 1:20 PM CDT Office Visit [facility] [address] [place] [phone] Good Fortune MD [address] [place] [address] Scheduled Procedures Name Priority Associated Diagnoses Date/Ti me DENERVATION, SPERMATIC CORD, MICROSURGICAL Pain in right testicle 09/28/2025 8:00 AM CDT documented as of this encounter Visit Diagnoses Not on filedocumented in this encounter Additional Health Concerns Assessment Noted Time PHQ-9 Depression Total Score: 11 025 10:41 AM CDT documented as of this encounter Care Teams Contact Finger Assembler Relationship Specialty Start Date End Date Curtis Holland APRN NET MOBILE DEVELOPER [address] [place] [address] PCP - General Family Medicine 04/27/25 Lana Pond MD [address] [place] [address] 004535 Physician Neurology 05/21/24 [place] [address] [place] [address] Pain Medicine 10/06/24 Nola Morris PA-C [address] [place] [address] Physician Patient Support Assistant Anesthesiology 12/02/24 Pancho Feng MD 420 [facility] 96 [place] [address] Assigned Neuroscience Provider 01/27/25 Joslyn Gregorio MD [address] [place] [address] Assigned Surgical Provider 01/27/25 Curtis Holland APRN NET MOBILE DEVELOPER [address] [place] [address] Assigned PCP 05/06/25 documented as of this encounter
--- OUTSIDE RECORDS SUMMARY | 2025-05-12 02:18 | XMS_ITS | Encounter Summary ---
Author Organization [facility] Address [address] [place] [address]. [place] [address] Care Team Providers Care Cookie Mixer Helper Name Role Phone Lana Pond MD Unavailable [phone] Corinna Florentino MD Unavailable [phone] Nola Morris PA-C Unavailable [phone] Pancho Feng MD Unavailable Joslyn Gregorio MD Unavailable [phone] Curtis Holland VICE PRESIDENT OF BUSINESS DEVELOPMENT SHAPE BRICK MOLDER Primary Care Provider [phone] Curtis Holland APRN SHAPE BRICK MOLDER Unavailable Encounter Details Date Type Department Care Team (Late st Contact Info) Description 05/11/2025 Orders Only [facility] [address] [place] [address] Curtis Holland APRN SHAPE BRICK MOLDER [address] [place] [address] Elevated serum creatinine (Primary Dx) Social History Tobacco Use Types [...] Answer Date Recorded PHQ-2 Score 3 04/27/2025 [facility] Answer Date [...] on file Legal Sex Male 3:45 AM JAVA ENTERPRISE ARCHITECT Gender Identity Not on file Sexual Orientation Not on file Occupation Industry Job Start Date Job End Date 2 Not on file Not on file Not on file documented as of this encounter Plan of Treatment Upcoming Encounters Date Type Department Care Team (Latest Contact Info) Description 06/10/2025 11:00 AM JAVA ENTERPRISE ARCHITECT Lab [facility] [address] [place] [address] 06/14/2025 1:30 PM JAVA ENTERPRISE ARCHITECT Office Visit [facility] [place] [address] [place] [address] Joslyn Gregorio MD [address] [place] [address] 08/16/2025 11:30 AM JAVA ENTERPRISE ARCHITECT Office Visit [address] [address] Curtis Holland APRN [facility] [address] [place] [address] 09/28/2025 8:00 AM CDT Hospital Encounter [address] 5th [place] [phone] Good Fortune MD [address] [place] [address] 09/28/2025 8:00 AM CDT - 09/28/2025 11:15 AM CDT Surgery [address] 5th [place] [address] Good Fortune MD 420 [facility] 394 [place] [address] RIGHT MICROSURGICAL SPERMATIC CORD DENERVATION, right orchidopexy 10/28/2025 1:20 PM CDT Office Visit [facility] [place] 909 [facility] 4th [place] [address] Good Fortune MD 420 [facility] 394 [place] [address] Scheduled Procedures Name Priority Associated Diagnoses Date/Ti me DENERVATION, SPERMATIC CORD, MICROSURGICAL Pain in right testicle 09/28/2025 8:00 AM CDT documented as of this encounter Results * Albumin and Creatinine with Ratio Random Urine Quantitative (05/11/2025 10:05 AM JAVA ENTERPRISE ARCHITECT) Creatinine Urine mg/dL 125.0 mg/dL 05/11/2025 6:36 PM JAVA ENTERPRISE ARCHITECT [facility] Comment:The reference ranges have not been established in urine creatinine. The results should be integrated into the clinical context for interpretation. Albumin Urine mg/L <12.0 mg/L 2024 6:36 PM JAVA ENTERPRISE ARCHITECT [facility] Comment:The reference ranges have not been established in urine albumin. The results should be integrated into the clinical context for interpretation. Albumin Urine mg/g Cr 05/11/2025 6:36 PM JAVA ENTERPRISE ARCHITECT [facility] Comment: Unable to calculate, urine [...] control, and institution of therapy with an afylpkhyfld-njqvqjizhj-rdgaki (SHALINI) inhibitor (if the patient can tolerate it). Urine MID-STREAM URINE SPECIMEN / Unknown Non-blood Collection / Unknown 05/11/2025 10:05 AM JAVA ENTERPRISE ARCHITECT 05/11/2025 10:05 AM JAVA ENTERPRISE ARCHITECT us Curtis Holland VICE PRESIDENT OF BUSINESS DEVELOPMENT SHAPE BRICK MOLDER LAB - URINE ORDERABLES Fin al Result LABORATORY [facility] Core Lab [address] [facility], Room [address] [place] [address] * (ABNORMAL) Basic metabolic panel (Ca, Cl, CO2, Creat, Gluc, K, Na, BUN) (05/11/2025 9:07 AM JAVA ENTERPRISE ARCHITECT) Pathologist [facility] Sodium (POCT) 135 135 - 145 mmol/L 05/11/2025 9:27 AM JAVA ENTERPRISE ARCHITECT [facility] Potassium (POCT) 4.7 3.4 - 5.3 mmol/L 05/11/2025 9:27 AM JAVA ENTERPRISE ARCHITECT [facility] Chloride (POCT) 104 94 - 109 mmol/L 05/11/2025 9:27 AM JAVA ENTERPRISE ARCHITECT [facility] Carbon Dioxide (CO2) (POCT) 28 22 - 29 mmol/L 05/11/2025 9:27 AM JAVA ENTERPRISE ARCHITECT [facility] Anion Gap (POCT) 3 3 - 14 mmol/L 05/11/2025 9:27 AM JAVA ENTERPRISE ARCHITECT [facility] Urea Nitrogen (POCT) 26(H) 6 - 20 mg/dL 05/11/2025 9:27 AM JAVA ENTERPRISE ARCHITECT [facility] Creatinine (POCT) 1.20(H) 0.67 - 1.17 mg/dL 05/11/2025 9:27 AM JAVA ENTERPRISE ARCHITECT [facility] GFR Estimate (POCT) 74 >60 mL/min/1.7 3m2 05/11/2025 9:27 AM JAVA ENTERPRISE ARCHITECT [facility] Comment:eGFR calculated usin 2020 CKD-EPI equation. Calcium (POCT) 9.6 8.8 - 10.4 mg/dL 05/11/2025 9:27 AM JAVA ENTERPRISE ARCHITECT [facility] Glucose (POCT) 193(H) 70 - 99 mg/dL 05/11/2025 9:27 AM JAVA ENTERPRISE ARCHITECT [facility] Blood BLOOD SPECIMEN / Unknown Venipuncture / Unknown 05/11/2025 9:07 AM JAVA ENTERPRISE ARCHITECT 05/11/2025 9:07 AM JAVA ENTERPRISE ARCHITECT us Curtis Holland APRN, CNP LAB - BLOOD ORDERABLES Fin al Result [facility] [address] [facility] Lab (no room number, 1st floor of clinic) [place] [address], [facility] documented in this encounter Visit Diagnoses Diagnosis Pain in right testicle- Primary Unspecified disorder of male genital organs Elevated serum creatinine- Primary Other nonspecific findings on examination of blood Pain in right testicle Unspecified disorder of male genital organs documented in this encounter Additional Health Concerns Assessment Noted Time PHQ-9 Depression Total Score: 11 025 10:41 AM CDT documented as of this encounter Care Teams Cookie Mixer Helper Relationship Specialty Start Date End Date Curtis Holland APRN CNP [address] [place] [address] PCP - General Family Medicine 04/27/25 Lana Pond MD [address] [place] [address]16005 Physician Neurology 05/21/24 [place] [address] [place], [place] 4[address] Pain Medicine 10/06/24 Nola Morris PA-C 909 [facility] 4TH Floor [place], [place] [address] Physician Opto Mechanical Engineer Anesthesiology 12/02/24 Pancho Feng MD 420 [facility] 96 [place] [address] Assigned Neuroscience Provider 01/27/25 Joslyn Gregorio MD [address] [address] Assigned Surgical Provider 01/27/25 Curtis Holland APRN [facility] [address] [address] [place] [address] Assigned PCP 05/06/25 documented as of this encounter
--- OUTSIDE RECORDS SUMMARY | 2025-05-12 02:18 | XMS_ITS | Clinical Summary ---
Author Organization [facility] Address [address] [place] [id number] Care Team Providers Care Tie Tape Machine Operator Name Role Phone Lana Pond MD Unavailable Corinna Florentino MD Unavailable [phone] Nola Morris PA-C Unavailable [phone] Pancho Feng MD Unavailable Joslyn Gregorio MD Unavailable Curtis Holland APRN PAPER REEL OPERATOR Primary Care Provider [phone] Curtis Holland APRN PAPER REEL OPERATOR Unavailable [phone] Allergies Active Allergy Reactions Criticality Noted Date Comments Coconut (Cocos Nucifera) 10/23/2005 Anything with coconut, throat swells and can't breath Medications Omeprazole Magnesium (PRILOSEC OTC PO) Take 20 mg by mouth every morning. Active acetaminophen (TYLENOL) 500 MG tablet Take 1,000 mg by mouth every 6 hours as needed for mild pain ([id number]) . Active cyclobenzaprine (FLEXERIL) 10 MG tabletIndication s:Myofascial pain syndrome Take 1 tablet (10 mg) by mouth 3 times daily as needed for muscle spasms. 90 tablet 2 025 Active citalopram (CELEXA) 20 MG tabletIndication s:Moderate episode of recurrent major depressive disorder (H) TAKE 3 TABLETS BY MOUTH EVERY DAY 270 tablet 025 Active fenofibrate (TRICOR) 48 MG tabletIndication s:Hyperlipidemia with target LDL less than 100 TAKE 1 TABLET BY MOUTH EVERY DAY 90 tablet Active clotrimazole (LOTRIMIN) 1 % external cream Apply topically 2 times daily. To flaky rash 30 g Active amLODIPine (NORVASC) 5 MG tabletIndication s:Essential hypertension Take 1 tablet (5 mg) by mouth daily. 90 tablet 1 Active atorvastatin (LIPITOR) 80 MG tabletIndication s:Hyperlipidemia with target LDL less than 100 Take 1 tablet (80 mg) by mouth daily. 90 tablet 1 Active semaglutide (OZEMPIC) 2 MG/3ML penIndications:T ype 2 diabetes mellitus with peripheral neuropathy (H) Inject 0.25 mg subcutaneously every 7 days for 28 days, THEN 0.5 mg every 7 days. 7.5 mL 2025 Active Continuous Glucose Sensor (BetterFit TechnologiesSTYLE ARYAN 2 PLUS SENSOR) MISCIndications: Type 2 diabetes mellitus with peripheral neuropathy (H) 1 each See Admin Instructions. Use 1 sensor every 15 days. 6 each 5 Active Blood Glucose Monitoring Suppl (ONE TOUCH ULTRA 2) W/DEVICE KITIndications:T ype 2 diabetes, HbA1C goal < 8% (H) Use to test blood sugars 1 times daily or as directed. 1 kit 0 014 2024 Discontinued blood glucose monitoring (ONETOUCH ULTRA) test stripIndications :Diabetes mellitus without complication (H) Use to test blood sugars 3 times daily or as directed. 300 strip 1 018 2024 Discontinued blood glucose monitoring (ONETOUCH VERIO IQ) test stripIndications :Diabetes mellitus without complication (H) Use to test blood sugar 3 times daily or as directed. Ok to substitute alternative if insurance prefers. 100 strip 3 018 2024 Discontinued hydrOXYzine HCl (ATARAX) 50 MG tabletIndication s:Lumbar back pain with radiculopathy affecting right lower extremity Take 1 tablet (50 mg) by mouth every 6 hours as needed for other (adjuvant pain). 30 tablet 025 2024 Discontinued tadalafil (CIALIS) 5 MG tabletIndication s:Erectile dysfunction due to arterial insufficiency Take 1 tablet (5 mg) by mouth every 24 hours. 90 tablet 3 2024 Discontinued tamsulosin (FLOMAX) 0.4 MG capsuleIndicatio ns:Hesitancy of micturition TAKE 1 CAPSULE BY MOUTH EVERY DAY 90 capsule 1 025 2024 Discontinued lisinopril (ZESTRIL) 20 MG tabletIndication s:Essential (primary) hypertension TAKE 1 TABLET BY MOUTH EVERY DAY 90 tablet 1 2024 Discontinued tolterodine ER (DETROL LA) 4 MG 24 hr capsuleIndicatio ns:Congenital stricture of urethra Take 1 capsule (4 mg) by mouth daily. 30 capsule 2024 Discontinued senna-docusate (SENOKOT-S/PERIC OLACE) 8.6-50 MG tabletIndication s:Congenital stricture of urethra Take 1 tablet by mouth daily. 15 tablet 2024 Discontinued magic mouthwash suspension (diphenhydrAMINE , lidocaine, aluminum-magnesi um & simethicone)Berta cations:Congenit al stricture of urethra Swish and swallow 10 mLs in mouth every 6 hours as needed for mouth sores. 240 mL 2024 Discontinued chlorhexidine (PERIDEX) 0.12 % solutionIndicati ons:Congenital stricture of urethra Swish and spit 15 mLs in mouth 2 times daily. 473 mL 2024 Discontinued bacitracin 500 UNIT/GM external ointmentIndicati ons:Congenital stricture of urethra Apply topically 2 times daily. 28.4 g 2024 Discontinued oxyCODONE (ROXICODONE) 5 MG tabletIndication s:Congenital stricture of urethra Take 1 tablet (5 mg) by mouth every 6 hours as needed for severe pain. 6 tablet 2024 Discontinued clotrimazole-bet amethasone (LOTRISONE) 1-0.05 % external creamIndications :Balanitis Apply topically 2 times daily. 15 g 2 025 2024 Discontinued gabapentin (NEURONTIN) 400 MG capsuleIndicatio ns:Chronic midline low back pain without sciatica Take 1 capsule (400 mg) by mouth 3 times daily for 7 days. 21 capsule 025 2024 Discontinued gabapentin (NEURONTIN) 400 MG capsuleIndicatio ns:S/P lumbar fusion Take 1 capsule (400 mg) by mouth 2 times daily for 7 days, THEN 1 capsule (400 mg) daily for 7 days. 21 capsule 025 2024 Discontinued atorvastatin (LIPITOR) 40 MG tabletIndication s:Hyperlipidemia with target LDL less than 100 TAKE 1 TABLET BY MOUTH EVERY DAY 90 tablet 025 2024 Discontinued(R eorder (No AVS)) methylPREDNISolo ne (MEDROL DOSEPAK) 4 MG tablet therapy packIndications: Testicular pain, right Follow Package Directions 21 tablet 2024 Discontinued levofloxacin (LEVAQUIN) 500 MG tablet Take 1 tablet (500 mg) by mouth daily. 9 tablet 2024 Discontinued amLODIPine (NORVASC) 2.5 MG tabletIndication s:Essential hypertension Take 1 tablet (2.5 mg) by mouth daily. 30 tablet 1 2024 Discontinued(R eorder (No AVS)) Continuous Glucose Home Health Care Coordinator (FREESTYLE ARYAN 2 READER) DEVIIndications: Type 2 diabetes mellitus with peripheral neuropathy (H) 1 each once for 1 dose. Use to read blood sugars per factory representative's instructions. 1 each 2024 Active Problems Problem Noted Date Diagnosed Date Pain in right testicle 04/28/2025 Congenital stricture of urethra 10/28/2024 Acute right-sided low back pain with right-sided sciatica 10/08/2024 Right leg weakness 09/29/2024 Lumbar back pain with radicu lopathy affecting right lower extremity 09/29/2024 Type 2 diabetes mellitus with peripheral neuropa thy 04/03/2023 Tendonitis, Achilles, left 04/21/2019 Overview (04/21/2019): Added automatically from request for surgery [id number] Right knee pain, unspecified chronicity 08/13/19 17 [...] Problem Noted Date Diagnosed Date Resolved Date S/P lumbar fusion 10/16/2024 04/13/2025 Rupture of left Achilles tendon 06/16/2019 08/13/2019 [...] Encounters Date Type Department Care Team Description 05/11/2025 9:30 AM SQUIRREL WORKER Office Visit [address] [phone] Curtis Holland APRN CNP Type 2 diabetes mellitus with peripheral neuropathy (H) (Primary Dx); Elevated serum creatinine; Essential hypertension; Hyperlipidemia with target LDL less than 100 05/11/[address] [phone] Curtis Holland APRN PAPER REEL OPERATOR Prior Auth - Medication (Continuous Glucose Home Health Care Coordinator (FREESTYLE ARYAN 2 READER) ULI - EPA DENIED) 05/11/2025 Results Follow-Up [facility] [address] [place] [address] Curtis Holland APRN CNP 05/11/2025 Travel 05/11/2025 Orders Only [facility] [address] [place] [address] Curtis Holland APRN PAPER REEL OPERATOR Elevated serum creatinine (Primary Dx) 05/07/2025 Telephone [facility] Urology [facility] [address] [place] [address] Denice Huston, RN 05/07/2025 MyC Medical Advice [facility] Urology [facility] [address] [place] [address] Denice Huston, RN 05/07/2025 MyC Medical Advice [facility] Urology [facility] [address] [place] [address] Joslyn Gregorio MD 05/06/2025 Telephone [facility] Neurology [facility] - [address], [address] [place] [address] Demi Link PA-C 05/06/2025 MyC Medical Advice [facility] Urology [address] [place] [address] Good Fortune MD 05/05/2025 Telephone [facility]rology [address] [place] [address] Sabrina Ford RN 05/03/2025 Telephone [facility] [address] [place] [address] Sabrina Ford, BRENDAN 05/02/2025 11:40 AM CDT - 05/02/2025 11:59 PM CDT Hospital Encounter [facility] [address] [facility] [address] [place] [phone] Demi Link PA-C S/P lumbar fusion; Right testicular pain Discharge Disposition: Home or Self Care 05/02/2025 Travel 04/28/2025 MyC Medical Advice [facility] Urology [address] [phone] Opal Moran 04/28/2025 Telephone [facility]rology [address] [phone] Good Fortune MD Schedule Surgery (Scheduling) 04/28/2025 Results Follow-Up [facility] Nurse Advisors [facility] [place] [address] Graciela Gutierrez RN 04/28/2025 Results Follow-Up [facility] [address] [place] [phone] Curtis Holland APRN PAPER REEL OPERATOR Subj: Message about your results 04/28/2025 Orders Only [facility] Urology [address] [phone] Good Fortune MD Pain in right testicle (Primary Dx) 04/27/2025 11:00 AM CDT Office Visit [address] [phone] Curtis Holland APRN PAPER REEL OPERATOR Type 2 diabetes mellitus with peripheral neuropathy (H) (Primary Dx); Elevated serum creatinine; Screening for cardiovascular condition; Essential hypertension 04/27/2025 MyC Medical Advice [facility] Urology [address] [phone] Sabrina Ford, BRENDAN 04/27/2025 Travel 04/27/2025 Telephone [facility] Urology [facility] [address] [place] [phone] None Appointment (Patient being referred for second opinion on hematuria per referral received. ) 04/25/2025 8:28 PM CDT - 04/26/2025 12:22 AM CDT Emergency [facility] Emergency Dept [address] [place] [address] Anne Salazar MD Epididymitis (Primary Dx); Microscopic hematuria; Elevated serum creatinine; Tinea cruris; Type 2 diabetes mellitus with peripheral neuropathy (H) Discharge Disposition: Home or Self Care 04/25/2025 Travel 04/23/2025 MyC Medical Advice [facility] Neurosurgery [address] [place] [phone] Demi Link PA-C 04/15/2025 Orders Only [facility] Neurology [address], [address] [place] [phone] Demi Link PA-C S/P lumbar fusion (Primary Dx); Right testicular pain 04/14/2025 MyC Medical Advice [facility] Neurosurgery [address] [place] [phone] Demi Link PA-C 04/13/2025 1:45 PM CDT Ancillary Procedure [facility] Orthopedic [address] [place] [address] Dmei Link PA-C S/P lumbar fusion; Right testicular pain 04/13/2025 1:00 PM CDT Office Visit [facility] Neurosurgery [address] [place] [phone] None Demi Link PA-C S/P lumbar fusion (Primary Dx); Right testicular pain 04/13/2025 12:40 PM CDT Ancillary Procedure [facility] Sports [facility] Orthopedic [address] [place] [address] Pancho Feng MD S/P lumbar fusion 04/13/2025 Travel 04/13/2025 MyC Medical Advice [facility] Urology [place] [address] [place] [address] Joslyn Gregorio MD 04/13/2025 MyC Medical Advice [facility] Urology [address] [phone] Good Fortune MD 04/07/2025 Refill [facility] [address] [place] [address] Aniya Gregorio MD Medication Refill 04/02/2025 10:40 AM CDT Office Visit [facility] Urology [address] [phone] Good Fortune MD Erectile dysfunction, unspecified erectile dysfunction type (Primary Dx); Pain in right testicle; Congenital stricture of urethra; S/P vasectomy; Post-void dribbling 04/02/2025 Travel 03/29/2025 MyC Medical Advice [facility] Urology [place] [address] [place] [phone] Joslyn Gregorio MD 03/20/2025 Refill [facility] [address] [place] [address] Aniya Gregorio MD Medication Refill 03/10/2025 10:30 AM CDT Office Visit [facility] Urology [place] [address] [place] [phone] Joslyn Gregorio MD Pain in right testicle (Primary Dx); Congenital stricture of urethra 03/10/2025 Travel 03/02/2025 PRE VISIT [facility] Urology [address] [phone] Good Fortune MD Pre Visit Planning - Done 02/22/2025 Documentation Only [address] [phone] Pancho Feng MD Forms (Accomodation form- [facility]) 02/15/2025 1:20 PM CDT Therapy Visit [facility] [address] [place] [phone] Guilherme Moran, PT S/P lumbar fusion (Primary Dx) 02/15/2025 Telephone [facility] Urology [facility] [address] [facility] [address] [place] [address] Good Fortune MD 02/15/2025 Travel 02/11/2025 Orders Only [facility] - Surgical Specialties Service Line [address] [place] [phone] Joslyn Gregorio MD Testicular pain, right (Primary Dx) 02/11/2025 MyC Medical Advice [facility] Urology [place] [address] [place] [phone] Joslyn Gregorio MD 02/10/2025 1:05 PM CDT - 02/10/2025 11:59 PM CDT Hospital Encounter [facility] Imaging [address] [facility] [address] [place] [phone] Joslyn Gregorio MD Pain in right testicle Discharge Disposition: Home or Self Care 02/10/2025 MyC Medical Advice [facility] Urology [place] [address] [place] [phone] Joslyn Gregorio MD 02/10/2025 Results Follow-Up [facility] Surgical Specialties Service Line [address] [place] [phone] Joslyn Gregorio MD Subj: Message about your results 02/10/2025 Travel from Last 3 Months Immunizations Immunization Administration Dates Next Due COVID-19 MONOVALENT 12+ (Pfizer) 07/07/2021,05/2 07/2020,11/04/2020 Mantoux Tuberculin Skin Test 08/12/2009 Pneumococcal Conjugate (PCV21) 09/13/2024 TDAP Vaccine (Adacel) 02/27/2019,04/13/2008 Zoster recombinant adjuvanted (Shingrix) 025,09/13/2024 Family History Medical History Relation Comments Colon Cancer Maternal Grandfather Easy Bruising Maternal Uncle easy bleeding C.A.D. Mother Diabetes Mother Easy Bruising Mother easy bleeding Heart Disease Mother Anesthesia Reaction No family hx of Deep Vein Thrombosis (DVT) No family hx of Relation Status Comments Father Unknown Maternal Grandfather Maternal Uncle Alive Mother Alive Social History Tobacco Use Types Packs/Day Years Used Date Smoking Tobacco: Former Cigarettes Q uit: 08/11/2003 Passive Smoke Exposure: Never Smokeless Tobacco: Never Tobacco Cessation:Counseling Given: Not Answered Comments:1 pack every 3-4 days Alcohol Use Standard Drinks/Week Comments Not Currently 0 (1 standard drink = 0.6 oz pur e alcohol) weekends Social Connection and Isolation Panel Answer Date Recorded Frequency of Communication with Friends and Fami ly Not on file 05/20/2024 How often do you get together with friends or re latives? Once a week 05/20/2024 Attends Protestant Services Not on file 05/20 Active Member of Clubs or Organizations Not on f ile 05/20/2024 Attends Club or Organization Meetings Not on devorah e 05/20/2024 Marital Status Not on file 05/20/2024 PHQ-2 Answer Date Recorded PHQ-2 Score 3 04/27/2025 [facility] - Occupational [...] in an abandoned building, in an overnight skilled nursing, or couch-surfing.) Yes 10/08/2024 Are you worried [...] on file Legal Sex Male 3:45 AM SQUIRREL WORKER Gender Identity Not on file Sexual Orientation Not on file Occupation Industry Job Start Date Job End Date 2 Not on file Not on file Not on file Last Filed Vital Signs Vital Sign Reading Time Taken Comments Blood Pressure 130/88 05/11/2025 9:16 AM SQUIRREL WORKER Pulse 79 05/11/2025 9:14 AM SQUIRREL WORKER Temperature 36.6 C (97.9 F) 05/11/2025 9:14 AM SQUIRREL WORKER Respiratory Rate 16 05/11/2025 9:14 AM SQUIRREL WORKER Oxygen Saturation 97% 05/11/2025 9:14 AM SQUIRREL WORKER Inhaled Oxygen Concentration - - Weight 119.6 kg (263 lb 11.2 oz) 05/11/2025 9:14 AM SQUIRREL WORKER Height 190.5 cm (6' 3) 05/11/2025 9:14 AM SQUIRREL WORKER Body Mass Index 32.96 05/11/2025 9:14 AM SQUIRREL WORKER Plan of Treatment Upcoming Encounters Date Type Department Care Team (Latest Contact Info) Description 06/10/2025 11:00 AM SQUIRREL WORKER Lab [facility] Laboratory [address] [place] [phone] 06/14/2025 1:30 PM SQUIRREL WORKER Office Visit [facility] [place] [address] [place] [phone] Joslyn Gregorio MD [address] [facility] [place] [address] 08/16/2025 11:30 AM SQUIRREL WORKER Office Visit [facility] [address] [place] [phone] Curtis Holland APRN [facility] [address] [place], [place] [address] 09/28/2025 8:00 AM CDT Hospital Encounter [address] [place] [phone] Good Fortune MD [address] [place] [address] 09/28/2025 8:00 AM CDT - 09/28/2025 11:15 AM CDT Surgery [address] [place] [phone] Good Fortune MD [address] [place] [phone] RIGHT MICROSURGICAL SPERMATIC CORD DENERVATION, right orchidopexy 10/28/2025 1:20 PM CDT Office Visit [facility] Urology [address] [place] [phone] Good Fortune MD [address] [facility] [address] [place] [address] Scheduled Procedures Name Priority Associated Diagnoses Date/Ti me DENERVATION, SPERMATIC CORD, MICROSURGICAL Pain in right testicle 09/28/2025 8:00 AM CDT Health Maintenance Due Date Last Done Comments ADVANCE CARE PLANNING 1974 CT COLONOGRAPHY 1974 FIT 1974 FLEX SIG 1974 sDNA (Cologuard) 1974 HEPATITIS B VACCINE (1 of 3 - 19+ 3-dose series) 1993 YEARLY PREVENTIVE VISIT 09/09/2011 09/08/2010, 04/13 COVID-19 VACCINE ( season) 2025 07/07/2021, 11/25/2020, 11/04/2020 INFLUENZA VACCINE (#1) 2025 07/15/2019 (Declin ed) EYE EXAM 06/08/2025 06/08/2024, 09/05, 09/01/2022, Additional history exists A1C 10/24/2025 04/25/2025, 03/2 11/2024, 05/23/2024, Additional history exists LIPID 04/25/2026 04/25/2025, 05/08, 08/22/2022, Additional history exists ANNUAL REVIEW OF HM ORDERS 04/27/202604/27, 08/22/2022, 09/18/2021 BMP 05/11/2026 05/11/2025, 04/07, 12/03/2024, Additional history exists DIABETIC FOOT EXAM 05/11/2026 05/11/2025, 1 2024, 08/22/2022, Additional history exists MICROALBUMIN 05/11/2026 05/11/2025, 05/08, 05/17/2022, Additional history exists DTAP/TDAP/TD VACCINE (3 - Td or Tdap) 02/27/2029 02/27/2019, 04/13/2008 COLONOSCOPY 11/09/2030 11/09/2020, 11/2020, 03/05/2012 COLORECTAL CANCER SCREENING 11/09/2030 HEPATITIS C SCREENING Completed 05/09/2015 HIV SCREENING Completed 05/09/2015 PNEUMOCOCCAL VACCINE 50+ YEARS Completed 09/13/2024 ZOSTER VACCINE Addressed 03/24/2025, 03/2025, 07/15/2018 (Declined) Overridden with the intention of not completing the topic HPV VACCINE (No Doses Required) Completed MENINGITIS VACCINE Aged Out No longer eligible based on patient's age to complete this topic Medical Devices Implanted Type Area Tractor Trailer Operator Device Identifier Shelf Expiration Date Model / Serial / Lot Kit Bngf 6cc Dmnr Adam Fbr Accelerate [facility] [id number] - [id number] Implanted:Qty: 1 on 10/16/2024 by Pancho Feng MD at [facility] Bone/Tissu e/Biologic N/A: Spine Lumbar [employer] 08/16/2025 [id number] / [id number] / Kit Bngf 6cc Dmnr Adam Fbr Accelerate [facility] [id number] - [id number] Implanted:Qty: 1 on 10/16/2024 by Pancho Feng MD at [facility] Bone/Tissu e/Biologic N/A: Spine Lumbar [employer] 12/23/2025 [id number] / [id number] / Imp Spacer Spnl [id number] 12d Lg Ti [id number] - [id number] Implanted:Qty: 1 on 10/16/2024 by Pancho Feng MD at [facility] Metallic Hardware/A nchor N/A: Spine Lumbar [employer] [id number] 07/12/2030 [id number] / / [id number] Medtronic Trocar Screw 30mm Implanted:Qty: 2 on 10/16/2024 by Pancho Feng MD at [facility] Metallic Hardware/A nchor N/A: Spine Lumbar [employer] [id number] 05/07/2032 [id number] / / [id number] Medtronic Trocar Screw 30mm Implanted:Qty: 1 on 10/16/2024 by Pancho Feng MD at [facility] Metallic Hardware/A nchor N/A: Spine Lumbar [employer] [id number] 05/07/2032 [id number] / / [id number] Spacer Spnl [id number] ] 12d Med Ti Anteralign Spnl Sys Strl - [id number] Implanted:Qty: 1 on 10/16/2024 by Pancho Feng MD at [facility] Metallic Hardware/A nchor N/A: Spine Lumbar [employer] [id number] 04/16/2032 [id number] / / [id number] Screw Bn 25mm 5mm Alif Antrlgn [id number] - [id number] Implanted:Qty: 3 on 10/16/2024 by Pancho Feng MD at [facility] Metallic Hardware/A nchor N/A: Spine Lumbar [employer] [id number] 05/14/2032 [id number] / / [id number] 4.75x19.1mm Biocomposite Speed Bridge Implanted:Qty: 1 on 05/27/2019 by Luis Ordoñez DPM at [facility] Left: Achilles Tendon [employer] 06/06/2020 [id number] / / [id number] Procedures Procedure Name Priority Date/Time Associated Diagnosis Comments ALBUMIN AND CREATININE WITH RATIO RANDOM URINE QUANTITATIVE STAT 05/11/2025 10:05 AM SQUIRREL WORKER Elevated serum creatinine BASIC METABOLIC PANEL STAT 05/11/2025 9:07 AM SQUIRREL WORKER Elevated serum creatinine MR LUMBAR SPINE W/O & W CONTRAST Routine 05/02/2025 12:55 PM CDT S/P lumbar fusion Right testicular pain URINE CULTURE STAT 04/25/2025 10:56 PM CDT ROUTINE UA WITH MICROSCOPIC REFLEX TO CULTURE STAT 04/25/2025 10:[address] ABDOMEN PELVIS W CONTRAST STAT 04/25/2025 10:17 PM CDT US TESTICULAR AND SCROTUM WITH DOPPLER LIMITED STAT 04/25/2025 10:10 PM CDT CBC WITH PLATELETS AND DIFFERENTIAL (LIMITED OCCURRENCES) STAT 04/25/2025 9:07 PM CDT LIPID REFLEX TO DIRECT LDL PANEL Add-On 04/25/2025 9:07 PM CDT Type 2 diabetes mellitus with peripheral neuropathy (H) HEMOGLOBIN A1C Add-On 04/25/2025 9:07 PM CDT Type 2 diabetes mellitus with peripheral neuropathy (H) EXTRA RED TOP TUBE STAT 04/25/2025 9: 07 PM CDT EXTRA BLUE TOP TUBE STAT 04/25/2025 9 :07 PM CDT CBC WITH PLATELETS AND DIFFERENTIAL STAT 04/25/2025 9:07 PM CDT EXTRA TUBE STAT 04/25/2025 9:07 PM CDT BASIC METABOLIC PANEL (LIMITED OCCURRENCES) STAT 04/25/2025 9:07 PM CDT XR PELVIS 1/2 VIEWS Routine 04/13/2025 1 :50 PM CDT S/P lumbar fusion Right testicular pain XR LUMBAR SPINE 2/3 VIEWS Routine 04/13/2025 12:49 PM CDT S/P lumbar fusion VA MEASURE POST-VOID RESIDUAL URINE/BLADDER CAPACITY, US NON-IMAGING Routine 03/10/2025 Pain in right testicle US TESTICULAR AND SCROTUM WITH DOPPLER LIMITED Routine 02/10/2025 1:32 PM CDT Pain in right testicle EYE EXAM - HIM SCAN Routine 06/08/2024 COLONOSCOPY Routine 11/09/2020 9:12 AM CDT HIV ANTIGEN ANTIBODY COMBO Routine 05/09/2015 11:06 AM SQUIRREL WORKER Screen for STD (sexually transmitted disease) HEPATITIS C ANTIBODY Routine 05/09/2015 11:06 AM SQUIRREL WORKER Screen for STD (sexually transmitted disease) from Last 3 Months or Most Recently Relevant to Health Maintenance Results * Albumin and Creatinine with Ratio Random Urine Quantitative (05/11/2025 10:05 AM SQUIRREL WORKER) Creatinine Urine mg/dL 125.0 mg/dL 05/11/2025 6:36 PM SQUIRREL WORKER [facility] Comment:The reference ranges have not been established in urine creatinine. The results should be integrated into the clinical context for interpretation. Albumin Urine mg/L <12.0 mg/L 2024 6:36 PM SQUIRREL WORKER [facility] Comment:The reference ranges have not been established in urine albumin. The results should be integrated into the clinical context for interpretation. Albumin Urine mg/g Cr 05/11/2025 6:36 PM SQUIRREL WORKER [facility] Comment: Unable to calculate, urine [...] control, and institution of therapy with an ddeltglosle-hspgzaacwj-hqwich (SHALINI) inhibitor (if the patient can tolerate it). Urine MID-STREAM URINE SPECIMEN / Unknown Non-blood Collection / Unknown 05/11/2025 10:05 AM SQUIRREL WORKER 05/11/2025 10:05 AM SQUIRREL WORKER us Curtis Holland APRN PAPER REEL OPERATOR LAB - URINE ORDERABLES Fin al Result U LABORATORY [facility] Core Lab [address] [facility] [address] Building, Room [address] [place] [address] * (ABNORMAL) Basic metabolic panel (Ca, Cl, CO2, Creat, Gluc, K, Na, BUN) (05/11/2025 9:07 AM SQUIRREL WORKER) Sodium (POCT) 135 135 - 145 mmol/L 05/11/2025 9:27 AM SQUIRREL WORKER LABORATORY Potassium (POCT) 4.7 3.4 - 5.3 mmol/L 05/11/2025 9:27 AM SQUIRREL WORKER LV LABORATORY Chloride (POCT) 104 94 - 109 mmol/L 05/11/2025 9:27 AM SQUIRREL WORKER [facility] Carbon Dioxide (CO2) (POCT) 28 22 - 29 mmol/L 05/11/2025 9:27 AM SQUIRREL WORKER [facility] Anion Gap (POCT) 3 3 - 14 mmol/L 05/11/2025 9:27 AM SQUIRREL WORKER LABORATORY Urea Nitrogen (POCT) 26(H) 6 - 20 mg/dL 05/11/2025 9:27 AM SQUIRREL WORKER LABORATORY Creatinine (POCT) 1.20(H) 0.67 - 1.17 mg/dL 05/11/2025 9:27 AM SQUIRREL WORKER LABORATORY GFR Estimate (POCT) 74 >60 mL/min/1.7 3m2 05/11/2025 9:27 AM [facility] Comment:eGFR calculated us2020 CKD-EPI equation. Calcium (POCT) 9.6 8.8 - 10.4 mg/dL 05/11/2025 9:27 AM SQUIRREL WORKER LABORATORY Glucose (POCT) 193(H) 70 - 99 mg/dL 05/11/2025 9:27 AM [facility] Blood BLOOD SPECIMEN / Unknown Venipuncture / Unknown 05/11/2025 9:07 AM SQUIRREL WORKER 05/11/2025 9:07 AM SQUIRREL WORKER Curtis Holland APRN PAPER REEL OPERATOR LAB - BLOOD ORDERABLES Fin al Result LABORATORY [facility] [place] Lab [address] [facility] Lab (no room number, 1st floor of clinic) [place] [address], [facility] * MR Lumbar Spine w/o & w [...] LUMBAR SPINE W/O and W CONTRAST LOCATION: [facility] DATE: 05/02/2025 INDICATION: ongoing right testicular pain [...] LUMBAR SPINE W/O and W CONTRAST LOCATION: [facility] DATE: 05/02/2025 INDICATION: ongoing right testicular pain [...] the inferior lumbar spine. No high-grade canalstenosis. us Demi Link PA-C IMG MRI ORDERABLES Final Res ult * (ABNORMAL) UA with Microscopic reflex to Culture (04/25/2025 10:56 PM CDT) Color Urine Light Yellow Colorless, Straw, Light Yellow, Yellow 04/25/2025 11:28 PM CDT LABORATORY Appearance Urine Clear Clear 04/25/20 11:28 PM CDT [facility] Glucose Urine Negative Negative mg/dL 04/25/2025 11:28 PM CDT [facility] Bilirubin Urine Negative Negative 11:28 PM CDT [facility] Ketones Urine Negative Negative mg/dL 04/25/2025 11:28 PM CDT [facility] LAB[facility]ORY Specific [place] Urine 1.015 1.003 - 1.035 TODD 04/25/2025 [...] 23(H) <=5 /HPF 04/25/2025 11:28 PM CDT [facility] LAB[facility]AT[facility] Squamous Epithelials Urine 7(H) <=1 /HPF 04/25/2025 11:28 PM CDT LABORATORY Hyaline Casts Urine 1 <=2 /LPF 04/25/2025 11:28 PM CDT LABORATORY Urine MID-STREAM URINE SPECIMEN / Unknown Non-blood Collection / Unknown 04/25/2025 10:56 PM CDT 04/25/2025 11:07 PM CDT Narrative LABORATORY - 04/25/2025 11:28 PM CDT Urine Culture ordered based on laboratory criteria us Anne Salazar MD LAB - URINE ORDERABLES Final Result LABORATORY [facility] Acute [facility] Lab [address] [facility] Lab (1st floor, no room number) [place] [address] * Urine Culture (04/25/2025 10:56 PM CDT) Culture <10,000 CFU/mL Mixture of urogenital krysta 04/28/2025 8:25 AM CDT [facility]ORATORY Urine MID-STREAM URINE SPECIMEN / Unknown Non-blood Collection / Unknown 04/25/2025 10:56 PM CDT 04/25/2025 11:28 PM CDT us Anne Salazar MD LAB - MICRO GENERAL ORD ERABLES Final Result [facility] LABORATORY [facility] Inf. Diseases Diag. Lab [address] [facility], [address] [place] [address], [facility] * CT Abdomen Pelvis w Contrast (04/25/2025 [...] EXAM: CT ABDOMEN PELVIS W CONTRAST LOCATION: [facility] DATE: 04/25/2025 INDICATION: hematuria R groin pain [...] EXAM: CT ABDOMEN PELVIS W CONTRAST LOCATION: [facility] DATE: 04/25/2025 INDICATION: hematuria R groin pain [...] w Doppler Ltd (04/25/2025 10:10 PM CDT) Only the most recent of2 resultswithin the time period is included. Anatomical Region Laterality Modality Abdomen/Pelvis Ultrasound 04/25/2025 10:1 0 PM CDT Impressions 04/25/2025 10:42 PM CDT IMPRESSION: 1. Normal ultrasound of the scrotum. Narrative 04/25/2025 10:42 PM CDT EXAM: US TESTICULAR AND SCROTUM WITH DOPPLER LIMITED LOCATION: [facility] DATE: 04/25/2025 INDICATION: right sided pain and [...] TESTICULAR AND SCROTUM WITH DOPPLER LIMITED LOCATION: [facility] DATE: 04/25/2025 INDICATION: right sided pain and [...] IMPRESSION: 1. Normal ultrasound of the scrotum. Anne Salazar MD IMG US ORDERABLES Final Result * Extra Red Top Tube (04/25/2025 9:07 PM CDT) [facility] Signature Hold Specimen [facility] 04/25/2025 10:31 PM CDT LABORATORY Blood BLOOD SPECIMEN / Unknown Venipuncture / Unknown 04/25/2025 9:07 PM CDT 04/25/2025 9:16 PM CDT Anne Salazar MD LAB - BLOOD ORDERABLES Final Result [facility] Lab [address] [facility] Lab (1st floor, no room number) [address] * Extra Blue Top Tube (04/25/2025 9:07 PM CDT) [facility] Specimen [facility] 04/25/2025 10:31 PM CDT LABORATORY Blood BLOOD SPECIMEN / Unknown Venipuncture / Unknown 04/25/2025 9:07 PM CDT 04/25/2025 9:16 PM CDT Anne Salazar MD LAB - BLOOD ORDERABLES Final Result [facility] Lab [address] [facility] Lab (1st floor, no room number) [address] * (ABNORMAL) CBC with platelets and differential (04/25/2025 9:07 PM CDT) [facility] WBC Count 5.97 4.00 - 11.00 10e3/uL 04/25/2025 9:18 PM CDT LABORATORY RBC Count 4.97 4.40 - 5.90 [...] NRBCs <0.03 10e3/uL 04/25/2025 9:18 PM CDT LABORATORY Blood BLOOD SPECIMEN / Unknown Venipuncture / Unknown 04/25/2025 9:07 PM CDT 04/25/2025 9:16 PM CDT us Anne Salazar MD LAB - BLOOD ORDERABLES Final Result LABORATORY [facility] Lab [address] [facility] Lab (1st floor, no room number) [place] [address] * (ABNORMAL) Basic Metabolic Panel (Limited Occurrences) [...] >60 mL/min/1.7 3m2 04/25/2025 9:44 PM CDT LABORATORY Comment:eGFR calculated usin 2020 CKD-EPI equation. Calcium 9.9 8.8 - 10.4 mg/dL 04/25/2025 9:44 PM CDT LABORATORY Glucose 154(H) 70 - 99 mg/dL 04/25/2025 9:44 PM CDT [facility]AT[facility] Blood BLOOD SPECIMEN / Unknown Venipuncture / Unknown 04/25/2025 9:07 PM CDT 04/25/2025 9:16 PM CDT us Anne Salazar MD LAB - BLOOD ORDERABLES Final Result [facility] LABORATORY [facility] [address] Lab (1st floor, no room number) [place] [address], [facility] * (ABNORMAL) Lipid panel reflex to direct [...] mg/dL Very High: >= 220 mg/dL Curtis Holland APRN PAPER REEL OPERATOR LAB - BLOOD ORDERABLES Fin al Result Performing Organization Address City/[facility]/ZIP Co de Phone Number U LABORATORY [facility] [place] Core Lab [address] [facility], Room [address] [place] [address] * (ABNORMAL) HEMOGLOBIN A1C (04/25/2025 [...] CDT 04/25/2025 9:16 PM CDT Curtis Holland APRN PAPER REEL OPERATOR LAB - BLOOD ORDERABLES Fin al Result Performing Organization Address [facility] Co de Phone Number LABORATORY [facility] Lab [address] Lab (1st floor, no room number) [place] [address] * XR Pelvis 1/2 Views (04/13/2025 1:50 PM CDT) Anatomical Region Laterality Modality Abdomen/Pelvis Computed Radiogr aphy 04/13/2025 1:50 PM CDT Impressions 04/15/2025 1:12 PM CDT IMPRESSION: Single view of the pelvis is negative for fracture. Postoperative changes lumbar spine. Both hips negative for fracture with mild degenerative change both hip joints. Narrative 04/15/2025 1:12 PM CDT EXAM: XR PELVIS 1/2 VIEWS LOCATION: [facility] DATE: 04/13/2025 INDICATION: bilateral hip pain, groin pain, right testicular pain. bilateral hip x rays COMPARISON: None. Procedure Note Rubin Jorge MD - 04/15/2025 EXAM: XR PELVIS 1/2 VIEWS LOCATION: [facility] DATE: 04/13/2025 INDICATION: bilateral hip pain, groin pain, right testicular pain.bilateral hip x rays COMPARISON: None. IMPRESSION: Single view of the pelvis is negative for fracture.Postoperative changes lumbar spine. Both hips negative for fracture withmild degenerative change both hip joints. Demi Link PA-C IMG DIAGNOSTIC IMAGING ORDER RADHA Final Result * XR Lumbar Spine 2/3 Views (04/13/2025 [...] EXAM: XR LUMBAR SPINE 2/3 VIEWS LOCATION: [facility] DATE: 04/13/2025 INDICATION: S/P lumbar fusion COMPARISON: 01/06/2025 Procedure Note Jorge L Bourne MD - 04/14/2025 EXAM: XR LUMBAR SPINE 2/3 VIEWS LOCATION: [facility] DATE: 04/13/2025 INDICATION: S/P lumbar fusion COMPARISON: 01/06/2025 IMPRESSION: Postsurgical changes: L4-S1 anterior fusion. No findings to suggesthardware loosening or failure. Alignment: Within normal limits. Vertebral body heights: Maintained. Fracture: No discernible acute fracture. Degenerative changes: Mild degenerative changes with vertebral bodyosteophyte formation, endplate irregularity, and facet arthropathy. Other: Diffuse osseous demineralization. Bilateral hip degenerativechanges. us Pancho Feng MD IMG DIAGNOSTIC IMAGING ORDERA BLES Final Result * MEASURE POST-VOID RESIDUAL URINE/BLADDER CAPACITY, US NON-IMAGING (71799) (03/10/2025) Result 29 us Joslyn Gregorio MD PROCEDURES Final Result * Eye Exam - HIM Scan (06/08/2024) RETINOPATHY UNKNOWN Narrative Austin Keen - 06/08/2024 See encounter dated - 04/27/2025 us Patient Reported OTHER Final Result * COLONOSCOPY (11/09/2020 9:12 AM CDT) COLONOSCOPY [facility] Patient Name: Adiel Holt Procedure Date: 11/09/2020 9:12 AM Date of : 1975 Admit Type: Outpatient Age: 45 Gender: Male Attending MD: Raul Gonzales MD Total Sedation Time: 21_minutes continuous bedside 1:1 Instrument Name: 221 - Adult Colonoscope Procedure: Colonoscopy Indications: Hematochezia Providers: Raul Gonzales MD (Doctor) Referring MD: Thalia R. Helton, CELL ATTENDANT HELPER (Referring MD) Medicines: Midazolam 4 mg IV, Fentanyl 200 micrograms IV Complications: No immediate complications. Procedure: Pre-Anesthesia Assessment: - Prior to the procedure, a History and Physical was performed, and patient medications and allergies were reviewed. The patient is competent. The risks and benefits of the procedure and the sedation options and risks were discussed with the patient. All questions were answered and informed consent was obtained. Patient identification and proposed procedure were verified by the physician in the procedure room. Mental Status Examination: alert and oriented. Airway Examination: normal oropharyngeal airway and neck mobility. Respiratory Examination: clear to auscultation. CV Examination: normal. Prophylactic Antibiotics: The patient does not require prophylactic antibiotics. Prior Anticoagulants: The patient has taken no previous anticoagulant or antiplatelet agents. ASA Grade Assessment: II - A patient with mild systemic disease. After reviewing the risks and benefits, the patient was deemed in satisfactory condition to undergo the procedure. The anesthesia plan was to use moderate sedation / analgesia (conscious sedation). Immediately prior to administration of medications, the patient was re-assessed for adequacy to receive sedatives. The heart rate, respiratory rate, oxygen saturations, blood pressure, adequacy of pulmonary ventilation, and response to care were monitored throughout the procedure. The physical status of the patient was re-assessed after the procedure. After obtaining informed consent, the colonoscope was passed under direct vision. Throughout the procedure, the patient's blood pressure, pulse, and oxygen saturations were monitored continuously. The Olympus Adult Colonoscope, Model # CF-H190L, [place] # 221, SN # [id number] was introduced through the anus and advanced to the cecum, identified by appendiceal orifice and ileocecal valve. The colonoscopy was performed without difficulty. The patient tolerated the procedure well. The quality of the bowel preparation was good. Findings: Hemorrhoids were found on perianal exam. The exam was otherwise without abnormality on direct and retroflexion views. Impression: - Hemorrhoids found on perianal exam. - The examination was otherwise normal on direct and retroflexion views. - No specimens collected. Recommendation: - Use sugar-free Metamucil one teaspoon PO BID PRN. - Repeat colonoscopy in 10 years for screening purposes. Procedure Code(s): --- Professional --- 89804, Colonoscopy, flexible; diagnostic, including collection of specimen(s) by brushing or washing, when performed (separate procedure) Diagnosis Code(s): --- Professional --- K92.1, Melena (includes Hematochezia) K64.9, Unspecified hemorrhoids CPT copyright 2019 [employer]. All rights reserved. The codes documented in this report are preliminary and upon surgical coder review may be revised to meet current compliance requirements. Electronically signed by Raul Gonzales MD __ Raul Gonzales MD 11/09/2020 10:00:58 AM I was physically present for the entire viewing portion of the exam. Raul Gonzales MD Number of Addenda: 0 Note Initiated On: 11/09/2020 9:12 AM Procedure Date: 11/09/2020 9:12:33 AM Scope Withdrawal Time: 0 hours 6 minutes 9 seconds Total Procedure Duration: 0 hours 20 minutes 15 seconds Estimated Blood Loss: Scope In: 9:29:08 AM Scope Out: 9:49:23 AM RADIOLOGY RESULTS 11/09/2020 9:12 AM CDT Thalia Helton PHOTOGRAPHIC COLORIST PAPER REEL OPERATOR PROCEDURES Fin al Result RADIOLOGY RESULTS * HIV Antigen Antibody Combo (05/09/2015 11:06 AM SQUIRREL WORKER) HIV Antigen Antibody Combo Nonreactive HIV-1 p24 Ag & HIV-1/HIV-2 Ab Not Detected NR [facility] Blood specimen (specimen) 05/09/2015 11:06 AM SQUIRREL WORKER 05/09/2015 11:11 AM SQUIRREL WORKER Thalia Helton PHOTOGRAPHIC COLORIST PAPER REEL OPERATOR LAB - BLOOD ORDERAB LES Final Result [facility] [address] [place] [address] * Hepatitis C antibody (05/09/2015 11:06 AM SQUIRREL WORKER) Hepatitis C Antibody Nonreactive Assay performance characteristics have not been established for newborns, infants, and children NR [facility] Blood specimen (specimen) 05/09/2015 11:06 AM SQUIRREL WORKER 05/09/2015 11:11 AM SQUIRREL WORKER Thalia Helton PHOTOGRAPHIC COLORIST PAPER REEL OPERATOR LAB - BLOOD ORDERAB LES Final Result [facility] [address] [place] [address] from Last 3 Months or Most Recently Relevant to Health Maintenance Insurance [facility] [employer] [facility] [employer] [place] [address] [employer] on file Advance Directives For more information, please contact: [phone] * Full Code (Latest Code Status on File) Date Activated Date Inactivated Comments 10/16/2024 3:32 PM 10/19/2024 4:32 PM All basic an d advanced life-sustaining interventions are performed as appropriate Question Answer Comments Code status determined by: Discussion with patie nt/ legal decision maker * Full Code Date Activated Date Inactivated Comments 10/08/2024 2:42 AM 10/10/2024 4:02 PM All basic and advanced life-sustaining interventions are performed as appropriate Question Answer Comments Code status determined by: Discussion with patie nt/ legal decision maker * Full Code Date Activated Date Inactivated Comments 09/29/2024 8:25 PM 10/03/2024 3:03 PM All basic an d advanced life-sustaining interventions are performed as appropriate Question Answer Comments Code status determined by: Discussion with patie nt/ legal decision maker * Full Code Date Activated Date Inactivated Comments 10/07/2012 5:32 PM 10/10/2012 2:42 PM Care Teams Tie Tape Machine Operator Relationship Specialty Start Date End Date Curtis Holland APRN CNP [address] [place] [address] PCP - General Family Medicine 04/27/25 Lana Pond MD [address] [place] [address] Physician Neurology 05/21/24 [place] [address] [place] [address] Pain Medicine 10/06/24 Nola Morris PA-C [address] [facility] 4TH Floor [place], [place] [address] Physician Production Painter Anesthesiology 12/02/24 Pancho Feng MD [address] [facility] 96 [place], [place] [address] Assigned Neuroscience Provider 01/27/25 Joslyn Gregorio MD [address] [place] [address] Assigned Surgical Provider 01/27/25 Curtis Holland APRN PAPER REEL OPERATOR [address] [place] [address] Assigned PCP 05/06/25
--- OUTSIDE RECORDS SUMMARY | 2025-05-12 02:18 | XMS_ITS | Encounter Summary ---
Author Organization [facility] Address [address] [place] [address] Care Team Providers Care Abatement Worker Name Role Phone Lana Pond MD Unavailable Corinna Florentino MD Unavailable [phone] Nola Morris PA-C Unavailable [phone] Pancho Feng MD Unavailable Joslyn Gregorio MD Unavailable Curtis Holland APRN PRESIDENT Primary Care Provider [phone] Curtis Holland APRN PRESIDENT Unavailable Encounter Details Date Type Department Care Team (Late st Contact Info) Description 05/06/[address] [facility] Neurology Clinics [address], [address] [place] [address] Demi Link PA-C [facility] [address] [place] [id number] Social History Tobacco Use Types Packs/Day Years [...] Answer Date Recorded PHQ-2 Score 3 04/27/2025 [facility] Occupational Stress Questionnaire Answer Date [...] in an overnight usp, or couch-surfing.) Yes 10/08/2024 Are you worried [...] on file Legal Sex Male 3:45 AM BATCH MIXER OPERATOR Gender Identity Not on file Sexual Orientation Not on file Occupation Industry Job Start Date Job End Date 2 Not on file Not on file Not on file documented as of this encounter Miscellaneous Notes * Telephone Encounter - Demi Link PA-C - 05/06/2025 8:25 PM CDT Called patient this AM MRI reviewed with DR. Feng. No structural findings that would explain patient symptoms. No neurosurgical intervention indicated. Agree with management per Dr. Gregorio. Further work letters per Dr. Gregorio. Updated team to have Dr. Feng sign prior paperwork from surgery. Patient in agreement Demi Link PA-C [facility] Neurosurgery [address] [facility] [address] [place] [address] Text page via [employer] Paging/Directory documented in this encounter Plan of Treatment Upcoming Encounters Date Type Department Care Team (Latest Contact Info) Description 06/10/2025 11:00 AM BATCH MIXER OPERATOR Lab [facility] Laboratory [address] [place] [phone] 06/14/2025 1:30 PM BATCH MIXER OPERATOR Office Visit [facility] Urology Clinic [facility] [address] [facility] [address] [place] [phone] Joslyn Gregorio MD [address] [facility] [place] [address] 08/16/2025 11:30 AM BATCH MIXER OPERATOR Office Visit [facility] [address] [place] [address] Curtis Holland APRN PRESIDENT [address] [place] [address] 09/28/2025 8:00 AM CDT Hospital Encounter [facility] [place] [address] [facility] 5th [place] [phone] Good Fortune MD 420 [facility] [address] [place] [address] 09/28/2025 8:00 AM CDT - 09/28/2025 11:15 AM CDT Surgery [facility] [place] [address] [facility] 5th [place] [phone] Good Fortune MD [address] [address] RIGHT MICROSURGICAL SPERMATIC CORD DENERVATION, right orchidopexy 10/28/2025 1:20 PM CDT Office Visit [facility] Urology Clinic [place] [address] [facility] [address] [place] [phone] Good Fortune MD [address] [address] Scheduled Procedures Name Priority Associated Diagnoses Date/Ti me DENERVATION, SPERMATIC CORD, MICROSURGICAL Pain in right testicle 09/28/2025 8:00 AM CDT documented as of this encounter Visit Diagnoses Not on filedocumented in this encounter Additional Health Concerns Assessment Noted Time PHQ-9 Depression Total Score: 11 025 10:41 AM CDT documented as of this encounter Care Teams Abatement Worker Relationship Specialty Start Date End Date Curtis Holland APRN PRESIDENT [address] [place] [address] PCP - General Family Medicine 04/27/25 Lana Pond MD [address] [place] [address] Physician Neurology 05/21/24 [place] [address] [place] [address] Pain Medicine 10/06/24 Nola Morris PA-C [address] [facility] 4TH Floor [place], [place] [address] Physician Trench Trimmer Fine Anesthesiology 12/02/24 Pancho Feng MD 420 [facility] [address] [place], [place] [phone] Assigned Neuroscience Provider 01/27/25 Joslyn Gregorio MD [address] [place] [address] Assigned Surgical Provider 01/27/25 Curtis Holland APRN PRESIDENT [address] [place] [address] Assigned PCP 05/06/25 documented as of this encounter
--- OUTSIDE RECORDS SUMMARY | 2025-05-12 02:18 | XMS_ITS | Encounter Summary ---
Author Organization [place] Address [address] [place] [address] Care Team Providers Care Reception Centre Manager Name Role Phone Lana Pond MD Unavailable [phone] Jarad Dickinson MD Unavailable Unavailable Corinna Florentino MD Unavailable [phone] Nola Morris PA-C Unavailable + [phone] Pancho Feng MD Unavailable [phone] Joslyn Gregorio MD Unavailable [phone] Curtis Holland APRN [facility] Primary Care Provider [phone] Encounter Details Date Type Department Care Team (Late st Contact Info) Description 05/05/2025 [facility] [address] 4th [place] [address] Sabrina Ford, RN Social History [...] re latives? Once a week 05/20/2024 Attends Tenriism Services Not on file 05/20 Active Member of Clubs or Organizations Not on f ile 05/20/2024 Attends Club or Organization Meetings Not on devorah e 05/20/2024 Marital Status Not on file 05/20/2024 PHQ-2 Answer Date Recorded PHQ-2 Score 3 04/27/2025 [facility] of Occupat ional Health - Occupational Stress [...] on file Legal Sex Male 3:45 AM TWISTER DOFFER Gender Identity Not on file Sexual Orientation Not on file Occupation Industry Job Start Date Job End Date 2 Not on file Not on file Not on file documented as of this encounter Miscellaneous Notes * Telephone Encounter - Sabrina Ford RN - 05/05/2025 10:47 AM CDT Spoke with Victorino Meyer) about faxing over records for review Sabrina Ford RN, BSN, PHN Tobacco Educator [facility] * Telephone Encounter - Sabrina Ford RN - 05/05/2025 10:47 AM CDT ----- Message from Opal Patrick [...] (Latest Contact Info) Description 06/10/2025 11:00 AM TWISTER DOFFER [facility] [address] [place] [address] 06/14/2025 1:30 PM TWISTER DOFFER Office Visit [facility] [place] [address] [place] [phone] Joslyn Gregorio MD [address] [place] [address] 08/16/2025 11:30 AM TWISTER DOFFER Office Visit [facility] [address] [place] [phone] Curtis Holland APRN DISC PAD KNOCKOUT WORKER [address] [place] [address] 09/28/2025 8:00 AM CDT Hospital Encounter [facility] [address] [place] [address] 5th [place] [phone] Good Fortune MD [address] [place] [address] 09/28/2025 8:00 AM CDT - 09/28/2025 11:15 AM CDT Surgery [facility] [address] [place] [address] 5th [place] [phone] Good Fortune MD [address] [place] [address] RIGHT MICROSURGICAL SPERMATIC CORD DENERVATION, right orchidopexy 10/28/2025 1:20 PM CDT Office Visit [facility] [address] 4th [place] [address] Good Fortune MD [address] [place] [address] Scheduled Procedures Name Priority Associated Diagnoses Date/Ti me DENERVATION, SPERMATIC CORD, MICROSURGICAL Pain in right testicle 09/28/2025 8:00 AM CDT documented as of this encounter Visit Diagnoses Not on filedocumented in this encounter Additional Health Concerns Assessment Noted Time PHQ-9 Depression Total Score: 11 025 10:41 AM CDT documented as of this encounter Care Teams Reception Centre Manager Relationship Specialty Start Date End Date Curtis Holland APRN DISC PAD KNOCKOUT WORKER [address] [place] [address] PCP - General Family Medicine 04/27/25 Lana Pond MD [address] [place] [address]295 Physician Neurology 05/21/24 Jarad Dickinson MD Assigned PCP 05/30/24 05/05/25 [place] [address] [place] [address] Pain Medicine 10/06/24 Nola Morris PA-C 909 [facility] 4TH Floor [place], [place] [address] Physician Sterile Supply Technician Anesthesiology 12/02/24 Pancho Feng MD 420 [facility] 96 [place], [place] [address] Assigned Neuroscience Provider 01/27/25 Joslyn Gregorio MD [address] [address]255 Assigned Surgical Provider 01/27/25 documented as of this encounter
--- OUTSIDE RECORDS SUMMARY | 2025-05-12 02:18 | XMS_ITS | Encounter Summary ---
Author Organization [place] Address [address] [place] [address] Care Team Providers Care Pretzel Cooker Name Role Phone Lana Pond MD Unavailable Corinna Florentino MD Unavailable [phone] Nola Morris PA-C Unavailable [phone] Pancho Feng MD Unavailable [phone] Joslyn Gregorio MD Unavailable [phone] Curtis Holland APRN DRAY TRUCK DRIVER Primary Care Provider [phone] Curtis Holland APRN DRAY TRUCK DRIVER Unavailable Encounter Details Date Type Department Care Team (Late st Contact Info) Description 05/06/2025 [facility] Medical Advice [facility] [address] 4th [place] [address] Good Fortune MD 420 [facility] 394 [place], [place] [address] Social History Tobacco Use Types Packs/Day Years [...] re latives? Once a week 05/20/2024 Attends Congregation Services Not on file 05/20 Active Member of Clubs or Organizations Not on f ile 05/20/2024 Attends Club or Organization Meetings Not on devorah e 05/20/2024 Marital Status Not on file 05/20/2024 PHQ-2 Answer Date Recorded PHQ-2 Score 3 04/27/2025 [facility] of Occupat ional [facility] - Occupational Stress Questionnaire Answer Date Recorded [...] Legal Sex Male 3:45 AM ENTRY LEVEL SOFTWARE DEVELOPER Gender Identity Not on file Sexual Orientation Not on file Occupation Industry Job Start Date Job End Date 2 Not on file Not on file Not on file documented as of this encounter Plan of Treatment Upcoming Encounters Date Type Department Care Team (Latest Contact Info) Description 06/10/2025 11:00 AM ENTRY LEVEL SOFTWARE DEVELOPER Lab [facility] [address] [place] [address] 06/14/2025 1:30 PM ENTRY LEVEL SOFTWARE DEVELOPER Office Visit [facility] [place] [address] [place] [address] Joslyn Gregorio MD [address] [place] [address] 08/16/2025 11:30 AM ENTRY LEVEL SOFTWARE DEVELOPER Office Visit [address] [address] Curtis Holland APRN [facility] [address] [place] [address] 09/28/2025 8:00 AM CDT Hospital Encounter [address] 5th [place] [address] Good Fortune MD [address] [place] [address] 5699[address] 09/28/2025 8:00 AM CDT - 09/28/2025 11:15 AM CDT Surgery [facility] [address] [place] [address] 5th [place] [phone] Good Fortune MD [address] [place] [address] 394 [place], [place] [address] RIGHT MICROSURGICAL SPERMATIC CORD DENERVATION, right orchidopexy 10/28/2025 1:20 PM CDT Office Visit [facility] [address] [phone] Good Fortune MD [address] [place] [address] 394 [place] [address] Scheduled Procedures Name Priority Associated Diagnoses Date/Ti me DENERVATION, SPERMATIC CORD, MICROSURGICAL Pain in right testicle 09/28/2025 8:00 AM CDT documented as of this encounter Visit Diagnoses Not on filedocumented in this encounter Additional Health Concerns Assessment Noted Time PHQ-9 Depression Total Score: 11 025 10:41 AM CDT documented as of this encounter Care Teams Pretzel Cooker Relationship Specialty Start Date End Date Curtis Holland APRN DRAY TRUCK DRIVER [address] [place] [address] PCP - General Family Medicine 04/27/25 Lana Pond MD [address] [place] [address] Physician Neurology 05/21/24 [place] [address] [place] [address] Pain Medicine 10/06/24 Nola Morris PA-C [address] [place] [address] Physician Spray Machine Tender Anesthesiology 12/02/24 Pancho Feng MD 420 [facility] 96 [place] [address] Assigned Neuroscience Provider 01/27/25 Joslyn Gregorio MD [address] [place] [address] Assigned Surgical Provider 01/27/25 Curtis Holland APRN DRAY TRUCK DRIVER [address] [place] [address] Assigned PCP 05/06/25 documented as of this encounter
--- OUTSIDE RECORDS SUMMARY | 2025-05-12 02:18 | XMS_ITS | Encounter Summary ---
Author Organization [place] Address [address] [place] [address] Care Team Providers Care Residence Supervisor Name Role Phone Lana Pond MD Unavailable [phone] Corinna Florentino MD Unavailable [phone] Nola Morris PA-C Unavailable + [phone] Pancho Feng MD Unavailable [phone] Joslyn Gregorio MD Unavailable [phone] Curtis Holland APRN HIDE DYER Primary Care Provider Curtis Holland APRN HIDE DYER Unavailable [phone] Encounter Details Date Type Department Care Team (Latest Contact Info) Description 05/11/2025 Travel Social History Tobacco Use Types Packs/Day [...] Answer Date Recorded PHQ-2 Score 3 04/27/2025 [facility] of Occupat ional [facility] - Occupational Stress Questionnaire Answer [...] an abandoned building, in an overnight senior care, or couch-surfing.) Yes 10/08/2024 Are you worried [...] on file Legal Sex Male 3:45 AM HEALTH SAFETY SPECIALIST Gender Identity Not on file Sexual Orientation Not on file Occupation Industry Job Start Date Job End Date 2 Not on file Not on file Not on file documented as of this encounter Plan of Treatment Upcoming Encounters Date Type Department Care Team (Latest Contact Info) Description 06/10/2025 11:00 AM HEALTH SAFETY SPECIALIST Lab [facility] [address] [place] [address] 06/14/2025 1:30 PM HEALTH SAFETY SPECIALIST Office Visit [facility] [place] [address] [place] [phone] Joslyn Gregorio MD [address] [place] [address] 08/16/2025 11:30 AM HEALTH SAFETY SPECIALIST Office Visit [facility] [address] [place] [address] Curtis Holland APRN HIDE DYER [address] [place] [address] 09/28/2025 8:00 AM CDT Hospital Encounter [address] [phone] Good Fortune MD [address] [place] [address] 09/28/2025 8:00 AM CDT - 09/28/2025 11:15 AM CDT Surgery [address] 5th [place] [address] Good Fortune MD [address] [place] [address] RIGHT MICROSURGICAL SPERMATIC CORD DENERVATION, right orchidopexy 10/28/2025 1:20 PM CDT Office Visit [facility] [place] 909 [facility] 4th [place] [phone] Good Fortune MD 420 [facility] 394 [place] [address] Scheduled Procedures Name Priority Associated Diagnoses Date/Ti me DENERVATION, SPERMATIC CORD, MICROSURGICAL Pain in right testicle 09/28/2025 8:00 AM CDT documented as of this encounter Visit Diagnoses Not on filedocumented in this encounter Additional Health Concerns Assessment Noted Time PHQ-9 Depression Total Score: 11 025 10:41 AM CDT documented as of this encounter Care Teams Residence Supervisor Relationship Specialty Start Date End Date Curtis Holland APRN HIDE DYER [address] [place] [address] PCP - General Family Medicine 04/27/25 Lana Pond MD [address] [place] [address] Physician Neurology 05/21/24 [place] [address] [place] [address] Pain Medicine 10/06/24 Nola Morris PA-C [address] [place] [address] Physician Drug Safety Coordinator Anesthesiology 12/02/24 Pancho Feng MD 420 [facility] 96 [place] [address] Assigned Neuroscience Provider 01/27/25 Joslyn Gregorio MD [address] [address] Assigned Surgical Provider 01/27/25 Curtis Holland APRN [facility] [address] [address] [place] [address] Assigned PCP 05/06/25 documented as of this encounter
--- OUTSIDE RECORDS SUMMARY | 2025-05-12 02:18 | XMS_ITS | Encounter Summary ---
Author Organization [place] Address [address] [place] [address]. [place] [address] Care Team Providers Care Reeling And Tubing Machine Operator Name Role Phone Lana Pond MD Unavailable Jarad Dickinson MD Unavailable Unavailable Corinna Florentino MD Unavailable [phone] Nola Morris PA-C Unavailable + [phone] Pancho Feng MD Unavailable [phone] Joslyn Gregorio MD Unavailable Curtis Holland APRN BACK HAND Primary Care Provider [phone] Curtis Holland APRN BACK HAND Unavailable Reason for Visit * Reason Onset Date Comments Appointment 04/27/2025 Patient being re ferred for second opinion on hematuria per referral received. Encounter Details Date Type Department Care Team (Late st Contact Info) Description 04/27/2025 [facility] [place] [address] [facility] [address] [place] [address] None Appointment (Patient being referred for second opinion on hematuria per referral received. ) Social History Tobacco Use Types Packs/Day [...] re latives? Once a week 05/20/2024 Attends Judaism Services Not on file 05/20 Active Member of Clubs or Organizations Not on f ile 05/20/2024 Attends Club or Organization Meetings Not on devorah e 05/20/2024 Marital Status Not on file 05/20/2024 PHQ-2 Answer Date Recorded PHQ-2 Score 3 04/27/2025 [facility] of Occupat ional Health - [...] on file Legal Sex Male 3:45 AM ELIGIBILITY COUNSELOR Gender Identity Not on file Sexual Orientation Not on file Occupation Industry Job Start Date Job End Date 2 Not on file Not on file Not on file documented as of this encounter Miscellaneous Notes * Telephone Encounter - Elmira Noe - 04/27/2025 9:40 AM CDT [facility] Call Center Phone Message May a detailed message be left on voicemail: yes Reason for Call: Other: Spoke with Pt - he states that he wants to speak with another provider (Isabel) about his testicular pain and the procedure that was discussed with him. When I told him thatI needed to send a message over if he wants to change providers, he said forget it and hung up. Patient states that he was told to help with the pain a procedure called the Urethroplasty could bedone that would deaden the nerve. He wants to speak with another provider about this to get their opinion before he moves forward. Please reach out to Pt to discuss. Thank you! Action Taken: Other: [facility] Travel Screening: Not Applicable Date of Service: documented in this encounter Plan of Treatment Upcoming Encounters Date Type Department Care Team (Latest Contact Info) Description 06/10/2025 11:00 AM ELIGIBILITY COUNSELOR Lab [facility] [address] [place] [address] 06/14/2025 1:30 PM ELIGIBILITY COUNSELOR Office Visit [facility] [place] [address] [place] [phone] Joslyn Gregorio MD [address] [address] 08/16/2025 11:30 AM ELIGIBILITY COUNSELOR Office Visit [facility] [address] [place] [phone] Curtis Holland APRN BACK HAND [address] [place] [address] 09/28/2025 8:00 AM CDT Hospital Encounter [facility] [address] [place] [address] 5th [place] [phone] Good Fortune MD [address] [place] [address] 394 [place], [place] [address] 09/28/2025 8:00 AM CDT - 09/28/2025 11:15 AM CDT Surgery [facility] 909 [facility] 5th [place] [address] Good Fortune MD [address] [place] [address] 394 [place] [address] RIGHT MICROSURGICAL SPERMATIC CORD DENERVATION, right orchidopexy 10/28/2025 1:20 PM CDT Office Visit [facility] [place] [address] [place] [address] 4th [place] [address] Good Fortune MD [address] [place] [address] Scheduled Procedures Name Priority Associated Diagnoses Date/Ti me DENERVATION, SPERMATIC CORD, MICROSURGICAL Pain in right testicle 09/28/2025 8:00 AM CDT documented as of this encounter Visit Diagnoses Not on filedocumented in this encounter Additional Health Concerns Assessment Noted Time PHQ-9 Depression Total Score: 11 04/27/ 025 10:41 AM CDT documented as of this encounter Care Teams Reeling And Tubing Machine Operator Relationship Specialty Start Date End Date Curtis Holland APRN BACK HAND [address] [place] [address] PCP - General Family Medicine 04/27/25 Lana Pond MD 500 [place] [address] Physician Neurology 05/21/24 Jarad Dickinson MD Assigned PCP 05/30/24 05/05/25 [place] [address] [place] [address] Pain Medicine 10/06/24 Nola Morris PA-C 909 [facility] 4TH Floor [place], [place] [address] Physician Pocket Setter Anesthesiology 12/02/24 Pancho Feng MD [address] [place] [address] 96 [place], [place] [address] Assigned Neuroscience Provider 01/27/25 Joslyn Gregorio MD [address] [place] [address] Assigned Surgical Provider 01/27/25 Curtis Holland APRN BACK HAND [address] [place] [address] Assigned PCP 05/06/25 documented as of this encounter
--- OUTSIDE RECORDS SUMMARY | 2025-05-12 02:18 | XMS_ITS | Encounter Summary ---
Author Organization [place] Address [address] [place] [address] Care Team Providers Care Remittance Clerk Name Role Phone Lana Pond MD Unavailable Jarad Dickinson MD Unavailable Unavailable Corinna Florentino MD Unavailable [phone] Nola Morris PA-C Unavailable [phone] Pancho Feng MD Unavailable Joslyn Gregorio MD Unavailable [phone] No Ref-Primary, Physician Primary Care Provider Curtis Holland APRN SALESPERSON TRAILERS AND MOTOR HOMES Primary Care Provider [phone] Curtis Hollnad APRN SALESPERSON TRAILERS AND MOTOR HOMES Unavailable [phone] Encounter Details Date Type Department Care Team (Late st Contact Info) Description 04/23/2025 [facility] Medical Advice [facility]surgery Clinic [address] [place] [address] Demi Link PA-C [facility] [address] [place] [address] Social History Tobacco Use Types Packs/Day [...] re latives? Once a week 05/20/2024 Attends Restorationism Services Not on file 05/20 Active Member of Clubs or Organizations Not on f ile 05/20/2024 Attends Club or Organization Meetings Not on devorah e 05/20/2024 Marital Status Not on file 05/20/2024 PHQ-2 Answer Date Recorded PHQ-2 Score 3 04/27/2025 [facility] of Occupat ional Health - [...] on file Legal Sex Male 3:45 AM TOWER EQUIPMENT REPAIRER Gender Identity Not on file Sexual Orientation Not on file Occupation Industry Job Start Date Job End Date 2 Not on file Not on file Not on file documented as of this encounter Miscellaneous Notes * Telephone Encounter - Mary Lou Amado - 05/06/2025 10:09 AM CDT Images from the original note were not included. Faxed OV notes that customer collections representative at [facility] had requested to [phone]. RightFax confirmed at 10:03 AM. Will update patient via [employer]. Mary Lou Amado * Telephone Encounter - Patricia Toro RN - 05/06/2025 8:38 AM CDT Demi Link PA-C states: Spoke with Sony. He was hoping Dr. Feng could sign his paperwork he has been waiting for benefitsfrom his surgery. Updated him further work letters should come from Dr. Gregorio office as MRI looks good with no structural evidence to explain his symptoms Patient in agreement SM was sent to [facility] completing forms and MG nurse where Dr. Feng is today. * Telephone Encounter - Patricia Toro RN - 05/04/2025 12:08 PM CDT Pt called in thinking he had an appt on 05/14/2025 with Demi Link PA-C. Looks like POC was: - hip xr - lumbar mri - work letter for 1 month (pt states he has not worked in over a year) through 05/14. No appt made or canceled on 05/14, Demi Link PA-C is not even in clinic. Updated pt this maybe is stemming from the date on the work letter. Regardless, routed message to Demi Link PA-C to review XR and MRI with Dr. Feng and Dr. Gregorio per her documentation on 04/14. Will update pt with POC once we hear back. * Telephone Encounter - Mary Lou Amado - 04/28/2025 2:53 PM CDT Spoke with collections representative at [facility] 04/28/25 to inquire about forms that are needed. Tray Service Worker provided collections representative with clinic fax number. [employer] stated she would fax again. [employer] informed service writer advisor that the fax is a request for OV notes for pts most recent visit with Neurosurgery. documented in this encounter Plan of Treatment Upcoming Encounters Date Type Department Care Team (Latest Contact Info) Description 06/10/2025 11:00 AM TOWER EQUIPMENT REPAIRER Lab [facility] [address] [place] [address] 06/14/2025 1:30 PM TOWER EQUIPMENT REPAIRER Office Visit [facility] [address] [place] [address] Joslyn Gregorio MD [address] [place] [address] 08/16/2025 11:30 AM TOWER EQUIPMENT REPAIRER Office Visit [facility] [address] [place] [address] Curtis Holland APRN [facility] [address] [place] [address] 09/28/2025 8:00 AM CDT Hospital Encounter [facility] [place] [address] [facility] 5th [place] [phone] Good Fortune MD 420 [facility] 394 [place] [address] 09/28/2025 8:00 AM CDT - 09/28/2025 11:15 AM CDT Surgery [facility] [place] [address] 5th [place] [address] Good Fortune MD 420 [facility] 394 [place], [place] [address] RIGHT MICROSURGICAL SPERMATIC CORD DENERVATION, right orchidopexy 10/28/2025 1:20 PM CDT Office Visit [facility] [address] 4th [place] [address] Good Fortune MD [address] [place] [address] 394 [place], [place] [address] Scheduled Procedures Name Priority Associated Diagnoses Date/Ti me DENERVATION, SPERMATIC CORD, MICROSURGICAL Pain in right testicle 09/28/2025 8:00 AM CDT documented as of this encounter Visit Diagnoses Not on filedocumented in this encounter Additional Health Concerns Assessment Noted Time PHQ-9 Depression Total Score: 2 05/20/20 3:48 PM TOWER EQUIPMENT REPAIRER documented as of this encounter Care Teams Remittance Clerk Relationship Specialty Start Date End Date No Ref-Primary, Physician PCP - General 04/25/25 04/26/25 Curtis Holland APRN SALESPERSON TRAILERS AND MOTOR HOMES [address] [place] [address] PCP - General Family Medicine 04/27/25 Lana Pond MD [address] [place] [address] Physician Neurology 05/21/24 Jarad Dickinson MD Assigned PCP 05/30/24 05/05/25 [place] [address] [place] [address] Pain Medicine 10/06/24 Nola Morris PA-C 909 [facility] 4TH [place] [address] Physician Computer Systems Software Engineer Anesthesiology 12/02/24 Pancho Feng MD 420 [facility] 96 [place] [address] Assigned Neuroscience Provider 01/27/25 Joslyn Gregorio MD [address] [place] [address] Assigned Surgical Provider 01/27/25 Curtis Holland APRN SALESPERSON TRAILERS [employer] MOTOR HOMES [address] [place] [address] Assigned PCP 05/06/25 documented as of this encounter
--- OUTSIDE RECORDS SUMMARY | 2025-05-12 02:18 | XMS_ITS | Encounter Summary ---
Author Organization [place] Address [address] [place] [address] Care Team Providers Care Roofing Machine Operator Name Role Phone Lana Pond MD Unavailable Corinna Florentino MD Unavailable [phone] Nola Morris PA-C Unavailable [phone] Pancho Feng MD Unavailable [phone] Joslyn Gregorio MD Unavailable [phone] Curtis Holland APRN DIRECTOR OF HEALTH CARE MARKETING Primary Care Provider [phone] Curtis Holland APRN DIRECTOR OF HEALTH CARE MARKETING Unavailable [phone] Encounter Details Date Type Department Care Team (Late st Contact Info) Description 05/11/2025 Results Follow-Up [address] [address] Curtis Holland APRN DIRECTOR OF HEALTH CARE MARKETING [address] [place] [address] Social History Tobacco Use Types Packs/Day Years [...] re latives? Once a week 05/20/2024 Attends Sikhism Services Not on file 05/20 Active Member of Clubs or Organizations Not on f ile 05/20/2024 Attends Club or Organization Meetings Not on devorah e 05/20/2024 Marital Status Not on file 05/20/2024 PHQ-2 Answer Date Recorded PHQ-2 Score 3 04/27/2025 [facility]at [facility] - Occupational Stress Questionnaire Answer [...] on file Legal Sex Male 3:45 AM WOODS WARDEN Gender Identity Not on file Sexual Orientation Not on file Occupation Industry Job Start Date Job End Date 2 Not on file Not on file Not on file documented as of this encounter Plan of Treatment Upcoming Encounters Date Type Department Care Team (Latest Contact Info) Description 06/10/2025 11:00 AM WOODS WARDEN Lab [facility] [address] [place] [address] 06/14/2025 1:30 PM WOODS WARDEN Office Visit [facility] [place] [address] [place] [address] Joslyn Gregorio MD [address] [place] [address] 08/16/2025 11:30 AM WOODS WARDEN Office Visit [address] [address] Curtis Holland APRN [facility] [address] [place] [address] 09/28/2025 8:00 AM CDT Hospital Encounter [address] 5th [place] [address] Good Fortune MD [address] [place] [address] 09/28/2025 8:00 AM CDT - 09/28/2025 11:15 AM CDT Surgery [facility] [address] [place] [address] 5th [place] [phone] Good Fortune MD [address] [place] [address] 394 [place], [place] [address] RIGHT MICROSURGICAL SPERMATIC CORD DENERVATION, right orchidopexy 10/28/2025 1:20 PM CDT Office Visit [facility] [address] [phone] Good Fortune MD [address] [place] [address] 394 [place] [address] Scheduled Procedures Name Priority Associated Diagnoses Date/Ti me DENERVATION, SPERMATIC CORD, MICROSURGICAL Pain in right testicle 09/28/2025 8:00 AM CDT documented as of this encounter Visit Diagnoses Not on filedocumented in this encounter Additional Health Concerns Assessment Noted Time PHQ-9 Depression Total Score: 11 025 10:41 AM CDT documented as of this encounter Care Teams Roofing Machine Operator Relationship Specialty Start Date End Date Curtis Holland APRN DIRECTOR OF HEALTH CARE MARKETING [address] [place] [address] PCP - General Family Medicine 04/27/25 Lana Pond MD [address] [place] [address] 919785 Physician Neurology 05/21/24 [place] [address] [place] [address] Pain Medicine 10/06/24 Nola Morris PA-C [address] [place] [address] Physician Drywall Applicator Anesthesiology 12/02/24 Pancho Feng MD 420 [facility] 96 [place] [address] Assigned Neuroscience Provider 01/27/25 Joslyn Gregorio MD [address] [place] [address] Assigned Surgical Provider 01/27/25 Curtis Holland APRN DIRECTOR OF HEALTH CARE MARKETING [address] [place] [address] Assigned PCP 05/06/25 documented as of this encounter
--- OUTSIDE RECORDS SUMMARY | 2025-05-12 02:18 | XMS_ITS | Encounter Summary ---
Author Organization [place] Address [address] [place] [address] Care Team Providers Care Electrical Journeyman Name Role Phone Lana Pond MD Unavailable Corinna Florentino MD Unavailable [phone] Nola Morris PA-C Unavailable [phone] Pancho Feng MD Unavailable Joslyn Gregorio MD Unavailable Curtis Holland PERFECT BINDER SETTER GOLD BEATER Primary Care Provider [phone] Curtis Holland APRN GOLD BEATER Unavailable Reason for Visit * Reason Onset Date Comments Prior Auth - Medication 05/11/2025 Continuo us Glucose Sales Manager [place] (FREESTYLE ARYAN 2 READER) ULI - EPA DENIED Encounter Details Date Type Department Care Team (Late st Contact Info) Description 05/11/2025 [facility] [address] [place] [address] Curtis Holland APRN GOLD BEATER [address] [place] [address] Prior Auth - Medication (Continuous Glucose Sales Manager [place] (FREESTYLE ARYAN 2 READER) ULI - EPA DENIED) Social History Tobacco Use Types Packs/Day Years [...] Recorded PHQ-2 Score 3 04/27/2025 [facility] - Occupational Stress Questionnaire Answer Date [...] on file Legal Sex Male 3:45 AM MEDICINE AIDE Gender Identity Not on file Sexual Orientation Not on file Occupation Industry Job Start Date Job End Date 2 Not on file Not on file Not on file documented as of this encounter Plan of Treatment Upcoming Encounters Date Type Department Care Team (Latest Contact Info) Description 06/10/2025 11:00 AM MEDICINE AIDE Lab [facility] Laboratory [address] [place] [phone] 06/14/2025 1:30 PM MEDICINE AIDE Office Visit [facility] [place] [address] [place] [phone] Joslyn Gregorio MD [address] [place] [address] 08/16/2025 11:30 AM MEDICINE AIDE Office Visit [facility] [address] [place] [address] Curtis Holland APRN [facility] [address] [place] [address] 09/28/2025 8:00 AM CDT Hospital Encounter [facility] [address] [facility] [address] 5th [place] [phone] Good Fortune MD 420 [facility] 394 [place], [place] [address] 09/28/2025 8:00 AM CDT - 09/28/2025 11:15 AM CDT Surgery [facility] [address] [place] [address] 5th [place] [phone] Good Fortune MD 420 [facility] 394 [place], [place] [address] RIGHT MICROSURGICAL SPERMATIC CORD DENERVATION, right orchidopexy 10/28/2025 1:20 PM CDT Office Visit [facility] [place] [address] [place] [address] 4th [place] [phone] Good Fortune MD 420 [facility] 394 [place], [place] 6[address] Scheduled Procedures Name Priority Associated Diagnoses Date/Ti me DENERVATION, SPERMATIC CORD, MICROSURGICAL Pain in right testicle 09/28/2025 8:00 AM CDT documented as of this encounter Visit Diagnoses Not on filedocumented in this encounter Additional Health Concerns Assessment Noted Time PHQ-9 Depression Total Score: 11 025 10:41 AM CDT documented as of this encounter Care Teams Electrical Journeyman Relationship Specialty Start Date End Date Curtis Holland APRN CNP [address] [place] [address] PCP - General Family Medicine 04/27/25 Lana Pond MD [address] [place] [address] Physician Neurology 05/21/24 [place] [address] [place] [address] Pain Medicine 10/06/24 Nola Morris PA-C 909 [facility] 4TH [place] [address] Physician R Programmer Anesthesiology 12/02/24 Pancho Feng MD 420 [facility] 96 [place] [address] Assigned Neuroscience Provider 01/27/25 Joslyn Gregorio MD [address] [place] [address] Assigned Surgical Provider 01/27/25 Curtis Holland APRN GOLD BEATER [address] [place] [address] Assigned PCP 05/06/25 documented as of this encounter
--- OUTSIDE RECORDS SUMMARY | 2025-05-12 02:19 | XMS_ITS | Encounter Summary ---
Author Organization [place] Address [address] [place] [address] Care Team Providers Care Piano Regulator Name Role Phone Lana Pond MD Unavailable Jarad Dickinson MD Unavailable Unavailable Corinna Florentino MD Unavailable [phone] Nola Morris PA-C Unavailable + [phone] Pancho Feng MD Unavailable [phone] Joslyn Gregorio MD Unavailable Curtis Holland APRN MOTOCROSS RACER Primary Care Provider [phone] Curtis Holland APRN MOTOCROSS RACER Unavailable Encounter Details Date Type Department Care Team (Late st Contact Info) Description 04/27/2025 MyC Medical Advice [facility] [address] 4th [place] [address] Sabrina Ford, RN Social History [...] re latives? Once a week 05/20/2024 Attends Church Services Not on file 05/20 Active Member of Clubs or Organizations Not on f ile 05/20/2024 Attends Club or Organization Meetings Not on devorah e 05/20/2024 Marital Status Not on file 05/20/2024 PHQ-2 Answer Date Recorded PHQ-2 Score 3 04/27/2025 [facility]at [facility] - Occupational [...] on file Legal Sex Male 3:45 AM WELT POCKET MACHINE OPERATOR Gender Identity Not on file Sexual Orientation Not on file Occupation Industry Job Start Date Job End Date 2 Not on file Not on file Not on file documented as of this encounter Plan of Treatment Upcoming Encounters Date Type Department Care Team (Latest Contact Info) Description 06/10/2025 11:00 AM WELT POCKET MACHINE OPERATOR Lab [facility] Laboratory [address] [place] [phone] 06/14/2025 1:30 PM WELT POCKET MACHINE OPERATOR Office Visit [facility] [place] [address] [place] [address] Joslyn Gregorio MD [address] [place] [address] 08/16/2025 11:30 AM WELT POCKET MACHINE OPERATOR Office Visit [facility] [address] [place] [phone] Curtis Holland APRN [facility] [address] [place] [address] 09/28/2025 8:00 AM CDT Hospital Encounter [address] 5th [place] [phone] Good Fortune MD [address] [place] [address] 394 [place] [address] 09/28/2025 8:00 AM CDT - 09/28/2025 11:15 AM CDT Surgery [facility] [address] [place] [address] 5th [place] [address] Good Fortune MD 420 [facility] 394 [place] [address] RIGHT MICROSURGICAL SPERMATIC CORD DENERVATION, right orchidopexy 10/28/2025 1:20 PM CDT Office Visit [facility] [address] [phone] Good Fortune MD 420 [facility] 394 [place] [address] Scheduled Procedures Name Priority Associated Diagnoses Date/Ti me DENERVATION, SPERMATIC CORD, MICROSURGICAL Pain in right testicle 09/28/2025 8:00 AM CDT documented as of this encounter Visit Diagnoses Not on filedocumented in this encounter Additional Health Concerns Assessment Noted Time PHQ-9 Depression Total Score: 11 025 10:41 AM CDT documented as of this encounter Care Teams Piano Regulator Relationship Specialty Start Date End Date Curtis Holland APRN [facility] [address] [place] [address] PCP - General Family Medicine 04/27/25 Lana Pond MD [address] [place] [address] Physician Neurology 05/21/24 Jarad Dickinson MD Assigned PCP 05/30/24 05/05/25 [place] [address] [place] [address] Pain Medicine 10/06/24 Nola Morris PA-C [address] [place] [address] Physician School Library Media Program Director Anesthesiology 12/02/24 Pancho Feng MD 420 [facility] 96 [place] [address] Assigned Neuroscience Provider 01/27/25 Joslyn Gregorio MD [address] [place] [address] Assigned Surgical Provider 01/27/25 Curtis Holland APRN MOTOCROSS RACER [address] [place] [address] Assigned PCP 05/06/25 documented as of this encounter
--- OUTSIDE RECORDS SUMMARY | 2025-05-12 02:19 | XMS_ITS | Encounter Summary ---
Author Organization [facility] Address [address] [place] [address] Care Team Providers Care Tank Inspector Name Role Phone Lana Pond MD Unavailable [phone] Jarad Dickinson MD Unavailable Unavailable Corinna Florentino MD Unavailable [phone] Nola Morris PA-C Unavailable [phone] Pancho Feng MD Unavailable [phone] Joslyn Gregorio MD Unavailable [phone] No Ref-Primary, Physician Primary Care Provider Encounter Details Date Type Department Care Team (Latest Contact Info) Description 04/25/2025 Travel Social History Tobacco Use Types Packs/Day [...] re latives? Once a week 05/20/2024 Attends Scientologist Services Not on file 05/20 Active Member of Clubs or Organizations Not on f ile 05/20/2024 Attends Club or Organization Meetings Not on devorah e 05/20/2024 Marital Status Not on file 05/20/2024 PHQ-2 Answer Date Recorded PHQ-2 Score 2 04/02/2025 [facility] [place] of Occupat ional Health - Occupational Stress [...] on file Legal Sex Male 3:45 AM RACEBOOK WRITER Gender Identity Not on file Sexual Orientation Not on file Occupation Industry Job Start Date Job End Date 2 Not on file Not on file Not on file documented as of this encounter Plan of Treatment Upcoming Encounters Date Type Department Care Team (Latest Contact Info) Description 06/10/2025 11:00 AM RACEBOOK WRITER Lab [facility] Laboratory [address] [place] [address] 06/14/2025 1:30 PM RACEBOOK WRITER Office Visit [facility] [place] [address] [place] [phone] Joslyn Gregorio MD [address] [place] [address] 08/16/2025 11:30 AM RACEBOOK WRITER Office Visit [facility] [address] [place] [address] Curtis Holland APRN INFECTION CONTROL MANAGER [address] [place] [address] 09/28/2025 8:00 AM CDT Hospital Encounter [address] 5th [place] [phone] Good Fortune MD [address] [place] [address] 09/28/2025 8:00 AM CDT - 09/28/2025 11:15 AM CDT Surgery [address] 5th [place] [phone] Good Fortune MD [address] [place] [address] RIGHT MICROSURGICAL SPERMATIC CORD DENERVATION, right orchidopexy 10/28/2025 1:20 PM CDT Office Visit [facility] [address]th [place] [phone] Good Fortune MD [address] [place] [address] 394 [place], [place] [address] Scheduled Procedures Name Priority Associated Diagnoses Date/Ti me DENERVATION, SPERMATIC CORD, MICROSURGICAL Pain in right testicle 09/28/2025 8:00 AM CDT documented as of this encounter Visit Diagnoses Not on filedocumented in this encounter Additional Health Concerns Assessment Noted Time PHQ-9 Depression Total Score: 2 05/20/20 3:48 PM RACEBOOK WRITER documented as of this encounter Care Teams Tank Inspector Relationship Specialty Start Date End Date No Ref-Primary, Physician PCP - General 04/25/25 04/26/25 Lana Pond MD [address] [place] [address] 323885 Physician Neurology 05/21/24 Jarad Dickinson MD Assigned PCP 05/30/24 05/05/25 [place] [address] [place], [place] [address] Pain Medicine 10/06/24 Nola Morris PA-C [address] [place] [address] 599015 Physician Siene Maker Anesthesiology 12/02/24 Pancho Feng MD [address] [place] [address] 96 [place], [place] 5[address] Assigned Neuroscience Provider 01/27/25 Joslyn Gregorio MD [address] [place] [address] Assigned Surgical Provider 01/27/25 documented as of this encounter
--- OUTSIDE RECORDS SUMMARY | 2025-05-12 02:19 | XMS_ITS | Encounter Summary ---
Author Organization [place] Address [address] [place] [address] Care Team Providers Care English As A Second Language Teacher Name Role Phone Lana Pond MD Unavailable [phone] Jarad Dickinson MD Unavailable Unavailable Corinna Florentino MD Unavailable [phone] Nola Morris PA-C Unavailable [phone] Pancho Feng MD Unavailable [phone] Joslyn Gregorio MD Unavailable [phone] Curtis Holland APRN HAT BLOCK MAKER Primary Care Provider [phone] Encounter Details Date Type Department Care Team (Latest Contact Info) Description 05/02/2025 Travel Social History Tobacco Use Types Packs/Day [...] re latives? Once a week 05/20/2024 Attends Jainism Services Not on file 05/20 Active Member of Clubs or Organizations Not on f ile 05/20/2024 Attends Club or Organization Meetings Not on devorah e 05/20/2024 Marital Status Not on file 05/20/2024 PHQ-2 Answer Date Recorded PHQ-2 Score 3 04/27/2025 [facility] - Occupational Stress [...] on file Legal Sex Male 3:45 AM BEAUTY SCHOOL INSTRUCTOR Gender Identity Not on file Sexual Orientation Not on file Occupation Industry Job Start Date Job End Date 2 Not on file Not on file Not on file documented as of this encounter Plan of Treatment Upcoming Encounters Date Type Department Care Team (Latest Contact Info) Description 06/10/2025 11:00 AM BEAUTY SCHOOL INSTRUCTOR Lab [facility] [address] [place] [address] 06/14/2025 1:30 PM BEAUTY SCHOOL INSTRUCTOR Office Visit [facility] [address] [place] [phone] Joslyn Gregorio MD [address] [place] [address] 08/16/2025 11:30 AM BEAUTY SCHOOL INSTRUCTOR Office Visit [facility] [address] [place] [phone] Curtis Holland APRN HAT BLOCK MAKER [address] [place] [address] 09/28/2025 8:00 AM CDT Hospital Encounter [address] [phone] Good Fortune MD [address] [place] [address] 09/28/2025 8:00 AM CDT - 09/28/2025 11:15 AM CDT Surgery [address] 5th [place] [phone] Good Fortune MD [address] [place] [address] RIGHT MICROSURGICAL SPERMATIC CORD DENERVATION, right orchidopexy 10/28/2025 1:20 PM CDT Office Visit [facility] Urology [address] 4th [place] [phone] Good Fortune MD [address] [place] [address] 394 [place], [place] 66[address] Scheduled Procedures Name Priority Associated Diagnoses Date/Ti me DENERVATION, SPERMATIC CORD, MICROSURGICAL Pain in right testicle 09/28/2025 8:00 AM CDT documented as of this encounter Visit Diagnoses Not on filedocumented in this encounter Additional Health Concerns Assessment Noted Time PHQ-9 Depression Total Score: 11 025 10:41 AM CDT documented as of this encounter Care Teams English As A Second Language Teacher Relationship Specialty Start Date End Date Curtis Holland APRN CNP [address] [place] [address] PCP - General Family Medicine 04/27/25 Lana Pond MD [address] [place] [address] 625685 Physician Neurology 05/21/24 Jarad Dickinson MD Assigned PCP 05/30/24 05/05/25 [place] [address] [place] [address] Pain Medicine 10/06/24 Nola Morris PA-C [address] [place] [address] Physician Cell Phone Repair Technician Anesthesiology 12/02/24 Pancho Feng MD [address] [place] [address] 96 [place] [address] Assigned Neuroscience Provider 01/27/25 Joslyn Gregorio MD [address] [place] [address] Assigned Surgical Provider 01/27/25 documented as of this encounter
--- OUTSIDE RECORDS SUMMARY | 2025-05-12 02:19 | XMS_ITS | Encounter Summary ---
Author Organization [facility] Address [address] [place] [address] Care Team Providers Care Caustic Plant Worker Name Role Phone Jarad Dickinson MD Primary Care Provider Unavailab Lana Sequeira MD Unavailable [phone] Jarad Dickinson MD Unavailable Unavailable Corinna Florentino MD Unavailable [phone] Nola Morris PA-C Unavailable + [phone] Pancho Feng MD Unavailable [phone] Joslyn Gregorio MD Unavailable [phone] Encounter Details Date Type Department Care Team (Latest Contact Info) Description 04/13/2025 Travel Social History Tobacco Use Types Packs/Day [...] re latives? Once a week 05/20/2024 Attends Anglican Services Not on file 05/20 Active Member of Clubs or Organizations Not on f ile 05/20/2024 Attends Club or Organization Meetings Not on devorah e 05/20/2024 Marital Status Not on file 05/20/2024 PHQ-2 Answer Date Recorded PHQ-2 Score 2 04/02/2025 [facility] [place] [facility] of Occupat ional Health - Occupational Stress [...] on file Legal Sex Male 3:45 AM LABOR STANDARDS DIRECTOR Gender Identity Not on file Sexual Orientation Not on file Occupation Industry Job Start Date Job End Date 2 Not on file Not on file Not on file documented as of this encounter Plan of Treatment Upcoming Encounters Date Type Department Care Team (Latest Contact Info) Description 06/10/2025 11:00 AM LABOR STANDARDS DIRECTOR Lab [facility] [address] [place] [address] 06/14/2025 1:30 PM LABOR STANDARDS DIRECTOR Office Visit [facility] [place] [address] [place] [phone] Joslyn Gregorio MD [address] [place] [address] 08/16/2025 11:30 AM LABOR STANDARDS DIRECTOR Office Visit [address] [phone] Curtis Holland APRN [facility] [address] [place] [address] 09/28/2025 8:00 AM CDT Hospital Encounter [address]th [place] [phone] Good Fortune MD [address] [place] [address] 09/28/2025 8:00 AM CDT - 09/28/2025 11:15 AM CDT Surgery [facility] [address] [place] [address] 5th [place] [phone] Good Fortune MD [address] [place] [address] RIGHT MICROSURGICAL SPERMATIC CORD DENERVATION, right orchidopexy 10/28/2025 1:20 PM CDT Office Visit [facility] [address]th [place] [phone] Good Fortune MD 420 [facility] 394 [place] [address] Scheduled Procedures Name Priority Associated Diagnoses Date/Ti me DENERVATION, SPERMATIC CORD, MICROSURGICAL Pain in right testicle 09/28/2025 8:00 AM CDT documented as of this encounter Visit Diagnoses Not on filedocumented in this encounter Additional Health Concerns Assessment Noted Time PHQ-9 Depression Total Score: 2 05/20/20 3:48 PM LABOR STANDARDS DIRECTOR documented as of this encounter Care Teams Caustic Plant Worker Relationship Specialty Start Date End Date Jarad Dickinson MD PCP - General Internal Medicine 05/20/24 04/13/25 Lana Pond MD [address] [place] [address] Physician Neurology 05/21/24 Jarad Dickinson MD Assigned PCP 05/30/24 05/05/25 [place] [address] [place] [address] Pain Medicine 10/06/24 Nola Morris PA-C 909 [facility] 4TH [place] [address] Physician Candy Counter Clerk Anesthesiology 12/02/24 Pancho Feng MD 420 [facility] 96 [place] [address] Assigned Neuroscience Provider 01/27/25 Joslyn Gregorio MD [address] [place] [address] Assigned Surgical Provider 01/27/25 documented as of this encounter
--- OUTSIDE RECORDS SUMMARY | 2025-05-12 02:19 | XMS_ITS | Encounter Summary ---
Author Organization [place] Address [address] [place] [address] Care Team Providers Care Professor Of Management Name Role Phone Lana Pond MD Unavailable [phone] Jarad Dickinson MD Unavailable Unavailable Corinna Florentino MD Unavailable [phone] Nola Morris PA-C Unavailable + [phone] Pancho Feng MD Unavailable [phone] Joslyn Gregorio MD Unavailable [phone] Curtis Holland APRN SENIOR PHYSICAL THERAPIST Primary Care Provider [phone] Curtis Holland APRN SENIOR PHYSICAL THERAPIST Unavailable Encounter Details Date Type Department Care Team (Late st Contact Info) Description 04/28/2025 Results Follow-Up [facility] [address] [place] [address] Graciela Gutierrez RN Social History Tobacco Use Types Packs/Day [...] re latives? Once a week 05/20/2024 Attends Taoist Services Not on file 05/20 Active Member of Clubs or Organizations Not on f ile 05/20/2024 Attends Club or Organization Meetings Not on devorah e 05/20/2024 Marital Status Not on file 05/20/2024 PHQ-2 Answer Date Recorded PHQ-2 Score 3 04/27/2025 [facility] - Occupational Stress Questionnaire [...] in an overnight prison, or couch-surfing.) Yes 10/08/2024 Are you worried [...] on file Legal Sex Male 3:45 AM PLASTER MAKER Gender Identity Not on file Sexual Orientation Not on file Occupation Industry Job Start Date Job End Date 2 Not on file Not on file Not on file documented as of this encounter Plan of Treatment Upcoming Encounters Date Type Department Care Team (Latest Contact Info) Description 06/10/2025 11:00 AM PLASTER MAKER Lab [facility] [address] [place] [phone] 06/14/2025 1:30 PM PLASTER MAKER Office Visit [facility] [place] [address] [place] [address] Joslyn Gregorio MD [address] [place] [address] 08/16/2025 11:30 AM PLASTER MAKER Office Visit [address] [phone] Curtis Holland APRN SENIOR PHYSICAL THERAPIST [address] [place] [address] 09/28/2025 8:00 AM CDT Hospital Encounter [address] [place] [phone] Good Fortune MD [address] [address] 09/28/2025 8:00 AM CDT - 09/28/2025 11:15 AM CDT Surgery [address] [place] [address] Good Fortune MD 420 [facility] 394 [place] [address] RIGHT MICROSURGICAL SPERMATIC CORD DENERVATION, right orchidopexy 10/28/2025 1:20 PM CDT Office Visit [facility] [place] [address] [phone] Good Fortune MD [address] [place] [address] 394 [place] [address] Scheduled Procedures Name Priority Associated Diagnoses Date/Ti me DENERVATION, SPERMATIC CORD, MICROSURGICAL Pain in right testicle 09/28/2025 8:00 AM CDT documented as of this encounter Visit Diagnoses Not on filedocumented in this encounter Additional Health Concerns Assessment Noted Time PHQ-9 Depression Total Score: 11 025 10:41 AM CDT documented as of this encounter Care Teams Professor Of Management Relationship Specialty Start Date End Date Curtis Holland APRN SENIOR PHYSICAL THERAPIST [address] [place] [address] PCP - General Family Medicine 04/27/25 Lana Pond MD [address] [place] [address] Physician Neurology 05/21/24 Jarad Dickinson MD Assigned PCP 05/30/24 05/05/25 [place] [address] [place] [address] Pain Medicine 10/06/24 Nola Morris PA-C [address] [place] [address] Physician Nurse Substance Abuse Anesthesiology 12/02/24 Pancho Feng MD [address] [place] [address] 96 [place] [address] Assigned Neuroscience Provider 01/27/25 Joslyn Gregorio MD [address] [place] [address] Assigned Surgical Provider 01/27/25 Curtis Holland APRN SENIOR PHYSICAL THERAPIST [address] [place] [address] Assigned PCP 05/06/25 documented as of this encounter
--- OUTSIDE RECORDS SUMMARY | 2025-05-12 02:19 | XMS_ITS | Encounter Summary ---
Author Organization [place] Address [address] [place] [address] Care Team Providers Care Steam Locomotive Firer/Fireman Name Role Phone Lana Pond MD Unavailable Jarad Dickinson MD Unavailable Unavailable Corinna Florentino MD Unavailable [phone] Nola Morris PA-C Unavailable + [phone] Pancho Feng MD Unavailable [phone] Joslyn Gregorio MD Unavailable [phone] Curtis Holland APRN SECURITY SYSTEM ANALYST Primary Care Provider [phone] Curtis Holland APRN SECURITY SYSTEM ANALYST Unavailable Encounter Details Date Type Department Care Team (Late st Contact Info) Description 04/28/2025 [facility] Medical Advice [facility] [address] 4th [place] [address] Opal Moran Social History Tobacco Use Types Packs/Day Years [...] Answer Date Recorded PHQ-2 Score 3 04/27/2025 [facility]at ional Health [...] file Legal Sex Male 3:45 AM SUPERVISOR REINFORCED STEEL PLACING Gender Identity Not on file Sexual Orientation Not on file Occupation Industry Job Start Date Job End Date 2 Not on file Not on file Not on file documented as of this encounter Plan of Treatment Upcoming Encounters Date Type Department Care Team (Latest Contact Info) Description 06/10/2025 11:00 AM SUPERVISOR REINFORCED STEEL PLACING Lab [facility] [address] [place] [address] 06/14/2025 1:30 PM SUPERVISOR REINFORCED STEEL PLACING Office Visit [facility] [place] [address] [place] [address] Joslyn Gregorio MD [address] [place] [address] 08/16/2025 11:30 AM SUPERVISOR REIN[employer]CED STEEL PLACING Office Visit [address] [phone] Curtis Holland APRN [facility] [address] [place] [address] 09/28/2025 8:00 AM CDT Hospital Encounter [address]th [place] [phone] Good Fortune MD 420 [facility] 394 [place], [place] [address] 09/28/2025 8:00 AM CDT - 09/28/2025 11:15 AM CDT Surgery [facility] [address] [place] [address] 5th [place] [address] Good Fortune MD [address] [address] RIGHT MICROSURGICAL SPERMATIC CORD DENERVATION, right orchidopexy 10/28/2025 1:20 PM CDT Office Visit [facility] [place] [address] [phone] Good Fortune MD [address] [place] [address] 4614[address] Scheduled Procedures Name Priority Associated Diagnoses Date/Ti me DENERVATION, SPERMATIC CORD, MICROSURGICAL Pain in right testicle 09/28/2025 8:00 AM CDT documented as of this encounter Visit Diagnoses Not on filedocumented in this encounter Additional Health Concerns Assessment Noted Time PHQ-9 Depression Total Score: 11 025 10:41 AM CDT documented as of this encounter Care Teams Steam Locomotive Firer/Fireman Relationship Specialty Start Date End Date Curtis Holland APRN SECURITY SYSTEM ANALYST [address] [place] [address] PCP - General Family Medicine 04/27/25 Lana Pond MD [address] [place] [address] Physician Neurology 05/21/24 Jarad Dickinson MD Assigned PCP 05/30/24 05/05/25 [place] [address] [place] [address] Pain Medicine 10/06/24 Nola Morris PA-C [address] [place] [address] Physician Lpn Rn Hospice Anesthesiology 12/02/24 Pancho Feng MD 420 [facility] 96 [place] [address] Assigned Neuroscience Provider 01/27/25 Joslyn Gregorio MD 6363 [place] [address] Assigned Surgical Provider 01/27/25 Curtis Holland APRN SECURITY SYSTEM ANALYST [address] [place] [address] Assigned PCP 05/06/25 documented as of this encounter
--- OUTSIDE RECORDS SUMMARY | 2025-05-12 02:19 | XMS_ITS | Encounter Summary ---
Author Organization [place] Address [address] [place] [address] Care Team Providers Care Vocational Nursing Instructor Name Role Phone Lana Pond MD Unavailable [phone] Jarad Dickinson MD Unavailable Unavailable Corinna Florentino MD Unavailable [phone] Nola Morris PA-C Unavailable [phone] Pancho Feng MD Unavailable [phone] Joslyn Gregorio MD Unavailable [phone] Curtis Holland APRN [facility] Primary Care Provider [phone] Encounter Details Date Type Department Care Team (Late st Contact Info) Description 04/28/2025 [facility] Only [facility] [place] [address] 4th [place] [address] Good Fortune MD 420 [facility] 394 [place] [address] Pain in right testicle (Primary Dx) Social History Tobacco Use Types [...] re latives? 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 Gender Identity Not on file Sexual Orientation Not on file Occupation Industry Job Start Date Job End Date 2 Not on file Not on file Not on file documented as of this encounter Progress Notes * Good Fortune MD - 04/28/2025 11:06 AM CDT Case request placed for right microscopic denervation of the spermatic cord, right orchiodopexy documented in this encounter Plan of Treatment Upcoming Encounters Date Type Department Care Team (Latest Contact Info) Description 06/10/2025 11:00 AM DESIZING MACHINE OFFBEARER Lab [facility] Laboratory [address] [place] [address] 06/14/2025 1:30 PM DESIZING MACHINE OFFBEARER Office Visit [facility] [place] [address] [place] [phone] Joslyn Gregorio MD 2[address] [facility] [place] [address] 08/16/2025 11:30 AM DESIZING MACHINE OFFBEARER Office Visit [facility] [address] [place] [address] Curtis Holland APRN [facility] [address] [place] [address] 09/28/2025 8:00 AM CDT Hospital Encounter [address] 5th [place] [address] Good Fortune MD [address] [place] [address] 394 [place] [address] 09/28/2025 8:00 AM CDT - 09/28/2025 11:15 AM CDT Surgery [facility] [place] [address] 5th [place] [address] Good Fortune MD [address] [place] [address] 394 [place], [place] 245[address] RIGHT MICROSURGICAL SPERMATIC CORD DENERVATION, right orchidopexy 10/28/2025 1:20 PM CDT Office Visit [facility] [address] 4th [place] [address] Good Fortune MD [address] [place] [address] 394 [place], [place] 322165 Scheduled Procedures Name Priority Associated Diagnoses Date/Ti me DENERVATION, SPERMATIC CORD, MICROSURGICAL Pain in right testicle 09/28/2025 8:00 AM CDT documented as of this encounter Visit Diagnoses Diagnosis Pain in right testicle- Primary Unspecified disorder of male genital organs Pain in right testicle Unspecified disorder of male genital organs documented in this encounter Additional Health Concerns Assessment Noted Time PHQ-9 Depression Total Score: 11 025 10:41 AM CDT documented as of this encounter Care Teams Vocational Nursing Instructor Relationship Specialty Start Date End Date Curtis Holland APRN [facility] [address] [place] [address] PCP - General Family Medicine 04/27/25 Lana Pond MD [address] [place] [address] Physician Neurology 05/21/24 Jarad Dickinson MD Assigned PCP 05/30/24 05/05/25 [place] [address] [place] [address] Pain Medicine 10/06/24 Nola Morris PA-C [address] [facility] 4TH [address] [place], [place] [address] Physician Forensic Document Examiner Anesthesiology 12/02/24 Pancho Feng MD 420 [facility] 96 [place], [place] 9[address] Assigned Neuroscience Provider 01/27/25 Joslyn Gregorio MD [address] [place] [address] Assigned Surgical Provider 01/27/25 documented as of this encounter
--- OUTSIDE RECORDS SUMMARY | 2025-05-12 02:19 | XMS_ITS | Encounter Summary ---
Author Organization [place] Address [address] [place] [address] Care Team Providers Care Associate Dean Name Role Phone Lana Pond MD Unavailable [phone] Jarad Dickinson MD Unavailable Unavailable Corinna Florentino MD Unavailable [phone] Nola Morris PA-C Unavailable + [phone] Pancho Feng MD Unavailable [phone] Joslyn Gregorio MD Unavailable [phone] Reason for Referral * Diagnostic Imaging MRI (Routine) - Closed Specialty Diagnoses / Procedures Referred By Yuki t Referred To Contact Radiology. Diagnoses S/P lumbar fusion Right testicular pain Procedures MR Lumbar Spine w/o & w Contrast Demi Link PA-C [facility] [address] [facility] [place] [address] Phone: tel: fax: [facility] [address] [place] [address] Phone: tel: fax: Referral ID Status Reason Start Date Expiration Date Visits Re quested Visits Authorized [id number] Closed 04/15/2025 04/15/2026 1 1 Encounter Details Date Type Department Care Team (Late st Contact Info) Description 04/15/[address] 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 Feng Does not believe right testicular pain would be coming from back however recommended lumbar MRI w/wo contrast to assess lumbar and sacral nerve roots to ensure we rule out any anatomic/structural causes. Orders in, our schedulers will call to update. If negative, Dr. Feng agrees with Dr. Rodriguez approach and next steps Updated Sony over the phone who was in agreement Demi Link PA-C [facility] Neurosurgery [address] [place] [address] Text page via [facility] Paging/Directory documented in this encounter Plan of Treatment Upcoming Encounters Date Type Department Care Team (Latest Contact Info) Description 06/10/2025 11:00 AM COMMERCIAL REAL ESTATE ASSISTANT Lab [facility] [address] [place] [address] 06/14/2025 1:30 PM COMMERCIAL REAL ESTATE ASSISTANT Office Visit [facility] [place] [address] [place] [phone] Joslyn Gregorio MD 6363 [place] [address] 08/16/2025 11:30 AM COMMERCIAL REAL ESTATE ASSISTANT Office Visit [address] [phone] Curtis Holland APRN SUPERVISOR PA[employer] DEPARTMENT [address] [place] [address] 09/28/2025 8:00 AM CDT Hospital Encounter [address]th [place] [phone] Good Fortune MD [address] [place] [address] 09/28/2025 8:00 AM CDT - 09/28/2025 11:[address] [facility] [address] [place] [address] 5[address] [place] [address] Good Fortune MD [address] [place] [address] RIGHT MICROSURGICAL SPERMATIC CORD DENERVATION, right orchidopexy 10/28/2025 1:20 PM CDT Office Visit [facility] Urology Clinic [address] [place] [phone] Good Fortune MD [address] [facility] 394 [place], [place] [id number] Scheduled Procedures Name Priority Associated Diagnoses Date/Ti me DENERVATION, SPERMATIC CORD, MICROSURGICAL Pain in right testicle 09/28/2025 8:00 AM CDT documented as of this encounter Results * MR Lumbar Spine [...] LUMBAR SPINE W/O and W CONTRAST LOCATION: [facility] DATE: 05/02/2025 INDICATION: ongoing right testicular pain [...] LUMBAR SPINE W/O and W CONTRAST LOCATION: [facility] DATE: 05/02/2025 INDICATION: ongoing right testicular pain [...] spine. No high-grade canalstenosis. Demi Link PA-C IMG MRI ORDERABLES Final Res ult documented in [...] Total Score: 2 05/20/20 24 3:48 PM COMMERCIAL REAL ESTATE ASSISTANT documented as of this encounter Care Teams Associate Dean Relationship Specialty Start Date End Date Lana Pond MD 500 [place] [address] Physician Neurology 05/21/24 Jarad Dickinson MD Assigned PCP 05/30/24 05/05/25 [place] [address] [place] [address] Pain Medicine 10/06/24 Nola Morris PA-C [address] [facility] 4TH [address] [place], [place] [address] Physician Velocity Shooter Anesthesiology 12/02/24 Pancho Feng MD 420 [facility] 96 [place], [place] [address] Assigned Neuroscience Provider 01/27/25 Joslyn Gregorio MD [address] [place] [address] Assigned Surgical Provider 01/27/25 documented as of this encounter
--- OUTSIDE RECORDS SUMMARY | 2025-05-12 02:19 | XMS_ITS | Encounter Summary ---
Author Organization [facility] Address [address] [place] [address] Care Team Providers Care General House Worker Name Role Phone Lana Pond MD Unavailable Jarad Dickinson MD Unavailable Unavailable Corinna Florentino MD Unavailable Nola Morris PA-C Unavailable [phone] Pancho Feng MD Unavailable Joslyn Gregorio MD Unavailable No Ref-Primary, Physician Primary Care Provider Curtis Holland APRN JOINT CREASER Primary Care Provider [phone] Curtis Holland APRN JOINT CREASER Unavailable [phone] Encounter Details Date Type Department Care Team (Late st Contact Info) Description 04/14/2025 [facility] Adv[facility] Neuro[facility] Clinic [address] [place] [address] Demi Link PA-C [facility] [address] [place] [address] Social History Tobacco Use Types [...] Answer Date Recorded PHQ-2 Score 2 04/02/2025 [facility] of Occupat ional Health - Occupational [...] on file Legal Sex Male 3:45 AM SECOND BALLER Gender Identity Not on file Sexual Orientation Not on file Occupation Industry Job Start Date Job End Date 2 Not on file Not on file Not on file documented as of this encounter Plan of Treatment Upcoming Encounters Date Type Department Care Team (Latest Contact Info) Description 06/10/2025 11:00 AM SECOND BALLER Lab [facility] [address] [place] [address] 06/14/2025 1:30 PM SECOND BALLER Office Visit [facility] [place] [address] [place] [address] Joslyn Gregorio MD [address] [facility] [place] [address] 08/16/2025 11:30 AM SECOND BALLER Office Visit [address] [address] Curtis Holland APRN [facility] [address] [place] [address] 09/28/2025 8:00 AM CDT Hospital Encounter [facility] 9[address] [facility] [address] 5th [place] [phone] Good Fortune MD 420 [facility] 394 [place] [address] 09/28/2025 8:00 AM CDT - 09/28/2025 11:15 AM CDT Surgery [facility] [place] [address] [place] [address] 5th [place] [phone] Good Fortune MD [address] [place] [address] 394 [place] [address] RIGHT MICROSURGICAL SPERMATIC CORD DENERVATION, right orchidopexy 10/28/2025 1:20 PM CDT Office Visit [facility] Clinic [address] 4th [place] [phone] Good Fortune MD [address] [address] Scheduled Procedures Name Priority Associated Diagnoses Date/Ti me DENERVATION, SPERMATIC CORD, MICROSURGICAL Pain in right testicle 09/28/2025 8:00 AM CDT documented as of this encounter Visit Diagnoses Not on filedocumented in this encounter Additional Health Concerns Assessment Noted Time PHQ-9 Depression Total Score: 2 05/20/20 3:48 PM SECOND BALLER documented as of this encounter Care Teams General House Worker Relationship Specialty Start Date End Date No Ref-Primary, Physician PCP - General 04/25/25 04/26/25 Curtis Holland APRN JOINT CREASER [address] [place] [address] PCP - General Family Medicine 04/27/25 Lana Pond MD [address] [place] [address] Physician Neurology 05/21/24 Jarad Dickinson MD Assigned PCP 05/30/24 05/05/25 [place] [address] [place] [address] Pain Medicine 10/06/24 Noal Morris PA-C 909 [facility] 4TH [address] [place], [place] [address] Physician Yard Associate Anesthesiology 12/02/24 Pancho Feng MD 420 [facility] 96 [place], [place] [address] Assigned Neuroscience Provider 01/27/25 Joslyn Gregorio MD [address] [place] [address] Assigned Surgical Provider 01/27/25 Curtis Holland APRN JOINT CREASER [address] [place] [address] Assigned PCP 05/06/25 documented as of this encounter
--- OUTSIDE RECORDS SUMMARY | 2025-05-12 02:19 | XMS_ITS | Encounter Summary ---
Author Organization [facility] Address [address] [place] [address] Care Team Providers Care Induction Coordination Power Engineer Name Role Phone Lana Pond MD Unavailable Jarad Dickinson MD Unavailable Unavailable Corinna Florentino MD Unavailable [phone] Nola Morris PA-C Unavailable [phone] Pancho Feng MD Unavailable [phone] Joslyn Gregorio MD Unavailable Curtis Holland APRN CLIN TECH Primary Care Provider [phone] Curtis Holland APRN CLIN TECH Unavailable Encounter Details Date Type Department Care Team (Late st Contact Info) Description 04/28/2025 Results Follow-Up [facility] [address] [place] [phone] Curtis Holland APRN [facility] [id number] [place] [address] Subj: Message about your results Social History [...] re latives? Once a week 05/20/2024 Attends Denominational Services Not on file 05/20 Active Member of Clubs or Organizations Not on f ile 05/20/2024 Attends Club or Organization Meetings Not on devorah e 05/20/2024 Marital Status Not on file 05/20/2024 PHQ-2 Answer Date Recorded PHQ-2 Score 3 04/27/2025 [facility] - Occupational Stress Questionnaire [...] file Legal Sex Male 3:45 AM UI APPLICATION DEVELOPER Gender Identity Not on file Sexual Orientation Not on file Occupation Industry Job Start Date Job End Date 2 Not on file Not on file Not on file documented as of this encounter Plan of Treatment Upcoming Encounters Date Type Department Care Team (Latest Contact Info) Description 06/10/2025 11:00 AM UI APPLICATION DEVELOPER Lab [facility] Laboratory [address] [place] [address] 06/14/2025 1:30 PM UI APPLICATION DEVELOPER Office Visit [facility] [place] [address] [facility] [address] [place] [phone] Joslyn Gregorio MD [address] [place] [address] 08/16/2025 11:30 AM UI APPLICATION DEVELOPER Office Visit [address] [phone] Curtis Holland APRN [facility] [address] [place] [address] 09/28/2025 8:00 AM CDT Hospital Encounter [address] 5th [place] [phone] Good Fortune MD [address] [place] [address] [address] [place] [address] 09/28/2025 8:00 AM CDT - 09/28/2025 11:15 AM CDT Surgery M [address] [place] [phone] Good Frotune MD [address] [place] [phone] RIGHT MICROSURGICAL SPERMATIC CORD DENERVATION, right orchidopexy 10/28/2025 1:20 PM CDT Office Visit [facility] [address] [place] [phone] Good Fortune MD [address] [place] [address]265 Scheduled Procedures Name Priority Associated Diagnoses Date/Ti me DENERVATION, SPERMATIC CORD, MICROSURGICAL Pain in right testicle 09/28/2025 8:00 AM CDT documented as of this encounter Visit Diagnoses Not on filedocumented in this encounter Additional Health Concerns Assessment Noted Time PHQ-9 Depression Total Score: 11 025 10:41 AM CDT documented as of this encounter Care Teams Induction Coordination Power Engineer Relationship Specialty Start Date End Date Curtis Holland APRN CLIN TECH [address] [place] [address] PCP - General Family Medicine 04/27/25 Lana Pond MD [address] [place] [address] [id number] Physician Neurology 05/21/24 Jarad Dickinson MD Assigned PCP 05/30/24 05/05/25 [place] [address] [place] [address] Pain Medicine 10/06/24 Nola Morris PA-C [address] [place] [address] Physician Print Inspector Anesthesiology 12/02/24 Pancho Feng MD [address] [place] [address] [address] [place] [address] Assigned Neuroscience Provider 01/27/25 Jsolyn Gregorio MD [address] [address] Assigned Surgical Provider 01/27/25 Curtis Holland APRN CLIN TECH [address] [place] [address] Assigned PCP 05/06/25 documented as of this encounter
--- OUTSIDE RECORDS SUMMARY | 2025-05-12 02:19 | XMS_ITS | Encounter Summary ---
Author Organization [facility] Address [address] [place] [address] Care Team Providers [employer] Principal Name Role Phone Lana Pond MD Unavailable Jarad Dickinson MD Unavailable Unavailable Corinna Florentino MD Unavailable [phone] Nola Morris PA-C Unavailable [phone] Pancho Feng MD Unavailable [phone] Joslyn Gregorio MD Unavailable [phone] Curtis Holland APRN [facility] Primary Care Provider [phone] Reason for Visit * Reason Onset Date Comments Schedule Surgery 04/28/2025 Scheduling Encounter Details Date Type Department Care Team (Late st Contact Info) Description 04/28/2025 Telephone [facility] [address] 4th [place] [address] Good Fortune MD [address] [address] Schedule Surgery (Scheduling) Social History Tobacco Use Types Packs/Day Years [...] re latives? 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 Good Fortune Spoke with: Sony (patient) Date of Surgery: 09/28/2025 Estimated Arrival time Discussed with Patient: No Location of surgery: [facility] Pre-Op H&P: patient to schedule at [facility] Labs: Not indicated in Case Request Imaging: Not Applicable 1 month Post-Op Appt Date: Dr. Fortune 10/28/2025 at 1:20 [place] [facility] [place] Imaging Date: Not indicated in Case Request Discussed with patient pre-op RN will call 2-3 days prior to surgery with arrival time and instructions: Yes Standard Surgery Packet Sent: Yes 04/28/25 via [facility] Message Additional Comments: Patient medical questions routed to RNCC, including request for a doctor's note to be off work until DOS Patient would like to be moved up if a sooner date opens up (on cancellation list) All patients questions were answered and was instructed to review surgical packet and call back with any questions or concerns. Opal haines on 04/28/2025 at 12:39 PM * Telephone Encounter - Opal Haines - 04/28/2025 12:20 PM CDT Left voicemail message for patient regarding scheduling surgery with Dr. Good Fortune. Provided contact number to discuss. P: [phone] __ Opal haines on 04/28/2025 at 12:22 PM documented in this encounter Plan of Treatment Upcoming Encounters Date Type Department Care Team (Latest Contact Info) Description 06/10/2025 11:00 AM UI ENGINEER Lab [facility] Laboratory [address] [place] [address] 06/14/2025 1:30 PM UI ENGINEER Office Visit [facility] [address] [facility] [address] [place] [phone] Joslyn Gregorio MD [address] [place] [address] 08/16/2025 11:30 AM UI ENGINEER Office Visit [facility] [address] [place] [phone] Curtis Holland APRN [employer] [address] [place] [address] 09/28/2025 8:00 AM CDT Hospital Encounter [address] [place] [phone] Good Fortune MD [address] [place] [phone] 09/28/2025 8:00 AM CDT - 09/28/2025 11:15 AM CDT Surgery [address] [place] [phone] Good Fortune MD [address] [place] [address] [address] [place], [place] [phone] RIGHT MICROSURGICAL SPERMATIC CORD DENERVATION, right orchidopexy 10/28/2025 1:20 PM CDT Office Visit [facility] [place] [id number] [phone] Good Fortune MD [address] [place] [address] [address] [place], [place] [phone] Scheduled Procedures Name Priority Associated Diagnoses Date/Ti me DENERVATION, SPERMATIC CORD, MICROSURGICAL Pain in right testicle 09/28/2025 8:00 AM CDT documented as of this encounter Visit Diagnoses Not on filedocumented in this encounter Additional Health Concerns Assessment Noted Time PHQ-9 Depression Total Score: 11 025 10:41 AM CDT documented as of this encounter Care Teams [employer] Principal Relationship Specialty Start Date End Date Curtis Holland APRN [facility] [address] [place] [address] PCP - General Family Medicine 04/27/25 Lana Pond MD [address] [place] [address] Physician Neurology 05/21/24 Jarad Dickinson MD Assigned PCP 05/30/24 05/05/25 [place] [address] [place] [address] Pain Medicine 10/06/24 Nola Morris PA-C [address] [place] [address] Physician Spray Blender Anesthesiology 12/02/24 Pancho Feng MD [address] [place] [address] Assigned Neuroscience Provider 01/27/25 Joslyn Gregorio MD [address] [place] [address] Assigned Surgical Provider 01/27/25 documented as of this encounter
[2025-05-12 02:21] VITALS: BP 141/87; PULSE 86; RESP 16; TEMP 36.9; O2SAT 98; BMI 32.9
[2025-05-12] MEDS: ONDANSETRON 2 MG/ML inj 4 MG IVP (02:40)
[2025-05-12 02:41] LABS: Hematocrit* 43.2 % (37.0-53.0); Hemoglobin* 13.9 gm/dL (13.5-17.5); Immature Granulocytes Abs Auto 0.02 K/uL (0.00-0.30); Immature Granulocytes Pct Auto 0.2 %; Mean Corpuscular HGB Conc 32 gm/dL (32-36); Mean Corpuscular Hemoglobin 26 pg (26-34); Mean Corpuscular Volume 80 fL (80-100); RDW Coefficient of Variation % 14.5 % (11.5-15.5); Red Blood Count* 5.39 m/uL (4.30-5.90); White Blood Count* 10.30 K/uL (4.50-11.00)
[2025-05-12 02:42] LABS: Lymphocytes Absolute Auto 1.40 K/uL (0.90-2.90); Slide Review Reflex No
[2025-05-12 02:55] LABS: Albumin* 4.9 g/dL (3.3-5.0); Chloride* 107 mmol/L (96-114); Potassium* 5.1 mmol/L (3.6-5.1); Sodium* 142 mmol/L (135-149)
[2025-05-12 02:57] LABS: Blood Urea Nitrogen* 29 mg/dL (7-30)
[2025-05-12 02:58] LABS: Alanine Aminotransferase* 24 U/L (4-50); Alkaline Phosphatase* 62 U/L (40-150); Anion Gap 9 mEq/L (7-15); Aspartate Amino Transferase* 19 U/L (12-35); Bilirubin Total* 0.6 mg/dL (0.1-1.5); Carbon Dioxide* 26 mmol/L (20-32); Creatinine* 1.4 mg/dL (0.5-1.5); Est. Creatinine Clearance* 75.45; Estimated Glomerular Filt Rate 61 ml/min; Total Protein* 7.3 g/dL (6.0-8.3)
[2025-05-12 02:59] LABS: Calcium* 10.1 mg/dL (8.4-10.6); Glucose* 242 mg/dL (60-115)
[2025-05-12 03:18] VITALS: O2SAT 98
[2025-05-12] MEDS: GI COCKTAIL (VISC LIDO/ANTACID) 30 ML PO (03:50)
[2025-05-12] MEDS: DICYCLOMINE HCL 10 MG CAPSULE PO (04:09)
[2025-05-12 04:13] VITALS: BP 138/74; PULSE 80; RESP 16; TEMP 36.9; O2SAT 98
[2025-05-12 04:30] VITALS: BP 138/74; PULSE 80; RESP 16; TEMP 36.9
== END 2025-05-12 04:31 | disposition home or self-care (01) ==
PROVIDERS: Emergency Provider Emergency Medicine
DX: R11.2 Nausea with vomiting, unspecified (principal); R19.7 Diarrhea, unspecified
CPT/HCPCS: 36415; 80053; 83690; 85025; 93005; 94761; 96374; 96375; 99284; 99285; A9270; J1171; J2405; J7030